=== PATIENT | female | born 1940 | race Caucasian/White ===

== ENCOUNTER 2017-12-26 11:20 | Outpatient (CLI) | payer MEDICARE, OTHER, SELFPAY ==
[2017-12-26 11:51] LABS: HCT 42.2 % (36.0-46.0); Mean Corp. HGB Concentration 33.2 g/dL (32.0-36.0); Mean Corpuscular Volume 96.6 fL (80-95); Mean Platelet Volume 12.5 fL (8.0-11.0); Platelet Count 174 x1000/uL (130-400); RBC 4.37 m/cumm (4.00-5.20); RBC Distribution Width 14.6 % (11.7-14.6); White Blood Cell Count 8.19 k/cumm (4.4-10.8)
[2017-12-26 13:08] LABS: ALT 27 U/L (12-78); AST 23 U/L (15-37); Albumin 3.5 g/dL (3.4-5.0); Alkaline Phosphatase 75 U/L (46-116); Anion Gap 8.2 mmol/L (3-11); BUN 15 mg/dL (7-18); Bilirubin, Total 0.6 mg/dL (0.2-1.0); CO2 27.8 mmol/L (21.0-32.0); Calcium 8.7 mg/dL (8.5-10.1); Chloride 103 mmol/L (98-107); Cholesterol 218 mg/dL (50-200); Glucose 115 mg/dL (70-100); HDL Cholesterol 67 mg/dL (40-60); LDL CHOLESTEROL 131 mg/dL (<100); Potassium 4.4 mmol/L (3.5-5.1); Sodium 139 mmol/L (136-145); Total Protein 7.4 g/dL (6.4-8.2); Triglyceride 150 mg/dL (30-150)
== END 2017-12-26 11:40 ==
PROVIDERS: PCP Nurse Practitioner; Visit Provider Nurse Practitioner
DX: D49.2 Neoplasm of unspecified behavior of bone, soft tissue, and skin (principal); E78.5 Hyperlipidemia, unspecified; I10 Essential (primary) hypertension
CPT/HCPCS: 36415; 80053; 80061; 83721; 85027

== ENCOUNTER 2018-05-27 11:08 | Outpatient (CLI) | payer MEDICARE, OTHER, SELFPAY ==
[2018-05-27 11:39] LABS: HCT 40.9 % (36.0-46.0); HGB 13.7 g/dL (12.0-15.5); Mean Corp. HGB Concentration 33.5 g/dL (32.0-36.0); Mean Corpuscular Hemoglobin 32.2 pg (27.0-33.0); Mean Platelet Volume 12.6 fL (8.0-11.0); Platelet Count 153 x1000/uL (130-400); RBC 4.26 m/cumm (4.00-5.20); RBC Distribution Width 14.2 % (11.7-14.6); White Blood Cell Count 8.61 k/cumm (4.4-10.8)
[2018-05-27 12:14] LABS: ALT 19 U/L (12-78); AST 20 U/L (15-37); Albumin 3.5 g/dL (3.4-5.0); Alkaline Phosphatase 67 U/L (46-116); Anion Gap 8.2 mmol/L (3-11); BUN 19 mg/dL (7-18); Bilirubin, Total 0.6 mg/dL (0.2-1.0); CO2 26.8 mmol/L (21.0-32.0); CREATININE 0.81 mg/dL (0.55-1.02); Calcium 8.9 mg/dL (8.5-10.1); Chloride 105 mmol/L (98-107); Glucose 117 mg/dL (70-100); Potassium 3.8 mmol/L (3.5-5.1); Sodium 140 mmol/L (136-145); TSH (W/Ref FT4) 2.36 uIU/mL (0.358-3.74); Total Protein 7.9 g/dL (6.4-8.2); Vitamin B12 689 pg/mL (193-986)
== END 2018-05-27 11:28 ==
PROVIDERS: PCP Nurse Practitioner; Visit Provider Nurse Practitioner
DX: I10 Essential (primary) hypertension (principal); E78.5 Hyperlipidemia, unspecified; R01.1 Cardiac murmur, unspecified; Z72.0 Tobacco use; M67.442 Ganglion, left hand
CPT/HCPCS: 36415; 80053; 85027; 99204; 99213; 82607; 84443

== ENCOUNTER 2018-07-09 00:33 | Outpatient (CLI) | payer MEDICARE, OTHER, SELFPAY ==
--- NOTE | 2018-07-09 14:10 | MERGE_ITS ---
*[facility]* *[facility]* [address] [place] [address] Date of study: 07/09/2018 Transthoracic Echocardiography M-mode, complete 2D, complete spectral Doppler, and color Doppler *STUDY CONCLUSIONS* Summary: 1. Left ventricle: The cavity size was normal. Wall thickness was normal. Systolic function was normal. The estimated ejection fraction was 60-65%. Wall motion was normal; there were no regional wall motion abnormalities. 2. Aortic valve: Valve mobility was restricted. 3. Mitral valve: Moderately thickened leaflets. There was mild to moderate regurgitation. 4. Left atrium: The atrium was mildly to moderately dilated. 5. Right ventricle: The cavity size was normal. Wall thickness was normal. Systolic function was normal. 6. Tricuspid valve: There was moderate regurgitation. 7. Pulmonary arteries: Pulmonary systolic pressure was increased, in the range of 35mm Hg to 40mm Hg. *PATIENT PRESENTATION* Height: 162.6cm ((64in) ) S/D Pressure: 147 / 76 Weight: 62.1kg ((136.7lb) ) BSA: 1.68m^2 Test start time: 02:15 PM. Test stop time: 03:10 PM. PERFORMING Unknown PERFORMING [facility] RESIDENTIAL MANAGER RT Lele (Thuy)(CT), [facility] ORDERING Giuliana Massey REFERRING Giuliana Massey *PROCEDURE DATA* Procedure information: The patient was identified by two identifiers. This study was interpreted by [facility]. Pertinent images and digital data are archived for permanent storage and are available for subsequent review. No prior study was available for comparison. Study status: Routine. Transthoracic echocardiography. M-mode, complete 2D, complete spectral Doppler, and color Doppler. A Transthoracic Echocardiogram was performed. Scanning was performed from the parasternal, apical, subcostal, and suprasternal notch acoustic windows. Images were obtained using an [id number] cardiac ultrasound machine. Image quality was adequate. Study completion: The patient tolerated the procedure well. There were no complications. History: PMH: Heart murmur r01.1, hyperlipidemia, tobacco use z72.0. *CARDIAC ANATOMY* Left ventricle: The cavity size was normal. Wall thickness was normal. Systolic function was normal. The estimated ejection fraction was 60-65%. Wall motion was normal; there were no regional wall motion abnormalities. Findings consistent with diastolic dysfunction. Aortic valve: Trileaflet; mildly thickened, mildly calcified leaflets. Valve mobility was restricted. Doppler: There was no stenosis. There was no significant regurgitation. VTI ratio of LVOT to aortic valve: 0.64. Valve area (VTI): 2cm^2. Indexed valve area (VTI): 1.2cm^2/m^2. Peak velocity ratio of LVOT to aortic valve: 0.65. Valve area (Vmax): 2cm^2. Indexed valve area (Vmax): 1.2cm^2/m^2. Mean velocity ratio of LVOT to aortic valve: 0.65. Valve area (Vmean): 2.1cm^2. Indexed valve area (Vmean): 1.2cm^2/m^2. Mean gradient (S): 6.1mm Hg. Peak gradient (S): 10.8mm Hg. Aorta: Aortic root: The aortic root was normal in size. Ascending aorta: The ascending aorta was normal in size. Mitral valve: Moderately thickened leaflets. Mobility was not restricted. Doppler: Transvalvular velocity was within the normal range. There was no evidence for stenosis. There was mild to moderate regurgitation. Valve area by pressure half-time: 2.7cm^2. Indexed valve area by pressure half-time: 1.6cm^2/m^2. Peak gradient (D): 2.2mm Hg. Left atrium: The atrium was mildly to moderately dilated. Right ventricle: The cavity size was normal. Wall thickness was normal. Systolic function was normal. Pulmonic valve: Structurally normal valve. Doppler: Transvalvular velocity was within the normal range. There was no evidence for stenosis. There was no significant regurgitation. Peak gradient (S): 4.4mm Hg. Tricuspid valve: Structurally normal valve. Doppler: Transvalvular velocity was within the normal range. There was no evidence for stenosis. There was moderate regurgitation. Pulmonary artery: Pulmonary systolic pressure was increased, in the range of 35mm Hg to 40mm Hg. Right atrium: The atrium was normal in size. Pericardium: There was no pericardial effusion. Systemic veins: Inferior vena cava: Well visualized. The vessel was patent and normal in size. The respirophasic diameter changes were in the normal range (greater than or equal to 50%). Baseline ECG: Bradycardia. Measurements Left ventricle Value Reference LV ID, ED, PLAX 5.3 cm 3.5 - 6.0 LV ID, ES, PLAX 3.2 cm 2.1 - 4.0 LV PW thickness, ED, PLAX 1.0 cm LV end-diastolic volume, 1-p A2C 69 ml LV ejection fraction, 1-p A2C 65 % LV end-diastolic volume, 1-p A4C 59 ml LV ejection fraction, 1-p A4C 62 % LV e', lateral 0.061 m/sec LV E/e', lateral 12 LV e', medial 0.048 m/sec LV E/e', medial 15 LV e', average 0.054 m/sec LV E/e', average 14 Ventricular septum Value Reference IVS thickness, ED, PLAX 1.1 cm LVOT Value Reference LVOT ID, S 2.0 cm LVOT ID, A-P 2.0 cm LVOT area 3.1 cm^2 LVOT peak velocity, S 1.07 m/sec LVOT mean velocity, S 0.77 m/sec LVOT VTI, S 27.3 cm LVOT peak gradient, S 4.6 mm Hg LVOT mean gradient, S 2.6 mm Hg Stroke volume (SV), LVOT DP 75 ml Stroke index (SV/bsa), LVOT DP 44 ml/m^2 Aortic valve Value Reference Aortic valve peak velocity, S 1.6 m/sec Aortic valve mean velocity, S 1.18 m/sec Aortic valve VTI, S 43.0 cm Aortic mean gradient, S 6.1 mm Hg Aortic peak gradient, S 10.8 mm Hg VTI ratio, LVOT/AV 0.64 Aortic valve area, VTI 2 cm^2 Velocity ratio, peak, LVOT/AV 0.65 Aortic valve area, peak velocity 2 cm^2 Velocity ratio, mean, LVOT/AV 0.65 Aortic valve area, mean velocity 2.1 cm^2 Aortic valve area/bsa, mean velocity 1.2 cm^2/m^2 Aorta Value Reference Aortic root ID, ED 2.7 cm Ascending aorta ID, A-P, S 3.1 cm Left atrium Value Reference LA ID, A-P, ES 4.5 cm LA ID/bsa, A-P (H) 2.7 cm/m^2 <=2.2 LA area, ES, A4C 20.8 cm^2 8.8 - 23.4 LA area, ES, A2C 20 cm^2 LA volume/bsa, ES, 1-p A4C 43 ml/m^2 LA volume, ES, 2-p 65 ml LA volume/bsa, ES, 2-p 39 ml/m^2 LA/aortic root ratio 1.63 Mitral valve Value Reference Mitral E-wave peak velocity 0.73 m/sec Mitral A-wave peak velocity 1.15 m/sec Mitral deceleration time (H) 278 ms 150 - 230 Mitral pressure half-time 81 ms Mitral peak gradient, D 2.2 mm Hg Mitral E/A ratio, peak 0.64 Mitral valve area, PHT, DP 2.7 cm^2 Pulmonary veins Value Reference Pulmonary vein peak velocity, S 0.63 m/sec Pulmonary vein peak velocity, D 0.32 m/sec Pulmonary vein velocity ratio, peak, 1.98 S/D Tricuspid valve Value Reference Tricuspid regurg peak velocity 3 m/sec Tricuspid peak RV-RA gradient 35 mm Hg Right atrium Value Reference RA area, ES, A4C 18.5 cm^2 8.3 - 19.5 Pulmonic valve Value Reference Pulmonic peak gradient, S 4.4 mm Hg Legend: (L) and (H) leonora values outside specified reference range. I have personally reviewed the images and have reviewed and edited the reported findings. Electronically signed by Isrrael Dodd 07/09/2018 16:32
== END 2018-07-09 00:53 ==
PROVIDERS: PCP Nurse Practitioner; Visit Provider Nurse Practitioner
DX: R01.1 Cardiac murmur, unspecified (principal); E78.5 Hyperlipidemia, unspecified; I51.7 Cardiomegaly; I08.1 Rheumatic disorders of both mitral and tricuspid valves; Z72.0 Tobacco use
CPT/HCPCS: 93306

== ENCOUNTER 2018-07-18 08:50 | Day surgery (SDC) | payer MEDICARE, OTHER, SELFPAY ==
[2018-07-18 09:08] VITALS: BP 174/81; PULSE 59; RESP 16; TEMP 35.4; O2SAT 100
[2018-07-18] MEDS: Lactated Ringers 1,000 ML 80 ML IV (09:21)
--- NOTE | 2018-07-18 10:45 | W.PM.DSUDISC ---
Discharge Plan Disposition Patient Disposition: HOME Condition: Good Discharge Details Reason For Visit: Left Hand Mass Attending Provider: Surinder Altman Primary Care Provider: Giuliana Massey Home Meds and New Rx's Prescriptions: Continued Shingrix (PF) 50 mcg/0.5 mL suspension for reconstitution 50 mcg IM ONCE Qty: 1 RF: 1 Women's 50+ Daily Form (gkb) 1 EACH tablet 1 ea PO DAILY RF: 0 cholecalciferol (vitamin D3) 1,000 UNIT capsule 1,000 unit PO DAILY RF: 0 biotin 5 MG tablet 5 mg PO DAILY Qty: 1 RF: 0 ascorbic acid (vitamin C) [Vitamin C] 250 MG tablet 2 tab PO DAILY RF: 0 Probiotic 1 EACH capsule 1 ea PO RF: 0 trazodone 50 MG tablet 50 mg PO HS Qty: 30 RF: 3 simvastatin 20 mg tablet 20 mg PO DAILY Qty: 90 RF: 4 lisinopril 40 mg tablet 40 mg PO DAILY Qty: 90 RF: 3 Discharge Instructions Stand Alone Forms: Anupama Dougherty Finger Release Referrals: Surinder Altman MD [ [facility] STAFF PHYSICIAN] - Activity:: Elevate Remove Dressings/Wound Care:: 48 hours Shower/Bathe:: 48 hours Diet:: As Tolerated Discharge Orders Discharge Orders: Discharge Order (Routine); Ordered 07/18/18 Ordered By: Surinder Altman DS: Diagnosis Discharge Diagnosis (1) 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
--- NOTE | 2018-07-18 10:59 | SOFT_PTH ---
PATIENT: Tammi Ivan LOC: [facility] U#:[id number] AGE/SX: 78/F ROOM: RE07/18/[address]: Surinder Altman MD : 1940 BED: DIS: 07/18/2018 SPEC #: [id number] RECD: 07/18/18 13:09 STATUS: ANA RETenzin #: [id number] ANIKA: 07/18/18 10:[address]: Surinder Altman DEPT: Surgical Specimen RECD BY: Melissa Hercules ENTERED: 07/18/18 13:10 SP TYPE: SOFT OTHR DR: Giuliana Massey APRN Tissues: 1 - SOFT TISSUE-CYST(NOT LIPOMA) Procedures: GROSS AND MICRO LEVEL 4 IMMUNOPEROXIDASE STAIN Comments: [id number]
[2018-07-18] MEDS: Lidocaine 1% Multi-Dose 50 ML VIAL (11:02)
--- NOTE | 2018-07-19 16:05 | ROE_ITS ---
DATE OF SURGERY: July 18, 2018 PREOPERATIVE DIAGNOSIS: Left palmar hand mass. POSTOPERATIVE DIAGNOSIS: Left hand mass, likely ganglion cyst. SURGERY: Excisional biopsy of left palmar hand mass. SURGEON: Surinder Altman M.D. ANESTHESIA: Local. ESTIMATED BLOOD LOSS: Minimal. COMPLICATIONS: None. DISPOSITION: The patient was taken back to the same-day surgery area in stable condition. INDICATION FOR PROCEDURE: Davida is a 78-year-old who has had a notable mass of the left palmar aspec t of the hand in line with the ring finger. It seems to be getting larger over the course of a few y ears. It does not cause any significant irritation. However, direct pressure causes pain. Given it s size and its impedance to using the palm of the hand, I recommended excisional biopsy. I reviewed the risks of the procedure to include bleeding, infection, pain, stiffness, damage to nerves and vess els, damage to muscles and tendons, recurrence, need for repeat procedures. Despite these risks, she elected to proceed. PROCEDURE DESCRIPTION: Davida was greeted in the preoperative holding area. Her identity was confirm ed and the correct side was identified and marked. The consent was reviewed with the patient and sig kandace. The history and physical was updated. She was taken back to the operating room, placed in the supine position. The left hand was placed on the hand table. All prominences were well-padded. The left hand was prepped with ChloraPrep. It was then draped in a standard fashion. Prophylactic anti biotics in the form of Cefazolin were given. A time-out was performed for safe surgery. A Cait-type incision was then made just to the ulnar border of the mass. The mass did seem to tent the skin and tighten the skin in this area and therefore I did not want to go directly on top of it. I used her normal creases to create this incision pattern. Once this was done, blunt dissection wa s used to identify the mass below. The capsule of it was identified. I was able to release the caps ule of the mass. There was a small amount of some granular tissue seen on the edge. However, I did not see anything that looked particularly worrisome. There was no necrosis or other signs of an inva sive disease. It did appear to be a ganglion, although it did not seem to rise from the flexor tendo n as I had expected. After the sheath was entered I was able to release it from the sheath completel y and remove it from the hand. It was sent to Pathology. The deep tissue was then irrigated. The s kin was closed with a #5-0 Nylon. The wound was dressed with Xeroform, 4x4's, conforming dressing. At the end of the case all counts were correct. She was transferred back to same-day surgery in a st able condition.
== END 2018-07-18 11:00 | disposition home or self-care (01) ==
PROVIDERS: PCP Nurse Practitioner; Visit Provider Student in an Organized Health Care Education/Training Program
PROC: (CPT 26115; principal; 2018-07-18 10:15)
DX: D36.10 Benign neoplasm of peripheral nerves and autonomic nervous system, unspecified (principal); F17.210 Nicotine dependence, cigarettes, uncomplicated
CPT/HCPCS: 26115; 88305; 88361

== ENCOUNTER 2018-07-26 09:15 | Outpatient (CLI) | payer MEDICARE, OTHER, SELFPAY ==
[2018-07-26 11:15] LABS: Cholesterol 202 mg/dL (50-200); HDL Cholesterol 56 mg/dL (40-60); LDL CHOLESTEROL 114 mg/dL (<100); Triglyceride 122 mg/dL (30-150)
== END 2018-07-26 09:35 ==
PROVIDERS: PCP Nurse Practitioner; Visit Provider Nurse Practitioner
DX: E78.5 Hyperlipidemia, unspecified (principal); I10 Essential (primary) hypertension; Z47.89 Encounter for other orthopedic aftercare; D36.12 Benign neoplasm of peripheral nerves and autonomic nervous system, upper limb, including shoulder
CPT/HCPCS: 36415; 80061; 83721

== ENCOUNTER 2019-02-02 18:31 | Inpatient (IN) | payer MEDICARE, OTHER, SELFPAY ==
[2019-02-02] VITALS (7 sets, daily range): BP systolic 121–186; BP diastolic 60–99; PULSE 85–100; RESP 14–21; TEMP 35.2–37.5; O2SAT 94–98
--- NOTE | 2019-02-02 18:44 | ED.GENADUL_ITS ---
Discharge Plan Disposition Patient Disposition: [facility] INPATIENT Condition: Serious Discharge Details Chief Complaint: Trauma Clinical Impression: Acute kidney injury, Hip fracture, intertrochanteric Primary Care Provider: Giuliana Massey ED Provider: Abrahan Redd Home Meds and New Rx's Prescriptions: No Action Shingrix (PF) 50 mcg/0.5 mL suspension for reconstitution 50 mcg IM ONCE Qty: 1 RF: 1 valacyclovir 1 gram tablet 1,000 mg PO TID Qty: 21 RF: 0 metronidazole 0.75 % cream 1 applic TP QHS Qty: 45 RF: 6 acetaminophen-codeine 300-30 mg tablet 1 tab PO TID PRN (Reason: pain) Qty: 15 RF: 0 simvastatin 20 mg tablet 20 mg PO DAILY Qty: 90 RF: 4 Women's 50+ Daily Form (gkb) 1 EACH tablet 1 ea PO DAILY RF: 0 cholecalciferol (vitamin D3) 1,000 UNIT capsule 1,000 unit PO DAILY RF: 0 ascorbic acid (vitamin C) [Vitamin C] 250 MG tablet 2 tab PO DAILY RF: 0 Probiotic 1 EACH capsule 1 ea PO RF: 0 trazodone 50 MG tablet 50 mg PO HS Qty: 30 RF: 3 lisinopril 40 mg tablet 40 mg PO DAILY Qty: 90 RF: 3 Medical Decision Making This patient is a 78-year-old female who presents to the emergency department with chief complaint of a fall, being found down. She will need CT scan of the head, neck, chest x-ray, pelvic x-ray and hip x-ray. She will need blood work to check her CPK. EKG will be done. She would then be reassessed. X-rays revealed a right displaced intertrochanteric fracture. No other acute abnormalities on x-rays. Patient does have acute kidney injury with a mild bump in her creatinine kinase. She will need admission to the hospital. I spoke with the on-call orthopedic doctor and with the admitting hospitalist. Patient agrees with inpatient treatment plan. Medical Records Medical records reviewed: Yes I reviewed the patient's medical records. Lab Data Lab results reviewed: Yes I reviewed the patient's lab results. ECG Data Attestation: I personally reviewed and interpreted this ECG (s) as follows: Interpretation: EKG shows sinus rhythm, rate of 94, multiple PVCs, no ST elevation. Poor baseline. HPI This patient is a 78-year-old female who presents to the emergency department with chief complaint of fall last night. She states that she does not know how she fell, she found herself on the floor. She remained there until today when she was found by a neighbor. EMS was called and they brought her here. She complains of right hip pain. This is her chief complaint and really only complaint at this time. She denies any numbness or tingling. No recent chest pain, difficulty breathing, vomiting or diarrhea. No dysuria. Nothing except remaining still has made it better. Movement makes it worse. It is a sharp, severe pain. General Date/Time Provider Initiated Documentation: 02/02/19 18:37 . Related Data Home Medications Medication Instructions Recorded Confirmed Women's 50+ Daily Form (gkb) 1 ea PO DAILY 09/04/12 02/02/19 cholecalciferol (vitamin D3) 1,000 unit PO DAILY 10/02/13 02/02/19 ascorbic acid (vitamin C) [Vitamin 2 tab PO DAILY 07/04/16 02/02/19 C] Probiotic 1 ea PO 01/11/17 08/27/18 trazodone 50 mg PO HS #30 tab 05/10/17 02/02/19 varicella-zoster gE-AS01B (PF) 50 50 mcg IM ONCE #1 each 12/27/17 02/02/19 mcg/0.5 mL IM susp, kit lisinopril 40 mg tablet 40 mg PO DAILY #90 tab-cap 06/10/18 02/02/19 simvastatin 20 mg tablet 20 mg PO DAILY #90 tab-cap 01/07/19 02/02/19 acetaminophen 300 mg-codeine 30 mg 1 tab PO TID PRN #15 tab 01/28/19 02/02/19 tablet metronidazole 0.75 % topical cream 1 applic TP QHS #45 gm 01/28/19 02/02/19 valacyclovir 1 gram tablet 1,000 mg PO TID #21 tab 01/28/19 02/02/19 Previous Rx's Medication Instructions Recorded trazodone 50 mg PO HS #30 tab 05/10/17 varicella-zoster gE-AS01B (PF) 50 50 mcg IM ONCE #1 each 12/27/17 mcg/0.5 mL IM susp, kit lisinopril 40 mg tablet 40 mg PO DAILY #90 tab-cap 06/10/18 simvastatin 20 mg tablet 20 mg PO DAILY #90 tab-cap 01/07/19 acetaminophen 300 mg-codeine 30 mg 1 tab PO TID PRN #15 tab 01/28/19 tablet metronidazole 0.75 % topical cream 1 applic TP QHS #45 gm 01/28/19 valacyclovir 1 gram tablet 1,000 mg PO TID #21 tab 01/28/19 Allergies Allergy/AdvReac Type Severity Reaction Status Date / Time No Known Allergies Allergy Verified 01/28/19 10:05 Review of Systems Narrative: Gen: no fevers. Card: no chest pain. Resp: No cough, difficulty breathing. Abd: no vomiting, abd pain. The rest of the 10 point review of systems is negative except as described in the HPI and above in the ROS. [facility] Medical History Rosacea (Acute) Surgical History Appendectomy (~2000) endometrial biopsy (~1995) neg facetectomy s/p left sided L4-L5 faceectomy; Dr. Arenas FORAMINOTOMY LUMBAR SEG History of excision of lesion (Acute 01/11/18) [place] [facility] [place] LAMINECTOMY DECOMPRESS Ligation of fallopian tube Family History Mother Neoplasm Father Heart disease Sister Heart disease Social History Smoking/Tobacco Use Status: Current every day Tobacco Type: cigarettes Smoking packs per day: 0.5 Smoking cigarettes per day: 10.0 Tobacco: How many years used: 25 Alcohol Intake: current Alcohol Intake frequency: 0-2 drinks per day Drug use: Never Substance use type: does not use Caregiver/Support person: No Pets and animals: Yes Pets and animals: dog(s) What type of physical activity do you participate in: none Seatbelt use: always Do you feel safe in your relationship?: Yes Exam Narrative Exam Narrative: Gen: no acute distress, alert. Eyes: Pupils equal, reactive to light, EOMs intact. ENT: nose and ears normal, posterior pharynx without injection or swelling. Neck: normal ROM. not tender. Lung: Clear to auscultation bilaterally, no respiratory distress. Card: RRR, normal S1, S2, no M/R/G. 2+ radial pulses bilaterally. Abd: soft, non-tender, no hepatosplenomegaly (shingles rash healing on abdomen). Upper extremity: no deformity or tenderness. there is a 4.5 cm in diameter skin tear to the left arm. Lower extremity: no edema. there is tendenress to right hip and it has limited ROM due to pain. normal distal sensation and movement. Neuro: speech normal, no gross motor deficits. Psych: alert and oriented to person, place time, normal affect. Skin: warm, intact.
--- NOTE | 2019-02-02 18:53 | DI.CT_ITS ---
EXAM: CT HEAD CERVICAL SPINE WO CLINICAL HISTORY: fall yesterday, found down. TECHNIQUE: Noncontrast COMPARISON: NECK WITHOUT CONTRAST from 01/30/2016 FINDINGS: HEAD: No intracranial hemorrhage or skull fracture is seen. There is mild atrophy. There is an old left basal ganglia lacunar infarct. There is patchy low attenuation in the white matter consistent wi th small vessel disease. The orbits, sinuses and mastoid air cells are unremarkable. C spine: There is no evidence of fracture or subluxation. There are degenerative disc changes, great est at C5-6 and C6-7. There are also prominent facet joint degenerative changes. The airway is unre markable. No pneumothorax is seen at the lung apices. IMPRESSION: Old left basal ganglia lacunar infarct. No acute abnormality. No acute abnormality. Degenerative changes.
--- NOTE | 2019-02-02 18:53 | DI.RAD_ITS ---
EXAM: XR CHEST 1V IN DI DEPT INDICATION: fall yesterday, found down.. COMPARISON: CHEST 2 VIEWS PA,LAT from 10/06/2013 TECHNIQUE: 2D digital imaging was performed. FINDINGS: Heart size is normal. The aorta is tortuous. There are underlying fibrotic changes. No superimpose d infiltrate, effusion or pulmonary edema is seen. There is no evidence of pneumothorax. There is n o grossly displaced rib fracture. IMPRESSION: Chronic interstitial changes. No acute abnormality.
--- NOTE | 2019-02-02 19:16 | NUR.NOTE ---
BIBA from home with c/o hip pain s/p fall. Pt had mechanical fall on stairs last night at 1830. Home with no power, pt was on floor for approx 24 hours. Cool to touch, rectal temp 95.4. Alfredo hugger placed on arrival. +PP, +CSM. arrives with 2 IV. Pt denies headstrike, unsure of LOC. Denies neck pain.
[2019-02-02 19:23] LABS: Abs Immature Grans 0.09 k/cumm (0.0-0.09); HCT 33.4 % (36.0-46.0); HGB 11.4 g/dL (12.0-15.5); Mean Corp. HGB Concentration 34.1 g/dL (32.0-36.0); Mean Corpuscular Hemoglobin 32.4 pg (27.0-33.0); Mean Corpuscular Volume 94.9 fL (80-95); Mean Platelet Volume 12.3 fL (8.0-11.0); Platelet Count 171 x1000/uL (130-400); RBC 3.52 m/cumm (4.00-5.20); RBC Distribution Width 12.8 % (11.7-14.6); White Blood Cell Count 20.88 k/cumm (4.4-10.8)
[2019-02-02 19:35] LABS: Absolute Lymphocyte Count 1.46 k/cumm (1.2-3.4); Absolute Neutrophil Count 17.12 k/cumm (1.2-6.7); Atypical Lymphocytes % 0
[2019-02-02 19:36] LABS: Diff Comment Manual Differential; RBC Morphology Normal
[2019-02-02] MEDS: Normal Saline 1,000 ML 1000 ML IV (19:38)
[2019-02-02 19:45] LABS: ALT 29 U/L (14-59); AST 47 U/L (15-37); Albumin 3.1 g/dL (3.4-5.0); Alkaline Phosphatase 60 U/L (46-116); Anion Gap 18.6 mmol/L (3-11); BUN 35 mg/dL (7-18); Bilirubin, Total 0.6 mg/dL (0.2-1.0); CO2 18.4 mmol/L (21.0-32.0); CREATININE 1.83 mg/dL (0.55-1.02); Calcium 8.3 mg/dL (8.5-10.1); Chloride 102 mmol/L (98-107); Glucose 123 mg/dL (70-100); Potassium 3.8 mmol/L (3.5-5.1); Sodium 139 mmol/L (136-145); Total Protein 6.8 g/dL (6.4-8.2)
[2019-02-02 19:46] LABS: Creatine Kinase 1482 U/L (26-192); Magnesium 1.7 mg/dL (1.8-2.4); Troponin I < 0.05 ng/mL (0.00-0.06)
--- NOTE | 2019-02-02 19:47 | NUR.NOTE ---
Pt reports recent dx of shingles, noted to have scabbed blisters from right abd around right hip to right buttocks.
--- NOTE | 2019-02-02 20:36 | DI.RAD_ITS ---
EXAM: XR HIP RT COMPLETE AP PELVIS INDICATION: fall yesterday, found down. COMPARISON: LUMBAR SPINE COMPLETE from 09/27/2011 TECHNIQUE: 2D digital imaging was performed. FINDINGS: There is an intertrochanteric fracture of the right femur. There is severe superior displacement of the femur. The lesser trochanter is fractured as separate fragment. There is also some comminution at the greater trochanter. The hip joint space is relatively well maintained. There is prominent serra perior acetabular spurring. IMPRESSION: Comminuted, severely displaced intertrochanteric fracture of the right femur.
--- NOTE | 2019-02-02 20:40 | DI.VRAD_ITS ---
PROCEDURE INFORMATION: Exam: XR Right Hip with Pelvis when Performed Exam date and time: 02/02/2019 6:55 PM Clinical history: 78 years old, female; Other: Fall yesterday, found today TECHNIQUE: Imaging protocol: XR Right hip with pelvis when performed. Views: 2 or 3 views. COMPARISON: No relevant prior studies available. FINDINGS: Tubes, catheters and devices: Hyperattenuating device noted projecting over the midline lower pelvis. Bones/joints: There is comminuted, displaced right proximal femoral intertrochanteric fracture involving the greater and lesser trochanter with displacement of the lesser trochanter. There is significant proximal migration of the femoral shaft. Moderate degenerative change of the right hip, no hip dislocation. Soft tissues: Moderate to severe right hip soft tissue edema.. Gastrointestinal tract: There is mild gaseous distention of the rectum. IMPRESSION: Displaced, comminuted proximal right femoral intertrochanteric fracture. Recommend orthopedic surgical consultation. Dictated and Authenticated by: Scott Barber MD. Ordering:SAÚL Gauthier MD
--- NOTE | 2019-02-02 20:41 | DI.VRAD_ITS ---
PROCEDURE INFORMATION: Exam: XR Chest, 1 View Exam date and time: 02/02/2019 6:55 PM Clinical history: 78 years old, female; Other: Fall yesterday, found today TECHNIQUE: Imaging protocol: XR of the chest Views: 1 view. COMPARISON: CR CHEST 2 VIEWS PA,LAT 10/06/2013 9:20 AM FINDINGS: Lungs: Lungs are adequately inflated and symmetric. No focal consolidation or pulmonary edema. There is perihilar and bibasilar interstitial thickening, similar to prior, with linear inferior left hemithorax opacity, likely chronic subsegmental atelectasis and/or scarring. Pleural space: No pleural effusion. No pneumothorax. Heart/Mediastinum: Cardiomediastinal contours within normal limits. Vasculature: Vascular calcifications of the aortic arch. Bones/joints: Mild S-shaped curvature of the thoracolumbar spine. No acute osseous findings. Soft tissues: No focal soft tissue abnormailty. IMPRESSION: No acute cardiopulmonary finding. Unchanged chronic interstitial thickening. Dictated and Authenticated by: Scott Barber MD. Ordering:SAÚL Gauthier MD
[2019-02-02 20:50] LABS: Bilirubin Small (Negative); Blood Small (Negative); Clarity Clear (Clear); Glucose Negative (Negative); Ketones 15 mg/dL (Negative); Leukocyte Esterase Negative (Negative); Nitrite Negative (Negative); Specific Gravity 1.025 (1.005-1.025); Urobilinogen 0.2 EU/dL (Up TO 0.2); pH 5.5 (5-8)
--- NOTE | 2019-02-02 20:51 | DI.VRAD_ITS ---
PROCEDURE INFORMATION: Exam: CT Head Without Contrast Exam date and time: 02/02/2019 8:03 PM Clinical history: 78 years old, female; Other: Fall yesterday, found down. ; Other: Fall, trauma TECHNIQUE: Imaging protocol: Computed tomography of the head without contrast. Radiation optimization: All CT scans at this facility use at least one of these dose optimization techniques: automated exposure control; mA and/or kV adjustment per patient size (includes targeted exams where dose is matched to clinical indication); or iterative reconstruction. COMPARISON: No relevant prior studies available. FINDINGS: Brain: There is mild age related parenchymal atrophy with prominence of the cortical sulci. Periventricular and deep white matter hypodensities are consistent with sequela of chronic microvascular ischemic disease. Elias-white matter differentiation is preserved. No acute intracranial hemorrhage. Focal CSF density area within the posterior limb of the left internal capsule is consistent with old infarct. Ventricles: Unremarkable.No ventriculomegaly. Bones/joints: Unremarkable. No acute fracture. Sinuses: Paranasal sinuses are well aerated without air fluid level. Mastoid air cells: No mastoid effusion. Orbits: Unremarkable. Soft tissues: No focal soft tissue abnormality. Vasculature: Vascular calcifications within the vertebral and carotid arteries are present. IMPRESSION: No acute intracranial finding. Chronic/senescent changes as discussed. PROCEDURE INFORMATION: Exam: CT Cervical Spine Without Contrast Exam date and time: 02/02/2019 8:03 PM Clinical history: 78 years old, female; Other: Fall yesterday, found down. ; Other: Fall, trauma TECHNIQUE: Imaging protocol: Computed tomography images of the cervical spine without contrast. Radiation optimization: All CT scans at this facility use at least one of these dose optimization techniques: automated exposure control; mA and/or kV adjustment per patient size (includes targeted exams where dose is matched to clinical indication); or iterative reconstruction. COMPARISON: No relevant prior studies available. FINDINGS: Vertebrae: Diffuse decrease in osseous mineralization compatible with osteopenia. No acute fracture. No spondylolisthesis. There is severe multilevel facet hypertrophic changes, asymmetric to the left. Discs/Spinal canal/Neural foramina: There is moderate degenerative disc changes at the C5-C7 levels with moderate to severe intervertebral disc height loss. There is mild osseous central canal narrowing at the C5-C7 levels with mild to moderate bilateral osseous neuroforaminal narrowing, left greater than right. Retropharyngeal space: Within normal limits. Soft tissues: No focal abnormality. Thyroid: No mass. Lymph nodes: No pathologically sized nodes by CT size criteria. Lungs: Lung apices are clear. IMPRESSION: 1. No acute fracture. 2. Moderate to severe cervical spondylosis. 3. Osteopenia. Dictated and Authenticated by: Scott Barber MD. Ordering:SAÚL Gauthier MD
[2019-02-02 20:59] LABS: Bacteria Few HPF (Negative); C & S Indicated? No; Casts Negative LPF (Negative); Crystals Negative HPF (Negative); Epithelial Cells Negative HPF (Negative); Mucus Trace (Negative); Other Cells Negative (Negative); WBC Negative HPF (0-5)
--- NOTE | 2019-02-02 21:33 | HPE_ITS ---
Date of service: 02/02/19 Time of Service: 21:33 Assessment and Plan Assessment and plan (1) Intertrochanteric fracture of right femur: Start date: 02/02/19 Start time: 21:51 Status: Acute Assessment and plan: This is a 78-year-old lady here for recent fall at home where she stayed on the floor on the couch 4 hours prior to coming to the ED. She has mild rhabdomyolysis and dehydration along with a displaced inter trochanteric right hip fracture. We will continue pain control with IV hydration and keep her n.p.o. after midnight with orthopedic consultation in place with Dr. Rivera who should see her in the morning. She does have some chronic cardiac history with dysrhythmias and mitral regurgitation but no previous CAD manifestations by history with no acute findings on EKG other than her dysrhythmia and poor baseline in the ED. We will trend her troponins and watch her telemetry hopefully clearing her for surgery as available tomorrow. Qualifiers: Encounter type: initial encounter Fracture alignment: displaced Fracture type: closed Qualified Code(s): S72.141A - Displaced intertrochanteric fracture of right femur, initial encounter for closed fracture (2) Rhabdomyolysis: Start date: 02/02/19 Start time: 21:51 Status: Acute Assessment and plan: IV hydration and CPK along with renal functions. Qualifiers: Encounter type: initial encounter Rhabdomyolysis type: traumatic Qualified Code(s): T79.6XXA - Traumatic ischemia of muscle, initial encounter (3) Dehydration, moderate: Start date: 02/02/19 Start time: 21:51 Status: Acute Assessment and plan: IV hydration and follow-up on labs. If she continues to have low magnesium IV magnesium to stabilize the patient preoperatively. History of Present Illness History of Present Illness Chief Complaint: Fall with right hip pain Narrative: This is a 78-year-old lady who lives alone who was getting ready for bed the night prior to admission when she was at the bottom of the stairs falling onto her right side injuring her right hip. She could not get up, therefore crawled to the couch on the first floor and was down for the day. She initially called for help and came to the ED the evening of admission with evaluation revealing mild rhabdomyolysis with and not being clear whether she was on the floor on account and dehydration with a displaced right intertrochanteric femur fracture. She admitted for IV hydration and orthopedics was consulted through the ED to see the patient tomorrow morning. She also had a recent episode of shingles over her right hip area and is on treatment for this. This rash is drying. She denies any chest pain, shortness of breath or neurological symptoms prior to her fall and thinks that she simply fell on the stairs at the bottom and not down the stairs. Imaging of her head and neck were negative. She does have an elevated white count but no evidence of active infection and this may be secondary to stress. He has had no fever or chills. He has had no urinary symptoms. Her appetite presently is decreased because of her pain. Review of Systems Narrative: 13 point review of systems otherwise unrevealing or stable. Patient does live alone and independently. [facility] Medical History Rosacea (Acute) Surgical History Appendectomy (~2000) endometrial biopsy (~1995) neg facetectomy s/p left sided L4-L5 faceectomy; Dr. Arenas FORAMINOTOMY LUMBAR SEG History of excision of lesion (Acute 01/11/18) [place] [facility] [place] LAMINECTOMY DECOMPRESS Ligation of fallopian tube Family History Mother Neoplasm Father Heart disease Sister Heart disease Social History Smoking/Tobacco Use Status: Current every day Tobacco Type: cigarettes Smoking packs per day: 0.5 Smoking cigarettes per day: 10.0 Tobacco: How many years used: 25 Alcohol Intake: current Alcohol Intake frequency: 0-2 drinks per day Drug use: Never Substance use type: does not use Caregiver/Support person: No Pets and animals: Yes Pets and animals: dog(s) What type of physical activity do you participate in: none Seatbelt use: always Do you feel safe in your relationship?: Yes Meds Home Medications and Allergies Home Medications Medication Instructions Recorded Confirmed Type Women's 50+ Daily Form (gkb) 1 ea PO DAILY 09/04/12 02/02/19 History cholecalciferol (vitamin D3) 1,000 unit PO DAILY 10/02/13 02/02/19 History ascorbic acid (vitamin C) [Vitamin 2 tab PO DAILY 07/04/16 02/02/19 History C] Probiotic 1 ea PO 01/11/17 08/27/18 History trazodone 50 mg PO HS #30 tab 05/10/17 02/02/19 Rx varicella-zoster gE-AS01B (PF) 50 50 mcg IM ONCE #1 each 12/27/17 02/02/19 Rx mcg/0.5 mL IM susp, kit lisinopril 40 mg tablet 40 mg PO DAILY #90 tab-cap 06/10/18 02/02/19 Rx simvastatin 20 mg tablet 20 mg PO DAILY #90 tab-cap 01/07/19 02/02/19 Rx acetaminophen 300 mg-codeine 30 mg 1 tab PO TID PRN #15 tab 01/28/19 02/02/19 Rx tablet metronidazole 0.75 % topical cream 1 applic TP QHS #45 gm 01/28/19 02/02/19 Rx valacyclovir 1 gram tablet 1,000 mg PO TID #21 tab 01/28/19 02/02/19 Rx Allergies Allergy/AdvReac Type Severity Reaction Status Date / Time No Known Allergies Allergy Verified 01/28/19 10:05 Exam Narrative Exam Narrative: General: Patient appears older than stated age, flattened affect but normal eye contact and variation. She is alert and oriented at least to person and place. He is in moderate distress from her right hip pain. HEENT: Normocephalic with eyes revealing pupils equal and reactive to light sy mmetrically, extraocular movement intact and sclera anicteric. Oropharynx with dry oral mucosa. Ears normal. Neck: Supple without JVD. Lungs: Clear to auscultation with no focalizing rales, rhonchi or expiratory wheeze. Chest: Slightly tender to palpation over the anterior chest with no bruising or crepitus. Symmetric with inspiration. Breast: Exam deferred. Heart: Irregular rhythm with frequent extrasystoles (on surveillance monitor these are unifocal PVCs with occasional PACs), normal S1 and S2 with no gallops. 4/6 holosystolic murmur over the apex (patient states he does have mitral regurgit ation). Abdomen: Scaphoid contour, soft and nontender to palpation with no palpable hepatosplenomegaly. Bowel sounds are positive all quadrants. Genitalia/rectal: Exam deferred. Extremities: Tenderness over the right hip with any movement and no swelling or bruising though there is a drying zoster rash over her right hip area and inguinal region, nonpitting edema lower extremities with peripheral pulses intact and no clubbing. Osteoarthritic changes of the joints diffusely. Skin: Zoster rash over the right hip area and rosacea rash over face with diffuse actinic changes of the skin, decreased turgor and slightly pale. Neuro: Tato 2 through 12 grossly intact, no focalizing motor deficits and sensory grossly back. No Babinski's. Psych: Patient may have some short-term memory loss, flattened affect but normal mood and thought processes. Results Imaging Imaging Studies: Exam(s) PROCEDURE INFORMATION: Exam: XR Right Hip with Pelvis when Performed Exam date and time: 02/02/2019 6:55 PM Clinical history: 78 years old, female; Other: Fall yesterday, found today TECHNIQUE: Imaging protocol: XR Right hip with pelvis when performed. Views: 2 or 3 views. COMPARISON: No relevant prior studies available. FINDINGS: Tubes, catheters and devices: Hyperattenuating device noted projecting over the midline lower pelvis. Bones/joints: There is comminuted, displaced right proximal femoral intertrochanteric fracture involving the greater and lesser trochanter with displacement of the lesser trochanter. There is significant proximal migration of the femoral shaft. Moderate degenerative change of the right hip, no hip dislocation. Soft tissues: Moderate to severe right hip soft tissue edema.. Gastrointestinal tract: There is mild gaseous distention of the rectum. IMPRESSION: Displaced, comminuted proximal right femoral intertrochanteric fracture. Recommend orthopedic surgical consultation. Dictated and Authenticated by: Scott Barber MD Exam(s) PROCEDURE INFORMATION: Exam: XR Chest, 1 View Exam date and time: 02/02/2019 6:55 PM Clinical history: 78 years old, female; Other: Fall yesterday, found today TECHNIQUE: Imaging protocol: XR of the chest Views: 1 view. COMPARISON: CR CHEST 2 VIEWS PA,LAT 10/06/2013 9:20 AM FINDINGS: Lungs: Lungs are adequately inflated and symmetric. No focal consolidation or pulmonary edema. There is perihilar and bibasilar interstitial thickening, similar to prior, with linear inferior left hemithorax opacity, likely chronic subsegmental atelectasis and/or scarring. Pleural space: No pleural effusion. No pneumothorax. Heart/Mediastinum: Cardiomediastinal contours within normal limits. Vasculature: Vascular calcifications of the aortic arch. Bones/joints: Mild S-shaped curvature of the thoracolumbar spine. No acute osseous findings. Soft tissues: No focal soft tissue abnormailty. IMPRESSION: No acute cardiopulmonary finding. Unchanged chronic interstitial thickening. Dictated and Authenticated by: Scott Barber MD. Exam(s) PROCEDURE INFORMATION: Exam: CT Head Without Contrast Exam date and time: 02/02/2019 8:03 PM Clinical history: 78 years old, female; Other: Fall yesterday, found down. ; Other: Fall, trauma TECHNIQUE: Imaging protocol: Computed tomography of the head without contrast. Radiation optimization: All CT scans at this facility use at least one of these dose optimization techniques: automated exposure control; mA and/or kV adjustment per patient size (includes targeted exams where dose is matched to clinical indication); or iterative reconstruction. COMPARISON: No relevant prior studies available. FINDINGS: Brain: There is mild age related parenchymal atrophy with prominence of the cortical sulci. Periventricular and deep white matter hypodensities are consistent with sequela of chronic microvascular ischemic disease. Elias-white matter differentiation is preserved. No acute intracranial hemorrhage. Focal CSF density area within the posterior limb of the left internal capsule is consistent with old infarct. Ventricles: Unremarkable.No ventriculomegaly. Bones/joints: Unremarkable. No acute fracture. Sinuses: Paranasal sinuses are well aerated without air fluid level. Mastoid air cells: No mastoid effusion. Orbits: Unremarkable. Soft tissues: No focal soft tissue abnormality. Vasculature: Vascular calcifications within the vertebral and carotid arteries are present. IMPRESSION: No acute intracranial finding. Chronic/senescent changes as discussed. PROCEDURE INFORMATION: Exam: CT Cervical Spine Without Contrast Exam date and time: 02/02/2019 8:03 PM Clinical history: 78 years old, female; Other: Fall yesterday, found down. ; Other: Fall, trauma TECHNIQUE: Imaging protocol: Computed tomography images of the cervical spine without contrast. Radiation optimization: All CT scans at this facility use at least one of these dose optimization techniques: automated exposure control; mA and/or kV adjustment per patient size (includes targeted exams where dose is matched to clinical indication); or iterative reconstruction. COMPARISON: No relevant prior studies available. FINDINGS: Vertebrae: Diffuse decrease in osseous mineralization compatible with osteopenia. No acute fracture. No spondylolisthesis. There is severe multilevel facet hypertrophic changes, asymmetric to the left. Discs/Spinal canal/Neural foramina: There is moderate degenerative disc changes at the C5-C7 levels with moderate to severe intervertebral disc height loss. There is mild osseous central canal narrowing at the C5-C7 levels with mild to moderate bilateral osseous neuroforaminal narrowing, left greater than right. Retropharyngeal space: Within normal limits. Soft tissues: No focal abnormality. Thyroid: No mass. Lymph nodes: No pathologically sized nodes by CT size criteria. Lungs: Lung apices are clear. IMPRESSION: 1. No acute fracture. 2. Moderate to severe cervical spondylosis. 3. Osteopenia. Dictated and Authenticated by: Scott Barber MD Labs Result diagrams: 02/02/19 19:15 02/02/19 19:15 Labs: Laboratory Results - last 24 hr 02/02/19 02/02/19 02/02/19 19:15 19:15 19:15 WBC 20.88 H RBC 3.52 L Hgb 11.4 L Hct 33.4 L MCV 94.9 MCH 32.4 MCHC 34.1 RDW 12.8 Plt Count 171 MPV 12.3 H Immature Gran % 0.0 Neutrophils % 82.0 Band Neutrophils % 0.0 Lymphocytes % 7.0 Atypical Lymphs % 0 Monocytes % 11.0 Eosinophils % 0.0 Basophils % 0.0 Absolute Neutrophils 17.12 H Absolute Lymphocytes 1.46 Absolute Monocytes 2.30 H Absolute Eosinophils 0.00 Absolute Basophils 0.00 Differential Comment Manual differential RBC Morphology Normal Sodium 139 Potassium 3.8 Chloride 102 Carbon Dioxide 18.4 L Anion Gap 18.6 H BUN 35 H Creatinine 1.83 H Estimated GFR/1.73 m2 26.70 Glucose 123 H Calcium 8.3 L Magnesium 1.7 L Total Bilirubin 0.6 AST 47 H ALT 29 Alkaline Phosphatase 60 Creatine Kinase 1482 H Troponin I < 0.05 Total Protein 6.8 Albumin 3.1 L Urine Color Urine Clarity Urine pH Ur Specific [place] Urine Protein Urine Ketones Urine Blood Urine Nitrite Urine Bilirubin Urine Urobilinogen Ur Leukocyte Esterase Urine RBC Urine WBC Ur Epithelial Cells Urine Crystals Urine Bacteria Urine Casts Urine Mucus Urine Other Ur Culture Indicated? Urine Glucose 02/02/19 20:00 WBC RBC Hgb Hct MCV MCH MCHC RDW Plt Count MPV Immature Gran % Neutrophils % Band Neutrophils % Lymphocytes % Atypical Lymphs % Monocytes % Eosinophils % Basophils % Absolute Neutrophils Absolute Lymphocytes Absolute Monocytes Absolute Eosinophils Absolute Basophils Differential Comment RBC Morphology Sodium Potassium Chloride Carbon Dioxide Anion Gap BUN Creatinine Estimated GFR/1.73 m2 Glucose Calcium Magnesium Total Bilirubin AST ALT Alkaline Phosphatase Creatine Kinase Troponin I Total Protein Albumin Urine Color Yellow Urine Clarity Clear Urine pH 5.5 Ur Specific [place] 1.025 Urine Protein 100 H Urine Ketones 15 H Urine Blood Small H Urine Nitrite Negative Urine Bilirubin Small H Urine Urobilinogen 0.2 Ur Leukocyte Esterase Negative Urine RBC 3-5 H Urine WBC Negative Ur Epithelial Cells Negative Urine Crystals Negative Urine Bacteria Few Urine Casts Negative Urine Mucus Trace Urine Other Negative Ur Culture Indicated? No Urine Glucose Negative Last Vital Signs Temp 37.4 C 02/02/19 20:49 Pulse 92 H 02/02/19 20:49 Resp 17 02/02/19 20:49 BP 138/66 02/02/19 20:49 Pulse Ox 95 02/02/19 20:49
[2019-02-02] MEDS: Normal Saline 1,000 ML 150 ML IV (21:50)
[2019-02-02 22:34] LABS: Troponin I < 0.05 ng/mL (0.00-0.06)
--- NOTE | 2019-02-02 22:47 | NUR.NOTE ---
Report to leanne Lawrence transported to [facility].
--- NOTE | 2019-02-02 22:56 | NUR.NOTE ---
adaptic/kerlix to left upper arm skin tear.
[2019-02-02] MEDS: Acetaminophen 325 MG TAB PO (23:52)
[2019-02-02] MEDS: Nicotine 21 MG/24 HR PATCH TD (23:52)
[2019-02-02] MEDS: traZODone 50 MG TAB PO (23:53)
[2019-02-03] VITALS (16 sets, daily range): BP systolic 92–139; BP diastolic 47–72; PULSE 77–95; RESP 12–18; TEMP 36.5–37.3; O2SAT 95–98
[2019-02-03] MEDS: Lactated Ringers 1,000 ML 150 ML IV (00:01)
--- NOTE | 2019-02-03 00:13 | NUR.NOTE ---
Patient was admitted to the Med-Surg unit this evening from the ER. The patient gave history of stripping and falling at home last evening after coming down her stairs, however she admits she not sure what exactly happened. On assessment elderly patient in no apparent respiratory distress, but admits to pain when she is being moved. She is alert and oriented x 3. Lungs sounds are clear and HR is within the normal range. She has scattered bruises to her body and a large skin tear to her left upper arm, mepilex border dressing applied to same. Patient is currently has shingles blisters to her right side of her lower abdomen also to her back, they are all intact and patient state she has been on medications for same over a week now. She has a feldman in draining clear color urine. she was made comfortable in bed and oriented to the room and hospital policies.
--- NOTE | 2019-02-03 00:26 | NUR.NOTE ---
Nicoderm patch applied to the right shoulder.
[2019-02-03] MEDS: Normal Saline 1,000 ML 150 ML IV ×4 (00:37→18:11)
[2019-02-03] MEDS: metroNIDAZOLE 0.75% CR. 45 GM TUBE TP (00:39)
[2019-02-03 01:15] LABS: Troponin I < 0.05 ng/mL (0.00-0.06)
[2019-02-03] MEDS: Acetaminophen 325 MG TAB PO (04:33)
[2019-02-03] MEDS: Normal Saline Flush 10 ML SYR IVP (04:33)
[2019-02-03 07:24] LABS: HCT 27.4 % (36.0-46.0); HGB 9.3 g/dL (12.0-15.5); Mean Corp. HGB Concentration 33.9 g/dL (32.0-36.0); Mean Corpuscular Hemoglobin 32.5 pg (27.0-33.0); Mean Corpuscular Volume 95.8 fL (80-95); Mean Platelet Volume 12.6 fL (8.0-11.0); Platelet Count 151 x1000/uL (130-400); RBC 2.86 m/cumm (4.00-5.20); RBC Distribution Width 13.1 % (11.7-14.6); White Blood Cell Count 14.31 k/cumm (4.4-10.8)
[2019-02-03 07:31] LABS: Prothrombin Time 10.5 sec (9.3-11.0)
--- NOTE | 2019-02-03 07:57 | PDOC.CMIN ---
- If Service Date Differs Date of service: 02/03/19 Time of Service: 07:57 Care Management Initial Assess REASON FOR HOSPITALIZATION:: Inttertrochanteric fracture right femur PAST MEDICAL HISTORY/PAST SURGICAL HISTORY:: Medical History: Rosacea (Acute). Surgical History . Appendectomy (~2000). endometrial biopsy (~1995). neg. facetectomy. s/p left sided L4-L5 faceectomy; Dr. Arenas. FORAMINOTOMY LUMBAR SEG. History of excision of lesion (Acute 01/11/18). Right Cheek. [facility] [place]. LAMINECTOMY DECOMPRESS. Ligation of fallopian tube PREVIOUS FUNCTIONAL STATUS/SOCIAL/FAMILY SUPPORTS:: Davida lives alone in a single family home in [place], [place] She is independent at baseline and does not receive any community services. Davida has 2 sons who live in [place] She is originally from [place] as well. One of Davida's sons, Lance, visits often and provides strong support.She also has a sister that5 she spends time with and with whom she plans to stay when she leaves the hospital. Davida is very clear that she doen not plan to go to rehab. She feels that she will be able to manage fine with her sister's help. Davida's home is all on one level which will make ambulation easier. CURRENT FUNCTIONAL STATUS:: Davida was sitting up in bed during initaial visit. She was pleasant but guarded in her responsed. She was quite clear that she does not want to go to rehab or to have any home health services at discharge. Later in the morning, was called back to her room to meet with her son Lance and her sister. They both confirmed that Davida is very independent and would not accepy outside assistance easily. ADVANCE DIRECTIVES:: None on file at [facility]. States she does have them at home and that Lance is her HCA. Has patient been provided with information about the portal?: No Did the patient sign up for the portal?: No CODE STATUS:: Full Code INSURANCE COVERAGE / FINANCIAL ISSUES:: Medicare. [employer] CURRENT HOME/COMMUNITY SERVICES/EQUIPMENT:: none currently PRIMARY CARE PHYSICIAN:: Giuliana Massey POTENTIAL DISCHARGE NEEDS:: Follow up with ortyhopedic surgeon, PCP and discharge plan of care PATIENT/FAMILY EDUCATION NEEDS:: Discharge plan, limitations, follow up plan, Ask Me Three ANTICIPATED BARRIERS TO DISCHARGE:: unwillingness to accept services in the home or SNF TRANSPORTATION:: via private vehicle with family when ready PLAN:: Davida is awaiting surgery to repair the intertrochanteric fracture of her right femur. She will likely return home. There may be a recommendation for home PT and/or nursing but Davida may not agree. CM will continue to support patient, family and discharge planning process.
[2019-02-03 08:30] LABS: ALT 27 U/L (14-59); AST 48 U/L (15-37); Albumin 2.5 g/dL (3.4-5.0); Alkaline Phosphatase 47 U/L (46-116); Anion Gap 11.5 mmol/L (3-11); BUN 37 mg/dL (7-18); Bilirubin, Total 0.4 mg/dL (0.2-1.0); CO2 22.5 mmol/L (21.0-32.0); CREATININE 1.21 mg/dL (0.55-1.02); Calcium 7.7 mg/dL (8.5-10.1); Chloride 107 mmol/L (98-107); Estimated GFR 43.03 (mL/min/1.73m2); Glucose 102 mg/dL (70-100); Magnesium 1.6 mg/dL (1.8-2.4); Potassium 3.5 mmol/L (3.5-5.1); Sodium 141 mmol/L (136-145); Total Protein 5.6 g/dL (6.4-8.2)
[2019-02-03 08:31] LABS: TSH (W/Ref FT4) 1.03 uIU/mL (0.36-3.74); Troponin I < 0.05 ng/mL (0.00-0.06)
[2019-02-03 08:32] LABS: Creatine Kinase 1586 U/L (26-192)
--- NOTE | 2019-02-03 09:31 | PHARADMIT ---
Admission Pharmacy Clinical Review displ R intertrochanteric fx femur, rhabdomyolysis Code Status Full Code Current Weight 56.9 kg Renally Cleared and Narrow Therapeutic Index Meds Crcl ~33 mL/min current meds okay QTc Value / Action Taken QTc 445 BP Control, Fever BP 102/63 afebrile Electrolytes reviewed mag 1.6 DVT Prophylaxis none- possible surgery today, follow up postop Opiate Usage / Scheduled Bowel Regimen Ordered prn/prn Plt/SCr for Heparin / Enoxaparin plt 151 SCr 1.21(improved) INR for Warfarin n/a H/H stable, WBC/Bands h/h 9.3/27.4 WBC 14.31 Antibiotic appropriateness metronidazole cream Cultures and Sensitivities none Surgical ABX d/c within 24 hr follow up post op DM control / Insulin Dosing BG 102 none Heart Failure (Check EF%) (VASU's, B-Block, Diuretics) none IV to PO Switch n/a Home Meds Reviewed -multiple forms of vitamin D increase risk of toxicity -taking valacyclovir may diminish the therapeutic effect of varicella virus vaccine Home Meds Not Ordered APAP/codeine (PRN), ascorbic acid, cholecalciferol, lisinopril and simvastatin (were d/c'd), probiotic, vaccine (given in 2107), multivitamin Comments -valacyclovir changed from TID to daily due to renal function, MD plans to discontinue if pt does not need right now (if not having a flare). -watch for restart of some home meds postop -CPK 1586 (up some from yesterday)
[2019-02-03] MEDS: valACYclovir 1,000 MG TAB 1000 MG PO (10:01)
--- NOTE | 2019-02-03 10:30 | DI.US_ITS ---
APPROVED REPORT Conclusion Left Ventricle : The left ventricle is normal in size There is normal LV segmental wall motion. Ther e is normal left ventricular wall thickness. The posterior wall thickness is severely increased. The septum is normal. There is grade 2 diastolic dysfunction LVEF is 60-64%. Right Ventricle : The right ventricle is normal size. The right ventricular systolic function is norm al. Atria : Left atrium is mildly dilated. The right atrium size is normal. Aortic Valve : Aortic valve is trileaflet. No aortic regurgitation is present. There is no aortic jcarlos vular stenosis. Mitral Valve : Mitral valve leaflets are mildly thickened. Mild mitral annular calcification. Mild to moderate mitral regurgitation. No evidence of mitral valve stenosis. Tricuspid Valve : The tricuspid valve leaflets are thickened , but open well. Moderate tricuspid regu rgitation. Great Vessels : The IVC is normal in size and collapses >50% with inspiration. RVSP is between 32-35 mmHg. Compared to echocardiogram dated 07/09/2018 there is no significant change. EXAM: Comprehensive 2D, Doppler, and color-flow Echocardiogram Patient Location: In-Patient Planer Operator / Grader: HEATH oRyal (AE) Indications: fall ( ? syncope) , frequent PVC's Left Ventricle The left ventricle is normal in size The overall left ventricular systolic function appears normal. L eft ventricular systolic function is normal. There is normal left ventricular wall thickness. The pos terior wall thickness is severely increased. The septum is normal. There is normal LV segmental wall motion. There is grade 2 diastolic dysfunction LVEF is 60-64%. Right Ventricle The right ventricle is normal size. The right ventricular systolic function is normal. Atria Left atrium is mildly dilated. The right atrium size is normal. Aortic Valve Aortic valve is trileaflet. There is no aortic valvular stenosis. No aortic regurgitation is present. Mitral Valve Mitral valve leaflets are mildly thickened. Mild mitral annular calcification. No evidence of mitral valve stenosis. Mild to moderate mitral regurgitation. Tricuspid Valve The tricuspid valve leaflets are thickened , but open well. Moderate tricuspid regurgitation. Pulmonic Valve The pulmonary valve is normal in structure. Great Vessels The aortic root is normal in size. The ascending aorta is normal in size. The IVC is normal in size a nd collapses >50% with inspiration. RVSP is between 32-35 mmHg Pericardium Prominent anterior epicardial fat pad is present. 2D Dimensions IVSd 0.64 cm F: 0.6-1.0 LV EDV A2C 75.80 mL PWd 0.94 cm F: 0.6 - 1.0 LV EDV A4C 83.40 mL LVDd 5.25 cm F: 3.9 - 5.3 LA Volume Index A2C 34.60 mL/m2 LVDs 3.80 cm F: 2.2 - 3.5 LA Volume Index A4C 37.21 mL/m2 Aortic Root 2.87 cm F: 2.7 - 3.3 LA Volume Index Biplane 37.44 mL/m2 Left Atrium 4.43 cm F: 2.7 - 3.8 LA Area A4C 19.98 cm2 RA Area A4C 14.77 cm2 LA Area A2C 20.10 cm2 LVOT 2.01 cm (M/F) 1.5-2.5 LA/Aortic Root Ratio 0.65 LVEF (Teich) 53.12 % EF AP4 60.67 % LVEF (Sepulveda's) 60.32 % F: 54 - 74 EF AP2 60.55 % LV Volume 64.38 mL F: 46 - 106 EF BP 60.32 % LV Volume Index 40.23 mL/m2 F: 29 - 61 FS 27.56 % LV Diastology E Decel Time 297.00 (160-240 msec) E/A Ratio 0.5 MED E' 0.06 (>0.07 m/s) LV E/e MED 10.92 (<14) LAT E' 0.07 (>0.1 m/s) LV E/e LAT 8.94 (<14) Aortic Valve LVOT Area 3.17 cm2 LVOT Peak Johnny. 1.15 m/s LVOT Mean Johnny. 0.82 m/s LVOT Peak Gr. 5.29 mmHg CIPRIANO Vmax Index 1.25 cm2/m2 LVOT Mean Gr. 3.05 mmHg LVOT VTI 0.23 m CIPRIANO Mean Johnny. Index 1.27 cm2/m2 AoV Peak Johnny. 1.82 (0.5-1.3 m/s) AoV Mean Johnny. 1.29 m/s AO Peak GR. 13.28 mmHg AO Mean GR. 7.52 (<5 mmHg) AO VTI 0.33 (0.18-0.25 m) CIPRIANO (VTI) 2.25 (2.5-4.5 cm2) CIPRIANO (VTI) Index 1.40 cm/m2 Mitral Valve MV E Max Johnny. 0.66 (0.4-1.3 m/s) MV A Velocity 1.27 (0.4-1.3 m/s) E/A Ratio 0.52 MV Decel. Time 297.11 (160-240 msec) MV Regurg Volume 11.25 mL MV PHT 86.16 msec MV RF 13.22 % MVA PHT 2.55 cm2 Tricuspid Valve TR P. Velocity 2.86 m/s TV Regurg Vmax 2.86 m/s TR P. Gradient 32.66 mmHg
[2019-02-03] MEDS: Furosemide 20 MG/2 ML VIAL IVP (10:44)
[2019-02-03] MEDS: MAGNESIUM SULFATE 2 GM/50 ML BAG IVPB (10:44)
--- NOTE | 2019-02-03 12:45 | DI.RAD_ITS ---
EXAM: XR HIP RT IN OR CLINICAL HISTORY: RIGHT HIP FRACTURE TECHNIQUE: C-arm fluoroscopy was provided in the OR. COMPARISON: No exams were available for comparison FINDINGS: Hard copy images show placement of a compression screw through the proximal femur for fracture fixat ion. The alignment appears satisfactory on this single view. Fluoro Time: 184.7 seconds
[2019-02-03] MEDS: Lactated Ringers 1,000 ML 30 ML IV (13:07)
--- NOTE | 2019-02-03 15:36 | PGE_ITS ---
Date of Service Date of service: 02/03/19 Time of Service: 15:37 Assessment and Plan Assessment and plan (1) Intertrochanteric fracture of right femur: Status: Acute Assessment and plan: Status post fall at home. For repair of her right intertrochanteric femur fracture today by Dr. Rivera. Consult physical therapy postprocedure. Continue pain control with acetaminophen, oxycodone and IV morphine for breakthrough pain. Qualifiers: Encounter type: initial encounter Fracture type: closed Fracture alignment: displaced Qualified Code(s): S72.141A - Displaced intertrochanteric fracture of right femur, initial encounter for closed fracture (2) Rhabdomyolysis: Status: Acute Assessment and plan: Her creatine kinase was mildly increased today. Continue IV fluids. Lasix IV 20 mg x 1 dose. Repeat CPK in the morning. Renal function improved, creatinine 1.21, down from 1.3 on admission. Repeat BMP in the morning. Qualifiers: Rhabdomyolysis type: traumatic Encounter type: initial encounter Qualified Code(s): T79.6XXA - Traumatic ischemia of muscle, initial encounter (3) Acute kidney injury: Status: Acute Assessment and plan: As above, improving. Repeat BMP in the morning. (4) Dehydration, moderate: Status: Acute Assessment and plan: Renal function improving as above, continue IV fluids until renal function improved and taking orals well. (5) Shingles: Status: Acute Assessment and plan: Lesions are dried and crusted. She has been on valacyclovir 1000 mg p.o. 3 times daily. Dose adjusted for renal dosing to 1000 mg daily. (6) Essential hypertension: Status: Acute Assessment and plan: VASU inhibitor on hold in the setting of acute kidney injury. Blood pressures have been within an acceptable range. Resume lisinopril when appropriate. Continue to monitor blood pressure. (7) Hyperlipidemia: Status: Acute Assessment and plan: Statin on hold in the setting of rhabdomyolysis. Continue statin therapy when appropriate. (8) Tobacco abuse: Status: Acute Assessment and plan: Nicotine patch as needed. Encourage smoking cessation. (9) Heart murmur: Status: Acute Assessment and plan: Documented heart murmur. Echocardiogram shows no significant change from previous. LVEF is 60 to 64%, has diastolic dysfunction, left atrium is mildly dilated, mild to moderate mitral regurgitation is noted. Moderate tricuspid regurgitation. RVSP 32 to 35 mmHg. (10) DVT prophylaxis: Status: Acute Assessment and plan: DVT prophylaxis per orthopedic preference. (11) Discharge planning issues: Status: Acute Assessment and plan: She is a full code. To OR for surgical repair today. PT will be consulted post surgery. She may need a rehab stay prior to returning home. This case was discussed with Dr. Guerrero who is in agreement. Subjective Subjective Interval history since last seen: Tammi Ivan reports right hip pain, 11/09. She was awaiting surgery for a comminuted, severely displaced intertrochanteric fracture of the right femur, s/p fall at home. She is on bed rest. She has been taking pain medication sparingly. She had an Echocardiogram as part of her preop clearance which showed no significant change from previous. She denies shortness of breath, coughing, wheezing, chest pain/pressure, palpitations. She is n.p.o. for the procedure. She is looking forward to having some lazaro roe. She denies nausea, vomiting or diarrhea. She does have a herpes zoster outbreak on the right lower abdomen/hip and around posteriorly. She reports some discomfort with the herpes zoster rash, no pruritus. She is wearing a nicotine patch, she reports that she quit smoking. She reports that she previously drank wine with dinner but has not had any alcohol in weeks. Exam Narrative Exam Narrative: General: Thin elderly, female, alert and oriented, in no acute distress. Appears comfortable. Answers questions appropriately. HEENT: Flat affect, atraumatic, pupils equal and round, EOMI, mucous membranes moist. Neck: Supple, no JVD. Cardiovascular: Heart sounds regular with occasional extra beat. Non- tachycardic. 3/6 murmur noted at the left sternal border/over apex. Respiratory: Respirations appear even and unlabored, no rales or wheezing. GI: Normoactive bowel sounds throughout, abdomen soft, nontender on palpation, nondistended. Extremities: Right lower extremity shortened and internally rotated. Discomfort with any movement of the right lower extremity. No obvious ecchymosis around the right hip. Skin: Herpes zoster rash over the right lower abdomen around the right hip and posterior, lesions are dried and crusted. Objective Objective Clinical Data: Abnormal lab results 02/02/19 02/02/19 02/02/19 Range/Units 19:15 19:15 19:15 WBC 20.88 H (4.4-10.8) k/cumm RBC 3.52 L (4.00-5.20) m/cumm Hgb 11.4 L (12.0-15.5) g/dL Hct 33.4 L (36.0-46.0) % MCV (80-95) fL MPV 12.3 H (8.0-11.0) fL Absolute Neutrophils 17.12 H (1.2-6.7) k/cumm Absolute Monocytes 2.30 H (0.11-0.7) k/cumm Carbon Dioxide 18.4 L (21.0-32.0) mmol/L Anion Gap 18.6 H (3-11) mmol/L BUN 35 H (7-18) mg/dL Creatinine 1.83 H (0.55-1.02) mg/dL Glucose 123 H (70-100) mg/dL Calcium 8.3 L (8.5-10.1) mg/dL Magnesium 1.7 L (1.8-2.4) mg/dL AST 47 H (15-37) U/L Creatine Kinase 1482 H (26-192) U/L Total Protein (6.4-8.2) g/dL Albumin 3.1 L (3.4-5.0) g/dL Urine Protein (Negative) mg/dL Urine Ketones (Negative) mg/dL Urine Blood (Negative) Urine Bilirubin (Negative) Urine RBC (0-2) 02/02/19 02/03/19 02/03/19 Range/Units 20:00 06:55 06:55 WBC 14.31 H D (4.4-10.8) k/cumm RBC 2.86 L (4.00-5.20) m/cumm Hgb 9.3 L D (12.0-15.5) g/dL Hct 27.4 L (36.0-46.0) % MCV 95.8 H (80-95) fL MPV 12.6 H (8.0-11.0) fL Absolute Neutrophils (1.2-6.7) k/cumm Absolute Monocytes (0.11-0.7) k/cumm Carbon Dioxide (21.0-32.0) mmol/L Anion Gap 11.5 H (3-11) mmol/L BUN 37 H (7-18) mg/dL Creatinine 1.21 H D (0.55-1.02) mg/dL Glucose 102 H (70-100) mg/dL Calcium 7.7 L (8.5-10.1) mg/dL Magnesium 1.6 L (1.8-2.4) mg/dL AST 48 H (15-37) U/L Creatine Kinase 1586 H (26-192) U/L Total Protein 5.6 L (6.4-8.2) g/dL Albumin 2.5 L (3.4-5.0) g/dL Urine Protein 100 H (Negative) mg/dL Urine Ketones 15 H (Negative) mg/dL Urine Blood Small H (Negative) Urine Bilirubin Small H (Negative) Urine RBC 3-5 H (0-2) Vital Signs Temperature 37.1 C 02/03/19 12:40 Temperature Source Tympanic 02/03/19 12:40 Pulse 85 02/03/19 12:40 Pulse Rhythm Regular 02/03/19 08:41 Respiratory Rate 16 02/03/19 12:40 Respiratory Effort Non-Labored 02/03/19 08:41 Respiratory Depth Normal 02/03/19 08:41 Respiratory Pattern Normal 02/03/19 08:41 Blood Pressure 130/72 02/03/19 12:40 Blood Pressure Position Supine 02/02/19 18:45 Pulse Oximetry 95 02/03/19 12:40 Oxygen Delivery Method Room Air 02/03/19 12:40 Oxygen Flow Rate 0 02/03/19 12:40 Pain Level 8 02/03/19 10:45 Intake & Output 02/02/19 02/03/19 02/03/19 23:59 11:59 23:59 Intake Total 1000 / 1000 1307.5 / 2307.5 1000 / 2307.5 Output Total 200 / 200 1750 / 1750 Balance 800 / 800 1307.5 / 557.5 -750 / 557.5 Weight 56.245 kg 56.9 kg Intake: IV 1000 / 1000 1307.5 / 2307.5 1000 / 2307.5 Output: Urine 200 / 200 1550 / 1550 Estimated Blood Loss 200 / 200 Other: Urine Color Light Sophy Yellow Urine Appearance Clear Clear Clear Laboratory Results WBC 14.31 k/cumm (4.4-10.8) H D 02/03/19 06:55 RBC 2.86 m/cumm (4.00-5.20) L 02/03/19 06:55 Hgb 9.3 g/dL (12.0-15.5) L D 02/03/19 06:55 Hct 27.4 % (36.0-46.0) L 02/03/19 06:55 MCV 95.8 fL (80-95) H 02/03/19 06:55 MCH 32.5 pg (27.0-33.0) 02/03/19 06:55 MCHC 33.9 g/dL (32.0-36.0) 02/03/19 06:55 RDW 13.1 % (11.7-14.6) 02/03/19 06:55 Plt Count 151 x1000/uL (130-400) 02/03/19 06:55 MPV 12.6 fL (8.0-11.0) H 02/03/19 06:55 Immature Gran % 0.0 02/02/19 19:15 Neutrophils % 82.0 02/02/19 19:15 Band Neutrophils % 0.0 % 02/02/19 19:15 Lymphocytes % 7.0 02/02/19 19:15 Atypical Lymphs % 0 02/02/19 19:15 Monocytes % 11.0 02/02/19 19:15 Eosinophils % 0.0 02/02/19 19:15 Basophils % 0.0 02/02/19 19:15 Absolute Neutrophils 17.12 k/cumm (1.2-6.7) H 02/02/19 19:15 Absolute Lymphocytes 1.46 k/cumm (1.2-3.4) 02/02/19 19:15 Absolute Monocytes 2.30 k/cumm (0.11-0.7) H 02/02/19 19:15 Absolute Eosinophils 0.00 k/cumm (0.0-0.7) 02/02/19 19:15 Absolute Basophils 0.00 k/cumm (0.0-0.2) 02/02/19 19:15 Differential Comment Manual differential 02/02/19 19:15 RBC Morphology Normal 02/02/19 19:15 PT 10.5 sec (9.3-11.0) 02/03/19 06:55 INR 1.0 (0.9-1.1) 02/03/19 06:55 Sodium 141 mmol/L (136-145) 02/03/19 06:55 Potassium 3.5 mmol/L (3.5-5.1) 02/03/19 06:55 Chloride 107 mmol/L (98-107) 02/03/19 06:55 Carbon Dioxide 22.5 mmol/L (21.0-32.0) 02/03/19 06:55 Anion Gap 11.5 mmol/L (3-11) H 02/03/19 06:55 BUN 37 mg/dL (7-18) H 02/03/19 06:55 Creatinine 1.21 mg/dL (0.55-1.02) H D 02/03/19 06:55 Estimated GFR/1.73 m2 43.03 (mL/min/1.73m2) 02/03/19 06:55 Glucose 102 mg/dL (70-100) H 02/03/19 06:55 Calcium 7.7 mg/dL (8.5-10.1) L 02/03/19 06:55 Magnesium 1.6 mg/dL (1.8-2.4) L 02/03/19 06:55 Total Bilirubin 0.4 mg/dL (0.2-1.0) 02/03/19 06:55 AST 48 U/L (15-37) H 02/03/19 06:55 ALT 27 U/L (14-59) 02/03/19 06:55 Alkaline Phosphatase 47 U/L (46-116) 02/03/19 06:55 Creatine Kinase 1586 U/L (26-192) H 02/03/19 06:55 Troponin I < 0.05 ng/mL (0.00-0.06) 02/03/19 06:55 Total Protein 5.6 g/dL (6.4-8.2) L 02/03/19 06:55 Albumin 2.5 g/dL (3.4-5.0) L 02/03/19 06:55 TSH 1.03 uIU/mL (0.36-3.74) 02/03/19 06:55 Urine Color Yellow (Yellow) 02/02/19 20:00 Urine Clarity Clear (Clear) 02/02/19 20:00 Urine pH 5.5 (5-8) 02/02/19 20:00 Ur Specific [place] 1.025 (1.005-1.025) 02/02/19 20:00 Urine Protein 100 mg/dL (Negative) H 02/02/19 20:00 Urine Ketones 15 mg/dL (Negative) H 02/02/19 20:00 Urine Blood Small (Negative) H 02/02/19 20:00 Urine Nitrite Negative (Negative) 02/02/19 20:00 Urine Bilirubin Small (Negative) H 02/02/19 20:00 Urine Urobilinogen 0.2 EU/dL (Up TO 0.2) 02/02/19 20:00 Ur Leukocyte Esterase Negative (Negative) 02/02/19 20:00 Urine RBC 3-5 (0-2) H 02/02/19 20:00 Urine WBC Negative HPF (0-5) 02/02/19 20:00 Ur Epithelial Cells Negative HPF (Negative) 02/02/19 20:00 Urine Crystals Negative HPF (Negative) 02/02/19 20:00 Urine Bacteria Few HPF (Negative) 02/02/19 20:00 Urine Casts Negative LPF (Negative) 02/02/19 20:00 Urine Mucus Trace (Negative) 02/02/19 20:00 Urine Other Negative (Negative) 02/02/19 20:00 Ur Culture Indicated? No 02/02/19 20:00 Urine Glucose Negative mg/dL (Negative) 02/02/19 20:00
--- NOTE | 2019-02-03 16:32 | DI.RAD_ITS ---
EXAM: XR HIP RT IN OR INDICATION: Check reduction following ORIF of IT FX R femur.. COMPARISON: No exams were available for comparison TECHNIQUE: 2D digital imaging was performed. FINDINGS: A portable exam was performed. A compression screw is been placed for fixation of the previously note d intertrochanteric fracture. The alignment is nearly anatomic.
[2019-02-03] MEDS: oxyCODONE-CR 10 MG TABCR PO (20:55)
[2019-02-03] MEDS: Aspirin 81 MG CHEW PO (20:55)
[2019-02-03] MEDS: Tranexamic Acid 650 MG TAB 1300 MG PO (20:56)
[2019-02-03] MEDS: traZODone 50 MG TAB PO (22:00)
[2019-02-03] MEDS: Ketorolac 15 MG/ML VIAL IVP (22:01)
[2019-02-04] VITALS (8 sets, daily range): BP systolic 98–135; BP diastolic 58–72; PULSE 66–94; RESP 17–18; TEMP 36.7–37.2; O2SAT 95–97
[2019-02-04] MEDS: Normal Saline 1,000 ML 150 ML IV ×4 (00:39→22:14)
[2019-02-04] MEDS: Ketorolac 15 MG/ML VIAL IVP ×4 (03:34→22:14)
[2019-02-04] MEDS: Normal Saline Flush 10 ML SYR IVP ×3 (06:43→22:15)
[2019-02-04] MEDS: oxyCODONE-CR 10 MG TABCR PO ×2 (07:47→20:47)
[2019-02-04] MEDS: valACYclovir 1,000 MG TAB 1000 MG PO (07:47)
[2019-02-04] MEDS: oxyCODONE 5 MG TAB PO (07:47)
[2019-02-04] MEDS: Aspirin 81 MG CHEW PO ×2 (07:47→20:47)
[2019-02-04] MEDS: Tranexamic Acid 650 MG TAB 1300 MG PO ×2 (07:47→13:29)
[2019-02-04 07:59] LABS: Abs Immature Grans 0.03 k/cumm (0.0-0.09); Absolute Basophil Count 0.01 k/cumm (0.0-0.2); Absolute Lymphocyte Count 1.68 k/cumm (1.2-3.4); Absolute Monocyte Count 1.22 k/cumm (0.11-0.7); Basophils % 0.1; HCT 23.4 % (36.0-46.0); HGB 7.8 g/dL (12.0-15.5); Immature Grans % 0.2; Lymphocytes % 12.2; Mean Corp. HGB Concentration 33.3 g/dL (32.0-36.0); Mean Corpuscular Volume 95.9 fL (80-95); Mean Platelet Volume 12.5 fL (8.0-11.0); Monocytes % 8.9; Neutrophils % 78.6; Platelet Count 157 x1000/uL (130-400); RBC 2.44 m/cumm (4.00-5.20); RBC Distribution Width 13.5 % (11.7-14.6); White Blood Cell Count 13.74 k/cumm (4.4-10.8)
[2019-02-04 08:32] LABS: Anion Gap 9.3 mmol/L (3-11); BUN 32 mg/dL (7-18); CO2 23.7 mmol/L (21.0-32.0); CREATININE 0.93 mg/dL (0.55-1.02); Calcium 7.4 mg/dL (8.5-10.1); Chloride 106 mmol/L (98-107); Estimated GFR 58.31 (mL/min/1.73m2); Glucose 139 mg/dL (70-100); Potassium 3.5 mmol/L (3.5-5.1); Sodium 139 mmol/L (136-145)
[2019-02-04 08:37] LABS: Creatine Kinase 1354 U/L (26-192)
--- NOTE | 2019-02-04 10:13 | IN_ITS ---
Date of service: 02/04/19 Time of Service: 09:25 PT Notes Inpatient Physical Therapy Initial Evaluation Date: 02/04/2019 Referring Doctor: Filemon Rivera MD PT Orders: PT CONSULT: S/P Ortho surgery Precautions: Fall. Standard. TDWB on the right LE. Patient Profile/Admitting Diagnosis: Patient is a 78-year-old female who presented to the ED via EMS on 02/02/2019 with chief complaint of R hip pain due to a right comminuted, displaced intertrochanteric fracture sustained from a mechanical fall S/P ORIF on POD 1. She is also diagnosed with acute kidney kidney injury, mild rhabdomyolysis, and dehydration. PMHX: Medical History Rosacea (Acute) Surgical Appendectomy (~2000) endometrial biopsy (~1995)neg facetectomy s/p left sided L4-L5 faceectomy; Dr. Arenas FORAMINOTOMY LUMBAR SEG History of excision of lesion (Acute 01/11/18) Right Che[place] [facility] [place] LAMINECTOMY DECOMPRESS Ligation of fallopian tube Social History/Home Situation: Patient lives alone in a 2 floor house with 2 steps to enter through the garage without rails. 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 She states that her sister will be here until March 2019 assist with her recovery. Equipment Owned/DME: None Subjective: Patient is agreeable to a PT consult. She reports pain on the right hip that is aggravated with movement and positional change. She reported mild dizziness upon sitting up on edge of bed. She denies headache and chest pain. Scabbed wound areas from shingles seen on low back and lower abdominal area. Objective: General Observation: Patient seen resting in bed upon arriava of PT. IV in left UE. Bilateral TEDS on. Anti-thromboembolic pumps to B legs. Wound dressing over surgical site. Mental Status: Alert and oriented x4 Pain: 5/10 on right hip ROM: Right Upper Extremity: Shoulder Flexion WFL. Shoulder abduction WFL. Elbow flexion WFL. Wrist flexion WFL. Opening and closing of hand WFL. Left Upper Extremity: Shoulder Flexion WFL. Shoulder abduction WFL. Elbow flexion WFL. Wrist flexion WFL. Opening and closing of hand WFL. Right Lower Extremity: Hip flexion difficult to bend beyond 90 while seated at edge of bed due to pain. Hip abduction allows 10 degrees only due to pain. Knee flexion 90 degrees. Ankle dorsiflexion WFL. Ankle plantarflexion WFL. Left Lower Extremity: Hip flexion WFL. Hip abduction WFL. Knee flexion WFL. Ankle dorsiflexion WFL. Ankle plantarflexion WFL. Strength: Right Upper Extremity: Shoulder flexors 5/5. Shoulder abductors 5/5. Elbow flexors 5/5. Elbow extensors 5/5. Instructional Design Manager strong. Left Upper Extremity: Shoulder flexors 5/5. Shoulder abductors 5/5. Elbow flexors 5/5. Elbow extensors 5/5. Instructional Design Manager strong. Right Lower Extremity: Hip flexors 3-/5. Hip abductors 3-/5. Knee flexors 3-/5. Knee extensors 3/5. Ankle dorsiflexors 4-/5. Ankle plantarflexors 4-/5. Left Lower Extremity: Hip flexors 4/5. Hip abductors 4/5. Knee flexors 4/5. Knee extensors 4/5. Ankle dorsiflexors 4/5. Ankle plantarflexors 4/5. Sensation: Intact as to pain and pressure on bilateral lower extremities. Bed Mobility/Transfers: Rolling minimal assist Supine to sit minimal assist Sit to supine minimal assist Sit to stand moderate assist Stand to sit moderate assist Bed to chair NT due to patient refusal Chair to bed NT due to patient refusal Gait: NT due to patient refusal Balance: Static Sitting: Good Dynamic Sitting: Fair Static Standing: Poor Dynamic Standing: Poor Special Tests: Mobility Limitations Standardized Measure [facility] AM-PAC 6 clicks Basic Mobility Inpatient Short Form: Raw Score: 12 CMS Score: 69% deficit Informed Consent/Education: Patient instructed in purpose of PT consult and plan of care. Patient was also instructed on performing isometric exercises to bilateral gluteals and x 10 reps to be done every hour on her own along with bilateral ankle pumping. Assessment: Patient is a 78-year-old female with right displaced and comminuted intertrochanteric fracture S/P ORIF on POD 1 with mild rhabdomyolysis, acute kidney injury, and dehydration with underlying impairments and functional limitations as listed below. She will be recovering at home with assistance of her sister who will be with her 23/10 until Berto of this year. She is currently limited by pain and is fearful of falling. Motivation is low. Her prognosis is fair at this time. She may benefit from a short-term group home facility placement in order to progress weight bearing status and achieve highest mobility level for a more successful discharge to home. Patient presents with clinical signs and symptoms consistent with current/admitting diagnoses that have resulted to mobility limitations, gait instability, generalized weakness, and impairment of motor control as demonstrated by the following impairment level findings: 1. Decreased strength to B LE major muscle groups 2. Impaired sitting/standing balance 3. Impaired activity tolerance 4. Limitation of joint range of motion in right hip and knee joints Impairments are contributing to the following functional limitations: 1. Dependent bed mobility skills 2. Increased dependence with transfers 3. Inability to safely ambulate without assistive device and physical assistance 4. Increase completion time for mobility ADL performance 5. Increased fall risk 6. Inability to negotiate steps alone safely Patient is assessed as a 26525 moderate complexity based on the following: History: Patient is a 78-year-old female with right displaced and comminuted intertrochanteric fracture with mild rhabdomyolysis, acute kidney injury, and dehydration Examination: Demonstrable impairment in strength, balance, and range of motion with underlying impairments and functional limitations as documented above Presentation:Evolving Decision Makin moderate complexity Goals: Goals X1 week 1. Supine-Sit independent 2. Sit-Supine independent 3. Sit-Stand independent 4. Stand-Sit independent 5. Bed-Chair independent 6. Chair-Bed independent 7. Independent gait on level surface with use of least restrictive device for at least 300 feet without report of pain nor dyspnea 8. Independent stair negotiation while holding onto bilateral rails for at least 10 steps without report of pain nor dyspnea 9. Independent with home exercise program 10. Good static and dynamic standing balance/tolerance Plan of Care/Treatment Plan: 1-2x/day, 7 days/week x 1 week. Plan of care has been reviewed with the WAREHOUSE RECORD CLERK providing the service under Physical Therapy direction. Initiate Physical Therapy intervention for strengthening, bed mobility, transfers, gait, stairs, balance training, use of assistive device. DISCHARGE RECOMMENDATIONS: Patient will benefit from group home facility placement in order to progress mobility level, strength, and balance in preparation for a safe discharge to home. TREATMENT CODE/TIME: [id number] x 35 minutes beginning at 9:25 AM. Thank you very much for this referral. Fatou Dacosta PT, DPT, CLT [facility]
[2019-02-04] MEDS: Acetaminophen 325 MG TAB PO (13:28)
--- NOTE | 2019-02-04 15:03 | W.PM.PROGNOT ---
Date of Service Date of service: 02/04/19 Time of Service: 15:03 Assessment and Plan Assessment and plan (1) Intertrochanteric fracture of right femur: Status: Acute Assessment and plan: Assessment: Stable postop day #1 ORIF of intertrochanteric fracture of the right femur. She also has some elevated CK due to prolonged laying on the ground after her injury. This is clearing up. Her creatinine is returned to normal. She does have some surgical anemia that has not reached the level of transfusion yet. Plan: Recheck hemoglobin tomorrow. Mobilize per protocol with physical therapy. EDDIE Miller tomorrow. Discussed discharge goals of independent transfers and ambulation with a walker and taking only p.o. pain meds. Qualifiers: Encounter type: initial encounter Fracture type: closed Fracture alignment: displaced Qualified Code(s): S72.141A - Displaced intertrochanteric fracture of right femur, initial encounter for closed fracture Subjective Subjective Patient reports: feels better and pain is less Interval history since last seen: She expresses desire to get home as soon as possible. She lives on one floor. She will have her sister staying with her to help her. Exam Narrative Exam Narrative: She is afebrile vital signs are stable. Hemoglobin 7.9 g this morning. Creatinine is 0.93 with a BUN of 32. Her CK continues to decrease is now 1354 down from a high of 1586. MONTSERRAT's are good. She is tolerating p.o. fluids and eating well. She has good active ankle dorsiflexion and plantarflexion. No normal sensation and circulation to the right foot. PT got her to stand with moderate assist at the bedside today. Objective Objective Clinical Data: Abnormal lab results 02/04/19 02/04/19 Range/Units 07:45 07:45 WBC 13.74 H (4.4-10.8) k/cumm RBC 2.44 L (4.00-5.20) m/cumm Hgb 7.8 L (12.0-15.5) g/dL Hct 23.4 L (36.0-46.0) % MCV 95.9 H (80-95) fL MPV 12.5 H (8.0-11.0) fL Absolute Neutrophils 10.80 H (1.2-6.7) k/cumm Absolute Monocytes 1.22 H (0.11-0.7) k/cumm BUN 32 H (7-18) mg/dL Glucose 139 H (70-100) mg/dL Calcium 7.4 L (8.5-10.1) mg/dL Creatine Kinase 1354 H (26-192) U/L Vital Signs Temperature 36.9 C 02/04/19 11:00 Temperature Source Tympanic 02/04/19 11:00 Pulse 94 H 02/04/19 11:00 Pulse Rhythm Regular 02/04/19 09:29 Respiratory Rate 18 02/04/19 11:00 Respiratory Effort Non-Labored 02/04/19 09:29 Respiratory Depth Normal 02/04/19 09:29 Respiratory Pattern Normal 02/04/19 09:29 Blood Pressure 135/70 02/04/19 11:00 Blood Pressure Position Supine 02/02/19 18:45 Pulse Oximetry 95 02/04/19 11:00 Oxygen Delivery Method Room Air 02/04/19 11:00 Oxygen Flow Rate 0 02/04/19 11:00 Pain Level 5 02/04/19 13:28 Intake & Output 02/03/19 02/04/19 02/04/19 23:59 11:59 23:59 Intake Total 2770 / 4077.5 2277.5 / 2277.5 Output Total 1750 / 1750 1000 / 1000 Balance 1020 / 2327.5 1277.5 / 1277.5 Weight 57.6 kg Intake: IV 2770 / 4077.5 2027.5 / 2027.5 Oral 250 / 250 Output: Urine 1550 / 1550 1000 / 1000 Estimated Blood Loss 200 / 200 Other: Urine Color Yellow Straw Urine Appearance Clear Clear Emesis Description None Laboratory Results WBC 13.74 k/cumm (4.4-10.8) H 02/04/19 07:45 RBC 2.44 m/cumm (4.00-5.20) L 02/04/19 07:45 Hgb 7.8 g/dL (12.0-15.5) L 02/04/19 07:45 Hct 23.4 % (36.0-46.0) L 02/04/19 07:45 MCV 95.9 fL (80-95) H 02/04/19 07:45 MCH 32.0 pg (27.0-33.0) 02/04/19 07:45 MCHC 33.3 g/dL (32.0-36.0) 02/04/19 07:45 RDW 13.5 % (11.7-14.6) 02/04/19 07:45 Plt Count 157 x1000/uL (130-400) 02/04/19 07:45 MPV 12.5 fL (8.0-11.0) H 02/04/19 07:45 Immature Gran % 0.2 02/04/19 07:45 Neutrophils % 78.6 02/04/19 07:45 Band Neutrophils % 0.0 % 02/02/19 19:15 Lymphocytes % 12.2 02/04/19 07:45 Atypical Lymphs % 0 02/02/19 19:15 Monocytes % 8.9 02/04/19 07:45 Eosinophils % 0.0 02/04/19 07:45 Basophils % 0.1 02/04/19 07:45 Absolute Neutrophils 10.80 k/cumm (1.2-6.7) H 02/04/19 07:45 Absolute Lymphocytes 1.68 k/cumm (1.2-3.4) 02/04/19 07:45 Absolute Monocytes 1.22 k/cumm (0.11-0.7) H 02/04/19 07:45 Absolute Eosinophils 0.00 k/cumm (0.0-0.7) 02/04/19 07:45 Absolute Basophils 0.01 k/cumm (0.0-0.2) 02/04/19 07:45 Differential Comment Manual differential 02/02/19 19:15 RBC Morphology Normal 02/02/19 19:15 PT 10.5 sec (9.3-11.0) 02/03/19 06:55 INR 1.0 (0.9-1.1) 02/03/19 06:55 Sodium 139 mmol/L (136-145) 02/04/19 07:45 Potassium 3.5 mmol/L (3.5-5.1) 02/04/19 07:45 Chloride 106 mmol/L (98-107) 02/04/19 07:45 Carbon Dioxide 23.7 mmol/L (21.0-32.0) 02/04/19 07:45 Anion Gap 9.3 mmol/L (3-11) 02/04/19 07:45 BUN 32 mg/dL (7-18) H 02/04/19 07:45 Creatinine 0.93 mg/dL (0.55-1.02) 02/04/19 07:45 Estimated GFR/1.73 m2 58.31 (mL/min/1.73m2) 02/04/19 07:45 Glucose 139 mg/dL (70-100) H 02/04/19 07:45 Calcium 7.4 mg/dL (8.5-10.1) L 02/04/19 07:45 Magnesium 2.0 mg/dL (1.8-2.4) 02/04/19 07:45 Total Bilirubin 0.4 mg/dL (0.2-1.0) 02/03/19 06:55 AST 48 U/L (15-37) H 02/03/19 06:55 ALT 27 U/L (14-59) 02/03/19 06:55 Alkaline Phosphatase 47 U/L (46-116) 02/03/19 06:55 Creatine Kinase 1354 U/L (26-192) H 02/04/19 07:45 Troponin I < 0.05 ng/mL (0.00-0.06) 02/03/19 06:55 Total Protein 5.6 g/dL (6.4-8.2) L 02/03/19 06:55 Albumin 2.5 g/dL (3.4-5.0) L 02/03/19 06:55 TSH 1.03 uIU/mL (0.36-3.74) 02/03/19 06:55 Urine Color Yellow (Yellow) 02/02/19 20:00 Urine Clarity Clear (Clear) 02/02/19 20:00 Urine pH 5.5 (5-8) 02/02/19 20:00 Ur Specific [place] 1.025 (1.005-1.025) 02/02/19 20:00 Urine Protein 100 mg/dL (Negative) H 02/02/19 20:00 Urine Ketones 15 mg/dL (Negative) H 02/02/19 20:00 Urine Blood Small (Negative) H 02/02/19 20:00 Urine Nitrite Negative (Negative) 02/02/19 20:00 Urine Bilirubin Small (Negative) H 02/02/19 20:00 Urine Urobilinogen 0.2 EU/dL (Up TO 0.2) 02/02/19 20:00 Ur Leukocyte Esterase Negative (Negative) 02/02/19 20:00 Urine RBC 3-5 (0-2) H 02/02/19 20:00 Urine WBC Negative HPF (0-5) 02/02/19 20:00 Ur Epithelial Cells Negative HPF (Negative) 02/02/19 20:00 Urine Crystals Negative HPF (Negative) 02/02/19 20:00 Urine Bacteria Few HPF (Negative) 02/02/19 20:00 Urine Casts Negative LPF (Negative) 02/02/19 20:00 Urine Mucus Trace (Negative) 02/02/19 20:00 Urine Other Negative (Negative) 02/02/19 20:00 Ur Culture Indicated? No 02/02/19 20:00 Urine Glucose Negative mg/dL (Negative) 02/02/19 20:00
--- NOTE | 2019-02-04 15:25 | PT.INTREAT ---
Date of service: 02/04/19 Time of Service: 15:25 PT Notes Inpatient Physical Therapy Treatment Note [facility] Date: 02/04/19 PRECAUTIONS: Fall, TDWB on R SUBJECTIVE: Davida is hesitant but agreeable to participating in PT following some encouragement. She states I'm going home on with my sister. OBJECTIVE: PAIN: Patient c/o R LE pain as a 3/10 with gait training, ther ex, and transfers. BED MOBILITY/TRANSFERS Supine-sit: S Sit-supine: Mod A Sit-stand: Mod A x2 Stand-sit: Min A x2 Bed-chair: Mod A x2 Chair-bed: Mod A x2 GAIT Assistive Device: FWW Weight bearing: TDWB on R Assist: Mod A x2 Distance: 6 steps x2 Deviation: Cueing for maintaining WB prec, tactile cueing for FWW mechanics THEREX: Patient completed a LE strengthening and stabilization program, in a supine position, as per flow sheet. She requires assist for heel slide exercise due to weakness and pain. ASSESSMENT: Patient tolerated session with complaint of increased R LE pain with transfers, ther ex, and gait training. She was able to tolerate the addition of gait training, with FWW support and Mod A x2. She would benefit from continued gait and transfer training for improved mobility and activity tolerance. PLAN: Continue with PT's POC TREATMENT CODE/TIME: 45 minutes; 36600 x2, [id number]
--- NOTE | 2019-02-04 16:28 | ROE_ITS ---
DATE OF PROCEDURE: February 03, 2019 PREOPERATIVE DIAGNOSIS: Intertrochanteric fracture right femur. POSTOPERATIVE DIAGNOSIS: Same. PROCEDURE: Open reduction and internal fixation of intertrochanteric fracture of the right femur usi ng compression screw and side plate fixation. ANESTHESIA: General, Ventura Fine CRNA SURGEON: Filemon Rivera M.D. PASTRY SOUS CHEF: Irineo Lea and Irineo Quintero INDICATIONS: This is a 78-year-old white female who fell in her home from a standing height on . She had laid on the floor for several hours and was dehydrated and had some rhabdomyolysis. She was admitted to the hospital, hydrated and stabilized for surgery. I was consulted and recommended an open reduction and internal fixation of the fracture. The risks and complications of the procedur e were explained to the patient in detail preoperatively. PROCEDURE: The patient was taken to the operating room on 02/03/19. She was placed supine on the ope rating table and a general anesthetic was administered. She was placed in unilateral traction and th e right hip was prepped and draped free in the usual sterile fashion. I began with a longitudinal incision proximal to the trochanter, anticipating inserting a trochanteri c femoral nail. The incision was made through the abductor fascia. A guide pin was placed with C-ar m image intensification control at the tip of the trochanter and extending distal to the level of the lesser trochanter. One-step reamer was used and then a long guide pin was placed on the femoral sha ft to the level of the supracondylar region of the femur. Serial reaming was performed to 13 mm with flexible reamers. The nail length was measured and the 360 mm, 11 mm nail was then inserted on the femoral canal. With the nail in place however, it appeared to displace the femoral head and neck fra gment even further. I attempted to capture the fragment by manipulating the leg and then I attempted to try to reduce the fragment with a bone hook. I was unable to reduce the head and neck fragment t o the femoral shaft as long as the nail was in place. I therefore abandoned the nail, removed it and decided to use a compression screw. With longitudinal traction I was then able to place a bone hook around the head and neck fragment and reduce it to the femoral shaft. I then was able to stabilize this reduction with a cerclage 2.0 sta inless steel cable. With the fracture reduced, I was able to proceed to insert a compression screw i nto the femoral head at the center-center position within 10 mm of the subchondral surface of the fem oral head. Excellent purchase of the screw was obtained in the femoral head. A 4-hole, 135-degree s mak plate was then placed over the compression screw and was fixed to the femoral shaft with appropri ate length self-tapping 4.5 cortical screws. Traction was removed on the leg; compression screw was inserted through the barrel of the side plate into the lag screw and the compression screw was carlos lly tightened, compressing the fracture, making it even more stable. At this point the wound was irr igated with tranexamic acid, 2 grams in 150 cc's of saline and allowed to remain in the wound for six ty seconds before suctioning. I then irrigated the wound with Betadine and saline solution. The wound margins were infiltrated with 0.5% Marcaine with an epinephrine solution. The vastus later alec fascia, which had been incised, and the lateralis muscle stripped from the lateral cortex was th en repaired with a running, interlocked #2-0 Vicryl suture. The iliotibial band and gluteus fascia w ere repaired with interrupted [id number] sutures of #1 Vicryl suture material. The subcu was ap proximated with interrupted #2-0 Vicryl sutures and the skin edges were approximated with skin staple s. Sterile dressings were applied, followed by a light compressive dressing to the right hip. The p atient tolerated the procedure well. She experienced no intraoperative complications. Estimated blo od loss was probably 200 to 300 cc's. The patient's anesthesia was reversed without complications. She was discharged to the recovery room in good condition. C-arm image intensification was used to aid in the reduction and application of the internal fixation during this procedure.
--- NOTE | 2019-02-04 16:48 | W.PM.PROGNOT ---
Date of Service Date of service: 02/04/19 Time of Service: 16:48 Assessment and Plan Assessment and plan (1) Intertrochanteric fracture of right femur: Status: Acute Assessment and plan: Status post fall at home. Repaired by Dr. Rivera, she is postoperative day #1. Continue PT. Continue pain control with acetaminophen, oxycodone and IV morphine for breakthrough pain. Qualifiers: Encounter type: initial encounter Fracture type: closed Fracture alignment: displaced Qualified Code(s): S72.141A - Displaced intertrochanteric fracture of right femur, initial encounter for closed fracture (2) Rhabdomyolysis: Status: Acute Assessment and plan: Her creatine kinase remains elevated but improved from yesterday. Continue IV fluids. Repeat CPK in the morning. Renal function improved. Repeat BMP in the morning. Qualifiers: Rhabdomyolysis type: traumatic Encounter type: initial encounter Qualified Code(s): T79.6XXA - Traumatic ischemia of muscle, initial encounter (3) Acute kidney injury: Status: Acute Assessment and plan: As above, improved. Repeat BMP in the morning. (4) Dehydration, moderate: Status: Acute Assessment and plan: Renal function improved, remains on IV fluids for rhabdomyolysis. (5) Shingles: Status: Acute Assessment and plan: Lesions are dried and crusted. She has been on valacyclovir 1000 mg p.o. 3 times daily. Dose adjusted for renal dosing to 1000 mg daily. (6) Essential hypertension: Status: Acute Assessment and plan: VASU inhibitor on hold in the setting of acute kidney injury. Blood pressures have been within an acceptable range. Resume lisinopril when appropriate. Continue to monitor blood pressure. (7) Hyperlipidemia: Status: Acute Assessment and plan: Statin on hold in the setting of rhabdomyolysis. Continue statin therapy when appropriate. (8) Tobacco abuse: Status: Acute Assessment and plan: Nicotine patch as needed. Encourage smoking cessation. (9) Heart murmur: Status: Acute Assessment and plan: Documented heart murmur. Echocardiogram shows no significant change from previous. LVEF is 60 to 64%, has diastolic dysfunction, left atrium is mildly dilated, mild to moderate mitral regurgitation is noted. Moderate tricuspid regurgitation. RVSP 32 to 35 mmHg. (10) DVT prophylaxis: Status: Acute Assessment and plan: DVT prophylaxis per orthopedic preference. (11) Discharge planning issues: Status: Acute Assessment and plan: She is a full code. She refuses rehab, she wants to go home. She is working with PT. The next day or two will help determine disposition. This case was discussed with Dr. Guerrero who is in agreement. Subjective Subjective Interval history since last seen: Tammi is doing well on postoperative day #1 open reduction internal fixation of intertrochanteric fracture of the right femur. She reports that she is doing physical therapy exercises. She has been out of bed and ambulating with physical therapy. She feels that her pain is well controlled. She reports that she is eating and drinking well and tolerating her diet. No nausea, vomiting, diarrhea, abdominal pain. She denies dizziness, chest pain/pressure, palpitations, shortness of breath, coughing, wheezing. She has a friend in the room with her at this time. Nursing was concerned that she may have been acting mildly delirious. At the time of my visit she was appropriate. Nursing will continue to monitor closely. Exam Narrative Exam Narrative: General: Thin elderly, female, alert and oriented, in no acute distress. Appears comfortable. Answers questions appropriately. Pleasant and talkative. HEENT: Atraumatic, pupils equal and round, EOMI, mucous membranes moist. Neck: Supple, no JVD. Cardiovascular: Heart sounds regular with occasional extra beat. Non-tachycardic. 3/6 murmur noted at the left sternal border/over apex. Respiratory: Respirations appear even and unlabored, no rales or wheezing. GI: Normoactive bowel sounds throughout, abdomen soft, nontender on palpation, nondistended. Extremities: Right lower extremity with large surgical dressing, clean, dry and intact. Right thigh compressible. No obvious ecchymosis around the right hip. Pedal pulses are palpable bilaterally Skin: Herpes zoster rash covered with dressing. Objective Objective Clinical Data: Abnormal lab results 02/04/19 02/04/19 Range/Units 07:45 07:45 WBC 13.74 H (4.4-10.8) k/cumm RBC 2.44 L (4.00-5.20) m/cumm Hgb 7.8 L (12.0-15.5) g/dL Hct 23.4 L (36.0-46.0) % MCV 95.9 H (80-95) fL MPV 12.5 H (8.0-11.0) fL Absolute Neutrophils 10.80 H (1.2-6.7) k/cumm Absolute Monocytes 1.22 H (0.11-0.7) k/cumm BUN 32 H (7-18) mg/dL Glucose 139 H (70-100) mg/dL Calcium 7.4 L (8.5-10.1) mg/dL Creatine Kinase 1354 H (26-192) U/L Vital Signs Temperature 37.0 C 02/04/19 16:16 Temperature Source Tympanic 02/04/19 16:16 Pulse 91 H 02/04/19 16:16 Pulse Rhythm Regular 02/04/19 09:29 Respiratory Rate 18 02/04/19 16:16 Respiratory Effort Non-Labored 02/04/19 09:29 Respiratory Depth Normal 02/04/19 09:29 Respiratory Pattern Normal 02/04/19 09:29 Blood Pressure 135/67 02/04/19 16:16 Blood Pressure Position Supine 02/02/19 18:45 Pulse Oximetry 95 02/04/19 16:16 Oxygen Delivery Method Room Air 02/04/19 16:16 Oxygen Flow Rate 0 02/04/19 16:16 Pain Level 5 02/04/19 13:28 Intake & Output 02/03/19 02/04/19 02/04/19 23:59 11:59 23:59 Intake Total 2770 / 4077.5 2377.5 / 3377.5 1000 / 3377.5 Output Total 1750 / 1750 1000 / 1250 250 / 1250 Balance 1020 / 2327.5 1377.5 / 2127.5 750 / 2127.5 Weight 57.6 kg Intake: IV 2770 / 4077.5 2127.5 / 3127.5 1000 / 3127.5 Oral 250 / 250 Output: Urine 1550 / 1550 1000 / 1250 250 / 1250 Estimated Blood Loss 200 / 200 Other: Urine Color Yellow Straw Dark Sophy Urine Appearance Clear Clear Clear Emesis Description None Laboratory Results WBC 13.74 k/cumm (4.4-10.8) H 02/04/19 07:45 RBC 2.44 m/cumm (4.00-5.20) L 02/04/19 07:45 Hgb 7.8 g/dL (12.0-15.5) L 02/04/19 07:45 Hct 23.4 % (36.0-46.0) L 02/04/19 07:45 MCV 95.9 fL (80-95) H 02/04/19 07:45 MCH 32.0 pg (27.0-33.0) 02/04/19 07:45 MCHC 33.3 g/dL (32.0-36.0) 02/04/19 07:45 RDW 13.5 % (11.7-14.6) 02/04/19 07:45 Plt Count 157 x1000/uL (130-400) 02/04/19 07:45 MPV 12.5 fL (8.0-11.0) H 02/04/19 07:45 Immature Gran % 0.2 02/04/19 07:45 Neutrophils % 78.6 02/04/19 07:45 Band Neutrophils % 0.0 % 02/02/19 19:15 Lymphocytes % 12.2 02/04/19 07:45 Atypical Lymphs % 0 02/02/19 19:15 Monocytes % 8.9 02/04/19 07:45 Eosinophils % 0.0 02/04/19 07:45 Basophils % 0.1 02/04/19 07:45 Absolute Neutrophils 10.80 k/cumm (1.2-6.7) H 02/04/19 07:45 Absolute Lymphocytes 1.68 k/cumm (1.2-3.4) 02/04/19 07:45 Absolute Monocytes 1.22 k/cumm (0.11-0.7) H 02/04/19 07:45 Absolute Eosinophils 0.00 k/cumm (0.0-0.7) 02/04/19 07:45 Absolute Basophils 0.01 k/cumm (0.0-0.2) 02/04/19 07:45 Differential Comment Manual differential 02/02/19 19:15 RBC Morphology Normal 02/02/19 19:15 PT 10.5 sec (9.3-11.0) 02/03/19 06:55 INR 1.0 (0.9-1.1) 02/03/19 06:55 Sodium 139 mmol/L (136-145) 02/04/19 07:45 Potassium 3.5 mmol/L (3.5-5.1) 02/04/19 07:45 Chloride 106 mmol/L (98-107) 02/04/19 07:45 Carbon Dioxide 23.7 mmol/L (21.0-32.0) 02/04/19 07:45 Anion Gap 9.3 mmol/L (3-11) 02/04/19 07:45 BUN 32 mg/dL (7-18) H 02/04/19 07:45 Creatinine 0.93 mg/dL (0.55-1.02) 02/04/19 07:45 Estimated GFR/1.73 m2 58.31 (mL/min/1.73m2) 02/04/19 07:45 Glucose 139 mg/dL (70-100) H 02/04/19 07:45 Calcium 7.4 mg/dL (8.5-10.1) L 02/04/19 07:45 Magnesium 2.0 mg/dL (1.8-2.4) 02/04/19 07:45 Total Bilirubin 0.4 mg/dL (0.2-1.0) 02/03/19 06:55 AST 48 U/L (15-37) H 02/03/19 06:55 ALT 27 U/L (14-59) 02/03/19 06:55 Alkaline Phosphatase 47 U/L (46-116) 02/03/19 06:55 Creatine Kinase 1354 U/L (26-192) H 02/04/19 07:45 Troponin I < 0.05 ng/mL (0.00-0.06) 02/03/19 06:55 Total Protein 5.6 g/dL (6.4-8.2) L 02/03/19 06:55 Albumin 2.5 g/dL (3.4-5.0) L 02/03/19 06:55 TSH 1.03 uIU/mL (0.36-3.74) 02/03/19 06:55 Urine Color Yellow (Yellow) 02/02/19 20:00 Urine Clarity Clear (Clear) 02/02/19 20:00 Urine pH 5.5 (5-8) 02/02/19 20:00 Ur Specific [place] 1.025 (1.005-1.025) 02/02/19 20:00 Urine Protein 100 mg/dL (Negative) H 02/02/19 20:00 Urine Ketones 15 mg/dL (Negative) H 02/02/19 20:00 Urine Blood Small (Negative) H 02/02/19 20:00 Urine Nitrite Negative (Negative) 02/02/19 20:00 Urine Bilirubin Small (Negative) H 02/02/19 20:00 Urine Urobilinogen 0.2 EU/dL (Up TO 0.2) 02/02/19 20:00 Ur Leukocyte Esterase Negative (Negative) 02/02/19 20:00 Urine RBC 3-5 (0-2) H 02/02/19 20:00 Urine WBC Negative HPF (0-5) 02/02/19 20:00 Ur Epithelial Cells Negative HPF (Negative) 02/02/19 20:00 Urine Crystals Negative HPF (Negative) 02/02/19 20:00 Urine Bacteria Few HPF (Negative) 02/02/19 20:00 Urine Casts Negative LPF (Negative) 02/02/19 20:00 Urine Mucus Trace (Negative) 02/02/19 20:00 Urine Other Negative (Negative) 02/02/19 20:00 Ur Culture Indicated? No 02/02/19 20:00 Urine Glucose Negative mg/dL (Negative) 02/02/19 20:00
--- NOTE | 2019-02-04 19:23 | CMPROGNOTE_ITS ---
- If Service Date Differs Date of service: 02/04/19 Time of Service: 19:23 Care Management Progress Note S/O: Davida was working with PT when CM came to visit. She was able to sit up on the side of the bed unassisted. She walked to the chair with assist of 2. She stated that her pain was about a 4 or 5 but that she had been medicated shortly before. Davida was a bit confused during the therapy. She made comments that were not appropriate to the conversation. This was noted by the GLOBAL CATEGORY MANAGER as well. Sandor maintains that she wants to return home and that she does not want home health services. A: Davida is a 78 year old woman admitted with an intertrochanteris fracture of her right femur P: Davida has undergone surgery to repair the intertrochanteric fracture of her right femur. She will likely return home. There may be a recommendation for home PT and/or nursing but Davida may not agree. CM will continue to support patient, family and discharge planning process.
[2019-02-04] MEDS: Calcium Carbonate 1.25 GM TAB PO (20:47)
[2019-02-04] MEDS: metroNIDAZOLE 0.75% CR. 45 GM TUBE TP (22:15)
[2019-02-05] VITALS (15 sets, daily range): BP systolic 137–197; BP diastolic 65–95; PULSE 52–94; RESP 16–20; TEMP 36.7–37.4; O2SAT 92–97
[2019-02-05] MEDS: Ketorolac 15 MG/ML VIAL IVP ×4 (03:22→22:10)
[2019-02-05] MEDS: Normal Saline 1,000 ML 150 ML IV ×2 (04:36→10:57)
[2019-02-05] MEDS: Aspirin 81 MG CHEW PO ×2 (08:37→19:35)
[2019-02-05] MEDS: Normal Saline Flush 10 ML SYR IVP ×3 (08:37→20:35)
[2019-02-05] MEDS: Calcium Carbonate 1.25 GM TAB PO ×2 (08:37→19:35)
[2019-02-05] MEDS: valACYclovir 1,000 MG TAB 1000 MG PO (08:37)
[2019-02-05] MEDS: Cholecalciferol (Vitamin D3) 1,000 UNIT TAB 2000 UNITS PO (08:38)
[2019-02-05] MEDS: oxyCODONE-CR 10 MG TABCR PO (08:38)
--- NOTE | 2019-02-05 09:38 | OT.INNT ---
Date of service: 02/05/19 Time of Service: 08:05 Occupational Therapy Notes 02/05/19 OT consult received and pt's chart was reviewed. OT attempted to consult with pt this morning. When OT arrived, pt reported that she was exhausted and that there are people in the hallway trying to get into her room that used to work here. She states that she has had so many people coming in and out and she is confused who she can trust and who she can't. OT discussed this with nursing and MD and will hold on OT consult for today. OT will attempt to resume OT services tomorrow morning. Marian Stockton, OTR/[facility]
--- NOTE | 2019-02-05 10:29 | PDOC.CMPRO ---
Care Management Progress Note S/O: Davida was lying in bed, friends and family at her bedside. Davida will have additional testing of her urine and H&H today, her feldman will be removed and she will have a voiding trial as well. CM continues to follow. A: Davida is a 78 year old woman admitted with an intertrochanteris fracture of her right femur P: Davida has undergone surgery to repair the intertrochanteric fracture of her right femur. She will likely return home with anticipated orders for home health PT; undetermined if Davida will be agreeable. CM will continue to support patient, family and discharge planning process.
[2019-02-05 11:28] LABS: Bilirubin Negative (Negative); Blood Moderate (Negative); Clarity Clear (Clear); Glucose 100 mg/dL (Negative); Ketones Negative (Negative); Leukocyte Esterase Negative (Negative); Nitrite Negative (Negative); Specific Gravity 1.015 (1.005-1.025)
[2019-02-05 11:31] LABS: HCT 22.7 % (36.0-46.0); HGB 7.4 g/dL (12.0-15.5); Mean Corp. HGB Concentration 32.6 g/dL (32.0-36.0); Mean Corpuscular Volume 98.3 fL (80-95); Mean Platelet Volume 12.4 fL (8.0-11.0); Platelet Count 162 x1000/uL (130-400); RBC 2.31 m/cumm (4.00-5.20); White Blood Cell Count 11.93 k/cumm (4.4-10.8)
[2019-02-05 11:37] LABS: Bacteria Rare HPF (Negative); C & S Indicated? No; Casts Negative LPF (Negative); Crystals Negative HPF (Negative); Epithelial Cells Rare HPF (Negative); Mucus Negative (Negative); Other Cells Rare Renal (Negative); RBC 0-2 (0-2); WBC 0-2 HPF (0-5)
[2019-02-05 11:53] LABS: Anion Gap 7.4 mmol/L (3-11); BUN 20 mg/dL (7-18); CO2 25.6 mmol/L (21.0-32.0); CREATININE 0.63 mg/dL (0.55-1.02); Calcium 7.8 mg/dL (8.5-10.1); Chloride 107 mmol/L (98-107); Glucose 113 mg/dL (70-100); Potassium 3.5 mmol/L (3.5-5.1); Sodium 140 mmol/L (136-145)
[2019-02-05 11:54] LABS: Creatine Kinase 1702 U/L (26-192)
--- NOTE | 2019-02-05 13:31 | W.PM.PROGNOT ---
Date of Service Date of service: 02/05/19 Time of Service: 13:33 Assessment and Plan Assessment and plan (1) Intertrochanteric fracture of right femur: Status: Acute Assessment and plan: Status post fall at home. Repaired by Dr. Rivera, she is postoperative day #2. Continue PT. Continue pain control with acetaminophen, oxycodone and IV morphine for breakthrough pain. Scheduled oxycontin discontinued in the setting of intermittent confusion. Qualifiers: Encounter type: initial encounter Fracture type: closed Fracture alignment: displaced Qualified Code(s): S72.141A - Displaced intertrochanteric fracture of right femur, initial encounter for closed fracture (2) Anemia: Status: Chronic Assessment and plan: Postoperative anemia. Ortho ordered 2 units PRBCs with lasix between units. Continue to follow blood counts. (3) Rhabdomyolysis: Status: Acute Assessment and plan: Her creatine kinase remains elevated. Continue IV fluids. Receiving lasix between units of blood, forced diuresis may help with CPK level. Repeat CPK in the morning. Renal function improved, continue to follow. Qualifiers: Rhabdomyolysis type: traumatic Encounter type: initial encounter Qualified Code(s): T79.6XXA - Traumatic ischemia of muscle, initial encounter (4) Acute kidney injury: Status: Acute Assessment and plan: As above, improved. Continue to monitor. (5) Dehydration, moderate: Status: Acute Assessment and plan: Renal function improved, remains on IV fluids for rhabdomyolysis. (6) Shingles: Status: Acute Assessment and plan: Lesions are dried and crusted. She has been on valacyclovir 1000 mg p.o. 3 times daily. Dose adjusted for renal dosing to 1000 mg daily. (7) Essential hypertension: Status: Acute Assessment and plan: VASU inhibitor on hold in the setting of WAYNE and rhabdo. Continue to hold and monitor CPK. Monitor blood pressure. (8) Hyperlipidemia: Status: Acute Assessment and plan: Statin on hold in the setting of rhabdomyolysis. Continue to hold. (9) Tobacco abuse: Status: Acute Assessment and plan: Nicotine patch as needed. Encourage smoking cessation. (10) Heart murmur: Status: Acute Assessment and plan: Documented heart murmur. Echocardiogram shows no significant change from previous. LVEF is 60 to 64%, has diastolic dysfunction, left atrium is mildly dilated, mild to moderate mitral regurgitation is noted. Moderate tricuspid regurgitation. RVSP 32 to 35 mmHg. (11) DVT prophylaxis: Status: Acute Assessment and plan: DVT prophylaxis per orthopedic preference. (12) Discharge planning issues: Status: Acute Assessment and plan: She is a full code. She refuses rehab, she wants to go home. She is working with PT. The next day or two will help determine disposition. This case was discussed with Dr. Guerrero who is in agreement. Subjective Subjective Interval history since last seen: Tammi's hgb is down to 7.4 today, orthopedics ordered 2 units of PRBCs, with lasix between units. She remains on IV fluids for rhabdomyolysis, her CPK is up today in the setting of recent surgery. Her renal function has improved. She feels fatigued, she is hopeful that the blood transfusion will help her engery level. Her pain is well controlled. She denies shortness of breath, coughing, wheezing, chest pain/pressure, palpitations, nausea, vomiting or diarrhea. She has not had a bowel movement. Nursing continues to have concerns about her mental status, there is a question of whether pain medications are contributing to her intermittent confusion, oxycontin discontinued. Exam Narrative Exam Narrative: General: Thin, elderly, female, alert and oriented, in no acute distress. Appears comfortable. Answers questions appropriately. Pleasant and talkative. HEENT: Atraumatic, pupils equal and round, EOMI, mucous membranes moist. Neck: Supple, no JVD. Cardiovascular: Heart sounds regular with occasional extra beat. Non-tachycardic. 3/6 murmur noted at the left sternal border/over apex. Respiratory: Respirations appear even and unlabored, no rales or wheezing. GI: Normoactive bowel sounds throughout, abdomen soft, nontender on palpation, nondistended. Extremities: Right lower extremity with large surgical dressing, clean, dry and intact. No significant amount of blood under dressing, no active drainage from wound. Edema of right thigh noted, right thigh compressible. No obvious ecchymosis around the right hip. Pedal pulses are palpable bilaterally Skin: Herpes zoster rash to right lower abdomen/hip mostly covered with dressing, lesions dry and crusted. Objective Objective Clinical Data: Abnormal lab results 02/05/19 02/05/19 02/05/19 Range/Units 09:55 11:00 11:00 WBC 11.93 H (4.4-10.8) k/cumm RBC 2.31 L (4.00-5.20) m/cumm Hgb 7.4 L (12.0-15.5) g/dL Hct 22.7 L (36.0-46.0) % MCV 98.3 H (80-95) fL MPV 12.4 H (8.0-11.0) fL BUN 20 H D (7-18) mg/dL Glucose 113 H (70-100) mg/dL Calcium 7.8 L (8.5-10.1) mg/dL Creatine Kinase 1702 H (26-192) U/L Urine Blood Moderate H (Negative) Urine Urobilinogen 1.0 H (Up TO 0.2) EU/dL Crossmatch 02/05/19 Range/Units 12:45 WBC (4.4-10.8) k/cumm RBC (4.00-5.20) m/cumm Hgb (12.0-15.5) g/dL Hct (36.0-46.0) % MCV (80-95) fL MPV (8.0-11.0) fL BUN (7-18) mg/dL Glucose (70-100) mg/dL Calcium (8.5-10.1) mg/dL Creatine Kinase (26-192) U/L Urine Blood (Negative) Urine Urobilinogen (Up TO 0.2) EU/dL Crossmatch See Detail Vital Signs Temperature 36.7 C 02/05/19 07:45 Temperature Source Tympanic 02/05/19 07:45 Pulse 92 H 02/05/19 07:45 Pulse Rhythm Irregular 02/05/19 10:23 Respiratory Rate 20 02/05/19 07:45 Respiratory Effort 02/05/19 10:23 Respiratory Depth Normal 02/05/19 10:23 Respiratory Pattern Normal 02/05/19 10:23 Blood Pressure 176/85 H 02/05/19 07:45 Blood Pressure Position Supine 02/02/19 18:45 Pulse Oximetry 94 L 02/05/19 07:45 Oxygen Delivery Method Room Air 02/05/19 07:45 Oxygen Flow Rate 0 02/05/19 07:45 Pain Level 8 02/05/19 10:57 Intake & Output 02/04/19 02/05/19 02/05/19 23:59 11:59 23:59 Intake Total 2610 / 4987.5 2247.5 / 2247.5 Output Total 250 / 1250 1125 / 1125 Balance 2360 / 3737.5 1122.5 / 1122.5 Weight 58.9 kg Intake: IV 2019 / 4147.5 2006.2006. Oral 590 / 840 240 / 240 Output: Urine 250 / 1250 1125 / 1125 Other: Urine Color Dark Sophy Light Sophy Urine Appearance Clear Clear Laboratory Results WBC 11.93 k/cumm (4.4-10.8) H 02/05/19 11:00 RBC 2.31 m/cumm (4.00-5.20) L 02/05/19 11:00 Hgb 7.4 g/dL (12.0-15.5) L 02/05/19 11:00 Hct 22.7 % (36.0-46.0) L 02/05/19 11:00 MCV 98.3 fL (80-95) H 02/05/19 11:00 MCH 32.0 pg (27.0-33.0) 02/05/19 11:00 MCHC 32.6 g/dL (32.0-36.0) 02/05/19 11:00 RDW 14.0 % (11.7-14.6) 02/05/19 11:00 Plt Count 162 x1000/uL (130-400) 02/05/19 11:00 MPV 12.4 fL (8.0-11.0) H 02/05/19 11:00 Immature Gran % 0.2 02/04/19 07:45 Neutrophils % 78.6 02/04/19 07:45 Band Neutrophils % 0.0 % 02/02/19 19:15 Lymphocytes % 12.2 02/04/19 07:45 Atypical Lymphs % 0 02/02/19 19:15 Monocytes % 8.9 02/04/19 07:45 Eosinophils % 0.0 02/04/19 07:45 Basophils % 0.1 02/04/19 07:45 Absolute Neutrophils 10.80 k/cumm (1.2-6.7) H 02/04/19 07:45 Absolute Lymphocytes 1.68 k/cumm (1.2-3.4) 02/04/19 07:45 Absolute Monocytes 1.22 k/cumm (0.11-0.7) H 02/04/19 07:45 Absolute Eosinophils 0.00 k/cumm (0.0-0.7) 02/04/19 07:45 Absolute Basophils 0.01 k/cumm (0.0-0.2) 02/04/19 07:45 Differential Comment Manual differential 02/02/19 19:15 RBC Morphology Normal 02/02/19 19:15 PT 10.5 sec (9.3-11.0) 02/03/19 06:55 INR 1.0 (0.9-1.1) 02/03/19 06:55 Sodium 140 mmol/L (136-145) 02/05/19 11:00 Potassium 3.5 mmol/L (3.5-5.1) 02/05/19 11:00 Chloride 107 mmol/L (98-107) 02/05/19 11:00 Carbon Dioxide 25.6 mmol/L (21.0-32.0) 02/05/19 11:00 Anion Gap 7.4 mmol/L (3-11) 02/05/19 11:00 BUN 20 mg/dL (7-18) H D 02/05/19 11:00 Creatinine 0.63 mg/dL (0.55-1.02) 02/05/19 11:00 Estimated GFR/1.73 m2 >= 60.00 (mL/min/1.73m2) 02/05/19 11:00 Glucose 113 mg/dL (70-100) H 02/05/19 11:00 Calcium 7.8 mg/dL (8.5-10.1) L 02/05/19 11:00 Magnesium 2.0 mg/dL (1.8-2.4) 02/04/19 07:45 Total Bilirubin 0.4 mg/dL (0.2-1.0) 02/03/19 06:55 AST 48 U/L (15-37) H 02/03/19 06:55 ALT 27 U/L (14-59) 02/03/19 06:55 Alkaline Phosphatase 47 U/L (46-116) 02/03/19 06:55 Creatine Kinase 1702 U/L (26-192) H 02/05/19 11:00 Troponin I < 0.05 ng/mL (0.00-0.06) 02/03/19 06:55 Total Protein 5.6 g/dL (6.4-8.2) L 02/03/19 06:55 Albumin 2.5 g/dL (3.4-5.0) L 02/03/19 06:55 TSH 1.03 uIU/mL (0.36-3.74) 02/03/19 06:55 Urine Color Cancelled 02/05/19 10:16 Urine Clarity Cancelled 02/05/19 10:16 Urine pH Cancelled 02/05/19 10:16 Ur Specific [place] Cancelled 02/05/19 10:16 Urine Protein Cancelled 02/05/19 10:16 Urine Ketones Cancelled 02/05/19 10:16 Urine Blood Cancelled 02/05/19 10:16 Urine Nitrite Cancelled 02/05/19 10:16 Urine Bilirubin Cancelled 02/05/19 10:16 Urine Urobilinogen Cancelled 02/05/19 10:16 Ur Leukocyte Esterase Cancelled 02/05/19 10:16 Urine RBC 0-2 (0-2) 02/05/19 09:55 Urine WBC 0-2 HPF (0-5) 02/05/19 09:55 Ur Epithelial Cells Rare HPF (Negative) 02/05/19 09:55 Urine Crystals Negative HPF (Negative) 02/05/19 09:55 Urine Bacteria Rare HPF (Negative) 02/05/19 09:55 Urine Casts Negative LPF (Negative) 02/05/19 09:55 Urine Mucus Negative (Negative) 02/05/19 09:55 Urine Other Rare renal (Negative) 02/05/19 09:55 Ur Culture Indicated? No 02/05/19 09:55 Urine Glucose Cancelled 02/05/19 10:16 Crossmatch See Detail 02/05/19 12:45
--- NOTE | 2019-02-05 13:52 | PT.INNT ---
Date of service: 02/05/19 Time of Service: 10:15 PT Notes Patient was seen for the first of two treatments for today. She flat out refused PT stating that she was in no condition to do anything. She stated she was very much worried about a baby who was upon delivery [facility] floor last night and that the parents who were members of a cult group took the baby away. She also commented on how much she hates people passing by her room laughing and talking loud about her. She is so upset about this and would like to get out of here as soon as possible. Patient was assured that she is safe in this hospital and that all staff are here to provide assistance for her as needed. She was further reminded about her mobility goals and how achieving them would make her closer to her ultimate goal of going home. Concerns regarding beginning thoughts of paranoia have been shared with nurse Barnes. Another attempt at session engagement will be done this afternoon. Thank you very much.
[2019-02-05] MEDS: Acetaminophen 500 MG TAB 1000 MG PO ×2 (14:03→22:10)
[2019-02-05] MEDS: Docusate Sodium 100 MG CAP PO ×2 (14:03→19:35)
--- NOTE | 2019-02-05 14:34 | NUR.NOTE ---
Nursing Note: patient has blood running at this time., she has voided since removing the feldman, and she did work with pt
--- NOTE | 2019-02-05 16:56 | PT.INTREAT ---
Date of service: 02/05/19 Time of Service: 13:19 PT Notes Inpatient Physical Therapy Treatment Note [facility] Date: 02/05/2019 PRECAUTIONS: Fall. Standard. TDWB on right LE. SUBJECTIVE: Patient is cheerful this afternoon and is receptive to being helped out of bed to use the bedside commode. She reports discomfort on right hip with weight bearing and mobility ADL performance. She does deny headache, chest pain, and dizziness throughout. Patient is happy that PT has not given up on her. OBJECTIVE: Appears more pleasant this afternoon. Requires maximal verbal cueing for weight bearing precaution compliance. PAIN: Reports 6/10 pain on right hip with weight bearing. BED MOBILITY/TRANSFERS Rolling L/R: Minimal assist to right LE Supine-sit: Minimal assist to right LE Sit-supine: Minimal assist to right LE Sit-stand: Minimal assist of 2 Stand-sit: Minimal assist of 2 Bed-Chair: Minimal assist of 2 Chair-bed: Minimal assist of 2 GAIT Assistive Device: FWW Weight bearing: TDWB on R LE Assist: Minimal assist of 2 Distance: 8-9 steps from bedside to bedside commode +3 sidesteps +3 step backs. Patient is also able to the same in reverse coming from the bedside commode back to the edge of bed. Deviation: TDWB on right LE. Increased trunk flexion and lean to the left due to pain on right hip. THEREX: Patient was agreeable to do weighing edge of bed exercises consisting of ankle pumps, LA cues, hip flexion, and knee flexion x 10 reps without undue increase in pain level ASSESSMENT: Patient will require continued skilled physical therapy services in order to facilitate achievement of highest functional level in anticipation of going home as previously. Patient will benefit from a custodial facility placement for mobility level progression, pain management, and therapy home discharge planning. PLAN: Continue with PT POC as initially established TREATMENT CODE/TIME: 43732 x1 unit, 9711 0 x 1 unit, beginning at 13:19 p.m..
[2019-02-05] MEDS: Furosemide 20 MG/2 ML VIAL IVP (17:25)
[2019-02-05] MEDS: Polyethylene Glycol 3350 17 GM PACKET PO (19:35)
[2019-02-05] MEDS: traZODone 50 MG TAB PO (22:10)
[2019-02-05] MEDS: metroNIDAZOLE 0.75% CR. 45 GM TUBE TP (22:10)
[2019-02-06] VITALS (7 sets, daily range): BP systolic 136–181; BP diastolic 71–101; PULSE 53–85; RESP 14–18; TEMP 36.8–37.6; O2SAT 94–97
[2019-02-06] MEDS: Normal Saline 1,000 ML 150 ML IV ×3 (00:22→18:46)
[2019-02-06] MEDS: Acetaminophen 500 MG TAB 1000 MG PO ×3 (06:03→22:48)
[2019-02-06 07:23] LABS: HCT 32.5 % (36.0-46.0); Mean Corp. HGB Concentration 33.8 g/dL (32.0-36.0); Mean Corpuscular Volume 91.5 fL (80-95); Mean Platelet Volume 11.7 fL (8.0-11.0); Platelet Count 166 x1000/uL (130-400); RBC 3.55 m/cumm (4.00-5.20); RBC Distribution Width 15.2 % (11.7-14.6); White Blood Cell Count 10.97 k/cumm (4.4-10.8)
[2019-02-06 07:57] LABS: BUN 12 mg/dL (7-18); CREATININE 0.64 mg/dL (0.55-1.02); Calcium 7.4 mg/dL (8.5-10.1); Chloride 102 mmol/L (98-107); Creatine Kinase 859 U/L (26-192); Glucose 115 mg/dL (70-100); Sodium 137 mmol/L (136-145)
[2019-02-06 08:06] LABS: Potassium 2.8 mmol/L (3.5-5.1)
[2019-02-06] MEDS: valACYclovir 1,000 MG TAB 1000 MG PO ×2 (08:12→20:23)
[2019-02-06] MEDS: Cholecalciferol (Vitamin D3) 1,000 UNIT TAB 2000 UNITS PO (08:12)
[2019-02-06] MEDS: Calcium Carbonate 1.25 GM TAB PO ×2 (08:12→20:23)
[2019-02-06] MEDS: Aspirin 81 MG CHEW PO ×2 (08:12→20:23)
[2019-02-06 08:58] LABS: Magnesium 1.3 mg/dL (1.8-2.4)
--- NOTE | 2019-02-06 10:03 | OTIE_ITS ---
Occupational Therapy Notes Inpatient Occupational Therapy Evaluation Date: 02/06/19 Referring Doctor: Josy Guerrero MD OT Orders: Non Urgent: Limited Ability Precautions: Toe touch weight bearing (R) LE, fall, standard PATIENT PROFILE/ADMITTING DIAGNOSIS: Pt is a 78 year old female who was admitted through the ER on 02/02/2019 with c/o (R) hip pain due to a right comminuted, displaced intertrochanteric fracture sustained from a mechanical fall S/P ORIF. She is also being seen for acute kidney kidney injury, mild rhabdomyolysis, and dehydration. Medical History Rosacea (Acute) Surgical Appendectomy (~2000) endometrial biopsy (~1995)neg facetectomy s/p left sided L4-L5 faceectomy; Dr. Arenas FORAMINOTOMY LUMBAR SEG History of excision of lesion (Acute 01/11/18) [place] [facility] [place] LAMINECTOM[place] Ligation of fallopian tube Social History/Home Situation: Pt lives alone on a 2 story home. She has 2 living rooms, a bathroom and her kitchen on the first floor which she reports she will plan to stay. She notes that she is (I) at her baseline level of function. Her sister is planning to stay in her home for the next couple weeks once she is discharged and then she plans to move to [place] to stay in her sisters home for the next couple months. She reports that she has a walk in shower. Her laundry is in her basement and she states that her bedroom is upstairs but she is not worried about this. Equipment owned/DME: None SUBJECTIVE: Pt was sitting in bed when OT arrived, she is agreeable to OT session reporting that she feels a little better today. She states that she would like to go home. OBJECTIVE: General Observation: Pleasant, IV (L) UE and able to answer all questions appropriately. Mental Status: A&Ox3 Pain: c/o pain in (R) hip ROM: RUE AROM WFL L UE AROM WFL STRENGTH: RUE 4/5 throughout globally LUE 4/5 throughout globally FUNCTIONAL MOBILITY/ADLS: Transfers with FWW Supine-sit vc min (A) Sit-Stand min (A) Stand-sit min (A) with vc Bed-Chair CGA, mod-mx vc BATHING Pt denies she reports that she performed this earlier this morning with nursing. DRESSING sitting on side of bed Dressing UE Min vc for donning robe Dressing LE Max (A) don and doffing (B) socks GROOMING Standing at sink with FWW CGA- (I) with brushing teeth and hair. VC for body mechanics and hand placement throughout. TOILETING on bed [place] prior to start- max (A) toileting hygiene on commode during session (I) with vc EATING NT BALANCE: Static sitting Normal Dynamic Sitting Normal Static Standing Good Dynamic Standing Fair-good SPECIAL TESTS: Daily Activity Limitations Standardized Measure [facility] AM PAC ?6 clicks? Daily Activity Inpatient Short Form: Raw score: 18 Standardized score: 38.66 CMS score: 46.65% INFORMED CONSENT/EDUCATION: Pt instructed in purpose of OT Consult and plan of care. ASSESSMENT: Patient is a 78-year-old female referred to occupational therapy services with diagnosis of (R) hip pain due to a right comminuted, displaced intertrochanteric fracture sustained from a mechanical fall S/P ORIF. She is also being seen for acute kidney kidney injury, mild rhabdomyolysis, and dehydration. Patient presents with clinical signs and symptoms consistent with dx, as demonstrated by the following impairment level findings: Pain in (R) Hip, decreased AROM of (R) hip without pain, decreased functional activity tolerance, unable to perform LE movements (I), decreased bed mobility. Impairments are contributing to the following functional limitations: Decreased LE dressing, decreased functional activity tolerance, vc needed for gait mechanics, decreased functional mobility needed for ADLs/IADLs, pain with ADL performance, decreased standing tolerance. AMPAC score 18 Patient is assessed as a Moderate 17257 complexity based on the following: History: See above Examination: see functional limitations as noted above Presentation: Evolving Decision Making: AMPAC score 18 GOALS Goals x1 week 1. Transfers- SBA, FWW 2. Dressing- (I) UE and mod (A) LE 3. Bathing- Standing at sink with FWW (I) with (B) UE, mod (A) (B) LE 4. Toileting- on toilet (I) 5. Eating- (I) PLAN OF CARE/TREATMENT PLAN: 1x/day, 5 days/ week x 1week Initiate Occupational Therapy Services for bathing, dressing, grooming, toileting, eating, transfer training. DISCHARGE RECOMMENDATIONS- OT recommends that pt go to SNF based on her current level of function and functional (I) in ADL/IADL routines. OT recommends the following DME IF pt returns home at this time: Raised toilet seat to increased pt's functional (I) and safety with her toileting routine with WB restrictions. FWW to decrease her fall risk and increase her overall functional (I) with functional mobility. Shower seat/bench due to her decreased functional activity tolerance, WB precautions and overall safety with her bathing routine. Grab bars in her shower to increase her overall safety and (I) with her bathing routine *If pt does go home OT recommends that pt have OT/PT services for assessment of pt's safety in the home setting, performance of her ADLs and increased functional mobility and strengthening. TREATMENT TIME/MINUTES/CODES [id number], [id number] Marian Stockton OTR/L [facility]
[2019-02-06] MEDS: Potassium Chloride 20 MEQ TABCR PO ×3 (10:12→20:23)
[2019-02-06] MEDS: MAGNESIUM SULFATE 4 GM/100 ML BAG IVPB (10:12)
--- NOTE | 2019-02-06 10:14 | PT.INTREAT ---
Date of service: 02/06/19 Time of Service: 09:23 PT Notes PT Inpatient Treatment Note Date: 02/06/2019 PRECAUTIONS: Fall. Standard. TDWB on right LE. SUBJECTIVE: Patient is with OT upon arrival of this PT. She is agreeable to walking to the bathroom to have her teeth brushed with assistance of the OT. She did express pain with weight-bearing on the R LE. She denies headache, dizziness, chest pain throughout PT session. In the afternoon, she is agreeable to going for a short walk and was happy that she did. OBJECTIVE: Continues to require maximal verbal cueing for weight bearing precaution compliance. Patient continues to have difficulty with managing her R LE as she looks like she is putting more weight to it than she should. PAIN: Reports moderate pain on right hip with weight bearing. In the afternoon, patient only complained of mild pain. BED MOBILITY/TRANSFERS Rolling L/R: Minimal assist to right LE; CGA in the PM Supine-sit: Minimal assist to right LE; CGA in the PM Sit-supine: Minimal assist to right LE; CGA in the PM Sit-stand: Minimal assist; CGA in the PM Stand-sit: Minimal assist; CGA in the PM Bed-Chair: Minimal assist; CGA in the PM Chair-bed: Minimal assist; CGA in the PM GAIT Assistive Device: FWW Weight bearing: TDWB on R LE Assist: Minimal assist; CGA in the PM Distance: Session 1- 15' + 10 + 8' from bedside to bathroom and then from bathroom back to bed but patient needed to use bedside commode along the way. Session 2- patient tolerated 60' Deviation: Patient not able to maintain TDWB on right LE. Increased trunk flexion and lean to the left due to pain on right hip. ASSESSMENT: Patient will require continued skilled physical therapy services in order to facilitate achievement of highest functional level in anticipation of going home as previously. Patientt refused exercises after gait activity in the afternoon due to fatigue. Patient will benefit from a shelter facility placement for mobility level progression, pain management, and therapy home discharge planning. PLAN: Continue with PT POC as initially established TREATMENT CODE/TIME: Session 1 x [id number] 32 minutes beginning at 9:23 AM. Session 2 for 34 minutes beginning at 15:23 PM.
--- NOTE | 2019-02-06 15:01 | PGE_ITS ---
Date of Service Date of service: 02/06/19 Time of Service: 15:02 Assessment and Plan Assessment and plan (1) Intertrochanteric fracture of right femur: Status: Acute Assessment and plan: POD 3, continue routine post operative care as directed by orthopedics. PT/OT, pulmonary toilet, pain management, bowel management. oxycontin was discontinued secondary to post operative delirium, this has resolved. continue current pain regimen for now. Qualifiers: Encounter type: initial encounter Fracture alignment: displaced Fracture type: closed Qualified Code(s): S72.141A - Displaced intertrochanteric fracture of right femur, initial encounter for closed fracture (2) Anemia: Status: Chronic Assessment and plan: chronic and worsened d/t post operative blood loss. no evidence of ongoing blood loss. received 2 units of PRBC, H&H improved and stable. follow. (3) Rhabdomyolysis: Status: Acute Assessment and plan: resolving, kidney functions normal. discontinue CK trending unless warranted Qualifiers: Encounter type: initial encounter Rhabdomyolysis type: traumatic Qualified Code(s): T79.6XXA - Traumatic ischemia of muscle, initial encounter (4) Acute kidney injury: Status: Acute Assessment and plan: resolved with IV hydration. follow closely. hypokalemia, added magnesium which is low also at 1.3, will replete both and follow. BMP in am (5) Shingles: Status: Acute Assessment and plan: lesions crusted over with no evidence of ongoing infection or cellulitis. will complete 7 day course of valacyclovir, was renally dosed but will readjust to reflect current renal function. (6) Essential hypertension: Status: Acute Assessment and plan: blood pressures climbing to SBP 149-174/85-101, VASU was on hold for WAYNE and hypotension at admission. will restart VASU and continue monitor (7) Hyperlipidemia: Status: Acute Assessment and plan: statin has been placed on hold in setting of rhabdo, will resume at discharge. (8) DVT prophylaxis: Status: Acute Assessment and plan: asa 81 mg po bid per orthopedics, SCD's in place. is starting to ambulate more and increase activity (9) Tobacco abuse: Status: Acute Assessment and plan: continue nicotine patch, no issues (10) Discharge planning issues: Status: Acute Assessment and plan: case management following. she is declining rehab at this time. (11) Insomnia: Status: Acute Assessment and plan: continue trazodone, add melatonin. avoid interruptions of sleep at night now that she is stabilized. Subjective Subjective Patient reports: still having pain, tolerating a regular diet (poor appetite but taking po without issue), voiding w/o difficulty, flatus and afebrile; denies nausea and shortness of breath Interval history since last seen: post op day 3 from a hip repair. c/o insomnia d/t interruptions overnight, right hip pain persists but not worsening. working with physical therapy and slowly progressing, was up to BR with walker without issues. dressing is dry and intact. csmt's intact distally. active issues include rhabdo which is improving with intact kidney function and electrolyte abnormalities requiring replacement. H&H improved and stable after receiving 2 units of PRBC yesterday. no respiratory issues or oxygen requirements. Exam Narrative Exam Narrative: General: Thin, elderly, female of stated age, alert and oriented, in no acute distress. Appears comfortable. Answers questions appropriately. Pleasant and talkative. HEENT: Atraumatic, pupils equal and round, EOMI, mucous membranes moist. Neck: Supple, no JVD. Cardiovascular: Heart sounds regular rate and rhythm. 3/6 murmur noted at the left sternal border/over apex. Respiratory: Respirations appear even and unlabored, no rales or wheezing. GI: Normoactive bowel sounds throughout, abdomen soft, nontender on palpation, nondistended. Extremities: Right lower extremity with large surgical dressing, clean, dry and intact. No significant amount of blood under dressing, no active drainage from wound. Edema of right thigh noted, right thigh compressible. some ecchymosis around the right hip and thigh. Pedal pulses are easily palpable bilaterally Skin: Herpes zoster rash to right lower abdomen/hip, lesions dry and crusted. Objective Objective Clinical Data: Abnormal lab results 02/05/19 02/06/19 02/06/19 Range/Units 12:45 07:15 07:15 WBC 10.97 H (4.4-10.8) k/cumm RBC 3.55 L (4.00-5.20) m/cumm Hgb 11.0 L D (12.0-15.5) g/dL Hct 32.5 L D (36.0-46.0) % RDW 15.2 H (11.7-14.6) % MPV 11.7 H (8.0-11.0) fL Potassium 2.8 L* (3.5-5.1) mmol/L Glucose 115 H (70-100) mg/dL Calcium 7.4 L (8.5-10.1) mg/dL Magnesium (1.8-2.4) mg/dL Creatine Kinase 859 H (26-192) U/L Crossmatch See Detail 02/06/19 Range/Units 07:15 WBC (4.4-10.8) k/cumm RBC (4.00-5.20) m/cumm Hgb (12.0-15.5) g/dL Hct (36.0-46.0) % RDW (11.7-14.6) % MPV (8.0-11.0) fL Potassium (3.5-5.1) mmol/L Glucose (70-100) mg/dL Calcium (8.5-10.1) mg/dL Magnesium 1.3 L (1.8-2.4) mg/dL Creatine Kinase (26-192) U/L Crossmatch Vital Signs Temperature 37.1 C 02/06/19 14:08 Temperature Source Tympanic 02/06/19 14:08 Pulse 53 L 02/06/19 14:08 Pulse Rhythm Irregular 02/06/19 08:15 Respiratory Rate 14 02/06/19 14:08 Respiratory Effort 02/06/19 08:15 Respiratory Depth Normal 02/06/19 08:15 Respiratory Pattern Normal 02/06/19 08:15 Blood Pressure 149/75 H 02/06/19 14:08 Blood Pressure Position Supine 02/02/19 18:45 Pulse Oximetry 97 02/06/19 14:08 Oxygen Delivery Method Room Air 02/06/19 14:08 Oxygen Flow Rate 0 02/06/19 14:08 Pain Level 0 02/06/19 14:08 Intake & Output 02/05/19 02/06/19 02/06/19 23:59 11:59 23:59 Intake Total 1347 / 3594.5 1830.0 / 1830.0 Output Total 2550 / 3675 600 / 900 300 / 900 Balance -1203 / -80.5 1230.0 / 930.0 -300 / 930.0 Weight 59.1 kg Intake: IV 400 / 2407.5 1530.0 / 1530.0 Oral 300 / 300 Blood Product 917 / 917 Rbc Leuko Reduced Unit 600 / 600 [id number] Rbc Leuko Reduced Unit 317 / 317 [id number] Other Rbc Leuko Reduced Unit [id number] Output: Urine 2550 / 3675 600 / 900 300 / 900 Other: Urine Color Yellow Yellow Yellow Urine Appearance Clear Clear Clear Urine Odor Normal Normal Comment pt was incontinent Voiding Methods Incontinent Bedpan Laboratory Results WBC 10.97 k/cumm (4.4-10.8) H 02/06/19 07:15 RBC 3.55 m/cumm (4.00-5.20) L 02/06/19 07:15 Hgb 11.0 g/dL (12.0-15.5) L D 02/06/19 07:15 Hct 32.5 % (36.0-46.0) L D 02/06/19 07:15 MCV 91.5 fL (80-95) D 02/06/19 07:15 MCH 31.0 pg (27.0-33.0) 02/06/19 07:15 MCHC 33.8 g/dL (32.0-36.0) 02/06/19 07:15 RDW 15.2 % (11.7-14.6) H 02/06/19 07:15 Plt Count 166 x1000/uL (130-400) 02/06/19 07:15 MPV 11.7 fL (8.0-11.0) H 02/06/19 07:15 Immature Gran % 0.2 02/04/19 07:45 Neutrophils % 78.6 02/04/19 07:45 Band Neutrophils % 0.0 % 02/02/19 19:15 Lymphocytes % 12.2 02/04/19 07:45 Atypical Lymphs % 0 02/02/19 19:15 Monocytes % 8.9 02/04/19 07:45 Eosinophils % 0.0 02/04/19 07:45 Basophils % 0.1 02/04/19 07:45 Absolute Neutrophils 10.80 k/cumm (1.2-6.7) H 02/04/19 07:45 Absolute Lymphocytes 1.68 k/cumm (1.2-3.4) 02/04/19 07:45 Absolute Monocytes 1.22 k/cumm (0.11-0.7) H 02/04/19 07:45 Absolute Eosinophils 0.00 k/cumm (0.0-0.7) 02/04/19 07:45 Absolute Basophils 0.01 k/cumm (0.0-0.2) 02/04/19 07:45 Differential Comment Manual differential 02/02/19 19:15 RBC Morphology Normal 02/02/19 19:15 PT 10.5 sec (9.3-11.0) 02/03/19 06:55 INR 1.0 (0.9-1.1) 02/03/19 06:55 Sodium 137 mmol/L (136-145) 02/06/19 07:15 Potassium 2.8 mmol/L (3.5-5.1) L* 02/06/19 07:15 Chloride 102 mmol/L (98-107) 02/06/19 07:15 Carbon Dioxide 26.0 mmol/L (21.0-32.0) 02/06/19 07:15 Anion Gap 9.0 mmol/L (3-11) 02/06/19 07:15 BUN 12 mg/dL (7-18) D 02/06/19 07:15 Creatinine 0.64 mg/dL (0.55-1.02) 02/06/19 07:15 Estimated GFR/1.73 m2 >= 60.00 (mL/min/1.73m2) 02/06/19 07:15 Glucose 115 mg/dL (70-100) H 02/06/19 07:15 Calcium 7.4 mg/dL (8.5-10.1) L 02/06/19 07:15 Magnesium 1.3 mg/dL (1.8-2.4) L 02/06/19 07:15 Total Bilirubin 0.4 mg/dL (0.2-1.0) 02/03/19 06:55 AST 48 U/L (15-37) H 02/03/19 06:55 ALT 27 U/L (14-59) 02/03/19 06:55 Alkaline Phosphatase 47 U/L (46-116) 02/03/19 06:55 Creatine Kinase 859 U/L (26-192) H 02/06/19 07:15 Troponin I < 0.05 ng/mL (0.00-0.06) 02/03/19 06:55 Total Protein 5.6 g/dL (6.4-8.2) L 02/03/19 06:55 Albumin 2.5 g/dL (3.4-5.0) L 02/03/19 06:55 TSH 1.03 uIU/mL (0.36-3.74) 02/03/19 06:55 Urine Color Cancelled 02/05/19 10:16 Urine Clarity Cancelled 02/05/19 10:16 Urine pH Cancelled 02/05/19 10:16 Ur Specific [place] Cancelled 02/05/19 10:16 Urine Protein Cancelled 02/05/19 10:16 Urine Ketones Cancelled 02/05/19 10:16 Urine Blood Cancelled 02/05/19 10:16 Urine Nitrite Cancelled 02/05/19 10:16 Urine Bilirubin Cancelled 02/05/19 10:16 Urine Urobilinogen Cancelled 02/05/19 10:16 Ur Leukocyte Esterase Cancelled 02/05/19 10:16 Urine RBC 0-2 (0-2) 02/05/19 09:55 Urine WBC 0-2 HPF (0-5) 02/05/19 09:55 Ur Epithelial Cells Rare HPF (Negative) 02/05/19 09:55 Urine Crystals Negative HPF (Negative) 02/05/19 09:55 Urine Bacteria Rare HPF (Negative) 02/05/19 09:55 Urine Casts Negative LPF (Negative) 02/05/19 09:55 Urine Mucus Negative (Negative) 02/05/19 09:55 Urine Other Rare renal (Negative) 02/05/19 09:55 Ur Culture Indicated? No 02/05/19 09:55 Urine Glucose Cancelled 02/05/19 10:16 Patient ABO/Rh B Positive 02/05/19 12:45 Antibody Screen Negative 02/05/19 12:45 Crossmatch See Detail 02/05/19 12:45
[2019-02-06] MEDS: Lisinopril 20 MG TAB 40 MG PO (16:09)
--- NOTE | 2019-02-06 17:14 | PDOC.CMPRO ---
- If Service Date Differs Date of service: 02/06/19 Time of Service: 17:14 Care Management Progress Note S/O: Davida was lying in bed when CM came to see her. She stated that she was tired and uncomfortable because she had just ambulated to the bathroom. When asked how she slept last night Davida responded that she has not slept since she got here. She stated that they were doing testing up in the [facility] and that's why she couldn't sleep. She appears to still have periods of confusion although she did not discuss having hallucinations as she did yesterday per report. A: Davida is a 78 year old woman admitted with an intertrochanteris fracture of her right femur P: Davida has undergone surgery to repair the intertrochanteric fracture of her right femur. She will likely return home with anticipated orders for home health PT; undetermined if Davida will be agreeable. CM will continue to support patient, family and discharge planning process.
[2019-02-06] MEDS: oxyCODONE 5 MG TAB PO (20:22)
[2019-02-06] MEDS: Polyethylene Glycol 3350 17 GM PACKET PO (20:23)
[2019-02-06] MEDS: Docusate Sodium 100 MG CAP PO (20:23)
[2019-02-06] MEDS: Melatonin 3 MG TAB 6 MG PO (22:48)
[2019-02-06] MEDS: traZODone 50 MG TAB PO (22:48)
[2019-02-06] MEDS: metroNIDAZOLE 0.75% CR. 45 GM TUBE TP (22:48)
[2019-02-07] MEDS: Normal Saline 1,000 ML 150 ML IV ×2 (01:03→07:14)
[2019-02-07 03:50] VITALS: BP 154/78; PULSE 83; RESP 18; TEMP 36.7; O2SAT 96
[2019-02-07] MEDS: Acetaminophen 500 MG TAB 1000 MG PO ×2 (06:07→13:46)
[2019-02-07 07:20] VITALS: BP 154/78; PULSE 81; RESP 20; TEMP 36.8; O2SAT 97
[2019-02-07 07:27] LABS: Abs Immature Grans 0.05 k/cumm (0.0-0.09); Absolute Basophil Count 0.01 k/cumm (0.0-0.2); Absolute Eosinophil Count 0.03 k/cumm (0.0-0.7); Basophils % 0.1; Eosinophils % 0.2; HCT 31.7 % (36.0-46.0); HGB 10.6 g/dL (12.0-15.5); Immature Grans % 0.4; Lymphocytes % 9.5; Mean Corp. HGB Concentration 33.4 g/dL (32.0-36.0); Mean Corpuscular Hemoglobin 30.7 pg (27.0-33.0); Mean Corpuscular Volume 91.9 fL (80-95); Mean Platelet Volume 11.7 fL (8.0-11.0); Monocytes % 5.1; Neutrophils % 84.7; Platelet Count 201 x1000/uL (130-400); RBC 3.45 m/cumm (4.00-5.20); RBC Distribution Width 15.2 % (11.7-14.6); White Blood Cell Count 12.63 k/cumm (4.4-10.8)
[2019-02-07 07:29] LABS: Absolute Monocyte Count 0.64 k/cumm (0.11-0.7)
[2019-02-07 07:46] LABS: Anion Gap 7.3 mmol/L (3-11); BUN 11 mg/dL (7-18); CO2 25.7 mmol/L (21.0-32.0); Calcium 7.3 mg/dL (8.5-10.1); Chloride 103 mmol/L (98-107); Glucose 128 mg/dL (70-100); Magnesium 1.6 mg/dL (1.8-2.4); Potassium 3.3 mmol/L (3.5-5.1); Sodium 136 mmol/L (136-145)
[2019-02-07] MEDS: valACYclovir 1,000 MG TAB 1000 MG PO ×2 (08:05→13:46)
[2019-02-07] MEDS: Potassium Chloride 20 MEQ TABCR PO (08:06)
[2019-02-07] MEDS: Calcium Carbonate 1.25 GM TAB PO (08:07)
[2019-02-07] MEDS: Polyethylene Glycol 3350 17 GM PACKET PO (08:07)
[2019-02-07] MEDS: Docusate Sodium 100 MG CAP PO (08:07)
[2019-02-07] MEDS: Lisinopril 20 MG TAB 40 MG PO (08:08)
[2019-02-07] MEDS: Cholecalciferol (Vitamin D3) 1,000 UNIT TAB 2000 UNITS PO (08:08)
[2019-02-07] MEDS: Aspirin 81 MG CHEW PO (08:08)
[2019-02-07] MEDS: Magnesium Oxide 400 MG TAB PO (09:24)
[2019-02-07] MEDS: Potassium Chloride 20 MEQ TABCR 40 MEQ PO ×2 (09:25→13:46)
[2019-02-07] MEDS: MAGNESIUM SULFATE 4 GM/100 ML BAG IVPB (09:26)
[2019-02-07 09:29] LABS: Creatine Kinase 467 U/L (26-192)
[2019-02-07] MEDS: Normal Saline Flush 10 ML SYR IVP (10:10)
--- NOTE | 2019-02-07 10:10 | NT_ITS ---
Date of service: 02/07/19 Time of Service: 09:40 Occupational Therapy Notes 02/07/19 OT went to see pt, pt reports that she is not interested at this time in performing OT session as she had just walked with PT and is exhausted from walking back and forth. OT will resume pt's care on Sunday if pt is still admitt ed at this time. Marian Stockton, OTR/[facility]
--- NOTE | 2019-02-07 11:27 | W.PM.PROGNOT ---
Date of Service Date of service: 02/07/19 Time of Service: 11:27 Assessment and Plan Assessment and plan (1) Intertrochanteric fracture of right femur: Status: Acute Assessment and plan: Assessment: I think she is moving satisfactorily at 3 days postop to go home. Her living situation is all on one level. She has her sister to help as well. I think her acute kidney injury is responded well to hydration. I think it safe to be discharged home with home health PT. Plan: If she is discharged today should return to my office for follow-up in 2 weeks. We will perform a wound check and remove her justine at that time. Also get follow-up x-rays of her hip. She should continue to take baby aspirin 81 mg p.o. twice daily for 30 days as prophylaxis against DVTs. She may shower and get her justine wet. After showering she should just pat the justine dry and cover that with a light gauze dressing so they do not catch on her clothes. Qualifiers: Encounter type: initial encounter Fracture type: closed Fracture alignment: displaced Qualified Code(s): S72.141A - Displaced intertrochanteric fracture of right femur, initial encounter for closed fracture Subjective Subjective Patient reports: feels better and pain is less Interval history since last seen: She says she is going home today. Her sister will be home to help and she will get home health PT as well. She feels she will be able to function at home safely. Exam Narrative Exam Narrative: Her incision is clean and dry. According to PT she is ambulating only short distances 10 to 15 feet. Neurovascular examination of her right foot is normal. She has good active ankle dorsiflexion plantarflexion. There is no swelling in her foot. Hemoglobin is 10.6 g today. BUN is 11 creatinine 0.5. Her potassium has come up to 3.3. Objective Objective Clinical Data: Abnormal lab results 02/07/19 02/07/19 02/07/19 Range/Units 07:00 07:00 07:00 WBC 12.63 H (4.4-10.8) k/cumm RBC 3.45 L (4.00-5.20) m/cumm Hgb 10.6 L (12.0-15.5) g/dL Hct 31.7 L (36.0-46.0) % RDW 15.2 H (11.7-14.6) % MPV 11.7 H (8.0-11.0) fL Absolute Neutrophils 10.70 H (1.2-6.7) k/cumm Potassium 3.3 L (3.5-5.1) mmol/L Creatinine 0.50 L (0.55-1.02) mg/dL Glucose 128 H (70-100) mg/dL Calcium 7.3 L (8.5-10.1) mg/dL Magnesium 1.6 L (1.8-2.4) mg/dL Creatine Kinase 467 H (26-192) U/L Vital Signs Temperature 36.8 C 02/07/19 07:20 Temperature Source Tympanic 02/07/19 07:20 Pulse 81 02/07/19 07:20 Pulse Rhythm Irregular 02/07/19 10:15 Respiratory Rate 20 02/07/19 07:20 Respiratory Effort Non-Labored 02/07/19 10:15 Respiratory Depth Normal 02/07/19 10:15 Respiratory Pattern Normal 02/07/19 10:15 Blood Pressure 154/78 H 02/07/19 07:20 Blood Pressure Position Supine 02/02/19 18:45 Pulse Oximetry 97 02/07/19 07:20 Oxygen Delivery Method Room Air 02/07/19 07:20 Oxygen Flow Rate 0 02/07/19 07:20 Pain Level 2 02/07/19 07:20 Comment 02/07/19 03:50 Intake & Output 02/06/19 02/06/19 02/07/19 11:59 23:59 11:59 Intake Total 1830.0 / 3240.0 1410 / 3240.0 1880.0 / 1880.0 Output Total 600 / 1600 1000 / 1600 900 / 900 Balance 1230.0 / 1640.0 410 / 1640.0 980.0 / 980.0 Weight 59.1 kg 60.9 kg Intake: IV 1530.0 / 2540.0 1010 / 2540.0 1880.0 / 1880.0 Oral 300 / 700 400 / 700 Output: Urine 600 / 1600 1000 / 1600 900 / 900 Other: Urine Color Yellow Yellow Yellow Urine Appearance Clear Clear Clear Urine Odor Normal Normal Normal Comment pt was incontinent mixed with stool Stool Size Copious Stool Characteristics Soft Formed Liquid Voiding Methods Bedpan Bedside Commode Bedpan Laboratory Results WBC 12.63 k/cumm (4.4-10.8) H 02/07/19 07:00 RBC 3.45 m/cumm (4.00-5.20) L 02/07/19 07:00 Hgb 10.6 g/dL (12.0-15.5) L 02/07/19 07:00 Hct 31.7 % (36.0-46.0) L 02/07/19 07:00 MCV 91.9 fL (80-95) 02/07/19 07:00 MCH 30.7 pg (27.0-33.0) 02/07/19 07:00 MCHC 33.4 g/dL (32.0-36.0) 02/07/19 07:00 RDW 15.2 % (11.7-14.6) H 02/07/19 07:00 Plt Count 201 x1000/uL (130-400) 02/07/19 07:00 MPV 11.7 fL (8.0-11.0) H 02/07/19 07:00 Immature Gran % 0.4 02/07/19 07:00 Neutrophils % 84.7 02/07/19 07:00 Band Neutrophils % 0.0 % 02/02/19 19:15 Lymphocytes % 9.5 02/07/19 07:00 Atypical Lymphs % 0 02/02/19 19:15 Monocytes % 5.1 02/07/19 07:00 Eosinophils % 0.2 02/07/19 07:00 Basophils % 0.1 02/07/19 07:00 Absolute Neutrophils 10.70 k/cumm (1.2-6.7) H 02/07/19 07:00 Absolute Lymphocytes 1.20 k/cumm (1.2-3.4) 02/07/19 07:00 Absolute Monocytes 0.64 k/cumm (0.11-0.7) 02/07/19 07:00 Absolute Eosinophils 0.03 k/cumm (0.0-0.7) 02/07/19 07:00 Absolute Basophils 0.01 k/cumm (0.0-0.2) 02/07/19 07:00 Differential Comment Manual differential 02/02/19 19:15 RBC Morphology Normal 02/02/19 19:15 PT 10.5 sec (9.3-11.0) 02/03/19 06:55 INR 1.0 (0.9-1.1) 02/03/19 06:55 Sodium 136 mmol/L (136-145) 02/07/19 07:00 Potassium 3.3 mmol/L (3.5-5.1) L 02/07/19 07:00 Chloride 103 mmol/L (98-107) 02/07/19 07:00 Carbon Dioxide 25.7 mmol/L (21.0-32.0) 02/07/19 07:00 Anion Gap 7.3 mmol/L (3-11) 02/07/19 07:00 BUN 11 mg/dL (7-18) 02/07/19 07:00 Creatinine 0.50 mg/dL (0.55-1.02) L 02/07/19 07:00 Estimated GFR/1.73 m2 >= 60.00 (mL/min/1.73m2) 02/07/19 07:00 Glucose 128 mg/dL (70-100) H 02/07/19 07:00 Calcium 7.3 mg/dL (8.5-10.1) L 02/07/19 07:00 Magnesium 1.6 mg/dL (1.8-2.4) L 02/07/19 07:00 Total Bilirubin 0.4 mg/dL (0.2-1.0) 02/03/19 06:55 AST 48 U/L (15-37) H 02/03/19 06:55 ALT 27 U/L (14-59) 02/03/19 06:55 Alkaline Phosphatase 47 U/L (46-116) 02/03/19 06:55 Creatine Kinase 467 U/L (26-192) H 02/07/19 07:00 Troponin I < 0.05 ng/mL (0.00-0.06) 02/03/19 06:55 Total Protein 5.6 g/dL (6.4-8.2) L 02/03/19 06:55 Albumin 2.5 g/dL (3.4-5.0) L 02/03/19 06:55 TSH 1.03 uIU/mL (0.36-3.74) 02/03/19 06:55 Urine Color Cancelled 02/05/19 10:16 Urine Clarity Cancelled 02/05/19 10:16 Urine pH Cancelled 02/05/19 10:16 Ur Specific [place] Cancelled 02/05/19 10:16 Urine Protein Cancelled 02/05/19 10:16 Urine Ketones Cancelled 02/05/19 10:16 Urine Blood Cancelled 02/05/19 10:16 Urine Nitrite Cancelled 02/05/19 10:16 Urine Bilirubin Cancelled 02/05/19 10:16 Urine Urobilinogen Cancelled 02/05/19 10:16 Ur Leukocyte Esterase Cancelled 02/05/19 10:16 Urine RBC 0-2 (0-2) 02/05/19 09:55 Urine WBC 0-2 HPF (0-5) 02/05/19 09:55 Ur Epithelial Cells Rare HPF (Negative) 02/05/19 09:55 Urine Crystals Negative HPF (Negative) 02/05/19 09:55 Urine Bacteria Rare HPF (Negative) 02/05/19 09:55 Urine Casts Negative LPF (Negative) 02/05/19 09:55 Urine Mucus Negative (Negative) 02/05/19 09:55 Urine Other Rare renal (Negative) 02/05/19 09:55 Ur Culture Indicated? No 02/05/19 09:55 Urine Glucose Cancelled 02/05/19 10:16 Patient ABO/Rh B Positive 02/05/19 12:45 Antibody Screen Negative 02/05/19 12:45 Crossmatch See Detail 02/05/19 12:45
--- NOTE | 2019-02-07 11:30 | DSE_ITS ---
Date of service: 02/07/19 Time of Service: 11:30 DS: Diagnosis Discharge Diagnosis (1) Intertrochanteric fracture of right femur: Start date: 02/07/19 Start time: 11:30 Status: Acute Asessment and Plan: Repair of femur with Dr. Rivera POD 4 of repair. Doing well. Refusing to go to SNIF. Refusing pain medication. BM today. Will be dcd home with PT/OT, RN services. She is likely to fail at home given lack of motivation to move and refusing to take pain medication, she would benefit from SNIF but refusing to go and insistent upon going home. She will be discharged home. (2) Anemia: Status: Chronic (3) Rhabdomyolysis: Start date: 02/07/19 Start time: 12:28 Status: Acute Asessment and Plan: Improving CPK 467 today. Improved from yesterday. Continue to drink water. (4) Acute kidney injury: Start date: 02/07/19 Start time: 12:28 Status: Acute Asessment and Plan: Resolved. Bun 11 creatinine 0.50 (5) Shingles: Status: Acute (6) Essential hypertension: Status: Acute (7) Hyperlipidemia: Status: Acute (8) DVT prophylaxis: Status: Acute (9) Tobacco abuse: Status: Acute (10) Discharge planning issues: Start date: 02/07/19 Start time: 12:29 Status: Acute Asessment and Plan: see above. (11) Insomnia: Status: Acute Discharge Plan Disposition Patient Disposition: HOME W/HOME HEALTH SERVICE Condition: Improving Discharge Details Chief Complaint: Trauma Clinical Impression: Acute kidney injury, Hip fracture, intertrochanteric Reason For Visit: DISPL R INTERTROCHANTERIC FX FEMUR,RHABDOMYOLYSIS Admit Date/Time: 02/02/19 21:03 Admit Provider: Ventura Blank Attending Provider: Ventura Blank Primary Care Provider: Giuliana Massey ED Provider: Abrahan Redd Hospital Course Hospital Course: 78 y.o female with PMH PHTN, depression, hyperlipidemia, HTN, shingles and chronic pain syndrome admitted to [facility] m/s on 02/02/2019 after falling down stairs onto her right side and injuring her hip. Upon admission to ED she was found to have Rhabdo, with dehydration ( she was down for the day after falling), and WAYNE. Imaging revealed right intertrochanteric femur fracture. She was admitted for IV hydration, ortho consult. During the course of hospitalization patient had ORIF of right femur. Her WAYNE improved with fluids her CPK is improving. Post op she received 2 units of PRBC, with diuresis with lasix between infusion to help with rhabdo. All nephrotoxic medications were held until WAYNE resolved. At one point she did have post operative delirium and confusion her oxycontin was dcd, improving mental status. PT worked with her she did not want to participate and needed a lot of direction. She would benefit from a Rehab but refusing. She is able to move from chair to BR using a walker. She is refusing to take pain medications and insist on going home. Patient is at high risk for failure at home due to lack of motivation and not wanting to take medication for pain. She is refusing rehab, there fore she will be receiving HH services with Nursing, PT/OT. Today she did have a BM, there is bruising to inner right thigh and swelling to right leg, not uncommon after ORIF. Encouraged patient to drink plenty of fluids, ice hip and move around at home. She denies CP, SOB, N/v/d/ Home Meds and New Rx's Prescriptions: New docusate sodium [Colace] 100 mg Capsule 100 mg PO TID Qty: 30 RF: 0 aspirin 81 mg Tablet,Chewable 81 mg PO BID Qty: 60 RF: 0 oxycodone 5 mg Tablet 5 mg PO Q6H PRN PRNQty: 15 RF: 0 Continued Shingrix (PF) 50 mcg/0.5 mL suspension for reconstitution 50 mcg IM ONCE Qty: 1 RF: 1 valacyclovir 1 gram tablet 1,000 mg PO TID Qty: 21 RF: 0 metronidazole 0.75 % cream 1 applic TP QHS Qty: 45 RF: 6 simvastatin 20 mg tablet 20 mg PO DAILY Qty: 90 RF: 4 Women's 50+ Daily Form (gkb) 1 EACH tablet 1 ea PO DAILY RF: 0 cholecalciferol (vitamin D3) 1,000 UNIT capsule 1,000 unit PO DAILY RF: 0 ascorbic acid (vitamin C) [Vitamin C] 250 MG tablet 2 tab PO DAILY RF: 0 Probiotic 1 EACH capsule 1 ea PO RF: 0 trazodone 50 MG tablet 50 mg PO HS Qty: 30 RF: 3 lisinopril 40 mg tablet 40 mg PO DAILY Qty: 90 RF: 3 Discontinued acetaminophen-codeine 300-30 mg tablet 1 tab PO TID PRN (Reason: pain) Qty: 15 RF: 0 Discharge Instructions Instructions: Dehydration (GEN), Pain Management in the Elderly (GEN), Rhabdomyolysis (GEN), Non-pharmacological Pain Management Therapies for Adults (GEN), Pain Management After Surgery (GEN), Hip Fracture (GEN), ORIF (GEN) Additional Instructions: Take medication as directed. Eat pineapple to help with bruising. Ice hip four times a day for at least 15 mins Move around throughout the day. Continue baby aspirin daily twice a day for 30 days Follow up with Dr. Rivera in 2 weeks. Follow up with Primary provider in 1 week. Stay hydrated and drink lots of water. Your urine should be clear. Seek medical attention if you have Chest pain, shortness of breath, leg pain Referrals: Filemon Rivera MD [ [facility] STAFF PHYSICIAN] - 02/18/19 9:30 am Activity:: Activity as Tolerated Equipment/Supplies:: Walker Diet:: Normal Diet Discharge Orders Discharge Orders: Discharge Order (Routine); Ordered 02/07/19 Ordered By: Janett Solis DS: Summary Status at Discharge Functional status at discharge: uses cane/walker Overall status at discharge: patient is progressing back to baseline Mental Status: mental status grossly normal Speech and Movement: speech and movement normal Mood: congruent mood Affect: normal affect Exam Narrative Exam Narrative: General: Thin, elderly, female of stated age, alert and oriented, in no acute distress. Appears comfortable. Answers questions appropriately. Pleasant and talkative. HEENT: Atraumatic, pupils equal and round, EOMI, mucous membranes moist. Neck: Supple, no JVD. Cardiovascular: Heart sounds regular rate and rhythm. 3/6 murmur noted at the left sternal border/over apex. Respiratory: Respirations appear even and unlabored, no rales or wheezing. GI: Normoactive bowel sounds throughout, abdomen soft, nontender on palpation, nondistended. Extremities: Right lower extremity with small surgical dressing, clean, dry and intact. No significant amount of blood under dressing, no active drainage from wound. Edema of right thigh noted, right thigh compressible. some ecchymosis around the right hip and thigh. Pedal pulses are easily palpable bilaterally Skin: Herpes zoster rash to right lower abdomen/hip, lesions dry and crusted. Psych Mental Status: mental status grossly normal Speech and Movement: speech and movement normal Mood: congruent mood Affect: normal affect DS: Data Vitals/I&O Vitals and I&O: Vital Signs Temperature 36.8 C 02/07/19 07:20 Temperature Source Tympanic 02/07/19 07:20 Pulse 81 02/07/19 07:20 Pulse Rhythm Irregular 02/07/19 10:15 Respiratory Rate 20 02/07/19 07:20 Respiratory Effort Non-Labored 02/07/19 10:15 Respiratory Depth Normal 02/07/19 10:15 Respiratory Pattern Normal 02/07/19 10:15 Blood Pressure 154/78 H 02/07/19 07:20 Blood Pressure Position Supine 02/02/19 18:45 Pulse Oximetry 97 02/07/19 07:20 Oxygen Delivery Method Room Air 02/07/19 07:20 Oxygen Flow Rate 0 02/07/19 07:20 Pain Level 2 02/07/19 07:20 Comment 02/07/19 03:50 Intake & Output 02/06/19 02/06/19 02/07/19 11:59 23:59 11:59 Intake Total 1830.0 / 3240.0 1410 / 3240.0 1880.0 / 1880.0 Output Total 600 / 1600 1000 / 1600 900 / 900 Balance 1230.0 / 1640.0 410 / 1640.0 980.0 / 980.0 Weight 59.1 kg 60.9 kg Intake: IV 1530.0 / 2540.0 1010 / 2540.0 1880.0 / 1880.0 Oral 300 / 700 400 / 700 Output: Urine 600 / 1600 1000 / 1600 900 / 900 Other: Urine Color Yellow Yellow Yellow Urine Appearance Clear Clear Clear Urine Odor Normal Normal Normal Comment pt was incontinent mixed with stool Stool Size Copious Stool Characteristics Soft Formed Liquid Voiding Methods Bedpan Bedside Commode Bedpan Data Completed and Pending Completed studies during hospitalization [Text1]: Exam(s) a RAD:XR chest 1V in DI dept EXAM: XR CHEST 1V IN DI DEPT INDICATION: fall yesterday, found down.. COMPARISON: CHEST 2 VIEWS PA,LAT from 10/06/2013 TECHNIQUE: 2D digital imaging was performed. FINDINGS: Heart size is normal. The aorta is tortuous. There are underlying fibrotic changes. No superimposed infiltrate, effusion or pulmonary edema is seen. There is no evidence of pneumothorax. There is no grossly displaced rib fracture. IMPRESSION: Chronic interstitial changes. No acute abnormality. Exam(s) a CT:CT head & cervical spine wo EXAM: CT HEAD CERVICAL SPINE WO CLINICAL HISTORY: fall yesterday, found down. TECHNIQUE: Noncontrast COMPARISON: NECK WITHOUT CONTRAST from 01/30/2016 FINDINGS: HEAD: No intracranial hemorrhage or skull fracture is seen. There is mild atrophy. There is an old left basal ganglia lacunar infarct. There is patchy low attenuation in the white matter consistent with small vessel disease. The orbits, sinuses and mastoid air cells are unremarkable. C spine: There is no evidence of fracture or subluxation. There are degenerative disc changes, greatest at C5-6 and C6-7. There are also prominent facet joint degenerative changes. The airway is unremarkable. No pneumothorax is seen at the lung apices. IMPRESSION: Old left basal ganglia lacunar infarct. No acute abnormality. No acute abnormality. Degenerative changes. Conclusion Left Ventricle : The left ventricle is normal in size There is normal LV segmental wall motion. There is normal left ventricular wall thickness. The posterior wall thickness is severely increased. The septum is normal. There is grade 2 diastolic dysfunction LVEF is 60-64%. Right Ventricle : The right ventricle is normal size. The right ventricular systolic function is normal. Atria : Left atrium is mildly dilated. The right atrium size is normal. Aortic Valve : Aortic valve is trileaflet. No aortic regurgitation is present. There is no aortic valvular stenosis. Mitral Valve : Mitral valve leaflets are mildly thickened. Mild mitral annular calcification. Mild to moderate mitral regurgitation. No evidence of mitral valve stenosis. Tricuspid Valve : The tricuspid valve leaflets are thickened , but open well. Moderate tricuspid regurgitation. Great Vessels : The IVC is normal in size and collapses >50% with inspiration. RVSP is between 32-35 mmHg. Compared to echocardiogram dated 07/09/2018 there is no significant change. Labs on day of discharge: Labs from last 24 hours 02/07/19 02/07/19 02/07/19 07:00 07:00 07:00 WBC 12.63 H RBC 3.45 L Hgb 10.6 L Hct 31.7 L MCV 91.9 MCH 30.7 MCHC 33.4 RDW 15.2 H Plt Count 201 MPV 11.7 H Immature Gran % 0.4 Neutrophils % 84.7 Lymphocytes % 9.5 Monocytes % 5.1 Eosinophils % 0.2 Basophils % 0.1 Absolute Neutrophils 10.70 H Absolute Lymphocytes 1.20 Absolute Monocytes 0.64 Absolute Eosinophils 0.03 Absolute Basophils 0.01 Sodium 136 Potassium 3.3 L Chloride 103 Carbon Dioxide 25.7 Anion Gap 7.3 BUN 11 Creatinine 0.50 L Estimated GFR/1.73 m2 >= 60.00 Glucose 128 H Calcium 7.3 L Magnesium 1.6 L Creatine Kinase 467 H [facility] Medical History Rosacea (Acute) Surgical History Appendectomy (~2000) endometrial biopsy (~1995) neg facetectomy s/p left sided L4-L5 faceectomy; Dr. Arenas FORAMINOTOMY LUMBAR SEG History of excision of lesion (Acute 01/11/18) Right Cheek [facility] [place] LAMINECTOMY DECOMPRESS Ligation of fallopian tube Family History Mother Neoplasm Father Heart disease Sister Heart disease Social History Smoking/Tobacco Use Status: Current every day Tobacco Type: cigarettes Smoking packs per day: 0.5 Smoking cigarettes per day: 10.0 Tobacco: How many years used: 25 Alcohol Intake: current Alcohol Intake frequency: 0-2 drinks per day Drug use: Never Substance use type: does not use Caregiver/Support person: No Pets and animals: Yes Pets and animals: dog(s) What type of physical activity do you participate in: none Seatbelt use: always Do you feel safe in your relationship?: Yes
--- NOTE | 2019-02-07 12:02 | PT.INTREAT ---
Date of service: 02/07/19 Time of Service: 08:05 PT Notes PT Inpatient Treatment Note Date: 02/07/2019 PRECAUTIONS: Fall. Standard. TDWB on right LE. SUBJECTIVE: Patient is agreeable to walking in the hallway but first wanted to make sure that there are no cameras around. She said that she will not walk if there are cameras. She was assured that cameras are only placed to make sure that everybody is safe. She denies headache, dizziness, chest pain throughout PT session. OBJECTIVE: Continues to require maximal verbal cueing for weight bearing precaution compliance. Patient continues to have difficulty with managing her R LE as she looks like she is putting more weight to it than she should. PAIN: Reports moderate pain on right hip with weight bearing. BED MOBILITY/TRANSFERS Rolling L/R: CGA to R LE Supine-sit: CGA to R LE Sit-supine: CGA to R LE Sit-stand: CGA Stand-sit: CGA Bed-Chair: CGA Chair-bed: CGA GAIT Assistive Device: FWW Weight bearing: TDWB on R LE. Patient not fully compliant of WB precautions Assist: CGA Distance: Session 1- 75' from bedside to the hallhway with wheelchair follow Deviation: Patient is not able to maintain TDWB on right LE. ASSESSMENT: Tammi has two steps to enter without rails at home. She has refused stair negotiation training and has only been receptive to ambulation activity thus far. She has not been fully compliant of her WB precaution. Patient will require continued skilled physical therapy services in order to facilitate achievement of highest functional level in anticipation of going home. Patient refused exercises after gait activity this morning. Patient will benefit from a long-term facility placement for mobility level progression, pain management, and therapy home discharge planning. No caregiver training has been provided at this time. PLAN: Continue with PT POC as initially established TREATMENT CODE/TIME: Session 1 x [id number] for 27 minutes beginning at 8:05 AM.
--- NOTE | 2019-02-07 14:42 | PDOC.HHF2F ---
Home Health Certification Home Health Certification: 1. Encounter Date and Reason I certify that SAMINA CAPPS was seen by Janett Solis on 02/07/19 and that I had a [id number] encounter with this patient that meets the physician face to face encounter requirements. 2. Clinical Findings Supporting Skilled Need and Homebound Status I certify that home health services are medically necessary, include either intermittent mcfp and/or physical/speech therapy, and that this patient is homebound in that absences from the home require considerable and taxing effort and are infrequent or of short duration, or are attributable to the need to receive medical care. [X] (a) Attached documentation from encounter provides clinical findings supporting skilled need and homebound status (including what assistance patient requires to leave the home). The encounter with the patient was in whole, or in part, for the following medical condition, which is the primary reason for home health care: DISPL R INTERTROCHANTERIC FX FEMUR,RHABDOMYOLYSIS Intermediate: Will benefit from nursing services to help with healing Physical Therapy: Will benefit from physical therapy following ORIF, to help regain strength and balance. Will benefit from OT as well. Speech Therapy: Homebound: 3. Certification and Authentication I certify that I composed the above information based on my clinical judgement relating to this patient's medical condition and, if applicable, clinical findings communicated to me by the NPP or inpatient physician who performed the Home Health Referral. All further orders will be obtained through (Community Based Physician - PCP)
--- NOTE | 2019-02-07 15:15 | NUR.NOTE ---
Nursing Note: When this RN entered this patient's room this AM, she was found to be belligerent and insisted on going home. The patient told this RN that she was going home, that no one here does anything for her and she might as well be at home. Patient also c/o 10/10 pain but refused any opioid pain medications. This RN asked the patient if she was leaving AMA and she stated no. Patient stated to get the MD in her room to send her home. PT entered the room and wanted to work with this patient to get her up to the chair for breakfast. Patient initially refused but begrudgingly agreed. Patient stated 2 more times to this RN that she wanted to leave and asked where the MD was. Patient continued throughout the shift to refuse any opioid pain medications for her pain. When PT worked with this patient on getting out of bed, the patient did not want to do anything for herself. PT had to continuously cue and encourage the patient on how to transfer, use the walker, only PWB on the right leg, etc.
--- NOTE | 2019-02-07 15:51 | INDS_ITS ---
Date of service: 02/07/19 Time of Service: 14:16 PT Notes Inpatient Physical Therapy Discharge Summary Dates: 02/07/2019 Dates of Service: 02/04/2019 through 02/07/2019 Referring Doctor: Filemon Rivera MD PT Orders: PT CONSULT: S/P Ortho surgery Precautions: Fall. Standard. TDWB on the right LE. Patient Profile/Admitting Diagnosis: Patient is a 78-year-old female who presented to the ED via EMS on 02/02/2019 with chief complaint of R hip pain due to a right comminuted, displaced intertrochanteric fracture sustained from a mechanical fall S/P ORIF on POD 4. She is also diagnosed with acute kidney kidney injury, mild rhabdomyolysis, and dehydration. PMHX: Medical History Rosacea (Acute) Surgical Appendectomy (~2000) endometrial biopsy (~1995)neg facetectomy s/p left sided L4-L5 faceectomy; Dr. Arenas FORAMINOTOMY LUMBAR SEG History of excision of lesion (Acute 01/11/18) Right [facility] [facility] [place] LAMINECTOMY DECOMPRESS Ligation of fallopian tube Social History/Home Situation: Patient lives alone in a 2 floor house with 2 steps to enter through the garage without rails. 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 She states that her sister will be here until March 2019 assist with her recovery. Equipment Owned/DME: None Subjective: Patient is agreeable to a PT consult. She is adamant about going home and not going to [place] [facility]. She states that her sister will be with her 23/10 until March. She is agreeable to home health physical therapy services. Objective: General Observation: Patient seen sitting on recliner getting dressed and ready for going home. Wound dressing over surgical site. Mental Status: Alert and oriented x4 Pain: 5/10 on right hip ROM: Right Upper Extremity: Shoulder Flexion WFL. Shoulder abduction WFL. Elbow flexion WFL. Wrist flexion WFL. Opening and closing of hand WFL. Left Upper Extremity: Shoulder Flexion WFL. Shoulder abduction WFL. Elbow flexion WFL. Wrist flexion WFL. Opening and closing of hand WFL. Right Lower Extremity: Hip flexion allows about 20 degrees of more hip flexion beyond 90 degrees while seated at edge of bed. Hip abduction allows 10 degrees only due to pain. Knee flexion 100 degrees. Ankle dorsiflexion WFL. Ankle plantarflexion WFL. Left Lower Extremity: Hip flexion WFL. Hip abduction WFL. Knee flexion WFL. Ank le dorsiflexion WFL. Ankle plantarflexion WFL. Strength: Right Upper Extremity: Shoulder flexors 5/5. Shoulder abductors 5/5. Elbow flexors 5/5. Elbow extensors 5/5. Coffee Roaster strong. Left Upper Extremity: Shoulder flexors 5/5. Shoulder abductors 5/5. Elbow flexors 5/5. Elbow extensors 5/5. Coffee Roaster strong. Right Lower Extremity: Hip flexors 3-/5. Hip abductors 3-/5. Knee flexors 3-/5. Knee extensors 3/5. Ankle dorsiflexors 4-/5. Ankle plantarflexors 4-/5. Left Lower Extremity: Hip flexors 4/5. Hip abductors 4/5. Knee flexors 4/5. Knee extensors 4/5. Ankle dorsiflexors 4/5. Ankle plantarflexors 4/5. Sensation: Intact as to pain and pressure on bilateral lower extremities. Bed Mobility/Transfers: Rolling CGA Supine to sit CGA Sit to supine CGA Stand to sit CGA Bed to chair CGA Chair to bed CGA Gait: Patient is now able to tolerate level surface ambulation of 75 feet using the front wheeled walker walker with CGA and wheelchair follow of this PT. Patient is not fully compliant of TDWB on the right LE and reports increased discomfort with each weight bearing. Balance: Static Sitting: Good Dynamic Sitting: Good Static Standing: Fair Dynamic Standing: Fair Special Tests: Mobility Limitations Standardized Measure [facility] AM-PAC 6 clicks Basic Mobility Inpatient Short Form: Raw Score: 18 CMS Score: 47% deficit Informed Consent/Education: Patient instructed in purpose of PT consult and plan of care. Patient has not been compliant with performing isometric exercises to bilateral gluteals and x 10 reps to be done every hour along with bilateral ankle pumping. Sister Giuliana who herself looks frail, has been educated and trained with managing 2 steps without rails as patient did not want to attempt same before she left today. ASSESSMENT: Patient is a 78-year-old female with right displaced and comminuted intertrochanteric fracture S/P ORIF on POD 4 with mild rhabdomyolysis, acute kidney injury, and dehydration with underlying impairments and functional limitations as listed below. She will be recovering at home with assistance of her sister who will be with her 23/10 until March of this year. She continues to be limited by pain and is still fearful of falling. Motivation is low. Considering her current noncompliance with weight bearing precautions, confusion, and impaired safety awareness along with continued pain complaint, her prognosis for going home at this time is poor. Patient has refused recommendation of a short-term [place] [facility] facility placement but is agreeable to home health physical therapy and occupational therapy. It was stressed with care management staff Justine that referral to the on-call weekend home health physical/occupational therapist will highly benefit the patient and his sister/caregiver. Patient continues to present with clinical signs and symptoms consistent with current/admitting diagnoses that have resulted to mobility limitations, gait instability, generalized weakness, and impairment of motor control as demonstrated by the following impairment level findings: 1. Decreased strength to B LE major muscle groups 2. Impaired sitting/standing balance 3. Impaired activity tolerance 4. Limitation of joint range of motion in right hip and knee joints Impairments are contributing to the following functional limitations: 1. Dependent bed mobility skills 2. Increased dependence with transfers 3. Inability to safely ambulate without assistive device and physical assistance 4. Increase completion time for mobility ADL performance 5. Increased fall risk 6. Inability to negotiate steps alone safel Goals: Goals X1 week 1. Supine-Sit independent NOT MET 2. Sit-Supine independent NOT MET 3. Sit-Stand independent NOT MET 4. Stand-Sit independent NOT MET 5. Bed-Chair independent NOT MET 6. Chair-Bed independent NOT MET 7. Independent gait on level surface with use of least restrictive device for at least 300 feet without report of pain nor dyspnea NOT MET 8. Independent stair negotiation while holding onto bilateral rails for at least 10 steps without report of pain nor dyspnea NOT MET 9. Independent with home exercise program NOT MET 10. Good static and dynamic standing balance/tolerance NOT MET DISCHARGE RECOMMENDATIONS: Patient will benefit from [place] [facility] facility placement in order to progress mobility level, strength, and balance in preparation for a safe discharge to home. TREATMENT CODE/TIME: 97 530 x 34 minutes beginning at 14:16 PM. Thank you very much for this referral. Fatou Dacosta PT, DPT, CLT [facility]
--- NOTE | 2019-02-07 18:43 | PDOC.CMDIS ---
- If Service Date Differs Date of service: 02/07/19 Time of Service: 18:43 LACE Index Scoring Tool - Questions: Length of Stay (in days): 4 - 6 Acuity (Admit via E.D.?): Yes E.D. Visits: 1 - Answers: Total Score: 8 Risk of Readmission: Low Risk Care Management Discharge Reason for Hospitalization: Inttertrochanteric fracture right femur Discharge Plan: Davida will be discharged home with new home health nursing and PT. She will follow up with her surgeon, discharge plan and PCP. Dori will trasport via private vehicle with her sister Giuliana. Patient/Family Education Needs: Discharge plan, limitations, follow up plan and Ask Me Three Services Needed at Discharge: Home Health Care Services
--- NOTE | 2019-02-10 07:21 | OT.INDS ---
Date of service: 02/10/19 Time of Service: 07:21 Occupational Therapy Notes Occupational Therapy Inpatient Discharge Summary Date: 02/10/19 Dates of Service: 02/06/19-02/07/19 Referring Doctor: Josy Guerrero MD OT Orders: Non Urgent: Limited Ability Precautions: Toe touch weight bearing (R) LE, fall, standard PATIENT PROFILE/ADMITTING DIAGNOSIS: Pt is a 78 year old female who was admitted through the ER on 02/02/2019 with c/o (R) hip pain due to a right comminuted, displaced intertrochanteric fracture sustained from a mechanical fall S/P ORIF. She is also being seen for acute kidney kidney injury, mild rhabdomyolysis, and dehydration. Medical History Rosacea (Acute) Surgical Appendectomy (~2000) endometrial biopsy (~1995)neg facetectomy s/p left sided L4-L5 faceectomy; Dr. Arenas FORAMINOTOMY LUMBAR SEG History of excision of lesion (Acute 01/11/18) Right Cheek [facility] LAMINECTOMY DECOMPRESS Ligation of fallopian tube Social History/Home Situation: Pt lives alone on a 2 story home. She has 2 living rooms, a bathroom and her kitchen on the first floor which she reports she will plan to stay. She notes that she is (I) at her baseline level of function. Her sister is planning to stay in her home for the next couple weeks once she is discharged and then she plans to move to [place] to stay in her sisters home for the next couple months. She reports that she has a walk in shower. Her laundry is in her basement and she states that her bedroom is upstairs but she is not worried about this. Equipment owned/DME: None SUBJECTIVE: NT OBJECTIVE: *This document serves as a summary of care, no skilled OT services were provided for this documentation. ROM: RUE AROM WFL L UE AROM WFL STRENGTH: RUE 4/5 throughout globally LUE 4/5 throughout globally FUNCTIONAL MOBILITY/ADLS: Transfers with FWW Supine-sit vc min (A) Sit-Stand min (A) Stand-sit min (A) with vc Bed-Chair CGA, mod-mx vc BATHING Pt denies she reports that she performed this earlier this morning with nursing. DRESSING sitting on side of bed Dressing UE Min vc for donning robe Dressing LE Max (A) don and doffing (B) socks GROOMING Standing at sink with FWW CGA- (I) with brushing teeth and hair. VC for body mechanics and hand placement throughout. TOILETING on commode during session (I) with vc EATING (I) BALANCE: Static sitting Normal Dynamic Sitting Normal Static Standing Good Dynamic Standing Fair-good ASSESSMENT: Patient is a 78-year-old female referred to occupational therapy services with diagnosis of (R) hip pain due to a right comminuted, displaced intertrochanteric fracture sustained from a mechanical fall S/P ORIF. She is also being seen for acute kidney kidney injury, mild rhabdomyolysis, and dehydration. Patient was seen for OT consult only. She was discharged home on 02/07/19 with PT services. OT will discharge pt formally from skilled OT services at this time. GOALS 1. Transfers- SBA, FWW- not met 2. Dressing- (I) UE and mod (A) LE- partially met 3. Bathing- Standing at sink with FWW (I) with (B) UE, mod (A) (B) LE- partially met 4. Toileting- on toilet (I)-met 5. Eating- (I)-met PLAN OF CARE/TREATMENT PLAN: Discharge pt from skilled OT services at this time. Pt was discharged home on 02/07/19 DISCHARGE RECOMMENDATIONS- OT recommends that pt go to SNF based on her current level of function and functional (I) in ADL/IADL routines. OT recommends the following DME IF pt returns home at this time: Raised toilet seat to increased pt's functional (I) and safety with her toileting routine with WB restrictions. FWW to decrease her fall risk and increase her overall functional (I) with functional mobility. Shower seat/bench due to her decreased functional activity tolerance, WB precautions and overall safety with her bathing routine. Grab bars in her shower to increase her overall safety and (I) with her bathing routine *If pt does go home OT recommends that pt have OT/PT services for assessment of pt's safety in the home setting, performance of her ADLs and increased functional mobility and strengthening. TREATMENT TIME/MINUTES/CODES N/A Marian Stockton, OTR/L [facility]
== END 2019-02-07 14:51 | disposition home health service (06) | DRG 956 ==
LOC: ER 22:16 → MS 23:03
PROVIDERS: Nurse Practitioner; Nurse Practitioner Acute Care; Orthopaedic Surgery; Admitting Provider Family Medicine; Emergency Provider Emergency Medicine; PCP Nurse Practitioner; Visit Provider Internal Medicine
PROC: 0QS604Z Reposition Right Upper Femur with Internal Fixation Device, Open Approach (ICD-10-PCS; CPT 27244; principal; 2019-02-03 12:30)
PROC: 0QS604Z Reposition Right Upper Femur with Internal Fixation Device, Open Approach (ICD-10-PCS; CPT 27244; 2019-02-03 12:30)
DX: S72.141A Displaced intertrochanteric fracture of right femur, initial encounter for closed fracture (principal); T79.6XXA Traumatic ischemia of muscle, initial encounter; N17.9 Acute kidney failure, unspecified; E86.0 Dehydration; W10.9XXA Fall (on) (from) unspecified stairs and steps, initial encounter; E87.6 Hypokalemia; E83.42 Hypomagnesemia; D64.9 Anemia, unspecified; B02.9 Zoster without complications; I10 Essential (primary) hypertension; E78.5 Hyperlipidemia, unspecified; Z72.0 Tobacco use; I08.1 Rheumatic disorders of both mitral and tricuspid valves
CPT/HCPCS: 27244; 36415; 36430; 76000; 80048; 80053; 82550; 85027; 86850; 86900; 86901; 86920; 93005; 93306; 96361; 96374; 97110; 97162; 97166; 97530; 97535; 99223; 99232; 99233; 99239; 99285; NC; 70450; 71045; 72125; 72170; 73501; 73502; 81003; 81015; 83735; 84443; 84484; 85025; 85610; 93010; J0131; J0690; J1100; J1885; J1941; J2405; J3010; J3475; J3490; P9016

== ENCOUNTER 2019-02-20 11:54 | Outpatient (CLI) | payer MEDICARE, OTHER, SELFPAY ==
--- NOTE | 2019-02-20 11:21 | DI.RAD_ITS ---
EXAM: XR FEMUR RT INDICATION: s/p nail of femur. COMPARISON: XR HIP RT COMPLETE AP PELVIS from 02/02/2019 XR PELVIS AP from 02/03/2019 TECHNIQUE: 2D digital imaging was performed. FINDINGS: There is again seen a sideplate and a screw transfixing the comminuted intertrochanteric fracture of the proximal right femur. The orthopedic hardware appears stable. The major fracture components siena ear stable in alignment. There has been some displacement of the lesser trochanteric fracture fragme nt. No new fracture or dislocation is identified. There is a lucency seen in the distal femoral met aphysis. No cortical destruction or associated soft tissue mass is appreciated on this examination. It has well-circumscribed borders and may represent a benign lesion. Follow-up is recommended. Athe rosclerosis is present.
== END 2019-02-20 12:14 ==
PROVIDERS: PCP Nurse Practitioner; Visit Provider Physician Assistant
DX: S72.141D Displaced intertrochanteric fracture of right femur, subsequent encounter for closed fracture with routine healing (principal); X58.XXXD Exposure to other specified factors, subsequent encounter
CPT/HCPCS: 73552

== ENCOUNTER 2019-03-18 11:30 | Outpatient (CLI) | payer MEDICARE, OTHER, SELFPAY ==
--- NOTE | 2019-03-18 11:31 | DI.RAD_ITS ---
EXAM: XR HIP RT COMPLETE AP PELVIS INDICATION: f/u. COMPARISON: XR PELVIS AP from 02/03/2019 XR FEMUR RT from 02/20/2019 TECHNIQUE: 2D digital imaging was performed. FINDINGS: There has been no change in the alignment of the proximal femoral hardware. There is increased heali ng at the fracture site with heterotopic calcification noted around the fracture. No new abnormaliti es seen.
== END 2019-03-18 11:50 ==
PROVIDERS: PCP Nurse Practitioner; Referring Provider Nurse Practitioner; Visit Provider Orthopaedic Surgery
DX: S72.141D Displaced intertrochanteric fracture of right femur, subsequent encounter for closed fracture with routine healing (principal); X58.XXXD Exposure to other specified factors, subsequent encounter
CPT/HCPCS: 73502

== ENCOUNTER 2019-08-22 20:08 | Inpatient (IN) | payer MEDICARE, OTHER, SELFPAY ==
[2019-08-22 20:03] VITALS: BP 176/71; PULSE 62; RESP 16; TEMP 36.8; O2SAT 97
[2019-08-22 20:27] VITALS: RESP 16
--- NOTE | 2019-08-22 20:30 | ED.GENADUL_ITS ---
Discharge Plan Disposition Patient Disposition: [facility] INPATIENT Condition: Serious Discharge Details Chief Complaint: AMS/LOC Clinical Impression: CVA (cerebral vascular accident) Admit Date/Time: 08/22/19 21:56 Admit Provider: Ventura Combs Attending Provider: Ventura Combs Primary Care Provider: Giuliana Massey ED Provider: Inez Ocampo Discharge Data Discharge Date/Time-TO BE ENTERED AT DEPARTURE: 08/22/19 23:00 Medical Decision Making <Inez Ocampo - Last Filed: 08/22/19 23:11> 79-year-old female presents via EMS for slurred speech and possible altered mental status. According the son he noticed some slurred speech while talking on the phone yesterday. He drove down from [place] today and noticed some facial droop, slurred speech, confusion, cloudy vision per patient. Patient is alert and oriented x3. She does have left-sided facial droop with smiling. 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 Intact dorsal flexion and plantar flexion. 2053: Spoke with son Adalid who is at the house he states that last known well according to him was 2 days ago. He was concerned for stroke due to slurred speech. Son states that when he showed up at the house earlier today patient did not know her name. He was concerned because this is not her baseline he noticed markedly slurred speech and the left-sided facial palsy. Differential diagnosis includes but not limited to CVA, TIA, Ames's palsy, cranial mass. UTI, electrolyte abnormality. 2126: Spoke with Dr. Combs who is on for hospitalist regarding patient case and details. At this time findings are consistent and concerning for stroke. Symptoms seem to be somewhat improving per the son's report. <Jayson Oneil DO - Last Filed: 08/22/19 21:38> 79-year-old female presents with altered mental status. Patient was seen and assessed by Inez, please refer to her HPI assessment and plan. Patient was contacted by son and noted to be altered, patient was brought to ED, last known well was over 24 hours ago. Exam demonstrates notable left-sided facial droop with forehead sparing, she has visual field deficits noted in the left eye, mild generalized weakness but no other significant focal abnormality aside from mild confusion as well. Per son these all appear to be new. Laboratory work-up is unremarkable, CT scan shows notable chronic microvascular disease, no large territorial infarct or bleed is present currently. Laboratory work-up shows no significant electrolyte abnormalities. Urinalysis shows no signs of infection. Signs and symptoms are clinically consistent with stroke, the patient is not a TPA candidate as her symptoms are certainly greater than 6 hours ago. At this time patient would benefit from admission for MRI, echo, carotid ultrasound. I independently performed a history and physical examination of the patient and discussed the management with the midlevel provider. I agree with the current plan of management at the time of signing. HPI <Inez Ocampo - Last Filed: 08/22/19 23:11> General Mode of arrival: EMS . Date/Time Provider Initiated Documentation: 08/22/19 20:21 . Limitations to Documentation: no limitations . Information obtained by: patient and family . HPI Narrative: 79-year-old female presents via EMS for slurred speech and possible altered mental status. According the son he noticed some slurred speech while talking on the phone yesterday. He drove down from [place] today and noticed some facial droop, slurred speech, confusion, cloudy vision per patient. Patient is alert and oriented x3. She does have left-sided facial droop with smiling. 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 Intact dorsal flexion and plantar flexion. Related Data Home Medications Medication Instructions Recorded Confirmed Women's 50+ Daily Form (gkb) 1 ea PO DAILY 09/04/12 08/22/19 cholecalciferol (vitamin D3) 1,000 unit PO DAILY 10/02/13 08/22/19 ascorbic acid (vitamin C) [Vitamin 2 tab PO DAILY 07/04/16 08/22/19 C] Probiotic 1 ea PO DAILY 01/11/17 08/22/19 simvastatin 20 mg tablet 20 mg PO DAILY #90 tab-cap 01/07/19 08/22/19 metronidazole 0.75 % topical cream 1 applic TP QHS #45 gm 01/28/19 08/22/19 lisinopril 40 mg tablet 40 mg PO DAILY #90 tab-cap 05/29/19 08/22/19 Previous Rx's Medication Instructions Recorded simvastatin 20 mg tablet 20 mg PO DAILY #90 tab-cap 01/07/19 metronidazole 0.75 % topical cream 1 applic TP QHS #45 gm 01/28/19 lisinopril 40 mg tablet 40 mg PO DAILY #90 tab-cap 05/29/19 Allergies Allergy/AdvReac Type Severity Reaction Status Date / Time No Known Allergies Allergy Verified 08/22/19 20:16 General Stated Complaint: AMS/LOC ADA: 2 Review of Systems <Inez Ocampo - Last Filed: 08/22/19 23:11> Narrative: Constitutional: Negative for weight loss, alert and oriented, well groomed, normal body habitus, appears comfortable. HEENT: Denies trauma, headaches, states vision is off, no nasal discharge, sore throat, trouble swallowing. Chest: Denies chest pain, palpitations, irregular rhythm, hypertension. Respiratory: Denies Shortness of breath, cough, hemoptysis. GI: Denies abdominal pain, nausea, vomiting, diarrhea, constipation. : Denies dysuria, hematuria, flank pain, rectal bleeding. Neuro: Denies dizziness, weakness, syncope, or positive left-sided facial droop. Hematologic: Denies easy bruising, intolerance to heat or cold, hair loss. PFSH <Inez Ocampo - Last Filed: 08/22/19 23:11> Medical History Rosacea (Acute) Surgical History Appendectomy (~2000) endometrial biopsy (~1995) neg facetectomy s/p left sided L4-L5 faceectomy; Dr. Arenas FORAMINOTOMY LUMBAR SEG History of excision of lesion (Acute 01/11/18) Right Cheek [facility] LAMINECTOMY DECOMPRESS Ligation of fallopian tube Family History Mother Neoplasm Father Heart disease Sister Heart disease Social History Smoking/Tobacco Use Status: Current every day Tobacco Type: cigarettes Smoking packs per day: 0.5 Smoking cigarettes per day: 10.0 Tobacco: How many years used: 25 Alcohol Intake: current Alcohol Intake frequency: 0-2 drinks per day Drug use: Never Substance use type: does not use Caregiver/Support person: No Pets and animals: Yes Pets and animals: dog(s) What type of physical activity do you participate in: none Seatbelt use: always Do you feel safe in your relationship?: Yes Exam <Inez Ocampo - Last Filed: 08/22/19 23:11> Narrative Exam Narrative: Constitutional: Alert and oriented x3. Appears stated age. Normal body habitus. Head: Normocephalic, no trauma. Eyes: Pupils PERRLA, Red reflex noted, EOM's intact. Eyelids symmetrical without lesions, discharge, or swelling. ENT: Bilateral TM's WNL, External ear normal to inspection, no mastoid TTP, swelling, or erythema, Nasal turbinates WNL, no nasal discharge. Normal dentition, Posterior pharynx WNL, no exudate. Chest: RRR, Normal S1, S2, distal pulses intact. Resp: Lungs clear to auscultation bilaterally, no wheezes, rales, or rhonchi. Musculoskeletal: 5/5 strength to all four extremities. Skin: No suspicious rashes or lesions. Capillary refill less than 2 sec. Neurologic: Cranial nerves II-XII intact. Alert and oriented x 3. DTR's intact. Has left-sided facial droop. Hematologic/Lymphatic: No ecchymosis, no lymphadenopathy. Eyes EOM: No nystagmus Neuro General: patient alert, patient awake, patient oriented x3 and moves all extremities Cranial Nerves: PERRL, EOM not intact bilaterally (Possibly left sided visual deviation with EOM), facial strength abnormal (Left-sided facial droop), tongue midline and no nystagmus Cognition: normal cognition Speech: abnormal speech slurred Motor: muscle tone normal throughout, fasciculations noted, no tremors, no pronator drift noted and strength abnormal (Generalized weakness) Plantar Reflexes: Downgoing: bilateral and Upgoing: bilateral Course <Inez Ocampo - Last Filed: 08/22/19 23:11> Vital Signs Vital signs: Vital Signs Temperature 36.8 C 08/22/19 20:03 Pulse 62 08/22/19 20:03 Respiratory Rate 16 08/22/19 20:03 Blood Pressure 176/71 H 08/22/19 20:03 Pulse Oximetry 97 08/22/19 20:03 Temperature 36.8 C 08/22/19 20:03 Temperature Source Oral 08/22/19 20:03 Pulse 62 08/22/19 20:03 Respiratory Rate 16 08/22/19 20:03 Blood Pressure 176/71 H 08/22/19 20:03 Pulse Oximetry 97 08/22/19 20:03 Pain Level 0 08/22/19 20:03
[2019-08-22 20:38] LABS: Abs Immature Grans 0.01 k/cumm (0.0-0.09); Absolute Basophil Count 0.06 k/cumm (0.0-0.2); Absolute Eosinophil Count 0.13 k/cumm (0.0-0.7); Absolute Monocyte Count 0.65 k/cumm (0.11-0.7); Absolute Neutrophil Count 4.79 k/cumm (1.2-6.7); Basophils % 0.7; Eosinophils % 1.5; HCT 38.4 % (36.0-46.0); HGB 12.7 g/dL (12.0-15.5); Immature Grans % 0.1 %; Lymphocytes % 35.5; Mean Corp. HGB Concentration 33.1 g/dL (32.0-36.0); Mean Corpuscular Hemoglobin 30.9 pg (27.0-33.0); Mean Corpuscular Volume 93.4 fL (80-95); Mean Platelet Volume 12.2 fL (8.0-11.0); Monocytes % 7.4; Neutrophils % 54.8; Platelet Count 201 x1000/uL (130-400); RBC 4.11 m/cumm (4.00-5.20); RBC Distribution Width 15.4 % (11.7-14.6); White Blood Cell Count 8.74 k/cumm (4.4-10.8)
--- NOTE | 2019-08-22 20:40 | DI.CT_ITS ---
EXAM: CT HEAD WO CLINICAL HISTORY: AMS. TECHNIQUE: Imaging Protocol: Axial computed tomography images with coronal and sagittal reformatted images were created and reviewed COMPARISON: No exams were available for comparison FINDINGS: Ventricles and Extra axial spaces: Normal in size and morphology for the patient's age. Hemorrhage: None. Cerebral parenchyma: Mild atrophy. Old left basal ganglia infarct. Mild white matter changes of sma ll vessel disease. Midline shift: None. Brainstem/Cerebellum: Normal. Calvarium: Normal. Visualized Paranasal sinuses/Mastoids: Clear. Soft Tissues: Unremarkable. IMPRESSION: No acute intracranial process. RADIATION DOSE DELIVERED: 671.25mGy.cm Total DLP DATA REPOSITORY: All CT scans at this facility are submitted to the National Radiology Data Registry (NRDR) Dose Index Registry (DIR) with the [employer] (ACR). RADIATION OPTIMIZATION: All CT scans at this facility use at least one of these dose optimization te chniques: automated exposure control; mA and/or kV adjustment per patient size (includes targeted exa ms where dose is matched to clinical indication); or iterative reconstruction.
[2019-08-22 20:54] LABS: ALT 16 U/L (14-59); AST 16 U/L (15-37); Albumin 3.4 g/dL (3.4-5.0); Alkaline Phosphatase 86 U/L (46-116); Anion Gap 7.4 mmol/L (3-11); BUN 18 mg/dL (7-18); Bilirubin, Total 0.4 mg/dL (0.2-1.0); CO2 27.6 mmol/L (21.0-32.0); CREATININE 0.74 mg/dL (0.55-1.02); Chloride 104 mmol/L (98-107); Glucose 87 mg/dL (74-106); Potassium 3.7 mmol/L (3.5-5.1); Sodium 139 mmol/L (136-145); Total Protein 7.4 g/dL (6.4-8.2); Troponin I < 0.05 ng/Ml (<0.06)
[2019-08-22 20:57] LABS: Bilirubin Negative (Negative); Blood Negative (Negative); Clarity Clear (Clear); Glucose Negative (Negative); Ketones Negative (Negative); Leukocyte Esterase Negative (Negative); Nitrite Negative (Negative); Urobilinogen 0.2 EU/dL (Up TO 0.2)
--- NOTE | 2019-08-22 21:01 | DI.VRAD_ITS ---
PROCEDURE INFORMATION: Exam: CT Head Without Contrast Exam date and time: 08/22/2019 8:23 PM Age: 79 years old Clinical indication: Other: AMS TECHNIQUE: Imaging protocol: Computed tomography of the head without contrast. Radiation optimization: All CT scans at this facility use at least one of these dose optimization techniques: automated exposure control; mA and/or kV adjustment per patient size (includes targeted exams where dose is matched to clinical indication); or iterative reconstruction. COMPARISON: CT HEAD CERVICAL SPINE WO 02/02/2019 9:06 PM FINDINGS: Brain: No intracranial hemorrhage, midline shift, or mass effect. Prominence of the CSF spaces and sulci in keeping with diffuse cerebral atrophy. Nonspecific periventricular and subcortical white matter heterogeneity likely related to chronic microvascular ischemic disease. No evidence of acute large territorial infarction. Stable chronic lacunar infarctions in the left internal capsule and right basal ganglia. Ventricles: No ventriculomegaly. Bones/joints: No acute fracture. Sinuses: Visualized sinuses are unremarkable. No fluid levels. Mastoid air cells: Visualized mastoid air cells are well aerated. Soft tissues: Within normal limits. IMPRESSION: No acute intracranial findings. Stable chronic findings in comparison to 02/02/2019. Dictated and Authenticated by: Nataliya Sanchez MD. Ordering:JENNA Wiley MD
[2019-08-22 21:17] VITALS: BP 178/76; PULSE 58; PULSE 70; RESP 17
--- NOTE | 2019-08-22 21:42 | HPE_ITS ---
Date of service: 08/22/19 Time of Service: 21:42 Assessment and Plan Assessment and plan (1) CVA (cerebral vascular accident): Status: Chronic Assessment and plan: Likely stroke, seems to be resolving in large measure but at this point with some persistent deficit. Will begin ASA, increase statin intensity, monitor telemetry and check carotid U/S. Will allow a degree of permissive HTN, approx 160/90 range History of Present Illness History of Present Illness Chief Complaint: possible stroke Narrative: 79 female with HTN, comes in with one day of confusion, left facial droop , slurred speech and unspecified visual disturbance. In ER findings of note for difficulty tracking visually to left and mild left facial droop. CT shows several old lacunar infarcts (patient unaware of any prior dx of stroke). Admitted for further management. Per ER staff patient's sensorium has largely cleared, and patient herself tells me she feels fine. Review of Systems All systems reviewed & are unremarkable except as noted in HPI and below PFSH Medical History Rosacea (Acute) Surgical History Appendectomy (~2000) endometrial biopsy (~1995) neg facetectomy s/p left sided L4-L5 faceectomy; Dr. Arenas FORAMINOTOMY LUMBAR SEG History of excision of lesion (Acute 01/11/18) [place] [facility] LAMINECTOMY DECOMPRESS Ligation of fallopian tube Family History Mother Neoplasm Father Heart disease Sister Heart disease Social History Smoking/Tobacco Use Status: Current every day Tobacco Type: cigarettes Smoking packs per day: 0.5 Smoking cigarettes per day: 10.0 Tobacco: How many years used: 25 Alcohol Intake: current Alcohol Intake frequency: 0-2 drinks per day Drug use: Never Substance use type: does not use Caregiver/Support person: No Pets and animals: Yes Pets and animals: dog(s) What type of physical activity do you participate in: none Seatbelt use: always Do you feel safe in your relationship?: Yes Meds Home Medications and Allergies Home Medications Medication Instructions Recorded Confirmed Type Women's 50+ Daily Form (gkb) 1 ea PO DAILY 09/04/12 03/18/19 History cholecalciferol (vitamin D3) 1,000 unit PO DAILY 10/02/13 03/18/19 History ascorbic acid (vitamin C) [Vitamin 2 tab PO DAILY 07/04/16 03/18/19 History C] Probiotic 1 ea PO 01/11/17 03/18/19 History simvastatin 20 mg tablet 20 mg PO DAILY #90 tab-cap 01/07/19 03/18/19 Rx metronidazole 0.75 % topical cream 1 applic TP QHS #45 gm 01/28/19 03/18/19 Rx lisinopril 40 mg tablet 40 mg PO DAILY #90 tab-cap 05/29/19 Rx Allergies Allergy/AdvReac Type Severity Reaction Status Date / Time No Known Allergies Allergy Verified 08/22/19 20:16 Exam Narrative Exam Narrative: 178/76, 58, 17, 36.8, 97& RA. HEENT batraumatic; neck supple, no carotid bruit; l,ungs clear; heart occ ectopic, w/o MRG; abdomen soft and NT; extremities w/o edema; neuro: Ox3, no aphasia, CN pupils 3-4 mm and reactive; EOMI; hart full to confrontation, slight weakness in drawing left side of ariana th upwards; motor 5/5; sensory intact touch; toes downgoing Results Labs Result diagrams: 08/22/19 20:31 08/22/19 20:31 Labs: Laboratory Results - last 24 hr 08/22/19 08/22/19 08/22/19 20:31 20:31 20:50 WBC 8.74 RBC 4.11 Hgb 12.7 Hct 38.4 MCV 93.4 MCH 30.9 MCHC 33.1 RDW 15.4 H Plt Count 201 MPV 12.2 H Immature Gran % 0.1 Neutrophils % 54.8 Lymphocytes % 35.5 Monocytes % 7.4 Eosinophils % 1.5 Basophils % 0.7 Absolute Neutrophils 4.79 Absolute Lymphocytes 3.10 Absolute Monocytes 0.65 Absolute Eosinophils 0.13 Absolute Basophils 0.06 Sodium 139 Potassium 3.7 Chloride 104 Carbon Dioxide 27.6 Anion Gap 7.4 BUN 18 Creatinine 0.74 Estimated GFR/1.73 m2 >= 60.00 Glucose 87 Calcium 9.0 Magnesium 2.0 Total Bilirubin 0.4 AST 16 ALT 16 Alkaline Phosphatase 86 Troponin I < 0.05 Total Protein 7.4 Albumin 3.4 Urine Color Yellow Urine Clarity Clear Urine pH 6.0 Ur Specific [place] 1.010 Urine Protein Negative Urine Ketones Negative Urine Blood Negative Urine Nitrite Negative Urine Bilirubin Negative Urine Urobilinogen 0.2 Ur Leukocyte Esterase Negative Urine Glucose Negative Last Vital Signs Temp 36.8 C 08/22/19 20:03 Pulse 58 L 08/22/19 21:17 Resp 17 08/22/19 21:17 BP 178/76 H 08/22/19 21:17 Pulse Ox 97 08/22/19 20:03 COVID-19 Screening In the past 14 days, have you traveled outside of [place] or [place]?: NO Had IN PERSON contact w/suspected or confirmed C-19 person: Yes
[2019-08-22] MEDS: Aspirin 325 MG TAB PO (22:35)
[2019-08-22 22:50] VITALS: BP 204/97; PULSE 67; RESP 18; TEMP 37; O2SAT 99
[2019-08-22 23:48] VITALS: PULSE 59
[2019-08-23 03:55] VITALS: BP 146/65; PULSE 63; RESP 14; TEMP 36.9; O2SAT 97
[2019-08-23 07:20] VITALS: BP 132/79; PULSE 58; RESP 17; TEMP 37.2; O2SAT 96
[2019-08-23] MEDS: Aspirin 325 MG TAB PO (08:17)
[2019-08-23] MEDS: Lisinopril 20 MG TAB 40 MG PO ×2 (08:17)
--- NOTE | 2019-08-23 12:18 | PT.INNT ---
Date of service: 08/23/19 PT Notes Visit Reasons: Stroke NON TREATMENT NOTE: 08/23/19 Order received for this patient to begin Physical therapy Evaluation. As of 12:20 the results of patient's COVID-19 test is in pending status. Patient stated in history that she did have contact with COVID-19 positive individuals. This evaluation will be placed on hold until status of Covid test is ascertained.
--- NOTE | 2019-08-23 14:28 | INITIAL_ITS ---
- If Service Date Differs Date of service: 08/23/19 Time of Service: 14:28 Care Management Initial Assess REASON FOR HOSPITALIZATION:: Stroke PAST MEDICAL HISTORY/PAST SURGICAL HISTORY:: Medical History: Rosacea (Acute). Surgical History . Appendectomy (~2000). endometrial biopsy (~1995). neg. facetectomy. s/p left sided L4-L5 faceectomy; Dr. Arenas. FORAMINOTOMY LUMBAR SEG. History of excision of lesion (Acute 01/11/18). Right Cheek. [facility] [place] [place]. LAMINECTOMY DECOMPRESS. Ligation of fallopian tube PREVIOUS FUNCTIONAL STATUS/SOCIAL/FAMILY SUPPORTS:: Davida lives alone in a single family home in [place], [place]. She is independent at baseline and does not receive any community services. Davida has 2 sons who live in [place]. She is originally from [place]. as well. One of Davida's sons, Lance, visits often and provides strong support. She also has a sister that she spends time with. CURRENT FUNCTIONAL STATUS:: Tammi states she lives alone in [place], [place] she denies any services. She appears to have some difficulty answering questions during assessment. She states she does have a walker at home. ADVANCE DIRECTIVES:: None on file she reports she does in fact have advance directives Has patient been provided with information about the portal?: Yes Did the patient sign up for the portal?: No CODE STATUS:: Full Code INSURANCE COVERAGE / FINANCIAL ISSUES:: Medicare. [employer] CURRENT HOME/COMMUNITY SERVICES/EQUIPMENT:: No current services in the community PRIMARY CARE PHYSICIAN:: Giuliana Massey POTENTIAL DISCHARGE NEEDS:: Discharge follow up with [facility], and other specilities as directed. PATIENT/FAMILY EDUCATION NEEDS:: Discharge education, limitations and follow up plan of care including ask me three and self managment. ANTICIPATED BARRIERS TO DISCHARGE:: No anticiapte barriers pending discharge needs and PT eval. TRANSPORTATION:: To be determined based on disposition PLAN:: Tammi changed to inpatient and will need furthur eval after having symptoms of stroke prior to admission. Anticipate she will be discharged home when medically ready per provider.
[2019-08-23 15:05] VITALS: BP 127/69; PULSE 53; RESP 17; TEMP 37; O2SAT 97
--- NOTE | 2019-08-23 17:01 | PGE_ITS ---
Date of Service Date of service: 08/23/19 Time of Service: 17:01 Assessment and Plan Assessment and plan (1) CVA (cerebral vascular accident): Status: Acute Assessment and plan: Symptoms are improving, but still there. Obtaining PT/OT/Speech/Swallow evals. Ideally, the patient would have an MRI/echo/carotid studies prior to discharge home, but right now she does not agree to stay in the hospital through Sunday which is when they would first become available. She would like to get these done as outpatient. Will attempt to set up follow up for her, but I do think that speech/swallow evaluations must happen on inpatient basis. (2) Dysarthria: Status: Acute Assessment and plan: As above (3) Dysphagia: Status: Acute Assessment and plan: As above (4) Essential hypertension: Status: Acute Assessment and plan: patient was continued on her home lisinopril. While on initial presentation did have hypertension associated with acute CVA, it is much better controlled today. No change in tx (5) Hyperlipidemia: Status: Acute Assessment and plan: Check FLP. Continue higher dose of statin (6) Discharge planning issues: Status: Acute Assessment and plan: Full code Anticipate discharge home in the next 48 hours (7) DVT prophylaxis: Status: Acute Assessment and plan: TEDS, SCDs, sc heparin Subjective Subjective Interval history since last seen: Mr Ivan states she is feeling well. She denies headache, numbness, tingling, difficulty swallowing. She thinks her speech is fine. Nursing notes possible difficulty with swallowing and feels the patient would benefit from a speech eval. The patient does not want to stay until Sunday to get the MRI/echo done and would prefer to get these done as outpatient - however, agrees to stay until speech/swallow eval. Exam Narrative Exam Narrative: General: elderly female, sitting comfortably in a chair in civilian clothes, A&Ox3, has a L facial droop and is dysarthric HEENT: EOMI, MMM Heart: RRR, slightly bradycardic Lungs: CTAB Abdomen: soft, nontender, nondistended Extremities: no e/c/c BLE's, LUE is slightly weaker than the right, but it could be related to effort. Objective Objective Clinical Data: Abnormal lab results 08/22/19 Range/Units 20:31 RDW 15.4 H (11.7-14.6) % MPV 12.2 H (8.0-11.0) fL Vital Signs Temperature 37.0 C 08/23/19 15:05 Temperature Source Tympanic 08/23/19 15:05 Pulse 53 L 08/23/19 15:05 Pulse Rhythm Regular 08/23/19 12:07 Pulse 70 08/22/19 21:17 Respiratory Rate 17 08/23/19 15:05 Respiratory Effort Non-Labored 08/23/19 12:07 Respiratory Depth Normal 08/23/19 12:07 Respiratory Pattern Normal 08/23/19 12:07 Blood Pressure 127/69 08/23/19 15:05 Blood Pressure Mean 100 08/22/19 21:17 Pulse Oximetry 97 08/23/19 15:05 Oxygen Delivery Method Room Air 08/23/19 15:05 Oxygen Flow Rate 0 08/23/19 15:05 Pain Level 0 08/23/19 15:05 Comment 08/22/19 22:50 Intake & Output 08/22/19 08/23/19 08/23/19 23:59 11:59 23:59 Intake Total 300 / 300 Output Total 950 / 950 Balance -650 / -650 Weight 53 kg Intake: Oral 300 / 300 Output: Urine 950 / 950 Other: Urine Color Yellow Urine Appearance Clear Clear Clear Urine Odor None Voiding Methods Toilet Laboratory Results WBC 8.74 k/cumm (4.4-10.8) 08/22/19 20:31 RBC 4.11 m/cumm (4.00-5.20) 08/22/19 20:31 Hgb 12.7 g/dL (12.0-15.5) 08/22/19 20:31 Hct 38.4 % (36.0-46.0) 08/22/19 20:31 MCV 93.4 fL (80-95) 08/22/19 20:31 MCH 30.9 pg (27.0-33.0) 08/22/19 20:31 MCHC 33.1 g/dL (32.0-36.0) 08/22/19 20:31 RDW 15.4 % (11.7-14.6) H 08/22/19 20:31 Plt Count 201 x1000/uL (130-400) 08/22/19 20:31 MPV 12.2 fL (8.0-11.0) H 08/22/19 20: Immature Gran % 0.1 % 08/22/19 20: Neutrophils % 54.8 08/22/19 20: Lymphocytes % 35.5 08/22/19 20: Monocytes % 7.4 08/22/19 20: Eosinophils % 1.5 08/22/19: Basophils % 0.7 08/22/19: Absolute Neutrophils 4.79 k/cumm (1.2-6.7) 08/22/19: Absolute Lymphocytes 3.10 k/cumm (1.2-3.4) 08/22/19 Absolute Monocytes 0.65 k/cumm (0.11-0.7) 08/22/19: Absolute Eosinophils 0.13 k/cumm (0.0-0.7) 08/22/19 Absolute Basophils 0.06 k/cumm (0.0-0.2) 08/22/19 Sodium 139 mmol/L (136-145) 08/22/19: Potassium 3.7 mmol/L (3.5-5.1) 08/22/19 Chloride 104 mmol/L (98-107) 08/22/19 Carbon Dioxide 27.6 mmol/L (21.0-32.0) 08/22/19: Anion Gap 7.4 mmol/L (3-11) 08/22/19 BUN 18 mg/dL (7-18) 08/22/19 Creatinine 0.74 mg/dL (0.55-1.02) 08/22/19: Estimated GFR/1.73 m2 >= 60.00 (mL/min/1.73m2) 08/22/19: Glucose 87 mg/dL (74-106) 08/22/19 Calcium 9.0 mg/dL (8.5-10.1) 08/22/19 Magnesium 2.0 mg/dL (1.8-2.4) 08/22/19 Total Bilirubin 0.4 mg/dL (0.2-1.0) 05/22/20 20:31 AST 16 U/L (15-37) 08/22/19 20:31 ALT 16 U/L (14-59) 08/22/19 20: Alkaline Phosphatase 86 U/L (46-116) 08/22/19 20: Troponin I Cancelled 08/22/19 23:20 Total Protein 7.4 g/dL (6.4-8.2) 08/22/19 20: Albumin 3.4 g/dL (3.4-5.0) 08/22/19 20: Urine Color Yellow (Yellow) 08/22/19 20:50 Urine Clarity Clear (Clear) 08/22/19 20: Urine pH 6.0 (5-8) 08/22/19 20:50 Ur Specific [place] 1.010 (1.005-1.025) 08/22/19 20:50 Urine Protein Negative mg/dL (Negative) 08/22/19 20:50 Urine Ketones Negative mg/dL (Negative) 08/22/19 20:50 Urine Blood Negative (Negative) 08/22/19 20:50 Urine Nitrite Negative (Negative) 08/22/19 20:50 Urine Bilirubin Negative (Negative) 08/22/19 20:50 Urine Urobilinogen 0.2 EU/dL (Up TO 0.2) 08/22/19 20:50 Ur Leukocyte Esterase Negative (Negative) 08/22/19 20:50 Urine Glucose Negative mg/dL (Negative) 08/22/19 20:50
[2019-08-23] MEDS: Heparin 5,000 UNITS/ML VIAL 5000 UNITS SC (18:24)
[2019-08-23 19:15] VITALS: BP 147/71; PULSE 57; RESP 17; TEMP 36.5; O2SAT 95
[2019-08-23] MEDS: Atorvastatin 40 MG TAB 80 MG PO (20:35)
[2019-08-23 23:15] VITALS: BP 160/70; PULSE 55; RESP 17; TEMP 36.6; O2SAT 97
[2019-08-24 03:07] VITALS: BP 127/67; PULSE 56; RESP 18; TEMP 36.8; O2SAT 96
[2019-08-24 06:09] VITALS: BP 132/70; PULSE 58; RESP 18; TEMP 36.6; O2SAT 95
[2019-08-24] MEDS: Heparin 5,000 UNITS/ML VIAL 5000 UNITS SC ×2 (06:10→21:08)
[2019-08-24 07:47] LABS: Anion Gap 5.5 mmol/L (3-11); BUN 17 mg/dL (7-18); CO2 28.5 mmol/L (21.0-32.0); Calcium 8.7 mg/dL (8.5-10.1); Chloride 104 mmol/L (98-107); Glucose 99 mg/dL (74-106); Hemoglobin A1C 5.9 % (3.8-5.6); Magnesium 1.9 mg/dL (1.8-2.4); Potassium 3.5 mmol/L (3.5-5.1); Sodium 138 mmol/L (136-145); TSH (W/Ref FT4) 2.79 uIU/mL (0.36-3.74)
[2019-08-24 07:51] LABS: COVID-19 RT-PCR UVMMC Result Negative (Negative)
[2019-08-24 08:32] LABS: Calculated LDL 110 mg/dL (<100); Cholesterol 187 mg/dL (<200); HDL Cholesterol 55 mg/dL (40-60); Triglyceride 112 mg/dL (<150); Vitamin B12 447 pg/mL (193-986)
[2019-08-24 08:36] VITALS: BP 94/65; PULSE 46; RESP 20; TEMP 36.3; O2SAT 98
[2019-08-24] MEDS: Aspirin 325 MG TAB PO (08:40)
--- NOTE | 2019-08-24 10:42 | PT.INIE ---
Date of service: 08/24/19 Time of Service: 09:45 PT Notes Visit Reasons: Stroke Inpatient Physical Therapy Evaluation Date: 08/24/19 Referring Doctor: Josy Guerrero PT Orders: PT CONSULT: Limited ability Precautions: Standard Patient Profile/Admitting Diagnosis: Orders received for this 79-year-old female who apparently suffered a small CVA a few days ago. It apparently predominantly affected the left side but most of her symptoms have been for the most part resolved. According to nursing there is still some dysarthria and dysphagia. Patient states that she is doing okay for the most part. Normally patient is fairly independent most of her daily life. Patient has shown a lot of spontaneous recovery but there is still need for physical therapy evaluation in order to gauge her level of safety. PMHX: Medical History Rosacea (Acute) Surgical History Appendectomy (~2000) endometrial biopsy (~1995) neg facetectomy s/p left sided L4-L5 faceectomy; Dr. Arenas FORAMINOTOMY LUMBAR SEG History of excision of lesion (Acute 01/11/18) Right Cheek [facility] [place] LAMINECTOMY DECOMPRESS Ligation of fallopian tube Social History/Home Situation: Patient lives at home in [place]. She apparently lives alone and is able to manage all her affairs independently. Equipment Owned/DME: It is unclear Subjective: Patient states that she is feeling fairly well and wishes to go home as soon as she can Objective: Patient lying in bed head of bed to 30 degrees no medical lines in place Mental Status: Well oriented alert to person place and time Pain: Nothing ROM: Right Upper Extremity: Within functional limits Left Upper Extremity: Within functional limits Right Lower Extremity: Within functional limits Left Lower Extremity: Within functional limits Strength: Right Upper Extremity: Grossly 5 out of 5 Left Upper Extremity: Grossly 5 out of 5 Right Lower Extremity: Grossly 5 out of 5 Left Lower Extremity: Grossly 5 out of 5 there may be some minor weakness through dorsiflexion on the left as active range of motion appears to be slightly limited compared to the right side Bed Mobility/Transfers: Patient independent with all bed mobility Supine-sit: Independent Sit-stand: Supervision Stand-sit: Supervision Patient was screened for hemineglect and there did not appear to be any asymmetry between the 2 sides. Patient was able to cross midline with the upper extremity and lower extremity. Patient was able to perform active range of motion laterally outside the plane of her eyesight with knowledge of her extremities Gait: Slow and cautious but patient is a to walk up to 50 feet within her room utilizing supervision as an assist and no assistive device Patient able to ambulate backwards and with a high knee pause walk Patient was able to withstand multidirectional nudge test without need for any stepping or hip strategy for balance recovery Patient was able to hold for 2 seconds in a single leg stance Patient was unable to perform heel toe walking without assistance Balance: Static Sitting: Normal Dynamic Sitting: Good Static Standing: Good Dynamic Standing: Fair Special Tests: Mobility Limitations Standardized Measure [facility] 6 clicks Basic Mobility Inpatient Short Form: Raw Score: 22 Standardized Score: 53.28 CMS Score: 20.91% Informed Consent/Education: Patient instructed in purpose of PT consult and plan of care. ASSESSMENT: Patient is a 79-year-old female with a history of good physical health Admitted with signs and symptoms consistent with resolving CVA Patient presents with the following impairment level findings: Mild ambulation intolerance, minor postural and balance left, minor supervision needed for upper level balance activity Pt will benefit from skilled therapy intervention in order to remedy their functional limitations and restore patient to a more appropriate and stable functional level. Impairments are contributing to the following functional limitations: AMPAC score 20.91% Patient is assessed as a moderate complexity initial evaluation 04324 based on the following: History: see above Examination: see above Presentation: Evolving Decision Making: Moderate based on the impact score of 20.91% Goals: Goals X1 week 1. Sit-Stand independent 2. Stand-Sit independent 3. Bed-Chair independent 4. Gait independent with least restrictive assistive device up to 300 feet 5: Stairs independent up to 5 steps 6: Independent in Home program Plan of Care/Treatment Plan: 1-2x/day, 7 days/week x 1 week. Plan of care has been reviewed with the [employer]PERATOR providing the service under Physical Therapy direction. Initiate Physical Therapy intervention for strengthening, bed mobility, transfers, gait, stairs, balance training, use of assistive device. DISCHARGE RECOMMENDATIONS: To home once medically stable, it may be recommended the patient utilizes a cane if she continues to show some of the upper level balance instability TREATMENT CODE/TIME: Moderate complexity initial evaluation 17495 15 minutes of direct patient care time of treatment 945 Lukasz Craft DPT
[2019-08-24 11:41] VITALS: BP 125/71; PULSE 57; RESP 17; TEMP 36.3; O2SAT 95
[2019-08-24] MEDS: Cyanocobalamin 1000 MCG/ML VIAL IM/SC (14:03)
--- NOTE | 2019-08-24 14:34 | PDOC.CMPRO ---
- If Service Date Differs Date of service: 08/24/19 Time of Service: 14:34 Care Management Progress Note S/O: CM met with Tammi at the bedside she is determine to return home today, she declines home health services. CM encouraged her to accept speech as an outpatient which she refuses. She is willing to complete a COLST which CM started with her, Provider will complete it. She states she does not want to be in the hospital and wants to return home to her son and her dog. She states that her son Adalid is here visiting and will help her at home in addition to her sister. Tammi refuses palliative care consult. Tammi has been evaluated by PT they recommend a can for stability, she still needs a speech eval and MRI. She continue to be on telemetry.CM did attempt to contact her son Adalid and left a voicemail to update him and to encourage him to speak with her about staying until she is able to have the complete stroke work up. A: Tammi is a 79 year old female admitted with stroke P:Tammi will be discharged home when medically ready. She denies any additional services at this time. CM was unable to get a hold of her son, did leave a voicemail and requested a return call. When she is ready for discharge transportation will be with family. Palliative consult declined by the patient.
--- NOTE | 2019-08-24 16:44 | PGE_ITS ---
Date of Service Date of service: 08/24/19 Time of Service: 16:45 Assessment and Plan Assessment and plan (1) CVA (cerebral vascular accident): Status: Acute Assessment and plan: Facial droop and dysarthria better. Patient now agreeable to stay until Sunday when MRI, echo, carotid doppler, neurology consult, and Speech/Swallow evals can be done. Continue asa, statin, tele. (2) Dysarthria: Status: Acute Assessment and plan: As above (3) Dysphagia: Status: Acute Assessment and plan: As above (4) Essential hypertension: Status: Acute Assessment and plan: Hold lisinopril due to borderline low BP's this am. (5) Hyperlipidemia: Status: Acute Assessment and plan: Continue higher dose of statin (6) Discharge planning issues: Status: Acute Assessment and plan: Full code Anticipate discharge home on Sunday afternoon after above workup (7) DVT prophylaxis: Status: Acute Assessment and plan: TEDS, SCDs, sc heparin Subjective Subjective Interval history since last seen: Denies dizziness, chest pain, shortness of breath, n/v, numbness/tingling. Met with care management today to discuss her advanced directives - she is not sure whether or not she wants to have CPR. She initially resisted, but now agrees to stay untl Sunday so that she can be seen by speech therapy, neurology, and have her MRI/Echo/carotid US. She also initially resisted a palliative care consult, but now agrees. Exam Narrative Exam Narrative: General: elderly female, in bed, appears to have a little bit less of a facial droop today HEENT: EOMI, MMM Heart: RRR, slightly bradycardic Lungs: CTAB Abdomen: soft, nontender, nondistended Extremities: no e/c/c BLE's Objective Objective Clinical Data: Abnormal lab results 08/24/19 08/24/19 Range/Units 06:18 06:18 Hemoglobin A1c 5.9 H (3.8-5.6) % LDL Cholesterol, Calc 110 H (<100) mg/dL Vital Signs Temperature 36.3 C L 08/24/19 11:41 Temperature Source Tympanic 08/24/19 11:41 Pulse 57 L 08/24/19 11:41 Pulse Rhythm Irregular 08/24/19 10:38 Pulse 70 08/22/19 21:17 Respiratory Rate 17 08/24/19 11:41 Respiratory Effort 08/24/19 10:38 Respiratory Depth Normal 08/24/19 10:38 Respiratory Pattern Normal 08/24/19 10:38 Blood Pressure 125/71 08/24/19 11:41 Blood Pressure Mean 100 08/22/19 21:17 Pulse Oximetry 95 08/24/19 11:41 Oxygen Delivery Method Room Air 08/24/19 11:41 Oxygen Flow Rate 0 08/24/19 11:41 Pain Level 0 08/23/19 23:15 Comment 08/22/19 22:50 Intake & Output 08/23/19 08/24/19 08/24/19 23:59 11:59 23:59 Intake Total 300 / 600 Output Total 900 / 1850 400 / 400 Balance -600 / -1250 -400 / -400 Intake: Oral 300 / 600 Output: Urine 900 / 1850 400 / 400 Other: Urine Color Yellow Yellow Urine Appearance Clear Clear Urine Odor None Normal Stool Size Large Stool Characteristics Soft Formed Voiding Methods Toilet Incontinent Toilet Laboratory Results WBC 8.74 k/cumm (4.4-10.8) 08/22/19 20:31 RBC 4.11 m/cumm (4.00-5.20) 08/22/19 20:31 Hgb 12.7 g/dL (12.0-15.5) 08/22/19 20:31 Hct 38.4 % (36.0-46.0) 08/22/19 20:31 MCV 93.4 fL (80-95) 08/22/19 20:31 MCH 30.9 pg (27.0-33.0) 08/22/19 20:31 MCHC 33.1 g/dL (32.0-36.0) 08/22/19 20:31 RDW 15.4 % (11.7-14.6) H 08/22/19 20:31 Plt Count 201 x1000/uL (130-400) 08/22/19 20:31 MPV 12.2 fL (8.0-11.0) H 08/22/19 20:31 Immature Gran % 0.1 % 08/22/19 20:31 Neutrophils % 54.8 08/22/19 20:31 Lymphocytes % 35.5 08/22/19 20:31 Monocytes % 7.4 08/22/19 20:31 Eosinophils % 1.5 08/22/19 20: Basophils % 0.7 08/22/19 20:31 Absolute Neutrophils 4.79 k/cumm (1.2-6.7) 08/22/19 20: Absolute Lymphocytes 3.10 k/cumm (1.2-3.4) 08/22/19 20: Absolute Monocytes 0.65 k/cumm (0.11-0.7) 08/22/19 20: Absolute Eosinophils 0.13 k/cumm (0.0-0.7) 08/22/19 20: Absolute Basophils 0.06 k/cumm (0.0-0.2) 08/22/19 20:31 Sodium 138 mmol/L (136-145) 08/24/19 06:18 Potassium 3.5 mmol/L (3.5-5.1) 08/24/19 06:18 Chloride 104 mmol/L (98-107) 08/24/19 06:18 Carbon Dioxide 28.5 mmol/L (21.0-32.0) 08/24/19 06:18 Anion Gap 5.5 mmol/L (3-11) 08/24/19 06:18 BUN 17 mg/dL (7-18) 08/24/19 06:18 Creatinine 0.60 mg/dL (0.55-1.02) 08/24/19 06:18 Estimated GFR/1.73 m2 >= 60.00 (mL/min/1.73m2) 08/24/19 06:18 Glucose 99 mg/dL (74-106) 08/24/19 06:18 Hemoglobin A1c 5.9 % (3.8-5.6) H 08/24/19 06:18 Calcium 8.7 mg/dL (8.5-10.1) 08/24/19 06:18 Magnesium 1.9 mg/dL (1.8-2.4) 08/24/19 06:18 Total Bilirubin 0.4 mg/dL (0.2-1.0) 08/22/19 20:31 AST 16 U/L (15-37) 08/22/19 20:31 ALT 16 U/L (14-59) 08/22/19 20:31 Alkaline Phosphatase 86 U/L (46-116) 08/22/19 20:31 Troponin I Cancelled 08/22/19 23:20 Total Protein 7.4 g/dL (6.4-8.2) 08/22/19 20:31 Albumin 3.4 g/dL (3.4-5.0) 08/22/19 20:31 Triglycerides 112 mg/dL (<150) 08/24/19 06:18 Total Cholesterol 187 mg/dL (<200) 08/24/19 06:18 LDL Cholesterol, Calc 110 mg/dL (<100) H 08/24/19 06:18 HDL Cholesterol 55 mg/dL (40-60) 08/24/19 06:18 Vitamin B12 447 pg/mL (193-986) 08/24/19 06:18 TSH 2.79 uIU/mL (0.36-3.74) 08/24/19 06:18 Urine Color Yellow (Yellow) 08/22/19 20:50 Urine Clarity Clear (Clear) 08/22/19 20:50 Urine pH 6.0 (5-8) 08/22/19 20:50 Ur Specific [place] 1.010 (1.005-1.025) 08/22/19 20:50 Urine Protein Negative mg/dL (Negative) 08/22/19 20:50 Urine Ketones Negative mg/dL (Negative) 08/22/19 20:50 Urine Blood Negative (Negative) 08/22/19 20:50 Urine Nitrite Negative (Negative) 08/22/19 20:50 Urine Bilirubin Negative (Negative) 08/22/19 20:50 Urine Urobilinogen 0.2 EU/dL (Up TO 0.2) 08/22/19 20:50 Ur Leukocyte Esterase Negative (Negative) 08/22/19 20:50 Urine Glucose Negative mg/dL (Negative) 08/22/19 20:50 COVID-19 PCR Negative (Negative) 08/22/19 22:35 Nasopharyn COVID-19 PCR Not Applicable 08/22/19 22:35 Ref Test Perform Site [facility] lab 08/22/19 22:35
[2019-08-24] MEDS: Atorvastatin 40 MG TAB 80 MG PO (21:08)
[2019-08-24 23:50] VITALS: BP 128/63; PULSE 55; RESP 19; TEMP 36.7; O2SAT 97
[2019-08-25] MEDS: Heparin 5,000 UNITS/ML VIAL 5000 UNITS SC ×2 (05:56→18:15)
[2019-08-25 06:05] VITALS: BP 148/76; PULSE 53; RESP 16; TEMP 36.6; O2SAT 95
[2019-08-25 07:44] LABS: HCT 37.8 % (36.0-46.0); HGB 12.3 g/dL (12.0-15.5); Mean Corp. HGB Concentration 32.5 g/dL (32.0-36.0); Mean Corpuscular Hemoglobin 30.7 pg (27.0-33.0); Mean Corpuscular Volume 94.3 fL (80-95); Mean Platelet Volume 12.5 fL (8.0-11.0); Platelet Count 184 x1000/uL (130-400); RBC 4.01 m/cumm (4.00-5.20); RBC Distribution Width 15.3 % (11.7-14.6); White Blood Cell Count 7.58 k/cumm (4.4-10.8)
[2019-08-25 07:45] VITALS: BP 143/71; PULSE 55; RESP 18; TEMP 36.1; O2SAT 98
[2019-08-25] MEDS: Cyanocobalamin 500 MCG TAB 1000 MCG PO (08:05)
[2019-08-25] MEDS: Aspirin 325 MG TAB PO (08:05)
--- NOTE | 2019-08-25 10:30 | CMPROGNOTE_ITS ---
- If Service Date Differs Date of service: 08/25/19 Time of Service: 10:30 Care Management Progress Note S/O: Tammi was reviewed at interdisciplinary rounds. Per provider, she awaits a full stroke work up including MRI, echo, U/S carotid, neurology, and speech therapy consult, which are all postponed d/t the holiday. Palliative consult was placed but also won't happen today d/t the holiday. CM will contact her son, Adalid, once palliative consult is scheduled. Tammi was sleeping when CM at tempted to meet with her. Due to her plan remaining the same, CM did not disturb her. CM will continue to follow. A: Tammi is a 79 year old female admitted with stroke P:Tammi will be discharged home when medically ready. She denies any additional services at this time. Palliative consult was ordered, but could not occur today d/t the holiday. CM will contact Tammi's son once the appointment is scheduled so he is included in the meeting. CM will continue to follow.
[2019-08-25] MEDS: Lisinopril 10 MG TAB PO (11:27)
--- NOTE | 2019-08-25 11:59 | PTTR_ITS ---
PT Notes Visit Reasons: Stroke Date: 08/25/2019 Treatment time: 30 minutes/11:00 to 11:30 AM Treatment: 9711 0?2 Cooperative with a flat affect. No complaints of pain offered and plans on heading home tomorrow. Treatment: The session consisted of ambulation of greater than 200 feet with minimal contact guarding. She has stable gait. Practiced unilateral standing and was able to stand on her left foot for greater than 5 seconds, right foot 2 to 3 seconds. She then performed isotonic PRE to her quads, hip flexors, biceps, and shoulder overhead movements. Refer to the flowsheet. She also climb stairs in the department independently while resting her hands on the railing. Disclaimer: This note was created using [employer] voice recognition software. It was reviewed for major content. However, there may be multiple small discrepancies and errors due to the voice recognition aspects of the software.
--- NOTE | 2019-08-25 13:38 | PGE_ITS ---
Date of Service Date of service: 08/25/19 Time of Service: 14:07 Assessment and Plan Assessment and plan (1) CVA (cerebral vascular accident): Status: Acute Assessment and plan: Facial droop and dysarthria better. Still has LUE/LLE weakness. Await MRI/MRA brain, US carotid, Echo, neurology, speech therapy, and palliative care consults with plans to discharge the patient home tomorrow afternoon/evening. Continue asa, statin, tele. (2) Dysarthria: Status: Acute Assessment and plan: As above (3) Dysphagia: Status: Acute Assessment and plan: As above (4) Essential hypertension: Status: Acute Assessment and plan: Home dose of lisinopril was verified and is indeed 40 mg PO daily (son stated that she took 5 mg PO daily). With this patient's BP trend, I feel comfortable restarting lisinopril 10 mg PO daily today to see how she does in hopes of avoiding hypotension. (5) Hyperlipidemia: Status: Acute Assessment and plan: Continue higher dose of statin (6) Discharge planning issues: Status: Acute Assessment and plan: Full code Anticipate discharge home on Sunday afternoon/evening after above workup (7) DVT prophylaxis: Status: Acute Assessment and plan: TEDS, SCDs, sc heparin Subjective Subjective Interval history since last seen: Ms Ivan has had difficulty swallowing pills, but no issues with thin liquids or soft foods. Her nursing agrees that she has LUE/LLE weakness, but that her dysarthria and facial droop have improved. She denies headache, dizziness, numbness, tingling, chest pain, shortness of breath, nausea. She agrees to stay through tomorrow to complete her testing and evaluations. Exam Narrative Exam Narrative: General: elderly female, sitting up in a chair, A&Ox3, L facial droop and dysarthria are better since yesterday, 4/5 strength LUE/LLE; 5/5 RUE/RLE. HEENT: EOMI, MMM Heart: RRR Lungs: CTAB Abdomen: soft, nontender, nondistended Extremities: no e/c/c BLE's Objective Objective Clinical Data: Abnormal lab results 08/25/19 Range/Units 06:10 RDW 15.3 H (11.7-14.6) % MPV 12.5 H (8.0-11.0) fL Vital Signs Temperature 36.1 C L 08/25/19 07:45 Temperature Source Tympanic 08/25/19 07:45 Pulse 55 L 08/25/19 07:45 Pulse Rhythm Regular 08/24/19 20:40 Pulse 70 08/22/19 21:17 Respiratory Rate 18 08/25/19 07:45 Respiratory Effort Non-Labored 08/25/19 06:30 Respiratory Depth Normal 08/25/19 06:30 Respiratory Pattern Normal 08/25/19 06:30 Blood Pressure 143/71 H 08/25/19 07:45 Blood Pressure Mean 100 08/22/19 21:17 Pulse Oximetry 98 08/25/19 07:45 Oxygen Delivery Method Room Air 08/25/19 07:45 Oxygen Flow Rate 0 08/25/19 07:45 Pain Level 0 08/25/19 07:45 Comment 08/22/19 22:50 Intake & Output 08/24/19 08/25/19 08/25/19 23:59 11:59 23:59 Intake Total 240 / 480 240 / 480 Output Total 1050 / 1050 350 / 350 Balance -1040 / -1040 -110 / 130 240 / 130 Weight 50.8 kg Intake: IV Oral 240 / 480 240 / 480 Output: Urine 1050 / 1050 350 / 350 Other: Urine Color Yellow Yellow Urine Appearance Clear Urine Odor Normal Stool Size Large Stool Characteristics Soft Formed Voiding Methods Toilet Toilet Laboratory Results WBC 7.58 k/cumm (4.4-10.8) 08/25/19 06:10 RBC 4.01 m/cumm (4.00-5.20) 08/25/19 06:10 Hgb 12.3 g/dL (12.0-15.5) 08/25/19 06:10 Hct 37.8 % (36.0-46.0) 08/25/19 06:10 MCV 94.3 fL (80-95) 08/25/19 06:10 MCH 30.7 pg (27.0-33.0) 08/25/19 06:10 MCHC 32.5 g/dL (32.0-36.0) 08/25/19 06:10 RDW 15.3 % (11.7-14.6) H 08/25/19 06:10 Plt Count 184 x1000/uL (130-400) 08/25/19 06:10 MPV 12.5 fL (8.0-11.0) H 08/25/19 06:10 Immature Gran % 0.1 % 08/22/19 20:31 Neutrophils % 54.8 08/22/19 20:31 Lymphocytes % 35.5 08/22/19 20:31 Monocytes % 7.4 08/22/19 20:31 Eosinophils % 1.5 08/22/19 20: Basophils % 0.7 08/22/19 20:31 Absolute Neutrophils 4.79 k/cumm (1.2-6.7) 08/22/19 20: Absolute Lymphocytes 3.10 k/cumm (1.2-3.4) 08/22/19 20: Absolute Monocytes 0.65 k/cumm (0.11-0.7) 08/22/19 20: Absolute Eosinophils 0.13 k/cumm (0.0-0.7) 08/22/19 20: Absolute Basophils 0.06 k/cumm (0.0-0.2) 08/22/19 20:31 Sodium 138 mmol/L (136-145) 08/24/19 06:18 Potassium 3.5 mmol/L (3.5-5.1) 08/24/19 06:18 Chloride 104 mmol/L (98-107) 08/24/19 06:18 Carbon Dioxide 28.5 mmol/L (21.0-32.0) 08/24/19 06:18 Anion Gap 5.5 mmol/L (3-11) 08/24/19 06:18 BUN 17 mg/dL (7-18) 08/24/19 06:18 Creatinine 0.60 mg/dL (0.55-1.02) 08/24/19 06:18 Estimated GFR/1.73 m2 >= 60.00 (mL/min/1.73m2) 08/24/19 06:18 Glucose 99 mg/dL (74-106) 08/24/19 06:18 Hemoglobin A1c 5.9 % (3.8-5.6) H 08/24/19 06:18 Calcium 8.7 mg/dL (8.5-10.1) 08/24/19 06:18 Magnesium 1.9 mg/dL (1.8-2.4) 08/24/19 06:18 Total Bilirubin 0.4 mg/dL (0.2-1.0) 08/22/19 20:31 AST 16 U/L (15-37) 08/22/19 20: ALT 16 U/L (14-59) 08/22/19 20:31 Alkaline Phosphatase 86 U/L (46-116) 08/22/19 20: Troponin I Cancelled 08/22/19 23:20 Total Protein 7.4 g/dL (6.4-8.2) 08/22/19 20: Albumin 3.4 g/dL (3.4-5.0) 08/22/19 20: Triglycerides 112 mg/dL (<150) 08/24/19 06:18 Total Cholesterol 187 mg/dL (<200) 08/24/19 06:18 LDL Cholesterol, Calc 110 mg/dL (<100) H 08/24/19 06:18 HDL Cholesterol 55 mg/dL (40-60) 08/24/19 06:18 Vitamin B12 447 pg/mL (193-986) 08/24/19 06:18 TSH 2.79 uIU/mL (0.36-3.74) 08/24/19 06:18 Urine Color Yellow (Yellow) 08/22/19 20:50 Urine Clarity Clear (Clear) 08/22/19 20:50 Urine pH 6.0 (5-8) 08/22/19 20:50 Ur Specific [place] 1.010 (1.005-1.025) 08/22/19 20:50 Urine Protein Negative mg/dL (Negative) 08/22/19 20:50 Urine Ketones Negative mg/dL (Negative) 08/22/19 20:50 Urine Blood Negative (Negative) 08/22/19 20:50 Urine Nitrite Negative (Negative) 08/22/19 20:50 Urine Bilirubin Negative (Negative) 08/22/19 20:50 Urine Urobilinogen 0.2 EU/dL (Up TO 0.2) 08/22/19 20:50 Ur Leukocyte Esterase Negative (Negative) 08/22/19 20:50 Urine Glucose Negative mg/dL (Negative) 08/22/19 20:50 COVID-19 PCR Negative (Negative) 08/22/19 22:35 Nasopharyn COVID-19 PCR Not Applicable 08/22/19 22:35 Ref Test Perform Site [facility] 08/22/19 22:35
[2019-08-25 16:35] VITALS: BP 140/82; PULSE 62; RESP 17; TEMP 36; O2SAT 92
[2019-08-25] MEDS: Atorvastatin 40 MG TAB 80 MG PO (19:42)
[2019-08-25 19:45] VITALS: BP 170/73; PULSE 63; RESP 18; TEMP 36.9; O2SAT 97
[2019-08-25 23:05] VITALS: BP 162/80; PULSE 66; RESP 18; TEMP 37.1; O2SAT 98
[2019-08-26 04:00] VITALS: BP 160/82; PULSE 66; RESP 18; TEMP 37.2; O2SAT 98
[2019-08-26] MEDS: Heparin 5,000 UNITS/ML VIAL 5000 UNITS SC ×2 (06:15→17:55)
[2019-08-26 07:18] VITALS: BP 129/65; PULSE 52; RESP 16; TEMP 37.2; O2SAT 96
--- NOTE | 2019-08-26 07:55 | OTIE_ITS ---
Occupational Therapy Notes Inpatient Occupational Therapy Evaluation Date: 08/26/19 Referring Doctor: Josy Guerrero MD OT Orders: Non Urgent: Limited Ability Precautions: Fall, Standard, Full PATIENT PROFILE/ADMITTING DIAGNOSIS: Pt is a 79 year old female who was admitted through the ER on 08/22/19 with c/o AMS/LOC with clinical impression noted at the time of CVA. Pt was admitted to [facility] and is also being seen for Dysphagia, essential HTN, hyperlipidemia, DVT prophylaxis. Pt is awaiting more tests including MRI, echo, U/S carotid, neurology, and speech therapy consult, and Palliative consult. Medical History Medical History Rosacea (Acute) Surgical History Appendectomy (~2000) endometrial biopsy (~1995) neg facetectomy s/p left sided L4-L5 faceectomy; Dr. Arenas FORAMINOTOMY LUMBAR SEG History of excision of lesion (Acute 01/11/18) [place] [facility] [place] LAMINECTOMY [place]PRESS Ligation of fallopian tube Social History/Home Situation: Pt lives alone on a 2 story home. She has 2 living rooms, a bathroom and her kitchen on the first floor which she reports she will plan to stay. She notes that she is (I) at her baseline level of function. Her sister is planning to stay in her home for the next couple weeks once she is discharged. She reports that she has a walk in shower. Her laundry is in her basement and she states that her bedroom is upstairs but she is not worried about this. Equipment owned/DME: SUBJECTIVE: Pt was sitting in bed when OT arrived she was agreeable to OT session and states that she has a lot of tests today that she has to go through but is hopeful to return home. OBJECTIVE: General Observation: Pleasant, IV (L) UE and able to answer all questions appropriately. Mental Status: A&Ox3 Pain: no c/o pain ROM: RUE AROM WFL L UE AROM WFL STRENGTH: RUE 4/5 throughout globally LUE 4/5 throughout globally FUNCTIONAL MOBILITY/ADLS: Transfers with FWW Supine-sit-(I) Sit-Stand- (S) Stand-sit-(S) Bed-Chair-(S) BATHING- Pt able to wash hair with shower cap (I). She denies further bathing routine but was able to demonstrate AROM required for performance. DRESSING Dressing UE- (I) [facility] gown with min (A) for snapping sides up. Dressing LE - Mod (A) don and doffing (B) socks. Pt denies the need for sock aid reporting that she does not want to utilize at this time. GROOMING- In seated position (I) with washing hair. TOILETING- Pt denies. EATING NT BALANCE: Static sitting Normal Dynamic Sitting Normal Static Standing Good Dynamic Standing Good SPECIAL TESTS: Daily Activity Limitations Standardized Measure [facility] AM -PAC ?6 clicks? Daily Activity Inpatient Short Form: Raw score: 18 Standardized score: 38.66 CMS score: 46.65% INFORMED CONSENT/EDUCATION: Pt instructed in purpose of OT Consult and plan of care. ASSESSMENT: Patient is a 79-year-old female referred to occupational therapy services with diagnosis of ? AMS/LOC with clinical impression of a CVA. She is also being seen for Dysphagia, essential HTN, hyperlipidemia, DVT prophylaxis. Patient presents with clinical signs and symptoms consistent with dx, as demonstrated by the following impairment level findings: increased performance time of ADLs/IADLs, decreased functional activity tolerance. Impairments are contributing to the following functional limitations: Decreased LE dressing, decreased functional activity tolerance, vc needed for gait mechanics, decreased functional mobility needed for ADLs/IADLs, pain with ADL performance, decreased standing tolerance. AMPAC score 18 Patient is assessed as a Low 69055 complexity based on the following: History: See above Examination: see functional limitations as noted above Presentation: Evolving Decision Making: AMPAC score 18 GOALS Goals x1 week 1. Transfers- (I) 2. Dressing- (I) UE and min (A) LE 3. Bathing- Standing at sink with FWW (I) with (B) UE, (I) (B) LE 4. Toileting- on toilet (I) 5. Eating- (I) PLAN OF CARE/TREATMENT PLAN: 1x/day, 5 days/ week x 1week Initiate Occupational Therapy Services for bathing, dressing, grooming, toileting, eating, transfer training. DISCHARGE RECOMMENDATIONS- OT recommends that pt return to home with HH services when medically cleared per MD. TREATMENT TIME/MINUTES/CODES-96000, [id number], 20 minutes (07:10) Marian Stockton, OTR/L [facility]
[2019-08-26] MEDS: Cyanocobalamin 500 MCG TAB 1000 MCG PO (07:59)
[2019-08-26] MEDS: Lisinopril 10 MG TAB PO (07:59)
[2019-08-26] MEDS: Aspirin 81 MG CHEW PO (07:59)
[2019-08-26] MEDS: Normal Saline Flush 10 ML SYR IVP (08:00)
--- NOTE | 2019-08-26 08:00 | DI.MRI_ITS ---
CLINICAL HISTORY: CVA. TECHNIQUE: Multiplanar multisequence MRA of the brain was performed. COMPARISON: None. FINDINGS: Carotid Arteries: Petrous: Normal. Cavernous: Normal. Cerebral: Normal. Middle Cerebral Arteries: Right: No aneurysm or significant stenosis. Left: No aneurysm or significant stenosis. Anterior Cerebral Arteries: Right: No aneurysm or significant stenosis. Left: No aneurysm or significant stenosis. Vertebral Arteries: Right: No aneurysm or significant stenosis. Left: No aneurysm or significant stenosis. . Basilar Artery: No aneurysm or significant stenosis. Small Vessels: No evidence of beading. IMPRESSION: Normal MRA examination of the [place]. DATA REPOSITORY:
--- NOTE | 2019-08-26 08:00 | DI.US_ITS ---
EXAM: US CAROTID CLINICAL HISTORY: stroke. TECHNIQUE: Ultrasound carotids performed using grayscale, color-flow, and spectral Doppler imaging. COMPARISON: No exams were available for comparison FINDINGS: RIGHT CAROTID ARTERIES: Plaque: Minimal. Velocity elevation: None. LEFT CAROTID ARTERIES: Plaque: Intimal thickening is seen from the mid common carotid artery extending to the proximal exter nal carotid artery. There is tortuosity of the distal internal carotid artery which shows elevated s ystolic and diastolic velocities.. No significant plaque is visible in the left internal carotid art bindu. VERTEBRAL ARTERIES: Antegrade flow. Measurements: R Bulb: 46.9cm/s PS / 10.3cm/s ED R CCA: 73.3cm/s PS / 15.4cm/s ED R ECA: 91.7cm/s PS / 14cm/s ED R ICA Prox: 72.7cm/s PS /22.3cm/s ED R ICA Mid: 81.8cm/s PS / 23.1cm/s ED R ICA Distal: 48.8cm/s PS /16.5cm/s ED R Vert: 81cm/s PS / 15.7cm/s ED R SVR: 1.12 R DVR: 1.5 L Bulb: 84.3cm/s PS /24.8cm/s ED L CCA: 96.7cm/s PS / 21.5cm/s ED L ECA: 88.4cm/s PS /12.4cm/s ED L ICA Prox:93.4cm/s PS / 27.3cm/s ED L ICA Mid: 96.7cm/sPS / 32.2cm/s ED L ICA Distal: 209.65cm/s PS / 53.4cm/s ED L Vert: 105.2cm/s PS / 22.1cm/s ED L SVR: 2.41 L DVR: 3.46 IMPRESSION: Right: No evidence for hemodynamically significant carotid stenosis. Left: Tortuous distal left internal carotid artery without visible plaque. There are elevated veloci ty measurements in this area which could be secondary to the tortuosity rather than indicated signifi cant stenosis. Criteria for Carotid Stenosis: Normal: ICA PSV <125 cm/s no plaque or intimal thickening is visible. <50% stenosis: ICA PSV <125 cm/s and plaque or intimal thickening is visible. 50-69% stenosis: ICA PSV is 125-250 cm/s and plaque is visible. >70% stenosis to near occlusion: ICA PSV >250 cm/s with visible plaque and luminal narrowing. DATA REPOSITORY:
--- NOTE | 2019-08-26 08:00 | DI.MRI_ITS ---
EXAM: MR BRAIN WO CLINICAL HISTORY: CVA. TECHNIQUE: Multiplanar multisequence MRI of the brain was performed. CONTRAST MATERIAL: Noncontrast COMPARISON: CT CT HEAD WO from 08/22/2019 MR MR ANGIO BRAIN WO from 08/26/2019 FINDINGS: VENTRICLES AND EXTRA AXIAL SPACES: Normal in size and morphology for the patient's age. HEMORRHAGE: None. CEREBRAL PARENCHYMA: There is an ovoid area of high signal with restricted diffusion seen in the righ t basal ganglia.. No additional areas of restricted diffusion are seen. There is an old left basal ganglia lacunar infarct. There are patchy areas of high signal seen in the white matter bilaterally consistent with sequela of microvascular disease. No space-occupying lesion identified. MIDLINE SHIFT: None. BRAINSTEM/CEREBELLUM: Normal. VISUALIZED PARANASAL SINUSES/MASTOIDS: Clear. Vascular flow voids appear intact. The orbits and pituitary are unremarkable. IMPRESSION: Acute to subacute infarct in the right basal ganglia.. DATA REPOSITORY:
--- NOTE | 2019-08-26 08:30 | DI.US_ITS ---
APPROVED REPORT EXAM: Comprehensive 2D, Doppler, and color-flow Echocardiogram Patient Location: In-Patient Room/Bed: 229 Ancillary Services Manager: Pia Hsieh RDCS (AE) Indications: CVA Other Information Study Quality: Fair Conclusion Left Ventricle : The left ventricle is normal size. The left ventricular systolic function is normal. The left ventricular ejection fraction is within the normal range. There is normal left ventricular wall thickness. There is normal LV segmental wall motion. Transmitral Doppler flow pattern suggests i mpaired LV relaxation. LVEF is 60-65%. Right Ventricle : The right ventricle is normal size. The right ventricular systolic function is norm al. The RVSP is 30.9 mmHg. Atria : Left atrium is borderline dilated. The right atrium size is normal. Valves: There are no hemodynamically significant valvular lesions. Great Vessels : IVC is normal in size and collapses >50% with inspiration. Compared to echocardiogram dated 02/03/2019: There is no significant change. Wall motion Left Ventricle The left ventricle is normal size. The left ventricular systolic function is normal. The left ventric ular ejection fraction is within the normal range. There is normal left ventricular wall thickness. T here is normal LV segmental wall motion. Transmitral Doppler flow pattern suggests impaired LV relaxa tion. There is no ventricular septal defect visualized. LVEF is 60-65%. Right Ventricle The right ventricle is normal size. The right ventricular systolic function is normal. The RVSP is 30 .9 mmHg. Atria Left atrium is borderline dilated. The right atrium size is normal. The interatrial septum is intact with no evidence for an atrial septal defect. Aortic Valve The Aortic valve is sclerotic. Aortic valve is trileaflet. There is no aortic valvular stenosis. No a ortic regurgitation is present. Mitral Valve There is mitral annular calcification. No evidence of mitral valve stenosis. Trace to mild mitral reg urgitation. Tricuspid Valve The tricuspid valve is normal in structure. There is no tricuspid valve stenosis. Trace tricuspid reg urgitation. Pulmonic Valve The pulmonary valve is normal in structure. There is no pulmonic valvular stenosis. There is no pulmo tal valvular regurgitation. Great Vessels The aortic root is normal in size. The ascending aorta is normal in size. IVC is normal in size and c ollapses >50% with inspiration. Pericardium There is no pericardial effusion. There is no pleural effusion. 2D Dimensions IVSD d PLAX 0.99 cm F: 0.6-1.0 LV Vol A2C d MOD 69.5 mL LVPW d PLAX 1.00 cm F: 0.6 - 1.0 LV Vol A4C d MOD 81.9 mL LVID d PLAX 4.35 cm F: 3.8 - 5.2 LA vol/ BSA A2C s A-L 29.8 mL/m2 LVDs 3.00 cm F: 2.2 - 3.5 LA vol/ BSA A4C s A-L 39.4 mL/m2 Ao Root d 2.39 cm F: 2.7 - 3.3 LA Vol/ BSA Biplane s A-L 34.8 mL/m2 RA Area A4C 12.46 cm2 LA Area A4C s MOD 20.14 cm2 RA Vol/ BSA A4C s A-L 19.6 mL/m2 LA Area A2C s MOD 17.27 cm2 Ao Asc Diam d 2.85 cm F: 2.3 - 3.1 LV EF A4C MOD 65.0 % LV EF Teichholz 57.3 % LV EF A2C MOD 61.0 % LVEF (Sepulveda's) 63.32 % F: 54 - 74 LV EF Biplane MOD 63.3 % LV Volume 63.08 mL F: 46 - 106 SV 48.22 mL LV Volume Index 41.50 mL/m2 F: 29 - 61 SV Index 31.66 mL/m2 LV Vol Biplane MOD 76.2 mL FS 29.90 % M-Mode TAPSE 2.91 cm (M/F) >1.7 LV Diastology MV E' medial 0.059 (>0.07 m/s) E/A Ratio 0.6 LV E/e MED 11.60 (<14) MV E Vmax 0.68 (0.4-1.3 m/s) MV E' lateral 0.067 (>0.1 m/s) MV A Vmax 1.20 (0.4-1.3 m/s) LV E/e LAT 10.15 (<14) MV E/A Ratio 0.57 MV E/E' medial 11.61 MV E/E' lateral 10.19 Aortic Valve LVOT Area 2.89 cm2 AoV Area Vmax 2.47 cm2 LVOT Vmax 1.49 m/s AoV Area/ BSA (Vmax) 1.62 cm2/m2 LVOT Mean Johnny. 0.88 m/s CIPRIANO Mean Johnny. 2.28 cm2 LVOT Peak Grad 8.9 mmHg CIPRIANO Mean Johnny. Index 1.50 cm2/m2 LVOT Mean Grad 3.8 mmHg LVOT VTI 0.294 m LVOT Diam s 1.90 cm AoV Vmax 1.74 m/s Velocity Ratio 0.85 AoV Mean Johnny. 1.11 m/s AoV Peak Grad 12.2 mmHg LVOT SV 84.93 mL AoV Mean Grad 5.8 mmHg AoV VTI 0.334 m AoV Area VTI 2.54 cm2 AoV Area/ BSA (VTI) 1.67 cm/m2 Mitral Valve MV DT 345 (160-240 msec) MV PHT 100 msec MV Area PHT 2.20 cm2 Pulmonary Valve PV Vmax 1.23 (0.5-1.5 m/s) RVOT Peak Gr. 2.72 mmHg PV Peak Grad 6.0 mmHg RVOT Mean Gr. 1.30 mmHg PV Mean Grad 3.1 mmHg RVOT VTI 0.140 m PV VTI 0.246 m RVOT Vmax 0.82 m/s Tricuspid Valve TR Peak Grad 27.8 mmHg TR Vmax 2.64 m/s RA Pressure 3.00 mmHg RVSP (TR) 30.9 mmHg
--- NOTE | 2019-08-26 10:12 | PDOC.CMPRO ---
- If Service Date Differs Date of service: 08/26/19 Time of Service: 10:12 Care Management Progress Note S/O: Davida was sitting up in a chair when CM met with her. She was polite but reserved in her interactions. Davida stated that she has been doing well at home until she developed unilateral weakness. She stated it was her son who noticed the left sided facial droop which led to her seeking medical care. Davida is reluctant to accept care at home, but because of the weakness to her LUE and LLE, she will consider PT and possible nursing. Davida has had several tests today; her discharge is pending the results. Davida shared that her sister will come from [place] to stay with her; she plans to arrive tomorrow. A: Tammi is a 79 year old female admitted with stroke P:Tammi will be discharged home when medically ready. Her sister will come from [place] to stay with her for as long as needed. Davida denied the need for any additional services at this time, however after conversation, is willing to accept PT and possibly nursing. . When she is ready for discharge transportation will be with family. cc:
[2019-08-26 13:31] VITALS: BP 126/65; PULSE 57; RESP 16; TEMP 35.8; O2SAT 97
[2019-08-26] MEDS: Lisinopril 5 MG TAB PO (13:34)
--- NOTE | 2019-08-26 13:38 | PT.INTREAT ---
Date of service: 08/26/19 Time of Service: 13:03 PT Notes Visit Reasons: Stroke Inpatient Physical Therapy Treatment Note [facility] Date: 08/26/2019 PRECAUTIONS: Fall SUBJECTIVE: Tammi is agreeable to participating in PT, and is hopeful that she will be discharged home today. She reports that she is feeling back to her baseline. OBJECTIVE: PAIN: No complaints of pain. BED MOBILITY/TRANSFERS Sit-stand: I Stand-sit: I GAIT Assistive Device: No AD Weight bearing: Full Assist: S Distance: 260' NEURO RE-ED: Patient completed a static and dynamic balance retraining program. Patient completes dynamic balance activities requiring CGA for safety. Patient also eventually requires U UE support following a short duration of static balance activities. See flow sheet for details. STAIRS: Up/down 2?6 and 3?4 using B rails and a step over pattern, independently ASSESSMENT: Patient tolerated session without complaint. She was able to tolerate a progression in gait distance without use of assistive device, requiring supervision only. She also participated in a static and dynamic balance retraining program where she requires CGA for safety with all dynamic balance activities. PLAN: Continue with PT's POC TREATMENT CODE/TIME: 23 minutes; [id number], [id number]
--- NOTE | 2019-08-26 14:24 | CHAPLAIN ---
Tammi was up in a chair when I visited. She was polite but did not seem interested in further conversation. She told me that she lives in [place], and moved her from [place].
--- NOTE | 2019-08-26 15:16 | NCONE_ITS ---
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 Ivan is a 79-year-old, right-handed woman with a past medical history of hypertension, hyperlipidemia, and former tobacco use who was admitted for mild left hemiparesis F/A>L, dysarthria, and dysphagia secondary to an ischemic stroke in the right basal ganglia. Etiology of the stroke remains unknown either due to small vessel disease or embolus. She has had extensive testing performed which I reviewed with her. I recommend further work-up with extended 30-day cardiac monitoring. Otherwise, I agree with aspirin 81 mg daily for secondary stroke prevention. At discharge, her statin can be changed back to simvastatin but at an increased dose of 40 mg daily for a goal LDL cholesterol less than 70. Her long-term goal blood pressure less than 140/90. She has a new diagnosis of prediabetes. I recommend dietary and exercise counseling. Otherwise, I agree with speech therapy consultation. She has already been seen by physical therapy and Occupational Therapy whom both recommend home health services at discharge. She should follow-up in the neurology clinic in 6 to 8 weeks. Please call with any further questions or concerns. History of Present Illness History of Present Illness Chief Complaint: stroke Narrative: Handedness: right. HPI: I was asked to see Ms. Santos in neurological consultation by Dr. Guerrero for stroke. Ms. Ivan is a 79-year-old woman with a past medical history of hypertension, hyperlipidemia, former tobacco use, depression. Her symptoms began 08/20/2020 when her son noticed that she was slurring her speech on the phone. Her son drove from [place] to visit her the next day and found her to have a left facial droop, continued speech changes, and confusion. She was brought to the [facility] emergency room where she was noted to have left facial droop with mild left arm and leg weakness along with dysarthria and dysphagia. She was started on aspirin 81 mg daily for suspected stroke. She was not a candidate for TPA as she was outside of the time window. She was already on simvastatin 20 mg daily at home which was changed to atorvastatin 80 mg daily acutely here in the hospital. She has had the work-up as below. Of note, she has never noticed any abnormal symptoms and believes that she has returned back to baseline. She has been evaluated by both physical therapy and Occupational Therapy who recommended home health services. She is awaiting speech therapy evaluation. She has no history of prior stroke. She has no history of palpitations or heart racing. She quit smoking in December 2018. Work-up: -CTH: old L BG infarct with subacute looking right BG infarct; moderate c hanges. I reviewed these images personally. -MRI brain: Acute right basal ganglia lacunar infarct. She has an old much larger left basal ganglia infarct with evidence of hemosiderin deposit likely indicating hemorrhagic transformation. She has moderate chronic small vessel disease changes. I reviewed these images personally. -MRA head: Unremarkable. I reviewed these images personally. -CUS: A tortuous left carotid artery without visible plaque formation. The velocities are increased in the tortuous area likely due to the tortuosity. No significant findings on the right. -TTE: EF 60-65%; no wall motion abnormalities. LA borderline dilated; no bubble study done. -Telemetry: unremarkable. -A1c: 5.9 - new diagnosis! -LDL: 110 Consults Requesting physician: Josy Guerrero Review of Systems All systems reviewed & are unremarkable except as noted in HPI and below [facility] Medical History (Updated 08/26/19 @ 16:01 by Liliya Jean-Baptiste MD) Anemia (Chronic) Chronic pain syndrome (Acute) Closed fracture of fibula (Acute 03/01/95) Depression (Chronic) Essential hypertension (Acute 01/15/13) Hearing loss (Acute 04/25/12) Hyperlipidemia (Acute 04/25/12) IFG (impaired fasting glucose) (Chronic) Insomnia (Acute) Pulmonary arterial hypertension (Chronic) Rosacea (Acute) Shingles (Acute) Spinal stenosis of lumbar region (Acute) Tobacco abuse (Acute 01/11/17) quit Dec 2018 Surgical History (Updated 08/26/19 @ 15:52 by Liliya Jean-Baptiste MD) Appendectomy (~2000) endometrial biopsy (~1995) neg facetectomy s/p left sided L4-L5 faceectomy; Dr. Magnadottir FORAMINOTOMY LUMBAR SEG Ganglion cyst of tendon sheath of left hand (Chronic) LRF flexor tendon Status post excision on 07/18/2018 History of excision of lesion (Acute 01/11/18) Right Cheek [facility] Intertrochanteric fracture of right femur (Acute 02/03/19) LAMINECTOMY DECOMPRESS Ligation of fallopian tube Status post laminectomy (Acute) Family History (Updated 08/26/19 @ 15:52 by Liliya Jean-Baptiste MD) Mother Neoplasm Hypertension Father Heart disease Sister Heart disease Social History (Updated 08/26/19 @ 15:53 by Liliya Jean-Baptiste MD) Smoking/Tobacco Use Status: Former Tobacco Use Quit Date: 12/01/18 Tobacco: How many years used: 25 Alcohol Intake: current Alcohol Intake frequency: 0-2 drinks per day Drug use: Never Substance use type: does not use Caregiver/Support person: No Household members: none current occupation: Retired Pets and animals: Yes Pets and animals: dog(s) What type of physical activity do you participate in: none Seatbelt use: always Do you feel safe in your relationship?: Yes Visit Medication and Allergies Active Medications Generic Name Dose Route Start Last Admin Trade Name Freq PRN Reason Stop Dose Admin Acetaminophen 650 mg 08/22/19 22:00 Tylenol PO Q4H PRN PRN Aspirin 81 mg 08/26/19 08:30 08/26/19 07:59 PO 81 mg DAILY JOHN Administration Atorvastatin Calcium 80 mg 08/23/19 20:00 08/25/19 19:42 Lipitor PO 80 mg QPM JOHN Administration Cyanocobalamin 1,000 mcg 08/24/19 11:15 08/24/19 14:03 Vitamin B-12 IM/SC 1,000 mcg TODAY JOHN Administration Cyanocobalamin 1,000 mcg 08/25/19 08:30 08/26/19 07:59 Vitamin B-12 PO 1,000 mcg DAILY JOHN Administration Dimethicone/Zinc Oxide 0 gm 08/22/19 21:56 Irais Protect Cream TP PRN PRN Heparin Sodium (Porcine) 5,000 units 08/23/19 18:00 08/26/19 06:15 SC 5,000 units Q12H JOHN Administration IV Miscellaneous Supplies 1 each 08/22/19 20:30 IV DIRECTED JOHN Lisinopril 5 mg 08/26/19 08:30 08/26/19 13:34 Prinivil PO 5 mg DAILY JOHN Administration Melatonin 6 mg 08/22/19 22:01 PO HS PRN PRN Insomnia Sodium Chloride 0 ml 08/22/19 20:20 08/26/19 08:00 Saline Flush 10 Ml Syringe IVP 10 ml PRN PRN Administration Allergies No Known Allergies Allergy (Verified 08/22/19 20:16) Exam Narrative Exam Narrative: Physical Exam: Gen: Patient of apparent stated age, NAD Head and face: no facial or cranial abnormalities Neck: Supple, no meningismus, no occipital tenderness CV: + S1, S2, RRR, no murmur Resp: CTA B/L Abd: soft, nontender, nondistended Ext: No edema. No clubbing or cyanosis. No bony deformity. Neuro Exam: Language: fluency, naming, repetition, and comprehension intact; Mental Status: AAOx3, current events intact, fund of knowledge intact; Speech: mild dysarthria with significant wetness/secretions that she was unable to clear Cranial nerves: Funduscopy: not performed CN II: visual hart intact CN III, IV, : extraocular movements intact, no nystagmus, pupils symmetric and reactive to light CN V: face sensation intact to LT and PP CN VII: left lower face weakness CN VIII: hearing intact bilaterally CN IX, X: palate rises symmetrically CN XI: trapezius/SCM 5/5 bilaterally CN XII: protrudes tongue symmetrically Sensory: intact to LT, PP, vibration, and joint position in all extremities Motor: bulk and tone intact. Fine motor movements reduced on the left. Subtle left pronator drift. Strength 5/5 throughout including the deltoids, biceps, triceps, wrist extensors, hip flexors, knee flexors, knee extensors, ankle flexors, and ankle extensors. Reflexes: 2+ at the biceps, triceps, and brachioradialis; reduced at the patella and achilles tendons bilaterally; toes neutral bilaterally; Coordination: FTN and HTS intact bilaterally Gait: deferred due to need for ST testing; has been seen by PT Results Last Vital Signs Temp 35.8 C L 08/26/19 13:31 Pulse 57 L 08/26/19 13:31 Resp 16 08/26/19 13:31 BP 126/65 08/26/19 13:31 Pulse Ox 97 08/26/19 13:31 Labs Result diagrams: 08/25/19 06:10 08/24/19 06:18
--- NOTE | 2019-08-26 15:18 | W.NUTRFU ---
Date of service: 08/26/19 Time of Service: 15:18 Nutritional Follow up NOTE: 79 yo female admited with CVA. PMH: dysphagia, HTN, anemia. BMI on low end of normal. Following CHO diet, soft bite sized, unclear why following CHO diet as no hx of DM. PO intake varies (50-75%). Recommend SENIOR RESEARCH MANAGER consult to determine proper texture in view of CVA and hx of dysphagia. Estimated needs: 1275 kcal, 51 g protein. Tammi need to consume at least 70% of meal plan to meet 100% nutrient intake. Tammi at risk for nutritional decline in view of low weight, inadequate intake and recent CVA. Recommend liberalize diet to regular and adding ensure qd to supplement po intake. Time Spent in Nutritional Counseling and Treatment: 0
--- NOTE | 2019-08-26 15:30 | EVALE_ITS ---
Date of service: 08/26/19 Time of Service: 15:30 Speech Therapy Evaluation Note: Speech-Language/Swallowing Pathology Clinical Dysphagia Evaluation Medical Diagnosis: CVA. Therapy Diagnosis: Dysphagia, Unspecified. Current Level of Care: Inpatient. Subjective: Pt was working with neurology when the PATIENT SERVICES REPRESENTATIVE arrived. She was eager for today?s swallow evaluation as she is awaiting discharge. Pt was compliant to oral-mechanism examination and liquid and solid trials, however, she declined some foods. Pt was verbally responsive to questions, with some reduced intelligibility secondary to weakness and dysarthria following stroke. Pertinent Medical/Swallowing History & Previous Level of Function: Per admission H & P (08/22/19): ?79 female with HTN, comes in with one day of confusion, left facial droop, slurred speech and unspecified visual disturbance. In ER findings of note for difficulty tracking visually to left and mild left facial droop. CT shows several old lacunar infarcts (patient unaware of any prior dx of stroke). Admitted for further management. Per ER staff patient's sensorium has largely cleared, and patient herself tells me she feels fine.? Per progress note (08/25/19): ?Ms Ivan has had difficulty swallowing pills, but no issues with thin liquids or soft foods. Her nursing agrees that she has LUE/LLE weakness, but that her dysarthria and facial droop have improved. She denies headache, dizziness, numbness, tingling, chest pain, shortness of breath, nausea. She agrees to stay through tomorrow to complete her testing and evaluations.? Additional pmhx per chart includes: anemia, chronic pain syndrome, depression, hypertension, hearing loss, hyperlipidemia, IFG, insomnia, spinal stenosis of lumbar region, tobacco use. Current Level of Function & Reason for Referral: Pt was referred for a swallow evaluation due to reported dysphagia secondary to stroke, particularly difficulty swallowing pills. Pt denies any trouble swallowing. Living Environment/Support: Per staff, pt lives at home alone. Her son lives out of state, but is temporarily in the area to support his mother?s recovery. Precautions: Fall risk, aspiration. Medications: Please see MAR. Allergies: None. Barriers to Learning: Compliance. Respiratory Function: Congested and wet vocal quality at baseline today. Supplemental Oxygen: None today. Posture/Positioning: Adequate. Pt was upright in her chair at her tray table. Prior Diet: Regular, thin liquids. Current Diet: Soft and bite sized (advanced/chopped). ORAL MECHANISM EXAMINATION Dentition: Upper natural, lower partial. Oral Hygiene: Decay present. Oral Structures: Left facial droop with residual weakness. Strength: Overall reduced, but increasingly on the left side with regards to lingual and labial structures. Mandibular strength WFL. Range of Motion: Overall reduced (lingual, labial, mandibular). Coordination: WFL. Consistencies Tested: Thin liquids, pureed, minced and moist (mechanically altered), soft and bite sized (advanced/chopped), regular, whole pills with water. Self-Feeding/Level of Assistance: Pt able to feed herself today, however, opening packages was laborious and sometimes required assistance from clinician. Oral Phase: Pt exhibited slow and reduced mastication, possibly secondary to new onset of weakness (baseline unknown). Pt was able to take bites of regular textures such as raw carrot and toast with peanut butter, however, occasional cough noted while managing and/or when taking a drink with solid pieces remaining in her mouth. In addition, pt observed to remove pieces of carrot from her oral cavity post swallows. Pt able to manage soft textures without overt s/s of aspiration. Pt further managed both open cup and straw single sips of thin liquids without labial leakage (despite weakness) or overt s/s of aspiration. Pt followed directions to demonstrate consecutive swallows as well without noted difficulty. Pharyngeal Phase: Hyolaryngeal elevation/excursion present upon palpation. Pt denied globus sensation today. Esophageal Phase: No overt concerns reported or observed during assessment today. S/S Aspiration: Cough x2 across solid trials. Pt observed to take a sip of liquid while whole pieces of raw carrot were still in her oral cavity. Pt exhibited an additional cough when consuming crust from toast with peanut butter. Pt was educated on safe swallow strategies to include avoiding foods that are hard, crunchy, and flaky and recommended minced and moist textures (mechanical soft/ground). Pt further advised to increase mastication and ensure solid foods are cleared prior to taking a drink of liquid. Pt recommended to use liquid wash between bites (not while chewing). Pt with additional wet vocal quality at baseline, somewhat improved with volitional cough/throat clear. Pt exhibited weak cough upon request and slightly better throat clear. Education provided to pt regarding the importance of clearing phlegm prior to eating/drinking and to consistently clear her throat/cough throughout the meal. Pt/Caregiver/Staff Education: Outcomes of today?s swallow evaluation discussed with pt and staff and safe swallow recommendations reviewed, particularly recommended medication administration (pt should take medications as follows: 1 single whole pill at a time, allow her to place on the back of her tongue and use liquid wash from an open cup; avoid more than 1 pill at a time). Appropriateness of follow-up services also discussed. Assessment: Pt is a 79 year-old female, 4 days s/p CVA, who was referred for a swallow evaluation due to reported dysphagia, particularly with medications. Speech and language skills were not formally assessed today, pt able to report hx and answer questions adequately for today?s evaluation. While reported to be improved, mild dysarthria suspected following new onset of weakness. While pt could be understood, intelligibility was reduced at times. Pt is recommended for a full speech/language evaluation (outpatient or via home health) to determine further needs. With regards to swallowing skills, it is difficult to determine as compared to unknown baseline, however, pt demonstrating primarily oral deficits as described above, possibly secondary to new onset of weakness. Pt able to safely manage thin liquids (via open cup and straw sips) and minced and moist (mechanical soft/ground) textures without overt s/s of aspiration and is recommended to continue with modified solid diet, avoiding regular textures at this time given the aforementioned deficits to reduce risks for choking and aspiration. Pt should also avoid taking more than 1 pill at a time. Pt is advised to take just 1 whole pill at a time and to use her usual routine of placing the pill on the back of her tongue and using open cup sips of thin liquids to swallow pills. Pt is recommended for follow-up speech services either in the home or in the outpatient setting to re-assess post discharge and determine candidacy for treatment. Rehab Potential: N/A-Pt is being discharged from this facility. Recommend outpatient and/or home health follow-up speech/language/swallowing services. Goals: N/A-Pt is being discharged. Pt Goal: To go home. PLAN Discharge pt from skilled PATIENT SERVICES REPRESENTATIVE services today due to being discharged from facility. Recommend follow-up PATIENT SERVICES REPRESENTATIVE services either in the home or via outpatient setting. SWALLOWING RECOMMENDATIONS Solids: Minced and moist (mechanical soft/ground). All foods cut small. Avoid hard and crunchy foods. Chop/grind all meat. Liquids: Thin. Medication Administration: 1 whole pill at a time with open cup sips of thin liquids. Crush in applesauce/pudding if needed. Strategies/Adaptations/AE: Small bites, small sips, foods cut small, alternate liquids and solids (ensuring complete swallows before next bite or sip; avoid taking drinks while still masticating/managing bolus in oral cavity), clear throat/cough frequently to clear mucous. Posture/Positioning Needs: Pt should be out of bed and fully upright for all PO intake. Recommended Referrals/Procedures: PATIENT SERVICES REPRESENTATIVE services via home health and/or outpatient for formal assessment of speech/language skills and to re-assess swallow status and review safe swallow strategies/recommendations. Charge Code: [id number] Dysphagia Evaluation Time In: 3:30 pm Time Out: 4:30 pm Total Time: 1 hour
[2019-08-26] MEDS: Acetaminophen 325 MG TAB 650 MG PO (16:18)
--- NOTE | 2019-08-26 16:50 | W.PM.DS.N ---
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: Status: Acute (2) Dysphagia: Status: Acute (3) Dysarthria: Status: Acute (4) Left hemiparesis: Status: Acute (5) Essential hypertension: Status: Acute (6) Hyperlipidemia: Status: Acute (7) Prediabetes: Status: Acute (8) B12 deficiency: Status: Acute (9) COVID-19 ruled out: Status: Ruled-out (10) Nonsustained paroxysmal supraventricular tachycardia: Status: Acute (11) Pulmonary arterial hypertension: Status: Chronic Discharge Plan Disposition Patient Disposition: HOME W/HOME HEALTH SERVICE Condition: Improving Discharge Details Chief Complaint: AMS/LOC Clinical Impression: CVA (cerebral vascular accident) Reason For Visit: STROKE Admit Date/Time: 08/23/19 17:45 Admit Provider: Ventura Combs Attending Provider: Ventura Combs Primary Care Provider: Giuliana Massey ED Provider: Inez Ocampo Hospital Course Hospital Course: Ms Ivan is a 78 year old female with PMHx of hypertension, hyperlipidemia, tobacco abuse in the past, chronic pain, admitted to [facility] hospitalist service on 08/23/2019 with acute CVA with symptoms of dysarthria, L-sided facial weakness, hemiparesis, and confusion that started the day before. She was quite hypertensive the night of her admission with BP's of up to 204/97. She had a negative noncontrast CT of her head. She was admitted on telemetry where she has remained in NSR-sinus bradicardia with one asymptomatic self-limited burst of SVT. She ruled out for ACS. Her MRI of the brain revealed an acute right basal ganglia infarct. Her MRA of the brain was negative. Carotid doppler showed no evidence of a hemodynamically significant stenosis, but did reveal a tortuous distal left internal carotid artery. Echocardiogram showed EF of 60-65%, RVSP of 30.9 mmHg c/w known pulmonary hypertension. It did show a borderline dilated left atrium. Her treatment consisted of initiation of aspirin, increasing of her statin dose. Her blood pressure management had to be adjusted - she was previously on lisinopril 40 mg, but with administration of this dose post period of permissive hypertension, we noticed the patient's blood pressures going down into the 90's. The patient seems to be tolerating lisinopril 5 mg PO daily which could be monitored at home with home health nursing. Patient was evaluated by neurology: Dr Jean-Baptiste recommends asa 81 mg PO daily, simvastatin 40 mg PO QHS, discharge home with cardiac event recorder, and follow up in 6-8 weeks. PT states that the patient requires only supervision and no assistive device. Home health PT is being arranged. Home health OT is recommended. The patient was evaluated by speech therapy for her speech/swallowing deficits. She is recommended to cough before eating, stay on mechanical soft/bite sized diet with thin liquids. She is to take single pills with open cup sips (no straws) or crush medications as needed. Home health speech therapy is also recommended. Finally, the patient expressed interest in filling out her advanced directives, but is unsure about her code status. Palliative care referral is being made as outpatient. Home health is asked to check patient's bloodwork (BMP, LFTs) in 1 week - results to be sent to PCP (Giuliana Massey). Care for patient as well as completion of discharge summary for this patient took 45 minutes on the day of discharge. Home Meds and New Rx's Prescriptions: New aspirin 81 mg Tablet,Chewable 81 mg PO DAILY PRNQty: 30 RF: 0 lisinopril 5 mg Tablet 5 mg PO DAILY Qty: 30 RF: 0 simvastatin 40 mg tablet 40 mg PO QHS Qty: 30 RF: 0 cyanocobalamin (vitamin B-12) 1,000 mcg capsule 1,000 mcg PO DAILY Qty: 30 RF: 0 Continued metronidazole 0.75 % cream 1 applic TP QHS Qty: 45 RF: 6 Women's 50+ Daily Form (gkb) 1 EACH tablet 1 ea PO DAILY RF: 0 cholecalciferol (vitamin D3) 1,000 UNIT capsule 1,000 unit PO DAILY RF: 0 ascorbic acid (vitamin C) [Vitamin C] 250 MG tablet 2 tab PO DAILY RF: 0 Probiotic 1 EACH capsule 1 ea PO DAILY RF: 0 Discontinued simvastatin 20 mg tablet 20 mg PO DAILY Qty: 90 RF: 4 lisinopril 40 mg tablet 40 mg PO DAILY Qty: 90 RF: 3 Discharge Instructions Instructions: Aspirin (By mouth), Soft Diet (DC), Ischemic Stroke (DC), Prediabetes (DC) Additional Instructions: Return to the hospital with any new neurological deficits, fever, bleeding, chest pain, shortness of breath. Wear a mask while in public places and maintain social distancing (6 feet) from others. Follow a mechanical soft/bite sized diet, thin liquids. Cough before eating to clear secretions. Take single pills with open cup sips (not straws) or crush as needed. Care Plan Goals: Home with home health RN, PT, OT, palliative care. Stand Alone Forms: Nursing Discharge Form Referrals: Kary Martinez MD [ [facility] STAFF PHYSICIAN] - (Discuss goals of care - fill out advance directives) Liliya Jean-Baptiste MD [ [facility] STAFF PHYSICIAN] - (Acute R-sided basal ganglia CVA - 6-8 weeks) Giuliana Massey NP [Primary Care Provider] - Activity:: Activity as Tolerated Equipment/Supplies:: No Equipment Needed Diet:: soft/bite sized diet with thin liquids Discharge Orders Discharge Orders: Discharge Order (Routine); Ordered 08/26/19 Ordered By: Josy Guerrero Other Ambulatory Orders: Cardiac Event Recorder (Outpt) (ONCE) Timeframe: [id number] Facility: [facility] - Location: Respiratory Therapy Ordered By: Josy Guerrero DS: Summary Status at Discharge Functional status at discharge: independent ambulation Overall status at discharge: patient is progressing back to baseline Mental Status: mental status grossly normal Speech and Movement: other (slight dysarthria, 4/5 LUE/LLE strength) Mood: congruent mood Affect: normal affect Exam Narrative Exam Narrative: General: elderly female, sitting up in a chair, A&Ox3, L facial droop and dysarthria slightly better, 4/5 strength LUE/LLE; 5/5 RUE/RLE. HEENT: EOMI, MMM Heart: RRR Lungs: CTAB Abdomen: soft, nontender, nondistended Extremities: no e/c/c BLE's Psych Mental Status: mental status grossly normal Speech and Movement: other (slight dysarthria, 4/5 LUE/LLE strength) Mood: congruent mood Affect: normal affect DS: Data Vitals/I&O Vitals and I&O: Vital Signs Temperature 35.8 C L 08/26/19 13:31 Temperature Source Tympanic 05/26/20 13:31 Pulse 57 L 08/26/19 13:31 Pulse Rhythm Regular 08/26/19 08:28 Pulse 70 08/22/19 21:17 Respiratory Rate 16 08/26/19 13:31 Respiratory Effort Non-Labored 08/26/19 08:28 Respiratory Depth Normal 08/26/19 08:28 Respiratory Pattern Normal 08/26/19 08:28 Blood Pressure 126/65 08/26/19 13:31 Blood Pressure Mean 100 08/22/19 21:17 Pulse Oximetry 97 08/26/19 13:31 Oxygen Delivery Method Room Air 08/26/19 13:31 Oxygen Flow Rate 0 08/26/19 13:31 Pain Level 0 08/26/19 13:31 Comment 08/22/19 22:50 Intake & Output 08/25/19 08/26/19 08/26/19 23:59 11:59 23:59 Intake Total 1080 / 1320 490 / 490 Output Total 700 / 1050 1000 / 1000 Balance 380 / 270 -1000 / -510 490 / -510 Weight 51 kg Intake: IV Oral 1080 / 1320 480 / 480 Output: Urine 700 / 1050 1000 / 1000 Other: Urine Color Yellow Yellow Urine Appearance Clear Clear Urine Odor Normal Normal Comment pt has voided multiple times t/o the shift with [employer]. pt denies GI/ issues at this time. Stool Size Small Stool Characteristics Soft Formed Voiding Methods Toilet Toilet Toilet Data Completed and Pending Completed studies during hospitalization [Text1]: CT head without contrast 08/22/19: No acute intracranial process. Brain MRI 08/26/2019: Acute to subacute infarct in the right basal ganglia.. Brain MRA 08/26/2019: Normal MRA examination of the [place]. US Carotid 08/26/2019: Right: No evidence for hemodynamically significant carotid stenosis. Left: Tortuous distal left internal carotid artery without visible plaque. There are elevated velocity measurements in this area which could be secondary to the tortuosity rather than indicated significant stenosis. Echo 08/26/2019: Left Ventricle : The left ventricle is normal size. The left ventricular systolic function is normal. The left ventricular ejection fraction is within the normal range. There is normal left ventricular wall thickness. There is normal LV segmental wall motion. Transmitral Doppler flow pattern suggests impaired LV relaxation. LVEF is 60-65%. Right Ventricle : The right ventricle is normal size. The right ventricular systolic function is normal. The RVSP is 30.9 mmHg. Atria : Left atrium is borderline dilated. The right atrium size is normal. Valves: There are no hemodynamically significant valvular lesions. Great Vessels : IVC is normal in size and collapses >50% with inspiration. Compared to echocardiogram dated 02/03/2019: There is no significant change. [facility] Medical History (Updated 08/26/19 @ 17:01 by Josy Guerrero MD) Anemia (Chronic) Chronic pain syndrome (Acute) Closed fracture of fibula (Acute 03/01/95) Depression (Chronic) Essential hypertension (Acute 01/15/13) Hearing loss (Acute 04/25/12) Hyperlipidemia (Acute 04/25/12) IFG (impaired fasting glucose) (Chronic) Insomnia (Acute) Pulmonary arterial hypertension (Chronic) Rosacea (Acute) Shingles (Acute) Spinal stenosis of lumbar region (Acute) Tobacco abuse (Acute 01/11/17) quit Dec 2018 Surgical History (Updated 08/26/19 @ 15:52 by Liliya Jean-Baptiste MD) Appendectomy (~2000) endometrial biopsy (~1995) neg facetectomy s/p left sided L4-L5 faceectomy; Dr. 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) LRF flexor tendon Status post excision on 07/18/2018 History of excision of lesion (Acute 01/11/18) Right Cheek [facility]/[place] Intertrochanteric fracture of right femur (Acute 02/03/19) LAMINECTOMY DECOMPRESS Ligation of fallopian tube Status post laminectomy (Acute) Family History (Updated 08/26/19 @ 15:52 by Liliya Jean-Baptiste MD) Mother Neoplasm Hypertension Father Heart disease Sister Heart disease Social History (Updated 08/26/19 @ 15:53 by Liliya Jean-Baptiste MD) Smoking/Tobacco Use Status: Former Tobacco Use Quit Date: 12/01/18 Tobacco: How many years used: 25 Alcohol Intake: current Alcohol Intake frequency: 0-2 drinks per day Drug use: Never Substance use type: does not use Caregiver/Support person: No Household members: none current occupation: Retired Pets and animals: Yes Pets and animals: dog(s) What type of physical activity do you participate in: none Seatbelt use: always Do you feel safe in your relationship?: Yes
--- NOTE | 2019-08-26 17:52 | PDOC.HHF2F_ITS ---
Home Health Certification Home Health Certification: 1. Encounter Date and Reason I certify that SAMINA CAPPS was seen by Josy Guerrero on 08/26/19 and that I had a [id number] encounter with this patient that meets the physician face to face encounter requirements. 2. Clinical Findings Supporting Skilled Need and Homebound Status I certify that home health services are medically necessary, include either intermittent senior living and/or physical/speech therapy, and that this patient is homebound in that absences from the home require considerable and taxing effort and are infrequent or of short duration, or are attributable to the need to receive medical care. [X] (a) Attached documentation from encounter provides clinical findings supporting skilled need and homebound status (including what assistance patient requires to leave the home). The encounter with the patient was in whole, or in part, for the following medical condition, which is the primary reason for home health care: STROKE Long-Term: recent CVA, hypertension, assess BP in home environment. Bloodwork on 09/02/2019: BMP, LFTs. Results to Giuliana Massey Physical Therapy: L hemiparesis: eval and treat Occupational Therapy: L hemiparesis: eval and treat Speech Therapy: Dysarthria/mild dysphagia: eval and treat Homebound: unable to leave home without assistance 3. Certification and Authentication I certify that I composed the above information based on my clinical judgement relating to this patient's medical condition and, if applicable, clinical fin dings communicated to me by the NPP or inpatient physician who performed the Home Health Referral. All further orders will be obtained through Giuliana Massey (Community Based Physician - PCP)
--- NOTE | 2019-08-27 13:41 | INDS_ITS ---
Date of service: 08/27/19 PT Notes Visit Reasons: Stroke Physical Therapy Inpatient Discharge Summary Date: 08/27/2019 Dates of Services: 08/24/2019 through 08/26/2019 This is a clinical summary of care provided on the duration of dates listed above. No charge was made in the completion of this documentation. Date: 08/27/2019 Referring Doctor: Josy Guerrero MD PT Orders: PT CONSULT: Limited ability Precautions: Standard Patient Profile/Admitting Diagnosis: Orders received for this 79-year-old female who apparently suffered a small CVA a few days ago. It apparently predominantly affected the left side but most of her symptoms have been for the most part resolved. According to nursing there is still some dysarthria and dysphagia. Patient states that she is doing okay for the most part. Normally patient is fairly independent most of her daily life. Patient has shown a lot of spontaneous recovery but there is still need for physical therapy evaluation in order to gauge her level of safety. PMHX: Medical History Rosacea (Acute) Surgical History Appendectomy (~2000) endometrial biopsy (~1995) neg facetectomy s/p left sided L4-L5 facectomy; Dr. Arenas FORAMINOTOMY LUMBAR SEG History of excision of lesion (Acute 01/11/18) Right Cheek [facility]/[place] LAMINECTOMY DECOMPRESS Ligation of fallopian tube Social History/Home Situation: Patient lives at home in [place]. She apparently lives alone and is able to manage all her affairs independently. Equipment Owned/DME: None Subjective: NT Objective: NT Mental Status: NT Pain: NT ROM: Right Upper Extremity: Within functional limits Left Upper Extremity: Within functional limits Right Lower Extremity: Within functional limits Left Lower Extremity: Within functional limits Strength: Right Upper Extremity: Grossly 5 out of 5 Left Upper Extremity: Grossly 5 out of 5 Right Lower Extremity: Grossly 5 out of 5 Left Lower Extremity: Grossly 5 out of 5 there may be some minor weakness through dorsiflexion on the left as active range of motion appears to be slightly limited compared to the right side Bed Mobility/Transfers: Patient independent with all bed mobility Supine-sit: Independent Sit-stand: Independent Stand-sit: Independent ROM: Patient was screened for hemineglect and there did not appear to be any asymmetry between the 2 sides. Patient was able to cross midline with the upper extremity and lower extremity. Patient was able to perform active range of motion laterally outside the plane of her eyesight with knowledge of her extre mities Gait: Per most recent PT notes patient is able to ambulate 260 feet with supervision without an assistive device with full weightbearing with no LOB noted. Patient is able to negotiate three 4 inch steps and two 6 inch steps while holding onto bilateral rails with step over step pattern independently. Balance Test: On initial evaluation, patient was able to withstand multidirectional nudge test without need for any stepping or hip strategy for balance recovery. Patient was able to hold for 2 seconds in a single leg stance. Patient was unable to perform heel toe walking without assistance. Balance: Static Sitting: Normal Dynamic Sitting: Good Static Standing: Good Dynamic Standing: Fair ASSESSMENT: Patient is a 79-year-old female with a history of good physical health admitted with signs and symptoms consistent with resolving CVA. Patient initially presented with the following impairment level findings: Mild ambulation intolerance, minor postural and balance left, minor supervision needed for upper level balance activity. Pt will benefit from skilled therapy intervention in order to remedy their functional limitations and restore patient to a more appropriate and stable functional level. Impairments are contributing to the following functional limitations: AMPAC score 20.91% Patient is assessed as a moderate complexity initial evaluation [id number] based on the following: History: see above Examination: see above Presentation: Evolving Decision Making: Moderate complexity Goals: Goals X1 week 1. Sit-Stand independent MET 2. Stand-Sit independent MET 3. Bed-Chair independent MET 4. Gait independent with least restrictive assistive device up to 300 feet NOT MET 5: Stairs independent up to 5 steps NOT MET 6: Independent in Home program NOT MET DISCHARGE RECOMMENDATIONS: To home once medically stable. No equipment needs at this time. TREATMENT CODE/TIME: NC. Thank you very much for this referral. Fatou Dacosta PT, DPT, CLT [facility] Inpatient PT at [place], [place]
== END 2019-08-26 18:40 | disposition home health service (06) | DRG 65 ==
LOC: ER 21:29 → MS 22:53
PROVIDERS: Admitting Provider General Practice; Emergency Provider Registered Nurse Emergency; PCP Nurse Practitioner; Visit Provider Internal Medicine
DX: I63.311 Cerebral infarction due to thrombosis of right middle cerebral artery (principal); G81.94 Hemiplegia, unspecified affecting left nondominant side; I47.1 Supraventricular tachycardia; R13.10 Dysphagia, unspecified; R47.1 Dysarthria and anarthria; R29.810 Facial weakness; H53.9 Unspecified visual disturbance; I77.1 Stricture of artery; I10 Essential (primary) hypertension; E78.5 Hyperlipidemia, unspecified; R73.03 Prediabetes; E53.8 Deficiency of other specified B group vitamins; Z03.818 Encounter for observation for suspected exposure to other biological agents ruled out; I27.21 Secondary pulmonary arterial hypertension; G89.29 Other chronic pain; Z79.891 Long term (current) use of opiate analgesic; Z87.891 Personal history of nicotine dependence
CPT/HCPCS: 36415; 70544; 80048; 80053; 80061; 85027; 92610; 93005; 93270; 93306; 97110; 97112; 97162; 97165; 97530; 97535; 99222; 99223; 99232; 99239; 99285; U0003; 70450; 70551; 81003; 82607; 83036; 83735; 84443; 84484; 85025; 93010; 93880; 99218; 99284; G0378; J1644; J3420

== ENCOUNTER → 2019-08-26 08:21 | Outpatient (BNVA) | payer MEDICARE, OTHER, SELFPAY | PROVIDERS: PCP Nurse Practitioner; Referring Provider Nurse Practitioner; Visit Provider Psychiatry & Neurology Neurology | DX: R69 Illness, unspecified (principal) ==

== ENCOUNTER 2019-09-03 15:22 | Outpatient (REF) | payer MEDICARE, OTHER, SELFPAY ==
[2019-09-03 20:19] LABS: ALT 22 U/L (14-59); AST 18 U/L (15-37); Albumin 3.7 g/dL (3.4-5.0); Alkaline Phosphatase 101 U/L (46-116); Anion Gap 5.9 mmol/L (3-11); BUN 18 mg/dL (7-18); Bilirubin, Direct 0.13 mg/dL (0.00-0.20); Bilirubin, Total 0.4 mg/dL (0.2-1.0); CO2 30.1 mmol/L (21.0-32.0); CREATININE 0.85 mg/dL (0.55-1.02); Calcium 9.4 mg/dL (8.5-10.1); Chloride 100 mmol/L (98-107); Glucose 76 mg/dL (74-106); Potassium 4.4 mmol/L (3.5-5.1); Sodium 136 mmol/L (136-145); Total Protein 7.7 g/dL (6.4-8.2)
--- NOTE | 2019-09-29 15:23 | W.CARDEVENT ---
Date of service: 09/29/19 Time of Service: 15:23 Cardiac Event Recorder Cardiac Event Note: There is a 30-day event recorder ordered for the indication of supraventricular tachycardia. ?Patient was monitored for total of 14 hours during the 30 day event. ?The patient was in normal sinus rhythm with occasional PVCs. Average heart rate was 70 bpm. ?There were no critical no serious events. ?The patient no episodes of atrial fibrillation, no pauses or in 3 seconds and no evidence of high degree heart block.
== END 2019-09-03 15:42 ==
LOC: LBO 15:22
PROVIDERS: PCP Nurse Practitioner; Visit Provider Nurse Practitioner
DX: F32.9 Major depressive disorder, single episode, unspecified (principal); I63.311 Cerebral infarction due to thrombosis of right middle cerebral artery
CPT/HCPCS: 80048; 80076

== ENCOUNTER → 2019-10-22 13:00 | Outpatient (BNVA) | payer MEDICARE, OTHER, SELFPAY | PROVIDERS: PCP Nurse Practitioner; Referring Provider Nurse Practitioner; Visit Provider Psychiatry & Neurology Neurology | DX: I63.311 Cerebral infarction due to thrombosis of right middle cerebral artery (principal); R41.3 Other amnesia; G81.94 Hemiplegia, unspecified affecting left nondominant side; R13.10 Dysphagia, unspecified; R47.1 Dysarthria and anarthria | CPT/HCPCS: 99215 ==

== ENCOUNTER 2019-10-24 02:39 | Outpatient (CLI) | payer MEDICARE, OTHER, SELFPAY ==
--- NOTE | 2019-11-13 10:32 | W.ZIOMONITOR ---
Date of service: 11/13/19 Time of Service: 10:32 ZIO Patch Brand Communications Manager Referring Provider:: Rick Indications:: CVA Note: This is a 2-week ZIO patch ordered for indication of CVA. ?The patient was in normal sinus rhythm for the majority of the recording with an average heart rate of 60 bpm. ?There were 38 episodes of supraventricular tachycardia with the longest lasting 20 seconds and an average heart rate of 104 bpm. ?There were rare supraventricular ectopic beats and occasional (5%) ventricular ectopic beats. ?There were no episodes of ventricular tachycardia, no pauses greater than 3 seconds no evidence of high degree heart block. ?There were no patient triggered events.
== END 2019-10-24 02:59 ==
PROVIDERS: PCP Nurse Practitioner; Visit Provider Psychiatry & Neurology Neurology
DX: I63.9 Cerebral infarction, unspecified (principal); I47.1 Supraventricular tachycardia; I49.3 Ventricular premature depolarization
CPT/HCPCS: 0296T

== ENCOUNTER 2019-11-13 12:00 | Outpatient (CLI) | payer MEDICARE, OTHER, SELFPAY | END 2019-11-13 12:20 | PROVIDERS: PCP Nurse Practitioner; Referring Provider Psychiatry & Neurology Neurology; Visit Provider Internal Medicine Cardiovascular Disease | DX: I63.9 Cerebral infarction, unspecified (principal); I47.1 Supraventricular tachycardia; I49.3 Ventricular premature depolarization | CPT/HCPCS: 0298T ==

== ENCOUNTER → 2019-12-24 12:17 | Outpatient (BNVA) | payer MEDICARE, OTHER, SELFPAY | PROVIDERS: PCP Nurse Practitioner; Referring Provider Nurse Practitioner; Visit Provider Psychiatry & Neurology Neurology | DX: I63.311 Cerebral infarction due to thrombosis of right middle cerebral artery (principal); G81.94 Hemiplegia, unspecified affecting left nondominant side; R13.10 Dysphagia, unspecified; R47.1 Dysarthria and anarthria; R41.3 Other amnesia; I10 Essential (primary) hypertension | CPT/HCPCS: 99214 ==

== ENCOUNTER 2019-12-26 01:40 | Outpatient (CLI) | payer MEDICARE, OTHER, SELFPAY ==
--- NOTE | 2020-01-19 10:53 | W.ZIOMONITOR ---
Date of service: 01/19/20 Time of Service: 10:53 14 Day Application Release Manager Referring Provider:: elana washington Indications:: AF Note: This is a 14-day monitor ordered for indication of atrial fibrillation. ?The patient was in normal sinus rhythm with majority of the recording with average heart rate of 63 bpm. ?There were rare single ventricular ectopic beats and 1 episode of 3 beats of NSVT. ?There were rare isolated PACs, and 58 episodes of supraventricular tachycardia with the longest lasting 1 minute. ?There are no episodes of atrial fibrillation, no pauses greater than 3 seconds and no evidence of high degree heart block.
== END 2019-12-26 02:00 ==
PROVIDERS: PCP Nurse Practitioner; Visit Provider Psychiatry & Neurology Neurology
DX: I48.91 Unspecified atrial fibrillation (principal); I63.9 Cerebral infarction, unspecified; I47.1 Supraventricular tachycardia
CPT/HCPCS: 0296T

== ENCOUNTER 2020-01-19 08:00 | Outpatient (CLI) | payer MEDICARE, OTHER, SELFPAY | END 2020-01-19 08:20 | PROVIDERS: PCP Nurse Practitioner; Referring Provider Psychiatry & Neurology Neurology; Visit Provider Internal Medicine Cardiovascular Disease | DX: I63.9 Cerebral infarction, unspecified (principal); I48.91 Unspecified atrial fibrillation; I47.1 Supraventricular tachycardia | CPT/HCPCS: 0298T ==

== ENCOUNTER 2020-03-10 02:12 | Outpatient (CLI) | payer MEDICARE, OTHER, SELFPAY ==
[2020-03-11 19:21] LABS: COVID-19 RT-PCR UVMMC Result Negative (Negative)
== END 2020-03-10 02:32 ==
PROVIDERS: PCP Nurse Practitioner; Visit Provider Nurse Practitioner
DX: Z11.59 Encounter for screening for other viral diseases (principal)
CPT/HCPCS: U0003

== ENCOUNTER 2020-07-12 11:19 | Outpatient (CLI) | payer MEDICARE, OTHER, SELFPAY ==
[2020-07-12 11:41] LABS: HCT 39.2 % (36.0-46.0); HGB 12.8 g/dL (11.2-15.7); MCH 31.8 pg (27.0-33.0); MCHC 32.7 % (32.0-36.0); MCV 97.3 fL (80-95); MPV 12.6 fL (8.0-11.0); Platelet Count 197 10^3/uL (130-400); RBC 4.03 10^6/uL (3.93-5.22); RDW 13.1 % (11.7-14.6); RDW-SD 46.7 fL; WBC 8.32 10^3/uL (4.4-10.8)
[2020-07-12 11:55] LABS: ALT 18 U/L (14-59); AST 17 U/L (15-37); Albumin 3.6 g/dL (3.4-5.0); Alkaline Phosphatase 89 U/L (46-116); Anion Gap 10.5 mmol/L (3-11); BUN 23 mg/dL (7-18); Bilirubin, Total 0.5 mg/dL (0.2-1.0); CO2 26.5 mmol/L (21.0-32.0); CREATININE 0.9 mg/dL (0.55-1.02); Calcium 9.2 mg/dL (8.5-10.1); Calculated LDL 82 mg/dL (<100); Chloride 102 mmol/L (98-107); Cholesterol 169 mg/dL (<200); Glucose 95 mg/dL (74-106); HDL Cholesterol 73 mg/dL (40-60); Potassium 4.2 mmol/L (3.5-5.1); Sodium 139 mmol/L (136-145); Triglyceride 70 mg/dL (<150)
== END 2020-07-12 11:20 | disposition home or self-care (01) ==
LOC: LBO 11:23
PROVIDERS: PCP Nurse Practitioner; Visit Provider Nurse Practitioner
DX: I10 Essential (primary) hypertension (principal); R53.1 Weakness; I63.311 Cerebral infarction due to thrombosis of right middle cerebral artery
CPT/HCPCS: 36415; 80053; 80061; 85027

== ENCOUNTER 2021-01-25 12:16 | Emergency (ER) | payer MEDICARE, OTHER, SELFPAY ==
[2021-01-25 12:24] VITALS: PULSE 60; RESP 18; TEMP 36.9; O2SAT 97
--- NOTE | 2021-01-25 13:05 | W.ED.GENAD ---
Discharge Plan Disposition Patient Disposition: HOME Condition: Stable Discharge Details Clinical Impression: Laceration of eyebrow, right, Closed head injury Primary Care Provider: Giuliana Massey ED Provider: Inez Ocampo Home Meds and New Rx's Prescriptions: Continued aspirin 81 mg tablet,chewable 81 mg PO DAILY Qty: 90 RF: 3 lisinopril 40 mg tablet 40 mg PO DAILY Qty: 90 RF: 1 simvastatin 40 mg tablet 40 mg PO QHS Qty: 90 RF: 3 senna 8.6 mg capsule 8.6 mg PO DAILY PRN (Reason: constipation) Qty: 90 RF: 4 celecoxib [Celebrex] 100 mg capsule 100 mg PO BID Qty: 60 RF: 1 Women's 50+ Daily Form (gkb) 1 EACH tablet 1 ea PO DAILY RF: 0 cholecalciferol (vitamin D3) 1,000 UNIT capsule 1,000 unit PO DAILY RF: 0 ascorbic acid (vitamin C) [Vitamin C] 250 MG tablet 2 tab PO DAILY RF: 0 Probiotic 1 EACH capsule 1 ea PO DAILY RF: 0 docusate sodium 100 mg capsule 100 mg PO BID Qty: 180 RF: 6 cyanocobalamin (vitamin B-12) 1,000 mcg capsule 1,000 mcg PO DAILY Qty: 30 RF: 0 Discharge Instructions Instructions: Head Injury (ED), Facial Laceration (ED) Additional Instructions: 5 sutures were placed. Have sutures removed in 5 to 7 days. No soaking. After 12 to 24 hours you may wash under running soap and water in the shower. Return sooner for any signs of infection including increased redness, drainage, worsening headache, red streaks. Follow up with primary care provider in 5-7 days. Return to ED sooner if any worsening or concerns. Increase oral fluids. Please take Tylenol with food every 4-6 hours as needed for pain and swelling. Referrals: Giuliana Massey, [employer] [Primary Care Provider] - 1 week Discharge Data Discharge Date/Time-TO BE ENTERED AT DEPARTURE: 01/25/21 16:05 Medical Decision Making 80-year-old female presents to the ER status post mechanical fall out of the shower landing on her right side she sustained approximately 1-1/2 cm laceration to her right eyebrow, skin tear noted to her right forearm. She denies any loss of consciousness, not complaining of neck pain, remembers the incident. She denies any chest abdomen or lower extremity pain. She does take 81 mg aspirin daily. She was seen prior to arrival at [facility] and was instructed to present here for head CT and laceration repair. Last tetanus shot was 2014. Topical let ordered, head CT and facial CT without contrast to rule out bleeding or fracture, and wound care. COMPARISON: CT CT HEAD WO from 08/22/2019 FINDINGS: CT Head: Ventricles and Extra axial spaces: Normal in size and morphology for the patient's age. Hemorrhage: None. Cerebral parenchyma: Mild atrophy. Old bilateral basal ganglia lacunar infarcts, left greater than right. No acute infarct. Midline shift: None. Brainstem/Cerebellum: Normal. Calvarium: Normal. Visualized Paranasal sinuses/Mastoids: Clear. Soft Tissues: Mild swelling over the right orbit. No foreign body. CT Face: Facial Bones: No definite fracture is noted in facial bones. Sinuses and Mastoids: Unremarkable. Globes, extraocular muscles, optic nerves and retrobulbar fat: Normal. Upper aerodigestive tract: Normal. Mandible and bilateral temporomandibular joints: Normal. Soft tissues: Mild swelling over the right orbit. No foreign body. L. IMPRESSION: 1. Old bilateral basal ganglia infarcts. No acute intracranial process. 2. Soft tissue swelling over the right orbit. No foreign body no acute facial fracture. Laceration repaired as noted in procedure note above patient tolerated well wound was well approximated. Discussed strict return instructions and have sutures removed in 5 to 7 days. Discussed red flags for head injury. Patient and caregiver verbalized understanding. Patient remained alert and oriented x3 throughout stay. Is ambulatory upon discharge. This text was generated using [employer] system, please disregard any oddities of phrase or misspellings. HPI General Mode of arrival: ambulatory. Date/Time Provider Initiated Documentation: 01/25/21 12:17. Limitations to Documentation: no limitations. Information obtained by: patient, RN notes reviewed and old records reviewed. HPI Narrative: 80-year-old female presents to the ER status post mechanical fall out of the shower landing on her right side she sustained approximately 1-1/2 cm laceration to her right eyebrow, skin tear noted to her right forearm. She denies any loss of consciousness, not complaining of neck pain, remembers the incident. She denies any chest abdomen or lower extremity pain. She does take 81 mg aspirin daily. She was seen prior to arrival at [facility] and was instructed to present here for head CT and laceration repair. Last tetanus shot was 2014. Related Data Home Medications Medication Instructions Recorded Confirmed Women's 50+ Daily Form (gkb) 1 ea PO DAILY 09/04/12 12/21/20 cholecalciferol (vitamin D3) 1,000 unit PO DAILY 10/02/13 12/21/20 ascorbic acid (vitamin C) [Vitamin 2 tab PO DAILY 07/04/16 12/21/20 C] Probiotic 1 ea PO DAILY 01/11/17 12/21/20 cyanocobalamin (vitamin B-12) 1,000 mcg PO DAILY #30 cap 08/26/19 12/21/20 aspirin 81 mg chewable tablet 81 mg PO DAILY #90 tab 12/31/19 12/21/20 lisinopril 40 mg tablet 40 mg PO DAILY #90 tab 04/12/20 12/21/20 simvastatin 40 mg tablet 40 mg PO QHS #90 tab 04/12/20 12/21/20 docusate sodium 100 mg capsule 100 mg PO BID #180 cap 07/13/20 12/21/20 sennosides 8.6 mg capsule 8.6 mg PO DAILY PRN #90 cap 11/29/20 12/21/20 celecoxib 100 mg capsule 100 mg PO BID #60 cap 12/21/20 12/21/20 Previous Rx's Medication Instructions Recorded cyanocobalamin (vitamin B-12) 1,000 mcg PO DAILY #30 cap 08/26/19 aspirin 81 mg chewable tablet 81 mg PO DAILY #90 tab 12/31/19 lisinopril 40 mg tablet 40 mg PO DAILY #90 tab 04/12/20 simvastatin 40 mg tablet 40 mg PO QHS #90 tab 04/12/20 docusate sodium 100 mg capsule 100 mg PO BID #180 cap 07/13/20 sennosides 8.6 mg capsule 8.6 mg PO DAILY PRN #90 cap 11/29/20 celecoxib 100 mg capsule 100 mg PO BID #60 cap 12/21/20 Allergies Allergy/AdvReac Type Severity Reaction Status Date / Time No Known Allergies Allergy Verified 01/25/21 11:43 General Stated Complaint: Laceration ADA: 3 Review of Systems All systems reviewed & are unremarkable except as noted in HPI and below Constitutional Constitutional: Denies headache(s) Eyes Eyes: Denies seeing flashes ENT Ears, Nose, Mouth, and Throat: Reports as per HPI, Denies dizziness, Denies headache(s) and Denies tinnitus Musculoskeletal Musculoskeletal: Denies back pain and Reports arthralgias (Right shoulder, FROM, Bruising noted) Integumentary/Breasts Skin/Breast: Reports wounds (Right eyebrow laceration) Neurologic Neurologic: Denies dizziness and Denies headache(s) [facility] Medical History Anemia Chronic pain syndrome Closed fracture of fibula (03/01/95) COVID-19 ruled out Daily consumption of alcohol down to one drink per week as of 07/21 Depression Discharge planning issues DNI (do not intubate) DNR (do not resuscitate) Dysarthria Dysphagia Essential hypertension (01/15/13) Generalized weakness improved no longer eligible for home PT/OT Hearing loss (04/25/12) Hip pain History of smoking quit December 2018 Hyperlipidemia (04/25/12) Hypertension well-controlled IFG (impaired fasting glucose) Insomnia Lives alone POLST (Physician Orders for Life-Sustaining Treatment) 12/21/20 [place] POLST and [place] COLST Pulmonary arterial hypertension Rosacea Shingles Spinal stenosis of lumbar region Tobacco abuse (01/11/17) quit Dec 2018 Unsteady gait Urinary incontinence Wears hearing aid in both ears Surgical History Appendectomy (~2000) endometrial biopsy (~1995) neg facetectomy s/p left sided L4-L5 faceectomy; Dr. Arenas FORAMINOTOMY LUMBAR SEG Ganglion cyst of tendon sheath of left hand LRF flexor tendon Status post excision on 07/18/2018 History of excision of lesion (01/11/18) Right Cheek [facility] [place] Intertrochanteric fracture of right femur (02/03/19) LAMINECTOMY DECOMPRESS Ligation of fallopian tube Status post laminectomy Family History Mother , age 59 of colon cancer Neoplasm Hypertension Colon cancer Father , age 64 of massive [place] Heart disease Myocardial infarction Sister Sister No problems noted. Son No problems noted. Son No problems noted. Granddaughter No problems noted. Social History Smoking/Tobacco Use Status: Former Tobacco Use Quit Date: 12/01/18 Tobacco: How many years used: 30 Smoking risk assessment performed?: Yes Alcohol Intake: current Alcohol Intake frequency: 0-2 drinks per day Alcohol type: wine Drug use: Never Substance use type: does not use Caregiver/Support person: Yes Household members: children and other Details: sons alternate visiting from [place] Housing: house Number of Children: 2 number of grandchildren: 3 Communication Needs: Hard of Hearing and Corrective Lenses Education Level: high school Do you need help understanding health information?: Often current occupation: did not work outside the home Pets and animals: Yes (Tianna, an 11 yo Shijamesu) Pets and animals: dog(s) Current gender identity: female What is your relationship status?: How often do you talk on the phone with friends or family?: three or more times per week How often do you get together with friends or relatives?: three or more times per week Panel score (0-1 are the most socially isolated patients): 1 What type of physical activity do you participate in: walking and additional Details: elliptical exercise machine Duration: 30-45 minutes/day Frequency: daily Special daniela needs: No Agree to transfusion: Yes Seatbelt use: always Working smoke detector in home: Yes Fire extinguisher in home: Yes Do you feel safe at home: Yes Do you feel safe in your relationship?: Yes Additional Social history: Sons Ryan and Adalid help care for Davida in her [place], [place] home; they drive up from [place]. She spends manrique in [place] but really loves [place]. Davida unable to drive at this time but wants to get behind the wheel again. Willing to have road test with V. Davida committed to doing what she can to stay living independently in her home, where she has lived for 40 years. Unfortunately, due to COVID-19, very hard to hire caregivers; she has one who comes 3 x week, helps with housework and groceries. Davida has been for 10 years and has loved living alone. Sons Adalid and Ryan, are ages 59 and 57. Adalid is Davida's DPOA financially and medically, she reports. She has made amazing progress since her stroke. 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 Exam Narrative Exam Narrative: General: Well Developed, Awake and Alert, conversant. Skin: Warm and Dry HEENT: Head: No palpable deformities, Normocephalic, 1.5 cm laceration to the right eyebrow lateral edge. Eyes: Pupils PERRLA, EOM's intact. No periorbital eccymosis or step off Ears: Canal patent. Tympanic membranes are clear . No godoy's sign, no hemptympanum. Nose/Face: Facial bones nontender to palpation and stable with manipulation. Mouth/Throat: No intraoral trauma. Teeth and mandible are intact. Neck: No midline tenderness, no step off, no deformity to palpation of C-spine. Trachea midline. Chest: No surface trauma. Nontender without crepitus or deformity. Lungs clear to ausculatation bilaterally. Heart: RRR, no rubs, murmurs or gallop. Abdomen: No abrasions, ecchymosis, or surface trauma. Nondistended. Nontender to palpation no guarding, rebound, or rigidity. Pelvis: Nontender to palpation and stable to compression. Femoral pulses strong and equal Extremities: Right upper extremity skin tear which is bandaged prior to arrival no surrounding erythema deformity. No other surface trauma noted to the extremities. Sensation intact. Peripheral pulses intact and equal. Neuro: ANO x4, GCS 15, cranial nerves II through XII intact. Motor and sensory exam nonfocal. Reflexes are symmetric. Course Vital Signs Vital signs: Vital Signs Temperature 36.9 C 01/25/21 12:24 Pulse 60 01/25/21 12:24 Respiratory Rate 18 01/25/21 12:24 Pulse Oximetry 97 01/25/21 12:24 Temperature 36.9 C 01/25/21 12:24 Temperature Source Skin 01/25/21 12:24 Pulse 60 01/25/21 12:24 Respiratory Rate 18 01/25/21 12:24 Respiratory Effort 01/25/21 12:30 Blood Pressure Position Sitting 01/25/21 12:24 Pulse Oximetry 97 01/25/21 12:24 Pain Level 0 01/25/21 12:24 Procedures Laceration Laceration 1: Site: face (Right eyebrow) Side (If applicable): right Size (cm): 2 Description: linear and irregular Depth: simple, single layer Local Anesthetic: Lidocaine 1% and with Epi Amount of anesthesia used (mL): 4 Pre-repair: wound explored, irrigated extensively and deep structures intact Skin layer closed with: nylon Size (cm): 6-0 Number of sutures: 5 Technique: simple, interrupted
[2021-01-25] MEDS: Lidocaine/Epinephri/Tetracaine Topical Gel 3 ML TP (13:20)
--- NOTE | 2021-01-25 14:45 | DI.CT_ITS ---
Exam(s) CT HEAD FACIAL WO EXAM: CT HEAD FACIAL WO CLINICAL HISTORY: Fall, Right eyelid laceration. TECHNIQUE: Imaging Protocol: Axial computed tomography images with coronal and sagittal reformatted images were created and reviewed COMPARISON: CT CT HEAD WO from 08/22/2019 FINDINGS: CT Head: Ventricles and Extra axial spaces: Normal in size and morphology for the patient's age. Hemorrhage: None. Cerebral parenchyma: Mild atrophy. Old bilateral basal ganglia lacunar infarcts, left greater than r ight. No acute infarct. Midline shift: None. Brainstem/Cerebellum: Normal. Calvarium: Normal. Visualized Paranasal sinuses/Mastoids: Clear. Soft Tissues: Mild swelling over the right orbit. No foreign body. CT Face: Facial Bones: No definite fracture is noted in facial bones. Sinuses and Mastoids: Unremarkable. Globes, extraocular muscles, optic nerves and retrobulbar fat: Normal. Upper aerodigestive tract: Normal. Mandible and bilateral temporomandibular joints: Normal. Soft tissues: Mild swelling over the right orbit. No foreign body. L. IMPRESSION: 1. Old bilateral basal ganglia infarcts. No acute intracranial process. 2. Soft tissue swelling over the right orbit. No foreign body no acute facial fracture. RADIATION DOSE DELIVERED: 1,141.69mGy.cm Total DLP DATA REPOSITORY: All CT scans at this facility are submitted to the National Radiology Data Registry (NRDR) Dose Index Registry (DIR) with the [employer] (ACR). RADIATION OPTIMIZATION: All CT scans at this facility use at least one of these dose optimization te chniques: automated exposure control; mA and/or kV adjustment per patient size (includes targeted exa ms where dose is matched to clinical indication); or iterative reconstruction.
== END 2021-01-25 16:05 | disposition home or self-care (01) ==
PROVIDERS: Emergency Provider Registered Nurse Emergency; PCP Nurse Practitioner
DX: S01.111A Laceration without foreign body of right eyelid and periocular area, initial encounter (principal); S09.8XXA Other specified injuries of head, initial encounter; S51.811A Laceration without foreign body of right forearm, initial encounter; W18.2XXA Fall in (into) shower or empty bathtub, initial encounter
CPT/HCPCS: 12011; 99282; 70450; 70486; 99281

== ENCOUNTER 2021-07-06 10:59 | Outpatient (REF) | payer MEDICARE, OTHER, SELFPAY ==
[2021-07-06 16:39] LABS: HGB 13.3 g/dL (11.2-15.7); MCH 30.4 pg (27.0-33.0); MCHC 32.4 % (32.0-36.0); MCV 93.8 fL (80-95); MPV 13.5 fL (8.0-11.0); Platelet Count 168 10^3/uL (130-400); RBC 4.37 10^6/uL (3.93-5.22); RDW 14.3 % (11.7-14.6); RDW-SD 49.6 fL; WBC 8.39 10^3/uL (4.4-10.8)
[2021-07-06 17:04] LABS: ALT 22 U/L (14-59); AST 18 U/L (15-37); Albumin 3.7 g/dL (3.4-5.0); Alkaline Phosphatase 74 U/L (46-116); Anion Gap 6.4 mmol/L (3-11); BUN 20 mg/dL (7-18); Bilirubin, Total 0.4 mg/dL (0.2-1.0); CO2 30.6 mmol/L (21.0-32.0); CREATININE 0.8 mg/dL (0.55-1.02); Calcium 9.4 mg/dL (8.5-10.1); Calculated LDL 96 mg/dL (<100); Chloride 104 mmol/L (98-107); Cholesterol 188 mg/dL (<200); Glucose 100 mg/dL (74-106); HDL Cholesterol 72 mg/dL (40-60); Potassium 4.7 mmol/L (3.5-5.1); Sodium 141 mmol/L (136-145); Total Protein 7.6 g/dL (6.4-8.2); Triglyceride 101 mg/dL (<150)
== END 2021-07-06 11:00 | disposition home or self-care (01) ==
LOC: LBN 10:59
PROVIDERS: PCP Nurse Practitioner; Visit Provider Nurse Practitioner
DX: E78.5 Hyperlipidemia, unspecified (principal); I10 Essential (primary) hypertension; R07.89 Other chest pain
CPT/HCPCS: 80053; 80061; 85027

== ENCOUNTER → 2021-08-03 12:18 | Outpatient (BNVA) | payer MEDICARE, OTHER, SELFPAY | PROVIDERS: PCP Nurse Practitioner; Referring Provider Nurse Practitioner; Visit Provider Psychiatry & Neurology Neurology | DX: I69.354 Hemiplegia and hemiparesis following cerebral infarction affecting left non-dominant side (principal); I69.321 Dysphasia following cerebral infarction; I69.322 Dysarthria following cerebral infarction; I69.318 Other symptoms and signs involving cognitive functions following cerebral infarction; I10 Essential (primary) hypertension; R25.8 Other abnormal involuntary movements | CPT/HCPCS: 99214 ==

== ENCOUNTER → 2021-10-19 12:25 | Outpatient (BNVA) | payer MEDICARE, OTHER, SELFPAY | PROVIDERS: PCP Nurse Practitioner; Referring Provider Nurse Practitioner; Visit Provider Psychiatry & Neurology Neurology | DX: I69.354 Hemiplegia and hemiparesis following cerebral infarction affecting left non-dominant side (principal); I69.322 Dysarthria following cerebral infarction; Z79.82 Long term (current) use of aspirin; Z79.02 Long term (current) use of antithrombotics/antiplatelets; I69.311 Memory deficit following cerebral infarction; I10 Essential (primary) hypertension; R25.9 Unspecified abnormal involuntary movements | CPT/HCPCS: 99214 ==

== ENCOUNTER 2022-10-12 15:43 | Outpatient (REF) | payer MEDICARE, SELFPAY ==
[2022-10-12 19:11] LABS: HCT 37.5 % (36.0-46.0); HGB 12.2 g/dL (11.2-15.7); MCH 30.7 pg (27.0-33.0); MCHC 32.5 % (32.0-36.0); MCV 94 fL (80-95); Platelet Count 203 10^3/uL (130-400); RBC 3.98 10^6/uL (3.93-5.22); RDW 15.1 % (11.7-14.6); RDW-SD 52.3 fL; WBC 7.14 10^3/uL (4.4-10.8)
[2022-10-12 19:36] LABS: ALT 25 U/L (14-59); AST 23 U/L (15-37); Albumin 3.3 g/dL (3.4-5.0); Alkaline Phosphatase 81 U/L (46-116); Anion Gap 9.7 mmol/L (3-11); BUN 20 mg/dL (7-18); Bilirubin, Total 0.5 mg/dL (0.2-1.0); CO2 28.3 mmol/L (21.0-32.0); CREATININE 0.9 mg/dL (0.55-1.02); Calcium 8.7 mg/dL (8.5-10.1); Calculated LDL 75 mg/dL (<100); Chloride 108 mmol/L (98-107); Cholesterol 161 mg/dL (<200); Estimated GFR 63.83 (mL/min/1.73m2); Glucose 125 mg/dL (74-106); HDL Cholesterol 69 mg/dL (40-60); Potassium 4.3 mmol/L (3.5-5.1); Sodium 146 mmol/L (136-145); Total Protein 6.8 g/dL (6.4-8.2); Triglyceride 88 mg/dL (<150)
== END 2022-10-12 15:44 | disposition home or self-care (01) ==
LOC: LBN 15:43
PROVIDERS: PCP Nurse Practitioner; Visit Provider Nurse Practitioner
DX: E78.5 Hyperlipidemia, unspecified (principal); I10 Essential (primary) hypertension
CPT/HCPCS: 80053; 80061; 85027

== ENCOUNTER → 2023-01-01 10:28 | Outpatient (BNVA) | payer MEDICARE, SELFPAY | PROVIDERS: PCP Nurse Practitioner; Referring Provider Nurse Practitioner; Visit Provider Psychiatry & Neurology Neurology | DX: I69.354 Hemiplegia and hemiparesis following cerebral infarction affecting left non-dominant side (principal); I69.322 Dysarthria following cerebral infarction; I69.391 Dysphagia following cerebral infarction; Z79.82 Long term (current) use of aspirin; R41.3 Other amnesia; R25.9 Unspecified abnormal involuntary movements; I10 Essential (primary) hypertension | CPT/HCPCS: 99214 ==

== ENCOUNTER 2023-03-09 21:02 | Observation (INO) | payer MEDICARE, SELFPAY ==
[2023-03-09] VITALS (31 sets, daily range): BP systolic 140–201; BP diastolic 54–86; PULSE 54–84; RESP 13–21; TEMP 36.9; O2SAT 98
--- NOTE | 2023-03-09 20:45 | RT.EKG_ITS ---
APPROVED REPORT Exam: Resting ECG Reason for Exam: STROKE? Patient Location: E HR:69 bpm ECG Measurements Heart Rate 69 AXIS ND 152 P 30 QRSd 90 QRS -31 QT 404 T 50 QTc 434 Conclusion Sinus rhythm..., V-rate 60- 99 Left axis deviation...QRS axis (-30,-90) Appropriate intervals. No ST segment or T wave abnormalities to suggest occlusive CO
--- NOTE | 2023-03-09 21:15 | DI.CT_ITS ---
Exam(s) CT BRAIN NECK CTA EXAM: CT BRAIN NECK CTA CLINICAL HISTORY: unresponsive episode, tremors, hx CVA. TECHNIQUE: Imaging Protocol: Axial CT angiography was performed with multi-slice acquisition and mu lti-planar and 3D reconstructions. CONTRAST MATERIAL: Intravenous: Omnipaque 350 Contrast volume:85 ml COMPARISON: CT CT HEAD FACIAL WO from 01/25/2021 FINDINGS: CT Head W/O and W contrast: Ventricles and Extra axial spaces: Normal in size and morphology for the patient's age. Hemorrhage: None. Cerebral parenchyma: No evidence of acute infarct or mass. Old bilateral basal ganglia infarcts. Wh ite matter changes of small vessel disease. Mild atrophy. Midline shift: None. Brainstem/Cerebellum: No acute findings.. Calvarium: Normal. Visualized Paranasal sinuses/Mastoids: Clear. Soft Tissues: Unremarkable. Enhancement: Normal. CTA Brain W: Internal Carotid Arteries: Petrous: Normal. Cavernous: Normal. Cerebral: Normal. Middle Cerebral Arteries: Right: No aneurysm, occlusion or significant stenosis. Left: No aneurysm, occlusion or significant stenosis. Anterior Cerebral Arteries: Right: No aneurysm, occlusion or significant stenosis. Left: No aneurysm, occlusion or significant stenosis. Posterior cerebral Arteries: Right: No aneurysm, occlusion or significant stenosis. Left: No aneurysm, occlusion or significant stenosis. Vertebral Arteries: Right: No aneurysm, occlusion or significant stenosis. Left: No aneurysm, occlusion or significant stenosis. Basilar Artery: No aneurysm, occlusion or significant stenosis. CTA Neck W: Exam mildly limited by streak artifact from metallic densities outside the patient. Common Carotid: Right: No dissection, occlusion or significant stenosis. Left: No dissection, occlusion or significant stenosis. External Carotid: Right: No dissection, occlusion or significant stenosis. Left: No dissection, occlusion or significant stenosis. Internal Carotid: Right: No dissection, occlusion or significant stenosis. Left: No dissection, occlusion or significant stenosis. Vertebral Artery: Right: No dissection, occlusion or significant stenosis. Left: No dissection, occlusion or significant stenosis. Lung Apices: Normal. Bones: No acute abnormality. Degenerative changes in the spine. Soft Tissues: Rounded low-density lesion noted in the left vallecular. IMPRESSION: 1. Normal CTA examination of the [place]. 2. Head CT: Old basal ganglia infarcts. No acute abnormality.. 3. CTA neck: No evidence of vascular occlusion, significant stenosis or dissection. Minimal plaque. Small rounded low-attenuation lesion in the left vallecula direct visualization could be considered. . RADIATION DOSE DELIVERED: Total DLP DATA REPOSITORY: All CT scans at this facility are submitted to the National Radiology Data Registry (NRDR) Dose Index Registry (DIR) with the [employer] (ACR). RADIATION OPTIMIZATION: All CT scans at this facility use at least one of these dose optimization te chniques: automated exposure control; mA and/or kV adjustment per patient size (includes targeted exa ms where dose is matched to clinical indication); or iterative reconstruction.
[2023-03-09 21:32] LABS: Abs Immature Grans 0.04 10^3/uL (0.0-0.06); Absolute Basophil Count 0.08 10^3/uL (0.0-0.2); Absolute Eosinophil Count 0.13 10^3/uL (0.0-0.7); Absolute Lymphocyte Count 1.88 10^3/uL (1.2-3.4); Absolute Monocyte Count 0.68 10^3/uL (0.1-0.8); Basophils % 0.7; Eosinophils % 1.2; HCT 39.8 % (36.0-46.0); HGB 13.3 g/dL (11.2-15.7); Immature Grans % 0.4; Lymphocytes % 17.2; MCH 31.8 pg (27.0-33.0); MCHC 33.4 % (32.0-36.0); MCV 95 fL (80-95); MPV 12.7 fL (8.0-11.0); Monocytes % 6.2; Neutrophils % 74.3; Platelet Count 183 10^3/uL (130-400); RBC 4.18 10^6/uL (3.93-5.22); RDW 14.6 % (11.7-14.6); RDW-SD 50.4 fL; WBC 10.91 10^3/uL (4.4-10.8)
[2023-03-09 21:34] LABS: Absolute Neutrophil Count 8.11 10^3/uL (1.2-6.7)
--- NOTE | 2023-03-09 21:39 | ED.GENADUL_ITS ---
Discharge Plan Discharge Details Chief Complaint: CVA/TIA Primary Care Provider: Giuliana Massey ED Provider: Grady Alston Home Meds and New Rx's Prescriptions: No Action aspirin 81 mg tablet,delayed release (DR/EC) 81 mg PO DAILY Qty: 90 3RF amlodipine 2.5 mg tablet 2.5 mg PO DAILY Qty: 90 3RF atorvastatin 80 mg tablet 80 mg PO QHS Qty: 90 3RF diclofenac sodium [Arthritis Pain (diclofenac)] 1 % gel 2 g topical QID Qty: 100 3RF Rx Instructions: apply to right hip region for arthritic pain fluorouracil 5 % cream 1 applic topical DAILY Qty: 40 0RF Rx Instructions: forehead lesion lisinopril 40 mg tablet See Rx Instructions .ROUTE .COMPLEX Qty: 90 3RF Dose Instruction: TAKE ONE TABLET BY MOUTH DAILY Rx Instructions: TAKE ONE TABLET BY MOUTH DAILY trazodone 50 mg tablet See Rx Instructions PO QHS PRN (Reason: sleep) Qty: 30 2RF Rx Instructions: 1/2 to 1 tab orally every day at bedtime PRN; Women's 50+ Daily Form (gkb) 1 EACH tablet 1 ea PO DAILY cholecalciferol (vitamin D3) 1,000 UNIT capsule 1,000 unit PO DAILY lactulose 10 gram/15 mL (15 mL) solution 10 g PO DAILY PRN (Reason: constipation) Qty: 750 0RF cyanocobalamin (vitamin B-12) 1,000 mcg capsule 1,000 mcg PO DAILY Qty: 30 0RF Medical Decision Making 82yo F with history of ischemic stroke 3 years ago, TIA one month ago, no hx of seizures, presenting via EMS after unresponsive episode. History from patient, EMS, and son at bedside. Patient reports that while visiting with friends she felt funny (unable to characterize further) then lost consciousness for around one minute with tremors noted by visitors (no further description available). + urinary incontinence, evidently not post-ictal. She had a very similar event around a month ago and was seen at another hospital, diagnosed with a TIA and discharged home. Event most concerning for TIA, seizure, syncope. Vital signs and physical exam reassuring on arrival, slight LLE weakness on exam which is residual from prior stroke, otherwise no deficits. EKG NSR, appropriate intervals, no ST segment or T wave abnormalities to suggest occlusive SC. Labs reviewed as below, CBC & CMP reassuring with no significant abnormalities, magnesium normal, troponin normal. UA equivocal; rare bacteria, 10-20 whites; will treat for now with keflex. CTA performed, no large intracranial hemmoraghe or mass on my view, radiology read below with no significant findings. On reassessment patient remains well appearing with reassuring vital signs, no further symptoms. Remains concerning for sycnope vs seizure; given age warrants admission for further workup/observation/management. Signed out to overnight physician at 2330, patient pending neurology consult, likely [facility] admission. Imaging Data Radiologic Study: Imaging: CT Scan Radiologist's impression: IMPRESSION: 1. No acute brain findings. 2. No acute vascular findings. IMPRESSION: 1. There is an approximately 1.2 cm gross fat attenuation nodular structure in the left vallecula of uncertain etiology/clinical significance. 2. No acute vascular findings. Lab Data Lab results reviewed: Yes I reviewed the patient's lab results. Labs: Laboratory Tests Range/Units 03/09/23 21:10 WBC (4.4-10.8) 10^3/uL 10.91 H RBC (3.93-5.22) 10^6/uL 4.18 Hgb (11.2-15.7) g/dL 13.3 Hct (36.0-46.0) % 39.8 MCV (80-95) fL 95 MCH (27.0-33.0) pg 31.8 MCHC (32.0-36.0) % 33.4 RDW (11.7-14.6) % 14.6 Plt Count (130-400) 10^3/uL 183 MPV (8.0-11.0) fL 12.7 H Immature Gran % 0.4 Neutrophils % 74.3 Lymphocytes % 17.2 Monocytes % 6.2 Eosinophils % 1.2 Basophils % 0.7 Nucleated RBC % (0.0-0.3) % 0.0 Absolute Neutrophils (1.2-6.7) 10^3/uL 8.11 H Absolute Lymphocytes (1.2-3.4) 10^3/uL 1.88 Absolute Monocytes (0.1-0.8) 10^3/uL 0.68 Absolute Eosinophils (0.0-0.7) 10^3/uL 0.13 Absolute Basophils (0.0-0.2) 10^3/uL 0.08 PT (9.1-11.1) sec 10.3 INR (0.9-1.1) 1.0 Sodium (136-145) mmol/L 142 Potassium (3.5-5.1) mmol/L 3.8 Chloride (98-107) mmol/L 107 Carbon Dioxide (21.0-32.0) mmol/L 24.6 Anion Gap (3-11) mmol/L 10.4 BUN (7-18) mg/dL 21 H Creatinine (0.55-1.02) mg/dL 1.0 Est GFR (CKD-EPI 2020) (mL/min/1.73m2) 56.25 Glucose (74-106) mg/dL 138 H Calcium (8.5-10.1) mg/dL 9.0 Magnesium (1.8-2.4) mg/dL 2.0 Total Bilirubin (0.2-1.0) mg/dL 0.5 AST (15-37) U/L 18 ALT (14-59) U/L 21 Alkaline Phosphatase (46-116) U/L 78 Troponin I (<or=60) ng/L < 50 Total Protein (6.4-8.2) g/dL 7.6 Albumin (3.4-5.0) g/dL 3.5 HPI General Mode of arrival: EMS . Date/Time Provider Initiated Documentation: 03/09/23 21:22 . Limitations to Documentation: no limitations . Information obtained by: patient, family and EMS . HPI Narrative: 82yo F with history of ischemic stroke 3 years ago, TIA one month ago, no hx of seizures, presenting via EMS after unresponsive episode. History from patient, EMS, and son at bedside. Patient reports that while visiting with friends she felt funny, then lost consciousness for around one minute. Tremors noted by visitors (no further description available). When patient regained conscio usness she had been incontinent of urine; she states that she knew who and where she was, felt normal, not confusion. No new weakness (residual left leg weakness from prior stroke) or numbness. No headache, nausea, or vomiting. No recent falls or head injuries. No chest pain or shortness of breath at any point. She was in her usual state of health this morning. No fevers, chills, rash, diarrhea, abdominal pain, LE edema, or other concerns. Related Data Home Medications Medication Instructions Recorded Confirmed multivitamin with [id number] 1 ea PO DAILY 09/04/12 03/09/23 400 mcg-120 mg tablet (Women's 50+ Daily Formula (with ginkgo)) cholecalciferol (vitamin D3) 25 1,000 unit PO DAILY 10/02/13 03/09/23 mcg (1,000 unit) capsule cyanocobalamin (vitamin B-12) 1,000 mcg PO DAILY #30 caps 08/26/19 03/09/23 1,000 mcg capsule lactulose 10 gram/15 mL (15 mL) 10 g (15 mL) PO DAILY PRN 10/14/21 03/09/23 oral solution constipation #750 mL aspirin 81 mg tablet,delayed 81 mg PO DAILY #90 tabs 09/13/22 03/09/23 release amlodipine 2.5 mg tablet 2.5 mg PO DAILY #90 tabs 10/12/22 03/09/23 atorvastatin 80 mg tablet 80 mg PO QHS #90 tabs 10/12/22 03/09/23 diclofenac sodium 1 % topical gel 2 g topical QID #100 grams 10/12/22 03/09/23 (Arthritis Pain (diclofenac)) fluorouracil 5 % topical cream 1 applic topical DAILY #40 grams 10/12/22 03/09/23 lisinopril 40 mg tablet See Rx Instructions .Route 10/12/22 03/09/23 .COMPLEX #90 tabs trazodone 50 mg tablet See Rx Instructions PO QHS PRN 03/05/23 03/09/23 sleep #30 tabs Previous Rx's Medication Instructions Recorded cyanocobalamin (vitamin B-12) 1,000 mcg PO DAILY #30 caps 08/26/19 1,000 mcg capsule lactulose 10 gram/15 mL (15 mL) 10 g (15 mL) PO DAILY PRN 10/14/21 oral solution constipation #750 mL aspirin 81 mg tablet,delayed 81 mg PO DAILY #90 tabs 09/13/22 release amlodipine 2.5 mg tablet 2.5 mg PO DAILY #90 tabs 10/12/22 atorvastatin 80 mg tablet 80 mg PO QHS #90 tabs 10/12/22 diclofenac sodium 1 % topical gel 2 g topical QID #100 grams 10/12/22 (Arthritis Pain (diclofenac)) fluorouracil 5 % topical cream 1 applic topical DAILY #40 grams 10/12/22 lisinopril 40 mg tablet See Rx Instructions .Route 10/12/22 .COMPLEX #90 tabs trazodone 50 mg tablet See Rx Instructions PO QHS PRN 03/05/23 sleep #30 tabs Allergies Allergy/AdvReac Type Severity Reaction Status Date / Time No Known Allergies Allergy Verified 03/09/23 21:09 General Stated Complaint: CVA/TIA ADA: 2 Review of Systems Narrative: see HPI PFSH All Active Problems (Updated 03/05/23 @ 18:15 by Giuliana Massey NP) History of TIA (transient ischemic attack) (Acute) Inflamed seborrheic keratosis (Acute ~09/2021) 10/07/21 Dr Licona Parkinsonian features (Acute) Hyperlipidemia (Acute) Laceration of eyebrow, right (Acute) Closed head injury (Acute) DNI (do not intubate) (Acute) DNR (do not resuscitate) (Acute) POLST (Physician Orders for Life-Sustaining Treatment) (Acute) 12/21/20 [place] [address] [place] and [place] COLST Hip pain (Acute) SCCA (squamous cell carcinoma) of skin (Acute) [address] Galindo,[facility] [place] History of smoking (Chronic) quit December 2018 Lives alone (Chronic) Wears hearing aid in both ears (Acute) Unsteady gait (Chronic) Hypertension (Chronic) well-controlled Urinary incontinence (Chronic) Nonsustained paroxysmal supraventricular tachycardia (Acute) B12 deficiency (Acute) Prediabetes (Acute) 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 (Acute) recovering well Insomnia (Acute) Anemia (Chronic) Intertrochanteric fracture of right femur (Acute 02/03/19) Closed fracture of fibula (Acute 03/01/95) Spinal stenosis of lumbar region (Acute) Status post laminectomy (Acute) IFG (impaired fasting glucose) (Chronic) Pulmonary arterial hypertension (Chronic) Depression (Chronic) Ganglion cyst of tendon sheath of left hand (Chronic) LRF flexor tendon Status post excision on 07/18/2018 Hearing loss (Acute 04/25/12) Essential hypertension (Acute 01/15/13) Hyperlipidemia (Acute 04/25/12) CVA (cerebral vascular accident) (Acute) Acute kidney injury (Acute) Dehydration, moderate (Acute) Rhabdomyolysis (Acute) Rosacea (Acute) History of appendectomy (Acute) History of bilateral ligation of fallopian tubes (Acute) History of gynecological procedure (Acute) History of orthopedic surgery (Acute) Prolapsed lumbar disc (Acute) Seborrheic keratosis (Acute 11/23/14) Neoplasm of unspecified nature of bone, soft tissue, and skin (Acute 11/23/14) Heart murmur (Acute 01/16/13) Electrocardiogram finding, abnormal, without diagnosis (Acute 07/04/16) Chest pain of uncertain etiology (Acute 10/07/13) neg MPI, normal CXR Medical History Actinic keratosis (~09/2021) Dr Licona Chronic pain syndrome COVID-19 ruled out Daily consumption of alcohol down to one drink per week as of 07/21 Discharge planning issues Dysarthria Dysphagia Generalized weakness improved no longer eligible for home PT/OT H/O squamous cell carcinoma of skin 10/07/21 Dr Licona Nevus 10/07/21 Dr Licona Palliative care status will see q 6 months unless she has another decline in health Tobacco abuse (01/11/17) quit Dec 2018 Surgical History Appendectomy (~2000) endometrial biopsy (~1995) neg facetectomy s/p left sided L4-L5 faceectomy; Dr. Arenas FORAMINOTOMY LUMBAR SEG History of excision of lesion (01/11/18) Right Cheek [facility] [place] LAMINECTOMY DECOMPRESS Ligation of fallopian tube Family History Mother , age 59 of colon cancer Neoplasm Hypertension Colon cancer Father , age 64 of massive SC Heart disease Myocardial infarction Sister Sister No problems noted. Son No problems noted. Son No problems noted. Granddaughter No problems noted. Social History Smoking/Tobacco Use Status: Former Tobacco Use Quit Date: 12/01/18 Tobacco: How many years used: 30 Smoking risk assessment performed?: Yes Alcohol Intake: current Alcohol Intake frequency: 0-2 drinks per day Alcohol type: wine Drug use: Never Substance use type: does not use Caregiver/Support person: Yes Household members: children and other Details: sons alternate visiting from [place] Housing: house Number of Children: 2 number of grandchildren: 3 Communication Needs: Hard of Hearing and Corrective Lenses Education Level: high school Do you need help understanding health information?: Often current occupation: did not work outside the home Pets and animals: Yes (Tianna, an 11 yo Shijamesu) Pets and animals: dog(s) Current gender identity: female What is your relationship status?: How often do you talk on the phone with friends or family?: three or more times per week How often do you get together with friends or relatives?: three or more times per week Panel score (0-1 are the most socially isolated patients): 1 What type of physical activity do you participate in: walking and additional Details: elliptical exercise machine Duration: 30-45 minutes/day Frequency: daily Special daniela needs: No Agree to transfusion: Yes Seatbelt use: always Working smoke detector in home: Yes Fire extinguisher in home: Yes Do you feel safe at home: Yes Do you feel safe in your relationship?: Yes Additional Social history: Sons Ryan and Adalid help care for Davida in her [place] home; they drive up from [place]. She spends manrique in [place] but really loves [place]. Davida unable to drive at this time but wants to get behind the wheel again. Willing to have road test with DM[employer]. Davida committed to doing what she can to stay living independently in her home, where she has lived for 40 years. Unfortunately, due to COVID-19, very hard to hire caregivers; she has one who comes 3 x week, helps with housework and groceries. Davida has been for 10 years and has loved living alone. Sons Adalid and Ryan, are ages 59 and 57. Adalid is Davida's DPOA financially and medically, she reports. She has made amazing progress since her stroke. Will schedule form setter/driver's test this fall. Exam Narrative Exam Narrative: General: Alert, well appearing, well nourished, in no acute distress. Head: Normocephalic, atraumatic Neck: Trachea midline, Neck supple. ENT: MMM. No oropharygeal lesions or exudate. Cardiac: RRR, no murmurs appreciated Resp: No respiratory distress. CTAB. Abd: Soft, non-distended, nontender : No suprapubic tenderness. Extremities: No deformities. No peripheral edema. Neuro: GCS 15. PERRL. EOMI. Fluent speech, no dysarthria. Motor- 4+ strength LLE with hip flexion and ankle flexion/extension. Otherwise 5/5 strength symmetric bilateral upper and lower extremities including elbow flexors/extensors, wrist flexors/extensors Sensation- Intact to light touch and symmetric multiple dermatomes including upper and lower extremities Coordination- No dysmetria on finger to nose CRANIAL NERVES: II: Pupils equal and reactive, III, IV, : EOM intact, no gaze preference or deviation, no nystagmus. V: normal sensation in V1, V2, and V3 segments bilaterally VII: no asymmetry, no nasolabial fold flattening VIII: normal hearing to speech IX, X: normal palatal elevation, no uvular deviation XI: 5/5 head turn and 5/5 shoulder shrug bilaterally XII: midline tongue protrusion Course Vital Signs Vital signs: Vital Signs Temperature 36.9 C 03/09/23 20:57 Pulse 76 03/09/23 20:57 Respiratory Rate 16 03/09/23 20:57 Blood Pressure 186/86 H 03/09/23 20:57 Pulse Oximetry 98 03/09/23 20:57 Temperature 36.9 C 03/09/23 20:57 Temperature Source Temporal Artery Scan 03/09/23 20:57 Pulse 71 03/09/23 21:16 Pulse 73 03/09/23 21:16 Respiratory Rate 16 03/09/23 21:18 Respiratory Effort Normal 03/09/23 21:18 Respiratory Depth Normal 03/09/23 21:18 Respiratory Pattern Normal 03/09/23 21:18 Blood Pressure 168/68 H 03/09/23 21:16 Blood Pressure Mean 105 03/09/23 21:16 Blood Pressure Position Supine 03/09/23 20:57 Pulse Oximetry 98 03/09/23 20:57 Pain Level 0 03/09/23 20:57 Lab/Test Results Lab/Test Results: Laboratory Tests Range/Units 03/09/23 21:10 WBC (4.4-10.8) 10^3/uL 10.91 H RBC (3.93-5.22) 10^6/uL 4.18 Hgb (11.2-15.7) g/dL 13.3 Hct (36.0-46.0) % 39.8 MCV (80-95) fL 95 MCH (27.0-33.0) pg 31.8 MCHC (32.0-36.0) % 33.4 RDW (11.7-14.6) % 14.6 Plt Count (130-400) 10^3/uL 183 MPV (8.0-11.0) fL 12.7 H Immature Gran % 0.4 Neutrophils % 74.3 Lymphocytes % 17.2 Monocytes % 6.2 Eosinophils % 1.2 Basophils % 0.7 Nucleated RBC % (0.0-0.3) % 0.0 Absolute Neutrophils (1.2-6.7) 10^3/uL 8.11 H Absolute Lymphocytes (1.2-3.4) 10^3/uL 1.88 Absolute Monocytes (0.1-0.8) 10^3/uL 0.68 Absolute Eosinophils (0.0-0.7) 10^3/uL 0.13 Absolute Basophils (0.0-0.2) 10^3/uL 0.08
[2023-03-09 21:56] LABS: ALT 21 U/L (14-59); AST 18 U/L (15-37); Albumin 3.5 g/dL (3.4-5.0); Alkaline Phosphatase 78 U/L (46-116); Anion Gap 10.4 mmol/L (3-11); BUN 21 mg/dL (7-18); Bilirubin, Total 0.5 mg/dL (0.2-1.0); CO2 24.6 mmol/L (21.0-32.0); Chloride 107 mmol/L (98-107); Estimated GFR 56.25 (mL/min/1.73m2); Glucose 138 mg/dL (74-106); Potassium 3.8 mmol/L (3.5-5.1); Sodium 142 mmol/L (136-145); Total Protein 7.6 g/dL (6.4-8.2); Troponin I < 50 ng/L (<or=60)
[2023-03-09 22:00] LABS: Prothrombin Time 10.3 sec (9.1-11.1)
[2023-03-09] MEDS: Normal Saline - Diluent 50 ML VIAL IJ (22:20)
[2023-03-09] MEDS: Omnipaque 350 MG/ML 100 ML BTL IJ (22:22)
[2023-03-09 22:48] LABS: Bilirubin Negative (Negative); Blood Negative (Negative); Clarity Clear (Clear); Glucose Negative (Negative); Ketones Negative (Negative); Leukocyte Esterase Small (Negative); Nitrite Negative (Negative); Specific Gravity 1.015 (1.005-1.025); Urobilinogen 0.2 mg/dL (Up to 0.2); pH 5.5 (5-8)
[2023-03-09 22:59] LABS: Epithelial Cells Few HPF (Negative); RBC 0-2 HPF (0-2)
[2023-03-09 23:00] LABS: Bacteria Few HPF (Negative); C & S Indicated? Yes; Casts 0-2 Hyaline LPF (Negative); Crystals Negative HPF (Negative); Mucus Trace (Negative); Other Cells Rare Transitional (Negative)
[2023-03-09] MEDS: Cephalexin 500 MG CAP PO (23:10)
--- NOTE | 2023-03-09 23:22 | DI.VRAD_ITS ---
PROCEDURE INFORMATION: Exam: CTA Head With Contrast, Arteriography Exam date and time: 03/09/2023 10:15 PM Age: 82 years old Clinical indication: Other: Unresponsive, episode, tremors, HX CVA TECHNIQUE: Imaging protocol: Computed tomographic angiography of the head with contrast. Exam focused on the arteries. 3D rendering (Not supervised by radiologist): MIP and/or 3D reconstructed images were created by the technologist. Contrast material: 350; Contrast volume: 85 ml; Contrast route: INTRAVENOUS (IV); COMPARISON: MR ANGIO BRAIN WO 08/26/2019 9:27 AM FINDINGS: ANTERIOR CIRCULATION: Right internal carotid artery: Intracranial segment is patent with no significant stenosis. No aneurysm. Right middle cerebral artery: No occlusion or significant stenosis. No aneurysm. Right anterior cerebral artery: No occlusion or significant stenosis. No aneurysm. Left internal carotid artery: Intracranial segment is patent with no significant stenosis. No aneurysm. Left middle cerebral artery: No occlusion or significant stenosis. No aneurysm. Left anterior cerebral artery: No occlusion or significant stenosis. No aneurysm. POSTERIOR CIRCULATION: Right vertebral artery: No occlusion or significant stenosis. No aneurysm. Left vertebral artery: No occlusion or significant stenosis. No aneurysm. Basilar artery: No occlusion or significant stenosis. No aneurysm. Right posterior cerebral artery: No occlusion or significant stenosis. No aneurysm. Left posterior cerebral artery: No occlusion or significant stenosis. No aneurysm. Brain: Volume loss and chronic small vessel ischemic change. No brain edema. No intracranial hemorrhage. Cerebral ventricles: No ventriculomegaly. Bones/joints: Unremarkable. No acute fracture. Soft tissues: Unremarkable. IMPRESSION: 1. No acute brain findings. 2. No acute vascular findings. PROCEDURE INFORMATION: Exam: CTA Neck With Contrast Exam date and time: 03/09/2023 10:15 PM Age: 82 years old Clinical indication: Other: Unresponsive, episode, tremors, HX CVA TECHNIQUE: Imaging protocol: Computed tomographic angiography of the neck with contrast. Exam focused on the cervical segments of the vasculature. 3D rendering (Not supervised by radiologist): MIP and/or 3D reconstructed images were created by the technologist. Contrast material: 350; Contrast volume: 85 ml; Contrast route: INTRAVENOUS (IV); COMPARISON: MR ANGIO BRAIN WO 08/26/2019 9:27 AM FINDINGS: Right common carotid artery: No stenosis. No dissection or occlusion. Right internal carotid artery: No stenosis of the extracranial segment. No dissection or occlusion. Right external carotid artery: No occlusion or stenosis of the origin. Left common carotid artery: No stenosis. No dissection or occlusion. Left internal carotid artery: No stenosis of the extracranial segment. No dissection or occlusion. Left external carotid artery: No occlusion or stenosis of the origin. Right vertebral artery: No stenosis. No dissection or occlusion. Left vertebral artery: No stenosis. No dissection or occlusion. Pharynx: There is an approximately 1.2 cm gross fat attenuation nodular structure in the left vallecula of uncertain etiology/clinical significance. Soft tissues: Normal. No significant soft tissue swelling. Bones/joints: No acute fracture. IMPRESSION: 1. There is an approximately 1.2 cm gross fat attenuation nodular structure in the left vallecula of uncertain etiology/clinical significance. 2. No acute vascular findings. REFERENCES: NASCET CRITERIA. The degree of stenosis in the cervical segment of the internal carotid artery is based on NASCET criteria. Normal is no stenosis. Mild is less than 50% stenosis. Moderate is 50-69% stenosis. Severe is 70% to 99% stenosis. Total occlusion is no detectable patent lumen. Dictated and Authenticated by: Michael Mcdonnell MD. Ordering:NASH Beasley MD
[2023-03-10] VITALS (14 sets, daily range): BP systolic 146–179; BP diastolic 58–74; PULSE 53–65; RESP 14–18; TEMP 36.8–37.1; O2SAT 98
--- NOTE | 2023-03-10 00:37 | W.EDPROG ---
Date of service: 03/10/23 Time of Service: 00:38 Medical Decision Making I, Grady Alston, took signout on this patient. In summary 82-year-old female presents after an episode of fainting with shaking episodes and urinary incontinence. CT and CTA of the head is unremarkable. Labs and EKG unremarkable. No neurologic deficits presently and actually complaint free. Had a similar episode about a month ago. Signed out to me pending neurology recommendations. Spoke to Dr. Bandar Ma who is recommending urgent MRI and follow-up urgently in the neurology clinic or with the patient's neurologist here urgently for consideration of EEG and possible initiation of antiepileptic drugs. Given the high risk nature of this syncope or possible seizure will admit to the hospitalist service for observation given her age and close proximity of recurrent episodes. Patient is agreeable with this plan. Care transitioned to Dr. Ventura Blank. Medical Records Medical records reviewed: Yes I reviewed the patient's medical records. Imaging Data Radiologic Study: Attestation: I personally reviewed and interpreted this imaging study as follows: Imaging: CT Scan (Head and CTA) Radiologist's impression: Unremarkable Lab Data Lab results reviewed: Yes I reviewed the patient's lab results. ECG Data Attestation: I personally reviewed and interpreted this ECG (s) as follows: Prior ECG tracings: available for review Interpretation: Normal sinus rhythm and otherwise unremarkable EKG Discharge Plan Disposition Patient Disposition: Admit to [facility] Condition: Good Discharge Details Chief Complaint: CVA/TIA Clinical Impression: Syncope Primary Care Provider: Giuliana Massey ED Provider: Grady Alston Home Meds and New Rx's Prescriptions: No Action aspirin 81 mg tablet,delayed release (DR/EC) 81 mg PO DAILY Qty: 90 3RF amlodipine 2.5 mg tablet 2.5 mg PO DAILY Qty: 90 3RF atorvastatin 80 mg tablet 80 mg PO QHS Qty: 90 3RF diclofenac sodium [Arthritis Pain (diclofenac)] 1 % gel 2 g topical QID Qty: 100 3RF Rx Instructions: apply to right hip region for arthritic pain fluorouracil 5 % cream 1 applic topical DAILY Qty: 40 0RF Rx Instructions: forehead lesion lisinopril 40 mg tablet See Rx Instructions .ROUTE .COMPLEX Qty: 90 3RF Dose Instruction: TAKE ONE TABLET BY MOUTH DAILY Rx Instructions: TAKE ONE TABLET BY MOUTH DAILY trazodone 50 mg tablet See Rx Instructions PO QHS PRN (Reason: sleep) Qty: 30 2RF Rx Instructions: 1/2 to 1 tab orally every day at bedtime PRN; Women's 50+ Daily Form (gkb) 1 EACH tablet 1 ea PO DAILY cholecalciferol (vitamin D3) 1,000 UNIT capsule 1,000 unit PO DAILY lactulose 10 gram/15 mL (15 mL) solution 10 g PO DAILY PRN (Reason: constipation) Qty: 750 0RF cyanocobalamin (vitamin B-12) 1,000 mcg capsule 1,000 mcg PO DAILY Qty: 30 0RF
--- NOTE | 2023-03-10 06:18 | HPE_ITS ---
Date of service: 03/10/23 Time of Service: 05:30 Assessment and Plan Assessment and plan (1) Syncope: Start date: 03/09/23 Status: Acute Assessment and plan: This is a 82-year-old lady who had a syncopal episode at home which appeared to be a brief seizure by report. She has had previous CVA and previous episodes similar to this thought to be TIAs. She is on aspirin. Aspirin will be continued along with atorvastatin and permissive hypertension adjusting her antihypertensives. She will need EEG and repeat MRI with neurology follow-up. She will be on observation but may not stay with outpatient workup to be arranged. She does see Dr. Jean-Bpatiste locally for neurology. She does want to travel but this should be reviewed with her son with risk benefit traveling with her recent event and not having full workup. She is a full code but indicates she may be a DNR/DNI on record that needs to be reviewed and updated. Patient has had no further episodes with observation. 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 Been OT should evaluate. She does appear to have some slight short-term memory loss just to be further desiccated. There was mention of Parkinson's-like features on her problem list. Qualifiers: CVA mechanism: occlusion Laterality of affected vessel: right P recerebral and cerebral artery: middle cerebral artery Qualified Code(s): I 63.511 - Cerebral infarction due to unspecified occlusion or stenosis of right middle cerebral artery (3) UTI (urinary tract infection): Start date: 03/09/23 Status: Acute Assessment and plan: Patient had a positive urine culture pending and will start on Keflex orally which will be continued pending culture results. Qualifiers: Urinary tract infection type: acute cystitis Hematuria presence: w ithout hematuria Qualified Code(s): N30.00 - Acute cystitis without hematuria (4) Urinary incontinence: Status: Chronic Assessment and plan: Patient has a history of chronic urinary incontinence and did have urinary incontinence with this episode. Monitor with treatment of UTI. Qualifiers: Urinary Incontinence type: other incontinence Qualified Code(s): N 39.498 - Other specified urinary incontinence (5) Hypertension: Status: Chronic Assessment and plan: Adjust outpatient medical regimen with permissive hypertension but he systolic below 180 and above 140 pending MRI follow-up and observation for recurrent episodes. Qualifiers: Hypertension type: essential hypertension Qualified Code(s): I10 - Essential (primary) hypertension (6) Hyperlipidemia: Status: Chronic Assessment and plan: Continue high-dose atorvastatin. Qualifiers: Hyperlipidemia type: mixed hyperlipidemia Qualified Code(s): E78.2 - Mixed hyperlipidemia History of Present Illness History of Present Illness Chief Complaint: Unresponsive episode with syncope Narrative: This is a 82-year-old patient with previous right CVA and left-sided weakness 3 years ago and reports that she had a TIA 2 years ago but the ED reports a more recent episode at another facility about 1 month ago. Patient was entertained her son had visitors WHEN she lost consciousness for a minute. Patient does not remember being incontinent or having tremors but bystanders did report tremors and urinary incontinence. She did not bite her tongue. She was reported to be in postictal. She has no history of seizures and is not on antibiotics status post CVA in the past. She is a vague historian. She was brought to the ED for evaluation. In the ED she was found to have no acute changes on CT of the head and neck and neurology consultation recommended aspirin to be continued with scheduled EEG and MRI. She is seeing neurology locally and will continue to see Dr. Jean-Baptiste. She was admitted for observation and she states that she will not stay for 1 day because she is traveling to [place] with her son. She does have indication of being a DNR/DNI status on her problem list but CODE STATUS query reveals Full Code status in 2021. This should be reviewed with before discharge as well as recommendations for possibly not driving and have an EEG and MRI before travels. Risk-benefit can be reviewed with son if patient persists wishing to travel. Patient has had no further episodes while hospitalized as stated denies having any incontinence of urine or tremors during her 1 minute episode at home. Review of Systems Narrative: 13 point review of systems otherwise unrevealing or stable. Patient is a vague historian and that may be some element of memory deficit. PFSH All Active Problems (Updated 03/10/23 @ 06:50 by Ventura Blank) UTI (urinary tract infection) (Acute) Syncope (Acute) History of TIA (transient ischemic attack) (Acute) Inflamed seborrheic keratosis (Acute ~09/2021) 10/07/21 Dr Licona Parkinsonian features (Acute) Hyperlipidemia (Chronic) Laceration of eyebrow, right (Acute) Closed head injury (Acute) DNI (do not intubate) (Acute) DNR (do not resuscitate) (Acute) POLST (Physician Orders for Life-Sustaining Treatment) (Acute) 12/21/20 [place] out both [place] and [place] COLST Hip pain (Acute) SCCA (squamous cell carcinoma) of skin (Acute) [address] Gal[place] [place] History of smoking (Chronic) quit December 2018 Lives alone (Chronic) Wears hearing aid in both ears (Acute) Unsteady gait (Chronic) Hypertension (Chronic) well-controlled Urinary incontinence (Chronic) Nonsustained paroxysmal supraventricular tachycardia (Acute) B12 deficiency (Acute) Prediabetes (Acute) 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 (Acute) recovering well Insomnia (Acute) Anemia (Chronic) Intertrochanteric fracture of right femur (Acute 02/03/19) Closed fracture of fibula (Acute 03/01/95) Spinal stenosis of lumbar region (Acute) Status post laminectomy (Acute) IFG (impaired fasting glucose) (Chronic) Pulmonary arterial hypertension (Chronic) Depression (Chronic) Ganglion cyst of tendon sheath of left hand (Chronic) LRF flexor tendon Status post excision on 07/18/2018 Hearing loss (Acute 04/25/12) Essential hypertension (Acute 01/15/13) Hyperlipidemia (Acute 04/25/12) CVA (cerebral vascular accident) (Chronic) Acute kidney injury (Acute) Dehydration, moderate (Acute) Rhabdomyolysis (Acute) Rosacea (Acute) History of appendectomy (Acute) History of bilateral ligation of fallopian tubes (Acute) History of gynecological procedure (Acute) History of orthopedic surgery (Acute) Prolapsed lumbar disc (Acute) Seborrheic keratosis (Acute 11/23/14) Neoplasm of unspecified nature of bone, soft tissue, and skin (Acute 11/23/14) Heart murmur (Acute 01/16/13) Electrocardiogram finding, abnormal, without diagnosis (Acute 07/04/16) Chest pain of uncertain etiology (Acute 10/07/13) neg MPI, normal CXR Medical History Actinic keratosis (~09/2021) Dr Licona Nevus 10/07/21 Dr Licona H/O squamous cell carcinoma of skin 10/07/21 Dr Licona Palliative care status will see q 6 months unless she has another decline in health Daily consumption of alcohol down to one drink per week as of 07/21 Generalized weakness improved no longer eligible for home PT/OT COVID-19 ruled out Dysphagia Dysarthria Discharge planning issues Chronic pain syndrome Tobacco abuse (01/11/17) quit Dec 2018 Surgical History History of excision of lesion (01/11/18) Right Cheek [facility] facetectomy s/p left sided L4-L5 faceectomy; Dr. Arenas endometrial biopsy (~1995) neg Ligation of fallopian tube LAMINECTOMY DECOMPRESS FORAMINOTOMY LUMBAR SEG Appendectomy (~2000) Family History Mother , age 59 of colon cancer Neoplasm Hypertension Colon cancer Father , age 64 of massive MD Heart disease Myocardial infarction Sister Sister No problems noted. Son No problems noted. Son No problems noted. Granddaughter No problems noted. Social History Smoking/Tobacco Use Status: Former Tobacco Use Quit Date: 12/01/18 Tobacco: How many years used: 30 Smoking risk assessment performed?: Yes Alcohol Intake: current Alcohol Intake frequency: 0-2 drinks per day Alcohol type: wine Drug use: Never Substance use type: does not use Caregiver/Support person: Yes Household members: children and other Details: sons alternate visiting from [place] Housing: house Number of Children: 2 number of grandchildren: 3 Communication Needs: Hard of Hearing and Corrective Lenses Education Level: high school Do you need help understanding health information?: Often current occupation: did not work outside the home Pets and animals: Yes (yuri Wynn 11 yo Shijamesu) Pets and animals: dog(s) Current gender identity: female What is your relationship status?: How often do you talk on the phone with friends or family?: three or more times per week How often do you get together with friends or relatives?: three or more times per week Panel score (0-1 are the most socially isolated patients): 1 What type of physical activity do you participate in: walking and additional Details: elliptical exercise machine Duration: 30-45 minutes/day Frequency: daily Special daniela needs: No Agree to transfusion: Yes Seatbelt use: always Working smoke detector in home: Yes Fire extinguisher in home: Yes Do you feel safe at home: Yes Do you feel safe in your relationship?: Yes Additional Social history: Sons Ryan and Adalid help care for Davida in her [place], [place] home; they drive up from [place]. She spends manrique in [place] but really loves [place]. Davida unable to drive at this time but wants to get behind the wheel again. Willing to have road test with DM[employer]. Davida committed to doing what she can to stay living independently in her home, where she has lived for 40 years. Unfortunately, due to COVID-19, very hard to hire caregivers; she has one who comes 3 x week, helps with housework and groceries. Davida has been for 10 years and has loved living alone. Sons Adalid and Ryan, are ages 59 and 57. Adalid is Davida's DPOA financially and medically, she reports. She has made amazing progress since her stroke. 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 Meds Allergies and Home Medications Allergies Allergy/AdvReac Type Severity Reaction Status Date / Time No Known Allergies Allergy Verified 03/09/23 21:09 Home Medications Medication Instructions Recorded Confirmed Type multivitamin with [id number] 1 ea PO DAILY 09/04/12 03/09/23 History 400 mcg-120 mg tablet (Women's 50+ Daily Formula (with ginkgo)) cholecalciferol (vitamin D3) 25 1,000 unit PO DAILY 10/02/13 03/09/23 History mcg (1,000 unit) capsule cyanocobalamin (vitamin B-12) 1,000 mcg PO DAILY #30 caps 08/26/19 03/09/23 Rx 1,000 mcg capsule lactulose 10 gram/15 mL (15 mL) 10 g (15 mL) PO DAILY PRN 10/14/21 03/09/23 Rx oral solution constipation #750 mL aspirin 81 mg tablet,delayed 81 mg PO DAILY #90 tabs 09/13/22 03/09/23 Rx release amlodipine 2.5 mg tablet 2.5 mg PO DAILY #90 tabs 10/12/22 03/09/23 Rx atorvastatin 80 mg tablet 80 mg PO QHS #90 tabs 10/12/22 03/09/23 Rx diclofenac sodium 1 % topical gel 2 g topical QID #100 grams 10/12/22 03/09/23 Rx (Arthritis Pain (diclofenac)) fluorouracil 5 % topical cream 1 applic topical DAILY #40 grams 10/12/22 03/09/23 Rx lisinopril 40 mg tablet See Rx Instructions .Route 10/12/22 03/09/23 Rx .COMPLEX #90 tabs trazodone 50 mg tablet See Rx Instructions PO QHS PRN 03/05/23 03/09/23 Rx sleep #30 tabs Exam Narrative Exam Narrative: General: Patient appears appropriate for age, thinly built, alert and oriented to person, and place and possibly to time. She is in no acute distress. HEENT: Normocephalic, eyes pupils equal react light symmetrically, extraocular movement intact and sclera anicteric. Oropharynx with moist mucosa. Neck: Supple without JVD. Back: Stooped posture without CVA tenderness. Lungs: Fair aeration with no focalizing rales or rhonchi. Heart: Regular rate and rhythm with no murmur APPRECIATED. Breast: Exam deferred. Abdomen: Normal contour, soft nontender to palpation with no palpable hepatosplenomegaly. Bowel sounds positive all quadrants. Extremities: Nonpitting edema both lower extremities, no joint swelling with fair range of motion all joints. No clubbing or cyanosis. Skin: Diffuse actinic changes with no suspicious lesions by brief survey. Otherwise normal color, warm and dry. Neuro: Cranial nerves II through XII grossly intact, slight decreased grasp on the left compared to right otherwise no focalizing motor deficits. No tremor. Psych: Flattened affect and depressed mood, no abnormal thought processes. Remote memory grossly intact and recent memory less intact with patient having verbal history with memory of recent events. This could be secondary to seizure activity and postictal state. Results Imaging Imaging Studies: Exam: CTA Head With Contrast, Arteriography Exam date and time: 03/09/2023 10:15 PM Age: 82 years old Clinical indication: Other: Unresponsive, episode, tremors, HX CVA TECHNIQUE: Imaging protocol: Computed tomographic angiography of the head with contrast. Exam focused on the arteries. 3D rendering (Not supervised by radiologist): MIP and/or 3D reconstructed images were created by the technologist. Contrast material: 350; Contrast volume: 85 ml; Contrast route: INTRAVENOUS (IV); COMPARISON: MR ANGIO BRAIN WO 08/26/2019 9:27 AM FINDINGS: ANTERIOR CIRCULATION: Right internal carotid artery: Intracranial segment is patent with no significant stenosis. No aneurysm. Right middle cerebral artery: No occlusion or significant stenosis. No aneurysm. Right anterior cerebral artery: No occlusion or significant stenosis. No aneurysm. Left internal carotid artery: Intracranial segment is patent with no significant stenosis. No aneurysm. Left middle cerebral artery: No occlusion or significant stenosis. No aneurysm. Left anterior cerebral artery: No occlusion or significant stenosis. No aneurysm. POSTERIOR CIRCULATION: Right vertebral artery: No occlusion or significant stenosis. No aneurysm. Left vertebral artery: No occlusion or significant stenosis. No aneurysm. Basilar artery: No occlusion or significant stenosis. No aneurysm. Right posterior cerebral artery: No occlusion or significant stenosis. No aneurysm. Left posterior cerebral artery: No occlusion or significant stenosis. No aneurysm. Brain: Volume loss and chronic small vessel ischemic change. No brain edema. No intracranial hemorrhage. Cerebral ventricles: No ventriculomegaly. Bones/joints: Unremarkable. No acute fracture. Soft tissues: Unremarkable. IMPRESSION: 1. No acute brain findings. 2. No acute vascular findings. PROCEDURE INFORMATION: Exam: CTA Neck With Contrast Exam date and time: 03/09/2023 10:15 PM Age: 82 years old Clinical indication: Other: Unresponsive, episode, tremors, HX CVA TECHNIQUE: Imaging protocol: Computed tomographic angiography of the neck with contrast. Exam focused on the cervical segments of the vasculature. 3D rendering (Not supervised by radiologist): MIP and/or 3D reconstructed images were created by the technologist. Contrast material: 350; Contrast volume: 85 ml; Contrast route: INTRAVENOUS (IV); COMPARISON: MR ANGIO BRAIN WO 08/26/2019 9:27 AM FINDINGS: Right common carotid artery: No stenosis. No dissection or occlusion. Right internal carotid artery: No stenosis of the extracranial segment. No dissection or occlusion. Right external carotid artery: No occlusion or stenosis of the origin. Left common carotid artery: No stenosis. No dissection or occlusion. Left internal carotid artery: No stenosis of the extracranial segment. No dissection or occlusion. Left external carotid artery: No occlusion or stenosis of the origin. Right vertebral artery: No stenosis. No dissection or occlusion. Left vertebral artery: No stenosis. No dissection or occlusion. Pharynx: There is an approximately 1.2 cm gross fat attenuation nodular structure in the left vallecula of uncertain etiology/clinical significance. Soft tissues: Normal. No significant soft tissue swelling. Bones/joints: No acute fracture. IMPRESSION: 1. There is an approximately 1.2 cm gross fat attenuation nodular structure in the left vallecula of uncertain etiology/clinical significance. 2. No acute vascular findings. Labs 03/09/23 21:10 03/09/23 21:10 Labs: Laboratory Results - last 24 hr 03/09/23 03/09/23 21:10 22:35 WBC 10.91 H RBC 4.18 Hgb 13.3 Hct 39.8 MCV 95 MCH 31.8 MCHC 33.4 RDW 14.6 Plt Count 183 MPV 12.7 H Immature Gran % 0.4 Neutrophils % 74.3 Lymphocytes % 17.2 Monocytes % 6.2 Eosinophils % 1.2 Basophils % 0.7 Nucleated RBC % 0.0 Absolute Neutrophils 8.11 H Absolute Lymphocytes 1.88 Absolute Monocytes 0.68 Absolute Eosinophils 0.13 Absolute Basophils 0.08 PT 10.3 INR 1.0 Sodium 142 Potassium 3.8 Chloride 107 Carbon Dioxide 24.6 Anion Gap 10.4 BUN 21 H Creatinine 1.0 Est GFR (CKD-EPI 2020) 56.25 Glucose 138 H Calcium 9.0 Magnesium 2.0 Total Bilirubin 0.5 AST 18 ALT 21 Alkaline Phosphatase 78 Troponin I < 50 Total Protein 7.6 Albumin 3.5 Urine Color Yellow Urine Clarity Clear Urine pH 5.5 Ur Specific Prewitt 1.015 Urine Protein Negative Urine Ketones Negative Urine Blood Negative Urine Nitrite Negative Urine Bilirubin Negative Urine Urobilinogen 0.2 Ur Leukocyte Esterase Small H Urine RBC 0-2 Urine WBC 10-20 H Ur Epithelial Cells Few Urine Crystals Negative Urine Bacteria Few Urine Casts 0-2 Hyaline Urine Mucus Trace Urine Other Rare Transitional Ur Culture Indicated? Yes Urine Glucose Negative Last Vital Signs Temp 36.9 C 03/10/23 01:33 Pulse 59 L 03/10/23 01:33 Resp 14 03/10/23 01:33 BP 171/74 H 03/10/23 01:33 Pulse Ox 98 03/10/23 01:33 PAWSS Have you Been Recently Intoxicated or Drunk Within the Last 30 days?: No Have you Ever Experienced Previous Episodes of Alcohol Withdrawal?: No Have you ever Experienced Withdrawal Seizures?: No Have you ever Experienced Delirium Tremens(DT)s?: No Have you ever undergone Alcohol Rehabilitation Treatment (i.e, inpt ot outpatient treatment programs)?: No Have you ever Experienced Blackouts?: No Have you ever Combined Alcohol with other Downers within the last 90 days?: No Have you ever Combined Alcohol with any other Substance of Abuse during the last 90 days?: No Positive Blood Alcohol level on Presentation? [PCS.BAL]: No Evidence of Increased Autonomic Activity (i.e. HR>120, tremor, sweating, agitation, nausea)?: No Result: 0 Time Spent Time spent with Patient: >75 minutes Time was spent: preparing to see the patient(eg.review tests), obtaining and/or reviewing separately otained hiistory, ordering medications,tests, procedures, referring, communicating with other health healthcare social worker, indepentently interpreting results and care coordination
[2023-03-10 07:26] LABS: HCT 34.8 % (36.0-46.0); HGB 11.7 g/dL (11.2-15.7); MCH 31.6 pg (27.0-33.0); MCHC 33.6 % (32.0-36.0); MCV 94 fL (80-95); Platelet Count 166 10^3/uL (130-400); RDW 14.3 % (11.7-14.6); RDW-SD 49.7 fL
[2023-03-10 07:48] LABS: ALT 16 U/L (14-59); AST 16 U/L (15-37); Alkaline Phosphatase 66 U/L (46-116); Anion Gap 7.8 mmol/L (3-11); BUN 18 mg/dL (7-18); Bilirubin, Total 0.4 mg/dL (0.2-1.0); CO2 25.2 mmol/L (21.0-32.0); CREATININE 0.9 mg/dL (0.55-1.02); Calcium 8.4 mg/dL (8.5-10.1); Chloride 106 mmol/L (98-107); Estimated GFR 63.83 (mL/min/1.73m2); Glucose 102 mg/dL (74-106); Magnesium 1.9 mg/dL (1.8-2.4); Potassium 3.9 mmol/L (3.5-5.1); Sodium 139 mmol/L (136-145); TSH (W/Ref FT4) 2.62 uIU/mL (0.36-3.74); Total Protein 6.8 g/dL (6.4-8.2); Troponin I 50 ng/L (<or=60)
[2023-03-10] MEDS: Enoxaparin 40 MG/0.4 ML SYR SC (08:12)
[2023-03-10] MEDS: Normal Saline Flush 10 ML SYR IVP (08:12)
[2023-03-10] MEDS: Cephalexin 500 MG CAP PO (08:13)
[2023-03-10] MEDS: Aspirin E.C. 81 MG TABEC PO (08:13)
[2023-03-10] MEDS: Cyanocobalamin 500 MCG TAB 1000 MCG PO (08:13)
[2023-03-10] MEDS: Cholecalciferol (Vitamin D3) 1,000 UNIT TAB 1000 UNITS PO (08:13)
[2023-03-10] MEDS: Diclofenac 1% Gel 100 GM TUBE TP ×2 (08:14→11:27)
[2023-03-10] MEDS: amLODIPine 2.5 MG TAB PO (08:14)
[2023-03-10 08:32] LABS: Source Nasal/Nares
[2023-03-10 09:18] LABS: COVID-19 PCR Negative (Negative)
--- NOTE | 2023-03-10 10:20 | PT.INIE ---
PT Notes Visit Reasons: Syncope, UTI, CVA Inpatient Physical Therapy Evaluation Date: 03/10/23 Referring Doctor: Dr. Blank PT Orders: PT CONSULT: exacerbation of chronic condition Precautions: standard Patient Profile/Admitting Diagnosis: Patient admitted this morning after syncopal episode. She has a history of right CVA 3 years ago. Has been admitted on observation status. Social History/Home Situation: Davida lives alone in a private home in [place], [place]. States that she is leaving for [place] to visit family for the holidays, and plans to stay there for a month. She is independent at home, without device. Equipment Owned/DME: none Subjective: Tammi states that she's been up walking around on her own in her room this morning. States that she feels like her normal self. Denies any weakness or imbalance. Denies history of recent falls, stating the only time she's fallen was 3 years ago, when she slipped on the stairs and broke her right femur. She has since installed railings on both sides of her stairs. She is hoping to be discharged as soon as she can. Objective: General Observation: Resting in bed. Telemetry in place. Mental Status: A&Ox3. Hard of hearing. Pain: denies ROM: Right Upper Extremity: WFL Left Upper Extremity: WFL Right Lower Extremity: WFL Left Lower Extremity: WFL Strength: Right Upper Extremity: WFL Left Upper Extremity: WFL Right Lower Extremity: Hip flexion 5/5. Quads 5/5. Ankle DF 5/5. Left Lower Extremity: Hip flexion 5/5. Quads 5/5. Ankle DF 5/5. Bed Mobility/Transfers: supine-sit: independent with HOB flat sit-supine: independent with HOB flat sit-stand: independent stand-sit: independent Gait: Ambulates independently in the room during evaluation. Ambulates 25' x 4 without device. No signs of imbalance. Balance: Static Sitting: Normal Dynamic Sitting: Normal Static Standing: Normal Dynamic Standing: Normal 4-Position Balance Test: 4/4 Small PEDRO: 10 seconds Partial Tandem: 10 seconds Full Tandem: 10 seconds Single Leg Stance: 10 seconds on each side Demonstrates ability to tandem walk forward and backward with CGA, no loss of balance. Special Tests: Mobility Limitations Standardized Measure [facility] 6 clicks Basic Mobility Inpatient Short Form: Raw Score: 24 CMS Score: 0% impairment Informed Consent/Education: Patient instructed in purpose of PT consult and plan of care. Assessment: Patient is an 82 year old female referred to physical therapy services with the diagnosis of exacerbation of chronic condition. She is here in the hospital on observation status after a syncopal episode at home yesterday. Her mobility appears to be at baseline, and she demonstrates good LE strength, static and dynamic balance, and gait quality. She is appropriate for discharge to the community once medically stable. No further PT intervention required during this stay, as patient is at baseline level of mobility. She currently demonstrates the following impairment level findings: 1. none Impairments are contributing to the following functional limitations: 1. none Patient is assessed as Low 43539 complexity based on the following: History: Independent 82 year old female presenting with baseline level of mobility after syncopal episode at home. She is appropriate for discharge back to the community once medically stable. Examination: baseline level of function Presentation: evolving due to continued medical work up Decision Making: low complexity Plan of Care/Treatment Plan: No further PT required in acute care setting DISCHARGE RECOMMENDATIONS: Home with no services TREATMENT CODE/TIME: 1005 - 1020 ([id number]) Thank you for this referral! Fabiana Bolaños, PT, DPT [facility] All Active Problems (Updated 03/10/23 @ 06:50 by Ventura Blank) UTI (urinary tract infection) (Acute) Syncope (Acute) History of TIA (transient ischemic attack) (Acute) Inflamed seborrheic keratosis (Acute ~09/2021) 10/07/21 Dr Licona Parkinsonian features (Acute) Hyperlipidemia (Chronic) Laceration of eyebrow, right (Acute) Closed head injury (Acute) DNI (do not intubate) (Acute) DNR (do not resuscitate) (Acute) POLST (Physician Orders for Life-Sustaining Treatment) (Acute) 12/21/20 filled out both interstate POLST and [place] COLST Hip pain (Acute) SCCA (squamous cell carcinoma) of skin (Acute) [address] Galindo,[facility] [place] History of smoking (Chronic) quit December 2018 Lives alone (Chronic) Wears hearing aid in both ears (Acute) Unsteady gait (Chronic) Hypertension (Chronic) well-controlled Urinary incontinence (Chronic) Nonsustained paroxysmal supraventricular tachycardia (Acute) B12 deficiency (Acute) Prediabetes (Acute) 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 (Acute) recovering well Insomnia (Acute) Anemia (Chronic) Intertrochanteric fracture of right femur (Acute 02/03/19) Closed fracture of fibula (Acute 03/01/95) Spinal stenosis of lumbar region (Acute) Status post laminectomy (Acute) IFG (impaired fasting glucose) (Chronic) Pulmonary arterial hypertension (Chronic) Depression (Chronic) Ganglion cyst of tendon sheath of left hand (Chronic) LRF flexor tendon Status post excision on 07/18/2018 Hearing loss (Acute 04/25/12) Essential hypertension (Acute 01/15/13) Hyperlipidemia (Acute 04/25/12) CVA (cerebral vascular accident) (Chronic) Acute kidney injury (Acute) Dehydration, moderate (Acute) Rhabdomyolysis (Acute) Rosacea (Acute) History of appendectomy (Acute) History of bilateral ligation of fallopian tubes (Acute) History of gynecological procedure (Acute) History of orthopedic surgery (Acute) Prolapsed lumbar disc (Acute) Seborrheic keratosis (Acute 11/23/14) Neoplasm of unspecified nature of bone, soft tissue, and skin (Acute 11/23/14) Heart murmur (Acute 01/16/13) Electrocardiogram finding, abnormal, without diagnosis (Acute 07/04/16) Chest pain of uncertain etiology (Acute 10/07/13) neg MPI, normal CXR Medical History Actinic keratosis (~09/2021) Dr Licnoa Nev 10/07/21 Dr Licona H/O squamous cell carcinoma of skin 10/07/21 Dr Licona Palliative care status will see q 6 months unless she has another decline in health Daily consumption of alcohol down to one drink per week as of 07/21 Generalized weakness improved no longer eligible for home PT/OT COVID-19 ruled out Dysphagia Dysarthria Discharge planning issues Chronic pain syndrome Tobacco abuse (01/11/17) quit Dec 2018 Surgical History History of excision of lesion (01/11/18) Right Cheek [facility] facetectomy s/p left sided L4-L5 faceectomy; Dr. Magnadottir endometrial biopsy (~1995) neg Ligation of fallopian tube LAMINECTOMY DECOMPRESS FORAMINOTOMY LUMBAR SEG Appendectomy (~2000)
--- NOTE | 2023-03-10 10:48 | W.PM.DS.N ---
Date of service: 03/10/23 Time of Service: 10:48 DS: Diagnosis Discharge Diagnosis (1) Syncope: Status: Acute (2) CVA (cerebral vascular accident): Status: Chronic (3) UTI (urinary tract infection): Status: Acute (4) Urinary incontinence: Status: Chronic (5) Hypertension: Status: Chronic (6) Hyperlipidemia: Status: Chronic Discharge Plan Disposition Patient Disposition: Home Condition: Good Discharge Details Reason For Visit: Syncope, UTI, CVA Admit Date/Time: 03/10/23 00:24 Admit Provider: Ventura Blank Attending Provider: Ventura Blank Primary Care Provider: Giuliana Massey Hospital Course Hospital Course: 82yo F with history of ischemic stroke 3 years ago, TIA one month ago, no hx of seizures, presented to [facility] ED on 03/09 via EMS after unresponsive episode. History from patient, EMS, and son. Patient reported while visiting with friends she felt funny (unable to characterize further) then lost consciousness for around one minute with tremors noted by visitors (no further description available). + urinary incontinence, evidently not post-ictal. She had a very similar event around a month ago and was seen at another hospital, diagnosed with a TIA and discharged home. Event most concerning for TIA, seizure, syncope. Slight LLE weakness on exam which is residual from prior stroke, otherwise no deficits. EKG NSR, appropriate intervals, no ST segment or T wave abnormalities to suggest occlusive RI. Labs reviewed as below, CBC & CMP reassuring with no significant abnormalities, magnesium normal, troponin normal. UA equivocal; rare bacteria, 10-20 whites; treated with keflex. CTA performed, no large intracranial hemmoraghe or mass, radiology read with no significant findings. On reassessment patient remains well appearing with reassuring vital signs, no further symptoms. Patient was placed on observation status on the medical floor. Patient had no further symptoms during her stay. Keflex was discontinued and one dose of fosfomycin given. Consider repeat dose in 3 days. Patient does not want to stay in the hospital. She is followed by Dr Jean-Baptiste. She has had event monitors in the past. She is discharged to home with 30 day cardiac event monitor, follow up with neurology, consider MRI/EEG. Follow up with PCP in 1-2 weeks. Home Meds and New Rx's Prescriptions: Continued aspirin 81 mg tablet,delayed release (DR/EC) 81 mg PO DAILY Qty: 90 3RF amlodipine 2.5 mg tablet 2.5 mg PO DAILY Qty: 90 3RF atorvastatin 80 mg tablet 80 mg PO QHS Qty: 90 3RF diclofenac sodium [Arthritis Pain (diclofenac)] 1 % gel 2 g topical QID Qty: 100 3RF Rx Instructions: apply to right hip region for arthritic pain fluorouracil 5 % cream 1 applic topical DAILY Qty: 40 0RF Rx Instructions: forehead lesion lisinopril 40 mg tablet See Rx Instructions .ROUTE .COMPLEX Qty: 90 3RF Dose Instruction: TAKE ONE TABLET BY MOUTH DAILY Rx Instructions: TAKE ONE TABLET BY MOUTH DAILY trazodone 50 mg tablet See Rx Instructions PO QHS PRN (Reason: sleep) Qty: 30 2RF Rx Instructions: 1/2 to 1 tab orally every day at bedtime PRN; Women's 50+ Daily Form (gkb) 1 EACH tablet 1 ea PO DAILY cholecalciferol (vitamin D3) 1,000 UNIT capsule 1,000 unit PO DAILY lactulose 10 gram/15 mL (15 mL) solution 10 g PO DAILY PRN (Reason: constipation) Qty: 750 0RF cyanocobalamin (vitamin B-12) 1,000 mcg capsule 1,000 mcg PO DAILY Qty: 30 0RF Discharge Instructions Instructions: Urinary Tract Infection in Older Adults (DC), Syncope in Older Adults (DC) Additional Instructions: Where pvc monitor for 30 days. Be sure to drink plenty of fluids. You have been treated for a urinary tract infection. Report any new signs and symptoms of urinary tract infection to your PCP. Follow up with neurology and PCP. Stand Alone Forms: Nursing Discharge Form Referrals: Liliya Jean-Baptiste MD [ [facility] STAFF PHYSICIAN] - (Please call Sunday to make an appointment for 1-2 weeks Established patient with syncopal episode; neg head CT ?OP MRI/ EEG) Giuliana Massey NP [Primary Care Provider] - (Please call Sunday to make a follow up appointment for1-2 weeks Management of htn meds) Activity:: Activity as Tolerated Equipment/Supplies:: No Equipment Needed Diet:: Low Sodium Discharge Orders Discharge Orders: Discharge Order (Routine); Ordered 03/10/23 Ordered By: Brie Hernandez DS: Summary Time Spent with Patient providing and/or coordinating discharge services: Greater than 30 minutes Status at Discharge Functional status at discharge: independent ambulation Overall status at discharge: patient is back to baseline Mental Status: mental status grossly normal Speech and Movement: speech and movement normal Mood: congruent mood Affect: normal affect Exam Narrative Exam Narrative: General: Alert, well appearing, well nourished, in no acute distress. Head: Normocephalic, atraumatic Neck: Trachea midline, Neck supple. ENT: MMM. No oropharygeal lesions or exudate. Cardiac: RRR, no murmurs appreciated Resp: No respiratory distress. CTAB. Abd: Soft, non-distended, nontender : No suprapubic tenderness. Extremities: No deformities. No peripheral edema. Neuro: GCS 15. PERRL. EOMI. Fluent speech, no dysarthria. Motor- 4+ strength LLE with hip flexion and ankle flexion/extension. Otherwise 5/5 strength symmetric bilateral upper and lower extremities including elbow flexors/extensors, wrist flexors/extensors Sensation- Intact to light touch and symmetric multiple dermatomes including upper and lower extremities Coordination- No dysmetria on finger to nose CRANIAL NERVES: II: Pupils equal and reactive, III, IV, : EOM intact, no gaze preference or deviation, no nystagmus. V: normal sensation in V1, V2, and V3 segments bilaterally VII: no asymmetry, no nasolabial fold flattening VIII: normal hearing to speech IX, X: normal palatal elevation, no uvular deviation XI: 5/5 head turn and 5/5 shoulder shrug bilaterally XII: midline tongue protrusion Psych Mental Status: mental status grossly normal Speech and Movement: speech and movement normal Mood: congruent mood Affect: normal affect DS: Data Vitals/I&O Vitals and I&O: Vital Signs Temperature 37.1 C 03/10/23 07:21 Temperature Source Tympanic 03/10/23 07:21 Pulse 53 L 03/10/23 07:21 Pulse Rhythm Regular 03/10/23 08:34 Pulse 58 L 03/10/23 00:50 Respiratory Rate 16 03/10/23 07:21 Respiratory Effort Normal, Non-Labored 03/10/23 08:34 Respiratory Depth Normal 03/10/23 08:34 Respiratory Pattern Normal 03/10/23 08:34 Blood Pressure 176/74 H 03/10/23 07:21 Blood Pressure Mean 90 03/10/23 00:46 Blood Pressure Position Supine 03/09/23 20:57 Pulse Oximetry 98 03/10/23 07:21 Oxygen Delivery Method Room Air 03/10/23 07:21 Oxygen Flow Rate 0 03/10/23 07:21 Pain Level 0 03/10/23 08:40 Comment RN took vitals 03/10/23 01:30 Intake & Output 03/09/23 03/09/23 03/10/23 11:59 23:59 11:59 Intake Total 360 / 360 Balance 360 / 360 Weight 57.1 kg 55.293 kg Intake: Oral 360 / 360 Data Completed and Pending Labs on day of discharge: Labs from last 24 hours 03/10/23 03/10/23 03/10/23 08:26 07:15 07:15 WBC RBC Hgb Hct MCV MCH MCHC RDW Plt Count MPV Immature Gran % Neutrophils % Lymphocytes % Monocytes % Eosinophils % Basophils % Nucleated RBC % Absolute Neutrophils Absolute Lymphocytes Absolute Monocytes Absolute Eosinophils Absolute Basophils PT INR Sodium Potassium Chloride Carbon Dioxide Anion Gap BUN Creatinine Est GFR (CKD-EPI 2020) Glucose Calcium Magnesium Total Bilirubin AST ALT Alkaline Phosphatase Troponin I 50 Total Protein 6.8 Albumin 3.0 L TSH 2.62 Cancelled Urine Color Urine Clarity Urine pH Ur Specific [place] Urine Protein Urine Ketones Urine Blood Urine Nitrite Urine Bilirubin Urine Urobilinogen Ur Leukocyte Esterase Urine RBC Urine WBC Ur Epithelial Cells Urine Crystals Urine Bacteria Urine Casts Urine Mucus Urine Other Ur Culture Indicated? Urine Glucose COVID-19 Source Nasal/Nares SARS-CoV-2 (PCR) Negative 03/10/23 03/09/23 03/09/23 07:15 22:35 21:10 WBC 9.20 10.91 H RBC 3.70 L 4.18 Hgb 11.7 13.3 Hct 34.8 L 39.8 MCV 94 95 MCH 31.6 31.8 MCHC 33.6 33.4 RDW 14.3 14.6 Plt Count 166 183 MPV 12.0 H 12.7 H Immature Gran % 0.4 Neutrophils % 74.3 Lymphocytes % 17.2 Monocytes % 6.2 Eosinophils % 1.2 Basophils % 0.7 Nucleated RBC % 0.0 Absolute Neutrophils 8.11 H Absolute Lymphocytes 1.88 Absolute Monocytes 0.68 Absolute Eosinophils 0.13 Absolute Basophils 0.08 PT 10.3 INR 1.0 Sodium 139 142 Potassium 3.9 3.8 Chloride 106 107 Carbon Dioxide 25.2 24.6 Anion Gap 7.8 10.4 BUN 18 21 H Creatinine 0.9 1.0 Est GFR (CKD-EPI 2020) 63.83 56.25 Glucose 102 138 H Calcium 8.4 L 9.0 Magnesium 1.9 2.0 Total Bilirubin 0.4 0.5 AST 16 18 ALT 16 21 Alkaline Phosphatase 66 78 Troponin I Cancelled < 50 Total Protein 7.6 Albumin 3.5 TSH Urine Color Yellow Urine Clarity Clear Urine pH 5.5 Ur Specific [place] 1.015 Urine Protein Negative Urine Ketones Negative Urine Blood Negative Urine Nitrite Negative Urine Bilirubin Negative Urine Urobilinogen 0.2 Ur Leukocyte Esterase Small H Urine RBC 0-2 Urine WBC 10-20 H Ur Epithelial Cells Few Urine Crystals Negative Urine Bacteria Few Urine Casts 0-2 Hyaline Urine Mucus Trace Urine Other Rare Transitional Ur Culture Indicated? Yes Urine Glucose Negative COVID-19 Source SARS-CoV-2 (PCR) 03/09/23 22:35 Urine - Reflex from Ua Urine Culture - Pending Preliminary micro results at discharge 03/09/23 22:35 Urine Culture - Pending Urine - Reflex from Ua [facility] All Active Problems (Updated 03/10/23 @ 06:50 by Ventura Blank) UTI (urinary tract infection) (Acute) Syncope (Acute) History of TIA (transient ischemic attack) (Acute) Inflamed seborrheic keratosis (Acute ~09/2021) 10/07/21 Dr Licona Parkinsonian features (Acute) Hyperlipidemia (Chronic) Laceration of eyebrow, right (Acute) Closed head injury (Acute) DNI (do not intubate) (Acute) DNR (do not resuscitate) (Acute) POLST (Physician Orders for Life-Sustaining Treatment) (Acute) 12/21/20 filled out both interstate POLST and [place] COLST Hip pain (Acute) SCCA (squamous cell carcinoma) of skin (Acute) [address] [place] [place] of smoking (Chronic) quit December 2018 Lives alone (Chronic) Wears hearing aid in both ears (Acute) Unsteady gait (Chronic) Hypertension (Chronic) well-controlled Urinary incontinence (Chronic) Nonsustained paroxysmal supraventricular tachycardia (Acute) B12 deficiency (Acute) Prediabetes (Acute) 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 (Acute) recovering well Insomnia (Acute) Anemia (Chronic) Intertrochanteric fracture of right femur (Acute 02/03/19) Closed fracture of fibula (Acute 03/01/95) Spinal stenosis of lumbar region (Acute) Status post laminectomy (Acute) IFG (impaired fasting glucose) (Chronic) Pulmonary arterial hypertension (Chronic) Depression (Chronic) Ganglion cyst of tendon sheath of left hand (Chronic) LRF flexor tendon Status post excision on 07/18/2018 Hearing loss (Acute 04/25/12) Essential hypertension (Acute 01/15/13) Hyperlipidemia (Acute 04/25/12) CVA (cerebral vascular accident) (Chronic) Acute kidney injury (Acute) Dehydration, moderate (Acute) Rhabdomyolysis (Acute) Rosacea (Acute) History of appendectomy (Acute) History of bilateral ligation of fallopian tubes (Acute) History of gynecological procedure (Acute) History of orthopedic surgery (Acute) Prolapsed lumbar disc (Acute) Seborrheic keratosis (Acute 11/23/14) Neoplasm of unspecified nature of bone, soft tissue, and skin (Acute 11/23/14) Heart murmur (Acute 01/16/13) Electrocardiogram finding, abnormal, without diagnosis (Acute 07/04/16) Chest pain of uncertain etiology (Acute 10/07/13) neg MPI, normal CXR Medical History Actinic keratosis (~09/2021) Dr Licona Nev 10/07/21 Dr Licona H/O squamous cell carcinoma of skin 10/07/21 Dr Licona Palliative care status will see q 6 months unless she has another decline in health Daily consumption of alcohol down to one drink per week as of 07/21 Generalized weakness improved no longer eligible for home PT/OT COVID-19 ruled out Dysphagia Dysarthria Discharge planning issues Chronic pain syndrome Tobacco abuse (01/11/17) quit Dec 2018 Surgical History History of excision of lesion (01/11/18) Right Cheek [facility] facetectomy s/p left sided L4-L5 faceectomy; Dr. Arenas endometrial biopsy (~1995) neg Ligation of fallopian tube LAMINECTOMY DECOMPRESS FORAMINOTOMY LUMBAR SEG Appendectomy (~2000) Family History Mother , age 59 of colon cancer Neoplasm Hypertension Colon cancer Father , age 64 of massive RI Heart disease Myocardial infarction Sister Sister No problems noted. Son No problems noted. Son No problems noted. Granddaughter No problems noted. Social History Smoking/Tobacco Use Status: Former Tobacco Use Quit Date: 12/01/18 Tobacco: How many years used: 30 Smoking risk assessment performed?: Yes Alcohol Intake: current Alcohol Intake frequency: 0-2 drinks per day Alcohol type: wine Drug use: Never Substance use type: does not use Caregiver/Support person: Yes Household members: children and other Details: sons alternate visiting from [place] Housing: house Number of Children: 2 number of grandchildren: 3 Communication Needs: Hard of Hearing and Corrective Lenses Education Level: high school Do you need help understanding health information?: Often current occupation: did not work outside the home Pets and animals: Yes ([facility] Wynn 11 [facility] Pets and animals: dog(s) Current gender identity: female What is your relationship status?: How often do you talk on the phone with friends or family?: three or more times per week How often do you get together with friends or relatives?: three or more times per week Panel score (0-1 are the most socially isolated patients): 1 What type of physical activity do you participate in: walking and additional Details: elliptical exercise machine Duration: 30-45 minutes/day Frequency: daily Special daniela needs: No Agree to transfusion: Yes Seatbelt use: always Working smoke detector in home: Yes Fire extinguisher in home: Yes Do you feel safe at home: Yes Do you feel safe in your relationship?: Yes Additional Social history: Sons Ryan and Adalid help care for Davida in her [place], [place] home; they drive up from [place]. She spends manrique in [place] but really loves [place]. Davida unable to drive at this time but wants to get behind the wheel again. Willing to have road test with [facility]. Davida committed to doing what she can to stay living independently in her home, where she has lived for 40 years. Unfortunately, due to COVID-19, very hard to hire caregivers; she has one who comes 3 x week, helps with housework and groceries. Davida has been for 10 years and has loved living alone. Sons Adalid and Ryan, are ages 59 and 57. Adalid is Davida's DPOA financially and medically, she reports. She has made amazing progress since her stroke. Will schedule cdl driver's test this fall. Time Spent with Patient Time Spent with Patient: 45-69 minutes Time was spent: obtaining and/or reviewing separately otained hiistory, counseling the patient and care coordination
[2023-03-10] MEDS: Fosfomycin Tromethamine 3 GM PACKET PO (11:25)
== END 2023-03-10 14:07 | disposition home or self-care (01) ==
LOC: ER 03-10 00:45 → MS 03-10 06:35
PROVIDERS: Student in an Organized Health Care Education/Training Program; Admitting Provider Family Medicine; Emergency Provider Student in an Organized Health Care Education/Training Program; PCP Nurse Practitioner; Visit Provider Family Medicine
DX: R55 Syncope and collapse (principal); I69.344 Monoplegia of lower limb following cerebral infarction affecting left non-dominant side; N30.00 Acute cystitis without hematuria; R60.0 Localized edema; R32 Unspecified urinary incontinence; I10 Essential (primary) hypertension; E78.2 Mixed hyperlipidemia; G20.C Parkinsonism, unspecified; Z87.891 Personal history of nicotine dependence; R26.81 Unsteadiness on feet; I47.19 Other supraventricular tachycardia; E53.8 Deficiency of other specified B group vitamins; R73.03 Prediabetes; G47.00 Insomnia, unspecified; D64.9 Anemia, unspecified; Z79.82 Long term (current) use of aspirin; Z79.899 Other long term (current) drug therapy
CPT/HCPCS: 00123; 36415; 36416; 70496; 70498; 80053; 82962; 85027; 87635; 93005; 93270; 96372; 97161; 99285; J1650; 81003; 81015; 83735; 84443; 84484; 85025; 85610; 87086; 93010; 99236; G0378; J3490

== ENCOUNTER 2023-03-30 11:07 | Outpatient (CLI) | payer MEDICARE, SELFPAY ==
--- NOTE | 2023-03-30 11:18 | ZIOP_ITS ---
Date of service: 03/30/23 Time of Service: 11:18 14 Day Metal Trim Erector Referring Provider:: Bryson Indications:: Syncope and collapse Note: This was a 14-day property assessment monitor for syncope and collapse 1. The underlying rhythm is sinus with rate range 41 to 96 bpm. 2. No ventricular or supraventricular ectopy recorded 3. No pauses recorded 4. No patient triggers
== END 2023-03-30 11:08 | disposition home or self-care (01) ==
LOC: CARDOPNVT 11:07
PROVIDERS: PCP Nurse Practitioner; Visit Provider Internal Medicine Interventional Cardiology
DX: R55 Syncope and collapse (principal); Z86.73 Personal history of transient ischemic attack (TIA), and cerebral infarction without residual deficits
CPT/HCPCS: 00123; 93246; 93248

== ENCOUNTER 2023-04-09 16:42 | Outpatient (REF) | payer MEDICARE, SELFPAY | END 2023-04-09 16:43 | disposition home or self-care (01) | LOC: LBN 16:42 | PROVIDERS: PCP Nurse Practitioner; Visit Provider Nurse Practitioner | DX: R35.0 Frequency of micturition (principal) | CPT/HCPCS: 87077; 87086; 87186 ==

== ENCOUNTER 2023-04-17 12:14 | Outpatient (REF) | payer MEDICARE, SELFPAY ==
[2023-04-17 13:02] LABS: Bilirubin Negative (Negative); Blood Negative (Negative); Clarity Sl Cloudy (Clear); Glucose Negative (Negative); Ketones Negative (Negative); Leukocyte Esterase Negative (Negative); Nitrite Positive (Negative); Urobilinogen 0.2 mg/dL (Up to 0.2)
[2023-04-17 13:07] LABS: RBC 0-2 HPF (0-2)
[2023-04-17 13:08] LABS: Bacteria Many HPF (Negative); C & S Indicated? Yes; Casts Negative LPF (Negative); Crystals Negative HPF (Negative); Epithelial Cells Few HPF (Negative); Mucus Negative (Negative)
== END 2023-04-17 12:15 | disposition home or self-care (01) ==
LOC: NCHCN 12:14
PROVIDERS: PCP Nurse Practitioner; Visit Provider Nurse Practitioner Adult Health
DX: R30.0 Dysuria (principal)
CPT/HCPCS: 87077; 81003; 81015; 87086; 87186

== ENCOUNTER → 2023-05-02 14:32 | Outpatient (BNVA) | payer MEDICARE, SELFPAY | PROVIDERS: PCP Nurse Practitioner; Referring Provider Nurse Practitioner; Visit Provider Psychiatry & Neurology Neurology | DX: I63.311 Cerebral infarction due to thrombosis of right middle cerebral artery (principal); R40.4 Transient alteration of awareness; R41.3 Other amnesia; R25.9 Unspecified abnormal involuntary movements | CPT/HCPCS: 99214 ==

== ENCOUNTER → 2023-05-15 02:54 | Outpatient (CLI) | payer MEDICARE, SELFPAY ==
--- NOTE | 2023-05-15 11:35 | DI.MRI_ITS ---
Exam(s) MR BRAIN WO EXAM: MR BRAIN WO CLINICAL HISTORY: seizure vs TIS,paroxysmal speell,R40.4 TECHNIQUE: Multiplanar multisequence MRI of the brain was performed. COMPARISON: MR MR BRAIN WO from 08/26/2019 MR MRI BRAIN WITHOUT IV CONTRAST from 02/03/2023 FINDINGS: VENTRICLES AND EXTRA AXIAL SPACES: Normal in size and morphology for the patient's age. MIDLINE SHIFT: None. CEREBRAL PARENCHYMA: No focus of restricted diffusion to suggest acute infarct. No space-occupying le yamel identified. The degree of hyperintense signal in the white matter is unchanged compared to prior examinations. This likely is due to chronic microvascular ischemic disease. There again seen old b ilateral lacunar infarcts. The medial temporal lobes appear symmetric and show normal signal. There is global cerebral atrophy consistent with the patient's age. HEMORRHAGE: None. BRAINSTEM/CEREBELLUM: Normal. CALVARIUM: Normal. VISUALIZED PARANASAL SINUSES/MASTOIDS:Clear. [place]: Normal flow void. PITUITARY GLAND: There is a thin amount of tissue seen in the base of the sella consistent with a par tially empty sella. OTHER FINDINGS: None. IMPRESSION: 1. Stable cerebral atrophy and diffuse white matter disease likely reflecting chronic microvascular i schemic disease. 2. Bilateral old lacunar infarcts. 3. Stable symmetric appearance of the medial temporal lobes bilaterally. No intracranial mass is mak ntified. DATA REPOSITORY:
== END ==
PROVIDERS: PCP Nurse Practitioner; Visit Provider Psychiatry & Neurology Neurology
DX: R40.4 Transient alteration of awareness (principal)
CPT/HCPCS: 70551

== ENCOUNTER 2023-05-24 01:50 | Outpatient (CLI) | payer MEDICARE, SELFPAY ==
--- NOTE | 2023-05-24 19:27 | PDOC.EEG ---
Neurology EEG EEG: [facility] Department of Neurology EEG REPORT Date of Recordin05/24/23 Interpreting Physician: Dr. Liliya Jean-Baptiste PCP/Referring Provider: Giuliana Massey NP Reason for study: aTmmi Ivan is an 82 year old with dementia and prior strokes with recent episodes of LOC. Current Medications: Home Medications Medication Instructions Recorded Confirmed Type multivitamin with [id number] 1 ea PO DAILY 09/04/12 05/02/23 History 400 mcg-120 mg tablet (Women's 50+ Daily Formula (with ginkgo)) cholecalciferol (vitamin D3) 25 1,000 unit PO DAILY 10/02/13 05/02/23 History mcg (1,000 unit) capsule cyanocobalamin (vitamin B-12) 1,000 mcg PO DAILY #30 caps 08/26/19 05/02/23 Rx 1,000 mcg capsule lactulose 10 gram/15 mL (15 mL) 10 g (15 mL) PO DAILY PRN 10/14/21 05/02/23 Rx oral solution constipation #750 mL aspirin 81 mg tablet,delayed 81 mg PO DAILY #90 tabs 09/13/22 05/02/23 Rx release amlodipine 2.5 mg tablet 2.5 mg PO DAILY #90 tabs 10/12/22 05/02/23 Rx atorvastatin 80 mg tablet 80 mg PO QHS #90 tabs 10/12/22 05/02/23 Rx diclofenac sodium 1 % topical gel 2 g topical QID #100 grams 10/12/22 05/02/23 Rx (Arthritis Pain (diclofenac)) fluorouracil 5 % topical cream 1 applic topical DAILY #40 grams 10/12/22 05/02/23 Rx lisinopril 40 mg tablet See Rx Instructions .Route 10/12/22 05/02/23 Rx .COMPLEX #90 tabs trazodone 50 mg tablet See Rx Instructions PO QHS PRN 03/05/23 05/02/23 Rx sleep #30 tabs coenzyme Q10 75 mg capsule (Ultra 75 mg PO DAILY 04/09/23 05/02/23 History CoQ10) dietary supp combo no.21 190 tab PO QDAY 04/09/23 05/02/23 History mg-calcium phosphate 85 mg calcium tablet cefpodoxime 200 mg tablet 200 mg PO BID #14 tabs 04/19/23 05/02/23 Rx METHODS: A 21 channel digitized electroencephalogram was performed in the [facility]. The 10/20 international system of electrode placement was used and bipolar and referential electrode montages were recorded. In addition to EEG the patient was monitored for EKG and lateral/vertical eye movements. Activation procedures of photic stimulation and hyperventilation were performed if applicable. Video was used during activation procedures and during events where applicable. The duration of the recording was 30 minutes. DESCRIPTION OF EEG: The patient was noted to be awake and drowsy during the recording. During maximal wakefulness a 10-Hz posterior background rhythm was present which was well-modulated, symmetrical, reactive to eye opening, and of moderate voltage. With eye opening the background activity changed to a low voltage mixture of alpha, beta, and occasional theta range frequencies. Faster frequencies were present in the bilateral anterior head regions. There was a normal anterior-posterior voltage gradient. During drowsiness, there was attenuation of the posterior dominant background rhythm and vertex waves. No stage II sleep was recorded. There was occasional, generalized, moderate-amplitude, irregular slowing. Activating Procedures: Photic stimulation was performed which produced a symmetrical posterior driving response at various flash frequencies. Hyperventilation was not performed. EKG: EKG revealed normal sinus rhythm; though at times it was irregular. INTERPRETATION: This EEG is abnormal due to occasional generalized, non-rhythmic, slowing. The EKG had rare irregularity. PRIOR EEG: none CLINICAL CORRELATION: The slowing is suggestive of a mild diffuse cerebral encephalopathy of broad differential including toxic-metabolic etiology. No focal regions of cerebral dysfunction or epileptiform activity was present. EKG changes noted above. Clinical correlation is advised. Liliya Jean-Baptiste MD Date of service: 05/24/23
== END 2023-05-24 01:51 | disposition home or self-care (01) ==
LOC: RT 01:51
PROVIDERS: PCP Nurse Practitioner; Visit Provider Psychiatry & Neurology Neurology
DX: F03.90 Unspecified dementia, unspecified severity, without behavioral disturbance, psychotic disturbance, mood disturbance, and anxiety (principal)
CPT/HCPCS: 95816

== ENCOUNTER → 2023-05-25 09:29 | Outpatient (BNVA) | payer MEDICARE, SELFPAY | PROVIDERS: PCP Nurse Practitioner; Referring Provider Nurse Practitioner; Visit Provider Psychiatry & Neurology Neurology ==

== ENCOUNTER → 2023-07-04 12:32 | Outpatient (BNVA) | payer MEDICARE, SELFPAY | PROVIDERS: PCP Nurse Practitioner; Referring Provider Nurse Practitioner; Visit Provider Psychiatry & Neurology Neurology | DX: I63.311 Cerebral infarction due to thrombosis of right middle cerebral artery (principal); R41.3 Other amnesia; R25.9 Unspecified abnormal involuntary movements; R40.4 Transient alteration of awareness | CPT/HCPCS: 99213 ==

== ENCOUNTER → 2023-09-18 03:40 | Outpatient (CLI) | payer MEDICARE, SELFPAY ==
--- NOTE | 2023-09-18 07:45 | DI.CT_ITS ---
Exam(s) CT ABDOMEN PELVIS W EXAM: CT ABDOMEN PELVIS W CLINICAL HISTORY: intermittent right and left mid abdominal pain,R10.9. TECHNIQUE: Imaging Protocol: Axial computed tomography images with coronal and sagittal reformatted images were created and reviewed CONTRAST MATERIAL: Intravenous: Omnipaque-350 100cc Oral: Yes. Oral contrast was also administered for bowel opacification COMPARISON: CT CT BRAIN NECK CTA from 03/09/2023 FINDINGS: VISUALIZED LUNG BASES: Some atelectasis noted in the lung bases. Mildly elevated right hemidiaphragm .. ABDOMEN: There is a large hiatal hernia. The entire fundus of the stomach is in the chest retrocardiac region LIVER: There are no focal hepatic lesions evident. No dilated intrahepatic ducts. GALLBLADDER/BILIARY: No obvious gallbladder pathology. CBD is not dilated. PANCREAS: No evidence of pancreatic mass nor dilatation of the pancreatic duct. SPLEEN: Spleen is not enlarged. No obvious intrasplenic lesions. Splenic and portal veins are paten t. ADRENALS: There are no significant adrenal masses. KIDNEYS:Left kidney unremarkable. There is benign cyst in the anterior cortex of the right kidney wh ich measures 3 x 2.4 cm. Does not require further workup. The right ureter is dilated. It exhibits a diameter of 5 mm in the abdomen. There is no obvious radiopaque obstructing calculus. No obvious mass in the bladder at the right UVJ although this is partially obscured by beam hardening artifact from right hip hardware. ABDOMINAL AORTA: The abdominal aorta is heavily calcified but not enlarged. The common iliac arterie s are heavily calcified but not enlarged as are the external iliac arteries. LYMPH NODES:There is no retroperitoneal nor paraaortic adenopathy. ABDOMINAL WALL: No evidence of significant anterior abdominal wall nor inguinal hernia. GI: There is no evidence of bowel obstruction, free air, nor abscess. PELVIS: GI: Appendix is not seen is a separate structure. There is no obvious evidence of acute appendicitis .There is extensive diverticulosis of the sigmoid. No obvious acute diverticulitis. LYMPH NODES: No adenopathy evident. REPRODUCTIVE: Uterus and adnexal regions appear un remarkable and there is no free fluid in the pelvi s. URINARY BLADDER: No calculi nor obvious masses evident OSSEOUS: Right hip ORIF hardware noted. No fractures. No significant osseous lesions. IMPRESSION: 1. Large retrocardiac hiatal hernia noted. 2. Extensive sigmoid diverticulosis. No obvious acute diverticulitis at this time. 3. There is mild dilatation of the right ureter along most of its length and mild right-sided hydrone phrosis. There is no obvious radiopaque calculus within the right ureter nor within the urinary blad john. Possibility of non radiopaque calculus versus subtle uroepithelial neoplasm causing obstruction . Consider urology consultation. 4. No evidence of bowel obstruction, free air, nor abscess. RADIATION DOSE DELIVERED: 705.71mGy.cm Total DLP DATA REPOSITORY: All CT scans at this facility are submitted to the National Radiology Data Registry (NRDR) Dose Index Registry (DIR) with the [employer] (A[employer]). RADIATION OPTIMIZATION: All CT scans at this facility use at least one of these dose optimization te chniques: automated exposure control; mA and/or kV adjustment per patient size (includes targeted exa ms where dose is matched to clinical indication); or iterative reconstruction.
[2023-09-18] MEDS: Breeza Beverage 473 ML BTL PO ×2 (08:58→08:59)
[2023-09-18] MEDS: Omnipaque 350 MG/ML 50 ML BTL PO (08:59)
[2023-09-18 09:11] LABS: CREATININE 0.8 mg/dL (0.55-1.02); Estimated GFR 73.06 (mL/min/1.73m2)
[2023-09-18] MEDS: Omnipaque 350 MG/ML 500 ML BTL-Imaging package 100 ML IJ (11:02)
[2023-09-18] MEDS: Normal Saline - Diluent 50 ML VIAL IJ (11:02)
== END ==
PROVIDERS: Family Medicine; PCP Nurse Practitioner; Visit Provider Nurse Practitioner
DX: N13.30 Unspecified hydronephrosis (principal); K44.9 Diaphragmatic hernia without obstruction or gangrene
CPT/HCPCS: 74177; 82565; Q9967

== ENCOUNTER → 2023-09-27 07:50 | Outpatient (BNVA) | payer MEDICARE, SELFPAY | PROVIDERS: PCP Nurse Practitioner; Referring Provider Nurse Practitioner; Visit Provider Nurse Practitioner Gerontology | DX: N13.30 Unspecified hydronephrosis (principal) | CPT/HCPCS: 51798; 99215 ==

== ENCOUNTER → 2023-12-05 10:07 | Outpatient (BNVA) | payer MEDICARE, SELFPAY | PROVIDERS: PCP Nurse Practitioner; Referring Provider Nurse Practitioner; Visit Provider Psychiatry & Neurology Neurology | DX: I63.311 Cerebral infarction due to thrombosis of right middle cerebral artery (principal); R41.3 Other amnesia; R25.9 Unspecified abnormal involuntary movements; R40.4 Transient alteration of awareness | CPT/HCPCS: 99214 ==

== ENCOUNTER 2024-10-03 11:42 | Outpatient (REF) | payer MEDICARE, SELFPAY ==
[2024-10-03 17:53] LABS: Glucose Negative (Negative)
[2024-10-03 18:14] LABS: C & S Indicated? Yes; RBC 0-2 HPF (0-2); WBC >50 HPF (0-5)
== END 2024-10-03 11:43 | disposition home or self-care (01) ==
LOC: LBN 11:42
PROVIDERS: Visit Provider Nurse Practitioner Family
DX: R30.0 Dysuria (principal)
CPT/HCPCS: 87077; 81003; 81015; 87086; 87186